=== PATIENT | female | born 1970 | race Caucasian/White ===

== ENCOUNTER 2020-05-18 21:21 | Inpatient (IN) | payer BC, SELFPAY ==
--- NOTE | ~2020-05-18 | CT_ITS ---
EXAMINATION: CTA chest PE protocol DATE: 05/19/2020 13:49 INDICATION: Shortness of breath and asthma TECHNIQUE: Computed tomography angiography (CTA) of the chest was performed with 100 mL Omnipaque-350 intravenous contrast timed to evaluate the pulmonary arteries. Coronal maximum intensity projection 3D-reconstructions were created by the technologist. The dose-length product (DLP) was 862.25 mGy-cm. Automated exposure control and iterative reconstruction technique were employed. COMPARISON: 10/01/2018 FINDINGS: The pulmonary arteries are well-opacified. No pulmonary embolism is identified. The lungs a re free of acute opacities. There is no pleural effusion or pneumothorax. A stable 2 mm nodule is pre sent in the right lower lobe, consistent with old granulomatous disease. There is no pleural effusion or pneumothorax. A large sliding hiatal hernia is noted. No pathologically enlarged thoracic lymph n odes are identified. The heart size is normal. There is mild thoracic spondylosis. IMPRESSION: 1. No pulmonary embolism or acute cardiopulmonary abnormality. Reviewed, dictated and finalized at location A.
--- NOTE | ~2020-05-18 | XR_ITS ---
EXAMINATION: XR chest 1V portable DATE: 05/18/2020 22:42 INDICATION: Shortness of breath. TECHNIQUE: A single frontal view of the chest was obtained. COMPARISON: Chest 2 views 03/18/2019 FINDINGS: There is mild atelectasis in the lower lung zones. No pleural effusion or pneumothorax. The heart size is normal. There is a large hiatal hernia. IMPRESSION: 1. Mild atelectasis in the lower lung zones. 2. Large hiatal hernia. Reviewed, dictated and finalized at location A.
[2020-05-18 21:25] VITALS: BP 201/106; PULSE 121; RESP 26; TEMP 36.7; O2SAT 85
[2020-05-18 21:28] VITALS: O2SAT 96
--- NOTE | 2020-05-18 21:35 | ECG_ITS ---
Measurements Intervals [place] Rate: 112 P: 76 CA: 133 QRS: 72 QRSD: 88 T: 60 QT: 343 QTc: 468 Interpretive Statements SINUS TACHYCARDIA BORDERLINE ST ABNORMALITY- ANTEROLAT/INF LEADS BASELINE ARTIFACT- I, II, III, AVR, AVL, AVF, V1-V6 ABNORMAL ECG Electronically Signed On 05-19-2020 7:44:39 CDT by William Valera D.O.
[2020-05-18 21:50] LABS: Basophils Absolute Auto 0.1 K/mm3 (0.0-0.1); Basophils Percent Auto 0.6 % (0.2-1.2); Hematocrit 40.5 % (37.0-47.0); Hemoglobin 12.2 g/dL (12.0-15.0); Immature Granulocyte Absolute 0.08 K/mm3 (0.00-0.031); Immature Granulocyte Percent A 0.9 % (0-0.5); Lymphocytes Absolute Auto 0.58 K/mm3 (0.9-3.2); Lymphocytes Percent Auto 6.6 % (18.3-44.2); Mean Corpuscular HGB Conc 30.1 g/dl (32-36); Mean Corpuscular Hemoglobin 22.2 pg (26-34); Mean Corpuscular Volume 73.8 fl (80-100); Monocytes Absolute Auto 0.2 K/mm3 (0.1-0.6); Monocytes Percent Auto 1.8 % (2.6-8.5); Neutrophils Absolute Auto 7.9 K/mm3 (1.3-6.7); Neutrophils Percent Auto 90.1 % (45.5-73.1); Platelet Count Result 261 k/mm3 (150-375); Red Blood Count 5.49 M/mm3 (4.2-5.4); White Blood Count 8.8 K/mm3 (4.5-10.0)
[2020-05-18 21:59] LABS: Blood Urea Nitrogen 7 mg/dL (7-17); Calcium 8.7 mg/dL (8.4-10.2); Carbon Dioxide 25 mmol/L (22-30); Chloride 101 mmol/L (98-107); Estimated CRCL calculation 135 ml/min; Estimated Glomerular Filt Rate > 60; Glucose 213 mg/dL (65-105); Sodium 138 mmol/L (137-145)
[2020-05-18 22:01] LABS: Ovalocytes 2+ (NORMAL); Platelet Estimate Adequate (Adequate)
--- NOTE | 2020-05-18 22:05 | PC.NURSE ---
Called lab to add on Trop Baseline, PT INR, PTT
[2020-05-18 22:09] VITALS: PULSE 116
[2020-05-18 22:18] LABS: Prothrombin Time 13.2 Seconds (11.1-14.7)
[2020-05-18 22:19] LABS: Partial Thromboplastin Time 29.1 SECONDS (22.3-36.8)
[2020-05-18 22:21] VITALS: BP 196/91; PULSE 105; RESP 20; O2SAT 97
[2020-05-18 22:26] LABS: Troponin I < 0.012 ng/mL (0.000-0.034)
--- NOTE | 2020-05-18 22:51 | ED.ASTHMA ---
HPI - Asthma General Chief Complaint: Asthma Stated Complaint: asthma issues Time Seen by Provider: 05/18/20 21:33 History of Present Illness HPI Narrative: 49 yo female w/ asthma presents to the ED from home for SOB. She has been feeling increasing SOB for the past 2 days. This is associated with wheezing and chest heaviness. These are her usual asthma symtpoms. She tried her home treatments without improvement. O2 saturation 85% on RA during triage. No fever, cough. Related Data Home Medications Medication Instructions Recorded Confirmed cetirizine 10 mg tablet 10 mg PO DAILY 12/22/19 05/19/20 ferrous sulfate 325 mg (65 mg 325 mg PO BID 12/22/19 05/19/20 iron) tablet omeprazole 20 mg tablet,delayed 20 mg PO DAILY 12/22/19 05/19/20 release budesonide-formoterol [Symbicort] 2 puff INHALATION Q12H 05/19/20 05/19/20 fluticasone propionate [Flonase 1 spray INTRANASAL DAILY 05/19/20 05/19/20 Allergy Relief] Allergies Allergy/AdvReac Type Severity Reaction Status Date / Time mold Allergy Intermediate Dyspnea / Verified 05/19/20 03:58 SOB tree and shrub pollen Allergy Intermediate Itching Verified 05/19/20 03:58 Grass Allergy Intermediate Itching Uncoded 05/19/20 03:58 Review of Systems Review of Systems: All systems reviewed & are unremarkable except as noted in HPI and below Constitutional: Constitutional: Denies fever(s) ENT: Denies sore throat Cardiovascular: Cardiovascular: Reports chest pain Respiratory: Respiratory: Denies cough, Reports dyspnea and Reports wheezing PMFSH Past Medical History Medical History Asthma Thalassemia Surgical History Surgical History Hx of hysterectomy, total Family History Family History Father Family history of atrial fibrillation Sibling Asthma Mother Chronic obstructive pulmonary disease Other Diabetes mellitus Family history of type 2 diabetes mellitus Hypertension Social History Social History Smoking status: Never smoker Second hand tobacco smoke exposure: Yes Alcohol intake: former Substance use: never Gender identity (if verbalized by the patient): Female Sexual Orientation (if Verbalized by the Patient): Straight or Heterosexual Spiritual care concerns: No Exam Const: General: no acute distress, alert and ill appearing Orientation/consciousness: patient oriented x3 HENMT: Head: normal to inspection Neck: Neck: normal visual inspection and no lymphadenopathy Resp: Effort & Inspection: labored and tachypneic Auscultation: wheezes Cardio: Jugular venous distension: no JVD Rate: tachycardic Rhythm: regular rhythm Heart sounds: no murmurs GI: Inspection: non-distended GI Palp: Yes Soft to palpation and No Tenderness to palpation present (GI) Skin: General skin exam: normal color Neuro: General: patient oriented x3 and moves all extremities Speech: normal speech Extrem: General: no edema Psych: Appearance: well kempt Affect: normal affect Course Course Emergency Course: She shows minimal improvmeent after nebulizer, magnesium, and solu-medrol. I will plan to admit for scheduled nebs and steroids. Vital Signs Vital signs: Vital Signs Temperature 36.7 C 05/18/20 21:25 Pulse Rate 121 H 05/18/20 21:25 Respiratory Rate 26 H 05/18/20 21:25 Blood Pressure 201/106 H 05/18/20 21:25 Pulse Oximetry 85 L 05/18/20 21:25 Temperature 36.4 C 05/19/20 03:42 Pulse Rate 105 H 05/19/20 03:42 Respiratory Rate 21 H 05/19/20 03:42 Blood Pressure 212/96 H 05/19/20 03:42 Pulse Oximetry 93 05/19/20 03:42 MDM - Asthma Medical Records Attestation: I reviewed the patient's medical records. Lab Data Attestation: I reviewed the patient's lab results. Result diagrams
[2020-05-18] MEDS: methylPREDNISolone SOD SUCC 125 MG VIAL IV PUSH (23:04)
[2020-05-18] MEDS: MAGNESIUM SULF 2 GM/WATER 50ML 2 GM/50 ML BAG IVPB (23:04)
[2020-05-18 23:09] VITALS: BP 187/113; PULSE 104; RESP 16; O2SAT 97
[2020-05-18] MEDS: IPRATROPIUM BR 0.02% INH SOLN 0.5 MG/2.5 ML VIAL 1 MG INHALATION (23:20)
[2020-05-18] MEDS: ALBUTEROL SULFATE NEB 2.5 MG/0.5 ML INH 10 MG INHALATION (23:20)
[2020-05-18 23:26] VITALS: PULSE 101; RESP 21
[2020-05-19] VITALS (20 sets, daily range): BP systolic 145–212; BP diastolic 78–105; PULSE 76–121; RESP 14–24; TEMP 36.4–36.9; O2SAT 89–98; BMI 44.0
[2020-05-19 01:42] LABS: Troponin I < 0.012 ng/mL (0.000-0.034)
--- NOTE | 2020-05-19 01:45 | PM.IMHP ---
H&P: HPI History of Present Illness Chief complaint: asthma issues Narrative: This is a pleasant 49 year old obese female with known persistent asthma who presented to the hospital with a complaint of worsening shortness of breath, chest tightness, wheezing, and increased work of breathing for the past 3 days. She remarks that her air conditioner went out in her house this past week and even though they got a window unit she has had to deal with increased heat and humidity in the house which she believes has triggered her asthma attack. She feels congested and has had a sporadic dry cough. She denies any fever, chills, sore throat, abdominal pain, nausea, vomiting, dysuria, hematuria, diarrhea, LE swelling, LE redness, or rectal bleeding. The patient was treated with steroids, bronchodilators, magnesium in the ER but continues to have increased work of breathing and severe shortness of breath. She has not required any supplemental oxygen. She denies any previous hospitalization which required intubation and mechanical ventilation. No other complaints tonight. Review of Systems Review of Systems: All systems reviewed & are unremarkable except as noted in HPI and below PMFSH Past Medical History Medical History (Updated 05/19/20 @ 01:54 by Enmanuel Moore MD) Asthma Thalassemia Surgical History Surgical History (Updated 05/19/20 @ 01:49 by Enmanuel Moore MD) Hx of hysterectomy, total Family History Family History (Updated 05/19/20 @ 01:50 by Enmanuel Moore MD) Father Family history of atrial fibrillation Sibling Asthma Other Diabetes mellitus Family history of type 2 diabetes mellitus Hypertension Social History Social History Smoking status: Never smoker Alcohol intake: current Meds Home Medications and Allergies Home Medications Medication Instructions Recorded Confirmed Type amlodipine 10 mg tablet 10 mg PO DAILY 12/22/19 History cetirizine 10 mg tablet 10 mg PO DAILY 12/22/19 History compressor, for nebulizer #1 each 12/22/19 12/22/19 Rx ferrous sulfate 325 mg (65 mg 325 mg PO DAILY 12/22/19 History iron) tablet fluticasone furoate 200 1 inhalation INHALATION DAILY 12/22/19 History mcg-vilanterol 25 mcg/dose inhalation powder lisinopril 20 mg tablet 20 mg PO DAILY 12/22/19 History omeprazole 20 mg tablet,delayed 20 mg PO DAILY 12/22/19 History release prednisone 10 mg tablet 10 mg PO TID #15 tablet 02/13/20 Rx ipratropium 0.5 mg-albuterol 3 mg See Rx Instructions .ROUTE 03/14/20 Rx (2.5 mg base)/3 mL nebulization .COMPLEX #180 ml soln albuterol sulfate 90 mcg/actuation 2 puff INHALATION Q4H PRN #6.7 gm 05/18/20 Rx aerosol inhaler escitalopram oxalate 20 mg tablet 20 mg PO DAILY #30 tablet 05/18/20 Rx prednisone 10 mg tablet 30 mg PO DAILY #15 tablet 05/18/20 Rx Allergies Allergy/AdvReac Type Severity Reaction Status Date / Time mold Allergy Intermediate Dyspnea / Verified 12/22/19 14:09 SOB tree and shrub pollen Allergy Intermediate Itching Verified 12/22/19 14:09 Grass Allergy Intermediate Itching Uncoded 12/22/19 14:09 Vital Signs Vital Signs - 24 hr 05/18/20 21:25 05/18/20 21:28 05/18/20 22:09 Temperature 36.7 C Pulse Rate 121 H 116 H Respiratory Rate 26 H Blood Pressure 201/106 H Pulse Oximetry 85 L 96 05/18/20 22:21 05/18/20 23:09 05/18/20 23:26 Temperature Pulse Rate 105 H 104 H 101 H Respiratory Rate 20 16 21 H Blood Pressure 196/91 H 187/113 H Pulse Oximetry 97 97 05/19/20 00:14 05/19/20 00:31 Temperature Pulse Rate 111 H 120 H Respiratory Rate 14 21 H Blood Pressure 181/105 H Pulse Oximetry 98 Exam Const: General: cooperative, alert, awake, in distress respiratory, anxious, ill appearing, tired appearing and uncomfortable Nutritional Appearance: obese morbidly obese Orientation/consciousness: patient oriented x3 HENMT: Jose
[2020-05-19] MEDS: IPRATROPIUM BR 0.02% INH SOLN 0.5 MG/2.5 ML VIAL INHALATION ×2 (01:52→08:59)
[2020-05-19] MEDS: ALBUTEROL SULFATE NEB 2.5 MG/0.5 ML INH 5 MG INHALATION (01:52)
--- NOTE | 2020-05-19 02:40 | PC.NURSE ---
Per EDP Matheus, hold dose of hydralazine at this time.
--- NOTE | 2020-05-19 03:30 | ADMGEN ---
This patient, Michell Huffman, was admitted to Medical Room 348-. Patient/family oriented to hospital policies and general routines including ID bracelet, bed and alarms, visiting hours, pain management, procedures, bathroom and other care routines, personal items, smoking policy, room service/diet, and visiting hours. Valuables list has been completed. Information on how to activate the Rapid Response Team has been discussed. Patient/Family are encouraged to report perceived risks to care and to ask questions if they do not understand what they are told or what they should do.
[2020-05-19] MEDS: hydrALAZINE HCL 20 MG/ML VIAL 10 MG IV PUSH ×2 (03:52→12:41)
[2020-05-19] MEDS: SODIUM CHLORIDE 0.9% IV 1,000 ML 75 ML IV CONT (03:52)
[2020-05-19] MEDS: ACETAMINOPHEN 325 MG TABLET 650 MG PO (03:55)
[2020-05-19 04:10] LABS: Basophils Percent Auto 0.2 % (0.2-1.2); Hematocrit 38.4 % (37.0-47.0); Hemoglobin 11.6 g/dL (12.0-15.0); Immature Granulocyte Absolute 0.08 K/mm3 (0.00-0.031); Immature Granulocyte Percent A 0.9 % (0-0.5); Immature Platelet Fraction Pct 3.7 % (0.9-11.2); Lymphocytes Absolute Auto 0.53 K/mm3 (0.9-3.2); Lymphocytes Percent Auto 5.6 % (18.3-44.2); Mean Corpuscular HGB Conc 30.2 g/dl (32-36); Mean Corpuscular Hemoglobin 22.2 pg (26-34); Mean Corpuscular Volume 73.6 fl (80-100); Monocytes Absolute Auto 0.1 K/mm3 (0.1-0.6); Monocytes Percent Auto 0.9 % (2.6-8.5); Neutrophils Absolute Auto 8.7 K/mm3 (1.3-6.7); Neutrophils Percent Auto 92.4 % (45.5-73.1); Platelet Count Result 265 k/mm3 (150-375); Red Blood Count 5.22 M/mm3 (4.2-5.4); White Blood Count 9.4 K/mm3 (4.5-10.0)
[2020-05-19 04:20] LABS: Blood Urea Nitrogen 13 mg/dL (7-17); Calcium 8.7 mg/dL (8.4-10.2); Carbon Dioxide 25 mmol/L (22-30); Chloride 102 mmol/L (98-107); Estimated CRCL calculation 144 ml/min; Estimated Glomerular Filt Rate > 60; Glucose 199 mg/dL (65-105); Magnesium 2.6 mg/dL (1.6-2.3); Potassium 3.7 mmol/L (3.4-5.0); Sodium 137 mmol/L (137-145)
[2020-05-19 04:31] LABS: Troponin I < 0.012 ng/mL (0.000-0.034)
[2020-05-19 05:28] LABS: Platelet Estimate Adequate (Adequate)
[2020-05-19 05:29] LABS: Large Platelets Present; Microcytosis 1+ (NORMAL); Ovalocytes 1+ (NORMAL)
[2020-05-19] MEDS: methylPREDNISolone SOD SUCC 125 MG VIAL 60 MG IV PUSH ×3 (06:15→17:15)
[2020-05-19] MEDS: FLUTICASONE PROPIONATE 0.05% NA SPR 16 GM BTL (*BKC) 1 SPRAY NASAL (09:45)
[2020-05-19] MEDS: FERROUS SULFATE 324 MG TABLET PO ×2 (09:46→17:14)
[2020-05-19] MEDS: ESCITALOPRAM OXALATE 10 MG TABLET 20 MG PO (09:46)
[2020-05-19] MEDS: PANTOPRAZOLE 40 MG TABLET PO (09:46)
--- NOTE | 2020-05-19 12:30 | PC.NURSE ---
This patient, Michell Huffman, was transferred to [facility] on 05/19/20 at 1230. Personal belongings sent with patient. Belongings list checked and signed with receiving. Report given to Bruna. Appropriate documentation sent with patient.
--- NOTE | 2020-05-19 12:46 | PM.IMPN ---
Progress Note: A&P Assessment and Plan (1) Asthma exacerbation: Qualifiers: Asthma persistence: unspecified Asthma severity: unspecified severity Qualified Code(s): J45.901 - Unspecified asthma with (acute) exacerbation Code(s): J45.901 - Unspecified asthma with (acute) exacerbation Status: Acute Assessment and Plan: Patient with moderate persistent asthma presents with 3 days of worsening shortness of breath with wheezing and cough, now hypoxic requiring up to 2 L O2. Patient reports she was tested for COVID as outpatient 05/17 and is waiting on results. Her came home from work ill 05/17 with cough and sinus congestion. Her SOB began the same day and they went to get tested. Afebrile with no PNA on imaging, COVID is less likely but feel it is prudent to rule out at this point since she is using nebulized medication. She was treated with nebulizers and magnesium in ED. Since COVID isolation, will avoid nebulizers and switch albuterol to MDI; switch to Spiriva. Continuous pulse ox monitoring. Peak flows. Continue IV solu-medrol at current dose today and will wean as appropriate. (2) Acute respiratory failure with hypoxia: Code(s): J96.01 - Acute respiratory failure with hypoxia Status: Acute Assessment and Plan: [place] to be a result of acute asthma exacerbation; tolerating 2L supplemental O2 today, does not use O2 at home. Continue respiratory regimen above. (3) HTN (hypertension) with goal to be determined: Code(s): I10 - Essential (primary) hypertension Status: Acute Assessment and Plan: Patient reports she used to take lisinopril but was taken off of it in the past. Pressures have been quite elevated here. Continue with PRN hydralazine and will start her back on lisinopril. Monitor BPs and adjust treatment as needed. (4) Thalassemia: Qualifiers: Thalassemia type: unspecified type Qualified Code(s): D56.9 - Thalassemia, unspecified Code(s): D56.9 - Thalassemia, unspecified Status: Chronic Assessment and Plan: Patient follows with Dr Rosales for iron deficiency anemia and she reports she has thalassemia. Will monitor CBC. Subjective Date/time seen: 05/19/20 12:00 Interval history: Ms. Huffman is a 49yo F admitted for acute respiratory failure with hypoxia due to asthma exacerbation. She is still feeling quite short of breath this afternoon, worse with walking, relieved a bit when she lies down. She tells me she has a mild dry cough but denies fevers at home. She reports some diffuse chest wall soreness worse with deep breaths. Denies nausea, vomiting or abdominal pain. Review of Systems Review of Systems: Narrative: Twelve systems were reviewed with pertinent positives and negatives as per HPI. Exam Narrative: Exam Narrative: General: Female sitting up in bed, tachypnea with audible wheezing. HEENT: Normocephalic, EOMI, oral mucosa tacky. Cardiovascular: Rate and rhythm regular. Telemetry review shows sinus rhythm HR 94 with intermittent sinus tachycardia. Respiratory: Diffuse inspiratory and expiratory wheezing throughout all lux, mildly labored with conversational dyspnea. Tolerating 2L O2 nasal cannula. Abdomen: Soft, non-tender, non-distended, bowel sounds present. Extremities: Peripheral pulses intact. No edema. Neuro: No focal neurological deficits. Speech is clear. Objective Data Vital Signs Vital Signs: Last Vital Signs Temp 97.9 F 05/19/20 07:55 Pulse 76 05/19/20 12:00 Resp 20 05/19/20 09:09 BP 176/98 H 05/19/20 07:55 Pulse Ox 94 05/19/20 09:11 Intake/Output Intake/Output: Intake & Output 05/16/20 05/17/20 05/18/20 05/19/20 23:59 23:59 23:59 23:59 Intake Total 290 Balance 290 Meds/Results Medications: Active Medications Generic Name Dose Route St
--- NOTE | 2020-05-19 14:21 | PC.NURSE ---
This patient, Michell Huffman, was received from [[address] [place] [address]] on 05/19/20 at 1310. Personal belongings list checked and signed. Patient/family oriented to unit policies and routines
[2020-05-19] MEDS: ALBUTEROL SULFATE (*SP) AEROSOL 1 PUFF 2 PUFF INHALATION ×2 (15:45→21:15)
[2020-05-19] MEDS: lisinopriL 10 MG TABLET PO (17:14)
[2020-05-20] VITALS (17 sets, daily range): BP systolic 135–161; BP diastolic 77–88; PULSE 81–104; RESP 20–22; TEMP 36.4–36.8; O2SAT 92–97
[2020-05-20] MEDS: ALBUTEROL SULFATE (*SP) AEROSOL 1 PUFF 2 PUFF INHALATION ×6 (00:39→23:43)
[2020-05-20] MEDS: methylPREDNISolone SOD SUCC 125 MG VIAL 60 MG IV PUSH ×5 (00:59→23:57)
[2020-05-20 06:33] LABS: Basophils Percent Auto 0.2 % (0.2-1.2); Hematocrit 40.6 % (37.0-47.0); Hemoglobin 11.9 g/dL (12.0-15.0); Immature Granulocyte Percent A 1.1 % (0-0.5); Immature Platelet Fraction Pct 6.4 % (0.9-11.2); Lymphocytes Absolute Auto 1.86 K/mm3 (0.9-3.2); Lymphocytes Percent Auto 10.7 % (18.3-44.2); Mean Corpuscular HGB Conc 29.3 g/dl (32-36); Mean Corpuscular Hemoglobin 22.1 pg (26-34); Mean Corpuscular Volume 75.3 fl (80-100); Monocytes Absolute Auto 0.6 K/mm3 (0.1-0.6); Monocytes Percent Auto 3.6 % (2.6-8.5); Neutrophils Absolute Auto 14.7 K/mm3 (1.3-6.7); Neutrophils Percent Auto 84.4 % (45.5-73.1); Nucleated Red Blood Cells Perc 0.2 % (0.0-0.2); Platelet Count Result 299 k/mm3 (150-375); Red Blood Count 5.39 M/mm3 (4.2-5.4); White Blood Count 17.4 K/mm3 (4.5-10.0)
[2020-05-20 06:49] LABS: Alanine Aminotransferase 25 U/L (4-35); Albumin Level 4.1 g/dL (3.5-5.1); Alkaline Phosphatase 104 U/L (38-126); Aspartate Amino Transferase 20 U/L (14-36); Bilirubin,Total 0.1 mg/dL (0.2-1.3); Blood Urea Nitrogen 20 mg/dL (7-17); CRP 0.7 mg/dL (<1.0); Carbon Dioxide 31 mmol/L (22-30); Chloride 103 mmol/L (98-107); Estimated CRCL calculation 122 ml/min; Estimated Glomerular Filt Rate > 60; Glucose 129 mg/dL (65-105); Lactate Dehydrogenase 382 U/L (313-618); Magnesium 2.6 mg/dL (1.6-2.3); Phosphorus 2.5 mg/dL (2.5-4.5); Potassium 4.1 mmol/L (3.4-5.0); Sodium 142 mmol/L (137-145)
[2020-05-20 07:04] LABS: D Dimer 0.27 ug/mL (<0.48)
[2020-05-20 07:05] LABS: Hypochromasia 3+ (NORMAL); Platelet Estimate Adequate (Adequate)
[2020-05-20 07:06] LABS: Helmet Cells 1+ (NORMAL); Ovalocytes 2+ (NORMAL); Stomatocytes 2+ (NORMAL)
[2020-05-20] MEDS: ENOXAPARIN 40 MG/0.4 ML SYRINGE SUB-Q (08:25)
[2020-05-20] MEDS: ESCITALOPRAM OXALATE 10 MG TABLET 20 MG PO (08:25)
[2020-05-20] MEDS: lisinopriL 10 MG TABLET PO (08:26)
[2020-05-20] MEDS: PANTOPRAZOLE 40 MG TABLET PO (08:26)
[2020-05-20] MEDS: FERROUS SULFATE 324 MG TABLET PO ×2 (08:26→18:23)
--- NOTE | 2020-05-20 11:36 | PM.IMPN ---
Progress Note: A&P Assessment and Plan (1) Asthma exacerbation: Qualifiers: Asthma persistence: unspecified Asthma severity: unspecified severity Qualified Code(s): J45.901 - Unspecified asthma with (acute) exacerbation Code(s): J45.901 - Unspecified asthma with (acute) exacerbation Status: Acute Assessment and Plan: Patient with moderate persistent asthma presents with 3 days of worsening shortness of breath with wheezing and cough, now hypoxic requiring up to 2 L O2. Patient reports she was tested for COVID as outpatient 05/17 and is waiting on results. Her came home from work ill 05/17 with cough and sinus congestion. Her SOB began the same day and they went to get tested. Afebrile with no PNA on imaging, COVID is less likely but feel it is prudent to rule out at this point since she was tested and is using nebulized medication. She was treated with nebulizers and magnesium in ED. Since COVID isolation, will avoid nebulizers and switch albuterol to MDI; switch to Spiriva. Continuous pulse ox monitoring. Continue IV solu-medrol at current dose today and will wean as appropriate. Suspect leukocytosis today is related to steroids. (2) Acute respiratory failure with hypoxia: Code(s): J96.01 - Acute respiratory failure with hypoxia Status: Acute Assessment and Plan: [place] to be a result of acute asthma exacerbation; tolerating 2L supplemental O2 today, does not use O2 at home. Continue respiratory regimen above. (3) HTN (hypertension) with goal to be determined: Code(s): I10 - Essential (primary) hypertension Status: Acute Assessment and Plan: Patient reports she used to take lisinopril but was taken off of it in the past. Pressures have been elevated here. Continue with PRN hydralazine and started her back on lisinopril today. Monitor BPs and adjust treatment as needed. (4) Thalassemia: Qualifiers: Thalassemia type: unspecified type Qualified Code(s): D56.9 - Thalassemia, unspecified Code(s): D56.9 - Thalassemia, unspecified Status: Chronic Assessment and Plan: Patient follows with Dr Rosales for iron deficiency anemia and she reports she has thalassemia as well. Will monitor CBC. Subjective Date/time seen: 05/20/20 1030 Interval history: Ms. Huffman is a 49yo F admitted for acute respiratory failure with hypoxia due to asthma exacerbation. She reports still moderate shortness of breath and wheezing, more so with walking to the restroom. We can get her a bedside commode to reduce walking distance. She has diffuse dull chest wall tenderness with coughing and deep breaths. Denies nausea, vomiting or abdominal pain. Review of Systems Review of Systems: Narrative: Twelve systems were reviewed with pertinent positives and negatives as per HPI. Exam Narrative: Exam Narrative: General: Female sitting up in bed, mild tachypnea with audible wheezing. HEENT: Normocephalic, EOMI, oral mucosa tacky. Cardiovascular: Rate and rhythm regular. Telemetry review shows sinus rhythm HR 96 with intermittent sinus tachycardia. Respiratory: Diffuse inspiratory and expiratory wheezing throughout all lux, mildly labored with conversational dyspnea. Tolerating 2L O2 nasal cannula. Abdomen: Soft, non-tender, non-distended, bowel sounds present. Extremities: Peripheral pulses intact. No edema. Neuro: No focal neurological deficits. Speech is clear. Objective Data Vital Signs Vital Signs: Last Vital Signs Temp 97.6 F 05/20/20 10:00 Pulse 92 05/20/20 10:00 Resp 20 05/20/20 10:00 BP 148/87 H 05/20/20 10:00 Pulse Ox 93 05/20/20 10:00 Intake/Output Intake/Output: Intake & Output 05/17/20 05/18/20 05/19/20 05/20/20 23:59 23:59 23:59 23:59 Intake Total 530 100 Output Total 400 300 Balance 130 -200
[2020-05-20] MEDS: FLUTICASONE PROPIONATE 0.05% NA SPR 16 GM BTL (*BKC) 1 SPRAY NASAL (11:41)
[2020-05-20] MEDS: MAGNESIUM SULF 1 GM/D5W 100 ML 1 GM/100 ML BAG IVPB (22:49)
[2020-05-21] VITALS (18 sets, daily range): BP systolic 156–175; BP diastolic 75–97; PULSE 76–124; RESP 18–22; TEMP 36.1–38.2; O2SAT 94–99
[2020-05-21] MEDS: hydrALAZINE HCL 20 MG/ML VIAL 10 MG IV PUSH ×2 (02:59→04:41)
[2020-05-21] MEDS: ACETAMINOPHEN 325 MG TABLET 650 MG PO (03:02)
[2020-05-21] MEDS: ALBUTEROL SULFATE (*SP) AEROSOL 1 PUFF 2 PUFF INHALATION ×3 (04:10→12:57)
[2020-05-21 06:08] LABS: Basophils Percent Auto 0.2 % (0.2-1.2); Eosinophils Absolute Auto 0.1 K/mm3 (0-0.3); Eosinophils Percent Auto 0.4 % (0-4.4); Hematocrit 40.3 % (37.0-47.0); Hemoglobin 11.8 g/dL (12.0-15.0); Immature Granulocyte Absolute 0.34 K/mm3 (0.00-0.031); Immature Granulocyte Percent A 2.2 % (0-0.5); Immature Platelet Fraction Pct 5.9 % (0.9-11.2); Lymphocytes Absolute Auto 1.12 K/mm3 (0.9-3.2); Lymphocytes Percent Auto 7.3 % (18.3-44.2); Mean Corpuscular HGB Conc 29.3 g/dl (32-36); Mean Corpuscular Hemoglobin 22.2 pg (26-34); Mean Corpuscular Volume 75.8 fl (80-100); Monocytes Absolute Auto 0.2 K/mm3 (0.1-0.6); Neutrophils Absolute Auto 13.5 K/mm3 (1.3-6.7); Neutrophils Percent Auto 88.9 % (45.5-73.1); Platelet Count Result 288 k/mm3 (150-375); Red Blood Count 5.32 M/mm3 (4.2-5.4); White Blood Count 15.3 K/mm3 (4.5-10.0)
[2020-05-21] MEDS: methylPREDNISolone SOD SUCC 125 MG VIAL 60 MG IV PUSH ×2 (06:22→12:25)
[2020-05-21 06:24] LABS: Blood Urea Nitrogen 16 mg/dL (7-17); Calcium 8.5 mg/dL (8.4-10.2); Carbon Dioxide 32 mmol/L (22-30); Chloride 97 mmol/L (98-107); Estimated CRCL calculation 144 ml/min; Estimated Glomerular Filt Rate > 60; Glucose 165 mg/dL (65-105); Magnesium 2.3 mg/dL (1.6-2.3); Potassium 3.9 mmol/L (3.4-5.0); Sodium 136 mmol/L (137-145)
[2020-05-21 07:50] LABS: Anisocytosis 1+ (NORMAL); Hypochromasia 2+ (NORMAL); Microcytosis 1+ (NORMAL); Ovalocytes 2+ (NORMAL); Platelet Estimate Adequate (Adequate); Stomatocytes 1+ (NORMAL)
[2020-05-21] MEDS: FERROUS SULFATE 324 MG TABLET PO ×2 (09:35→18:00)
[2020-05-21] MEDS: lisinopriL 10 MG TABLET PO ×2 (09:35→18:00)
[2020-05-21] MEDS: PANTOPRAZOLE 40 MG TABLET PO (09:35)
[2020-05-21] MEDS: ESCITALOPRAM OXALATE 10 MG TABLET 20 MG PO (09:35)
[2020-05-21] MEDS: ENOXAPARIN 40 MG/0.4 ML SYRINGE SUB-Q (09:36)
[2020-05-21] MEDS: FLUTICASONE PROPIONATE 0.05% NA SPR 16 GM BTL (*BKC) 1 SPRAY NASAL (09:36)
[2020-05-21] MEDS: guaiFENesin 12 HR 600 MG TABCR PO ×2 (10:44→21:47)
--- NOTE | 2020-05-21 10:49 | PM.IMPN ---
Progress Note: A&P Assessment and Plan (1) Asthma exacerbation: Qualifiers: Asthma persistence: unspecified Asthma severity: unspecified severity Qualified Code(s): J45.901 - Unspecified asthma with (acute) exacerbation Code(s): J45.901 - Unspecified asthma with (acute) exacerbation Status: Acute Assessment and Plan: Patient with moderate persistent asthma presents with 3 days of worsening shortness of breath with wheezing and cough, now hypoxic still requiring O2. COVID-19 testing negative. DC isolation and add back nebulized bronchodilator therapy. Add mucinex and cornet therapy. Continue IV solu-medrol, wean today. (2) Acute respiratory failure with hypoxia: Code(s): J96.01 - Acute respiratory failure with hypoxia Status: Acute Assessment and Plan: [place] to be a result of acute asthma exacerbation, does not use O2 at home. Continue respiratory regimen above. (3) Leukocytosis: Qualifiers: Leukocytosis type: unspecified Qualified Code(s): D72.829 - Elevated white blood cell count, unspecified Code(s): D72.829 - Elevated white blood cell count, unspecified Status: Acute Assessment and Plan: Noted yesterday and improved slighly today; suspected was related to initiation of steroid therapy however she does have a low-grade fever this afternoon. CTA chest with no infiltrates concerning for pneumonia. Will obtain UA with reflex culture. (4) HTN (hypertension) with goal to be determined: Code(s): I10 - Essential (primary) hypertension Status: Acute Assessment and Plan: Patient reports she used to take lisinopril but was taken off of it in the past. Pressures have been elevated here. Started her back on lisinopril, will increase to 20mg daily and continue hydralazine PRN. Monitor BPs and adjust treatment as needed. (5) Thalassemia: Qualifiers: Thalassemia type: unspecified type Qualified Code(s): D56.9 - Thalassemia, unspecified Code(s): D56.9 - Thalassemia, unspecified Status: Chronic Assessment and Plan: Patient follows with Dr Rosales for iron deficiency anemia and she reports she has thalassemia as well. Will monitor CBC, H&H low but stable with no evidence of acute bleeding. Subjective Date/time seen: 05/21/20 10:15 Interval history: Ms. Huffman is a 49yo F admitted for acute respiratory failure with hypoxia due to asthma exacerbation. She is feeling about the same today and still with moderate SOB, more with walking to the bathroom. I encouraged her to use the bedside commode today to limit walking distance. Dull chest wall tenderness with coughing and deep breaths. She is tolerating oral intake without nausea, vomiting or abdominal pain. Review of Systems Review of Systems: Narrative: Twelve systems were reviewed with pertinent positives and negatives as per HPI. Exam Narrative: Exam Narrative: General: Female sitting up in bed mildly short of breath with audible wheezing. HEENT: Normocephalic, EOMI, oral mucosa tacky. Cardiovascular: Rate and rhythm regular. Telemetry review shows sinus rhythm HR 92 with intermittent sinus tachycardia. Respiratory: Diffuse inspiratory and expiratory wheezing throughout all lux improved from days prior, mildly labored with conversational dyspnea. Tolerating 3L O2 nasal cannula. Abdomen: Soft, non-tender, non-distended, bowel sounds present. Extremities: Peripheral pulses intact. No edema. Neuro: No focal neurological deficits. Speech is clear. Objective Data Vital Signs Vital Signs: Last Vital Signs Temp 100.7 F H 05/21/20 14:00 Pulse 98 05/21/20 14:00 Resp 18 05/21/20 14:00 BP 158/84 H 05/21/20 14:00 Pulse Ox 99 05/21/20 14:00 Intake/Output Intake/Output: Intake & Output
[2020-05-21 14:26] LABS: SARS-CoV-2 RNA PCR Negative
--- NOTE | 2020-05-21 14:46 | PC.NURSE ---
Called and notified Roxi OSBORNE that patient COVID test is negative.
[2020-05-21] MEDS: ALBUTEROL SULFATE NEB 2.5 MG/0.5 ML INH 5 MG INHALATION ×2 (16:23→19:59)
[2020-05-21] MEDS: IPRATROPIUM BR 0.02% INH SOLN 0.5 MG/2.5 ML VIAL INHALATION ×2 (16:23→19:59)
[2020-05-21] MEDS: methylPREDNISolone SOD SUCC 40 MG VIAL IV PUSH (21:48)
[2020-05-22] VITALS (19 sets, daily range): BP systolic 151–174; BP diastolic 81–97; PULSE 71–106; RESP 18–22; TEMP 36.4–36.6; O2SAT 93–98
[2020-05-22 01:48] LABS: Add Urine Microscopic? YES; Appearance Urine Clear (Clear); Bacteria Urine Trace /hpf; Bilirubin Urine Negative (Negative); Blood Urine Negative (Negative); Color Urine Yellow (Yellow); Glucose Urine UA 3+ mg/dL (Negative); Ketones Urine Negative (Negative); Leukocyte Esterase Ur Negative LEU/UL (Negative); Mucus Urine Few /lpf; Nitrate Urine Negative (Negative); Protein Urine 1+ mg/dL (Negative); RBC Urine 0-2 /hpf (0-2); Squamous Epithelial Cell Urine Few /hpf (Few); Urobilinogen Urine Negative mg/dL (<2.0); WBC Urine 0-3 /hpf
[2020-05-22 01:50] LABS: Specific Grav Ur 1.038 (1.001-1.035)
[2020-05-22] MEDS: ALBUTEROL SULFATE NEB 2.5 MG/0.5 ML INH 5 MG INHALATION ×4 (02:19→20:33)
[2020-05-22] MEDS: IPRATROPIUM BR 0.02% INH SOLN 0.5 MG/2.5 ML VIAL INHALATION ×4 (02:20→20:34)
[2020-05-22 05:57] LABS: Basophils Percent Auto 0.1 % (0.2-1.2); Hematocrit 35.1 % (37.0-47.0); Hemoglobin 10.5 g/dL (12.0-15.0); Immature Granulocyte Absolute 0.14 K/mm3 (0.00-0.031); Immature Granulocyte Percent A 1.6 % (0-0.5); Immature Platelet Fraction Pct 4.3 % (0.9-11.2); Lymphocytes Absolute Auto 0.79 K/mm3 (0.9-3.2); Lymphocytes Percent Auto 8.9 % (18.3-44.2); Mean Corpuscular HGB Conc 29.9 g/dl (32-36); Mean Corpuscular Hemoglobin 22.7 pg (26-34); Monocytes Absolute Auto 0.3 K/mm3 (0.1-0.6); Monocytes Percent Auto 3.5 % (2.6-8.5); Neutrophils Absolute Auto 7.6 K/mm3 (1.3-6.7); Neutrophils Percent Auto 85.9 % (45.5-73.1); Platelet Count Result 242 k/mm3 (150-375); Red Blood Count 4.62 M/mm3 (4.2-5.4); White Blood Count 8.8 K/mm3 (4.5-10.0)
[2020-05-22 06:10] LABS: Blood Urea Nitrogen 22 mg/dL (7-17); Calcium 7.9 mg/dL (8.4-10.2); Carbon Dioxide 32 mmol/L (22-30); Chloride 100 mmol/L (98-107); Estimated CRCL calculation 144 ml/min; Estimated Glomerular Filt Rate > 60; Glucose 154 mg/dL (65-105); Magnesium 2.3 mg/dL (1.6-2.3); Potassium 3.7 mmol/L (3.4-5.0); Sodium 136 mmol/L (137-145)
[2020-05-22] MEDS: methylPREDNISolone SOD SUCC 40 MG VIAL IV PUSH ×3 (06:20→21:24)
[2020-05-22 06:29] LABS: Anisocytosis 2+ (NORMAL); Platelet Estimate Adequate (Adequate)
[2020-05-22 06:30] LABS: Hypochromasia 1+ (NORMAL)
[2020-05-22] MEDS: PANTOPRAZOLE 40 MG TABLET PO (08:27)
[2020-05-22] MEDS: ESCITALOPRAM OXALATE 10 MG TABLET 20 MG PO (08:27)
[2020-05-22] MEDS: ENOXAPARIN 40 MG/0.4 ML SYRINGE SUB-Q (08:27)
[2020-05-22] MEDS: guaiFENesin 12 HR 600 MG TABCR PO ×2 (08:27→21:24)
[2020-05-22] MEDS: lisinopriL 20 MG TABLET PO (08:27)
[2020-05-22] MEDS: FERROUS SULFATE 324 MG TABLET PO ×2 (08:27→16:58)
[2020-05-22] MEDS: hydrALAZINE HCL 20 MG/ML VIAL 10 MG IV PUSH (08:27)
[2020-05-22] MEDS: FLUTICASONE PROPIONATE 0.05% NA SPR 16 GM BTL (*BKC) 1 SPRAY NASAL (08:33)
--- NOTE | 2020-05-22 15:55 | PM.IMPN ---
Progress Note: A&P Assessment and Plan (1) Asthma exacerbation: Qualifiers: Asthma persistence: unspecified Asthma severity: unspecified severity Qualified Code(s): J45.901 - Unspecified asthma with (acute) exacerbation Code(s): J45.901 - Unspecified asthma with (acute) exacerbation Status: Acute Assessment and Plan: Acute on chronic asthma exacerbation. Patient with moderate persistent asthma presents with 3 days of worsening shortness of breath with wheezing and cough, now hypoxic still requiring O2. COVID-19 testing negative. DC isolation. She reports feeling better today. will continue nebulized bronchodilator therapy, mucinex and cornet therapy. she is still on IV solu-medrol 40 mg q.8 hours I consulted pulmonology on the case because the patient does not have a news analyst to follow-up with anymore and will need further adjustments and follow-up as an outpatient. Dr. Schulz was consulted. Continue monitoring patient's symptoms and decrease her Solu-Medrol as tolerated. (2) Acute respiratory failure with hypoxia: Code(s): J96.01 - Acute respiratory failure with hypoxia Status: Acute Assessment and Plan: [place] to be a result of acute asthma exacerbation, does not use O2 at home. She is resting comfortably on 93-94% on 3 L. Continue respiratory regimen above. (3) Leukocytosis: Qualifiers: Leukocytosis type: unspecified Qualified Code(s): D72.829 - Elevated white blood cell count, unspecified Code(s): D72.829 - Elevated white blood cell count, unspecified Status: Acute Assessment and Plan: Noted during hospitalization. Suspected was related to initiation of steroid therapy however she does have a low-grade fever this afternoon (which again could have been related to steroid use) Leukocytosis normalized today at 8,800. CTA chest with no infiltrates concerning for pneumonia. UA was negative for any acute infection. She does not have any worsening symptoms that would warrant a repeat CXR at this time. Will continue monitoring leukocytosis and monitoring her symptoms. (4) HTN (hypertension) with goal to be determined: Code(s): I10 - Essential (primary) hypertension Status: Acute Assessment and Plan: Patient reports she used to take lisinopril but was taken off of it in the past. Pressures have been elevated here. Continue lisinopril 20mg daily and continue hydralazine PRN. Monitor BPs and adjust treatment as needed. (5) Thalassemia: Qualifiers: Thalassemia type: unspecified type Qualified Code(s): D56.9 - Thalassemia, unspecified Code(s): D56.9 - Thalassemia, unspecified Status: Chronic Assessment and Plan: Patient follows with Dr Rosales for iron deficiency anemia and she reports she has thalassemia as well. Will monitor CBC, H&H low but stable with no evidence of acute bleeding. Time Spent With Patient Time with patient: 25 - 35 minutes Subjective Date/time seen: 05/22/20 15:55 Interval history: Ms. Huffman is a 49yo F admitted for acute respiratory failure with hypoxia due to asthma exacerbation. Date of service 05/22/2020: the patient states she is feeling a little bit better today. She is still on 3 L of oxygen with a saturation around 93-94%. she still feels her chest is tight and wheezing. she reports having a productive cough which is improved with Mucinex and using the Cornet. she denies any fever, chills, nausea, vomiting, abdominal pain, leg swelling, calf pain or any other symptoms at this time. Review of Systems Review of Systems: All systems reviewed & are unremarkable except as noted in HPI and below Exam Narrative: Exam Narrative: General: 49-year-old woman laying flat in bed on her left side, resting c
[2020-05-23] VITALS (22 sets, daily range): BP systolic 138–175; BP diastolic 77–97; PULSE 60–114; RESP 16–20; TEMP 36.4–36.7; O2SAT 89–97
--- NOTE | 2020-05-23 | ECHO_ITS ---
Patient Info Name: Michell Huffman Age: 49 years : 1970 Gender: Female Ht: 64 in Wt: 256 lbs BSA: 2.35 m2 HR: 78 bpm BP: 140 / 90 mmHg Technical Quality: Good Exam Date: 05/23/2020 1:52 PM Exam Location: [facility] Patient Status: Inpatient Admit Date: 05/20/2020 Staff Ordering Physician: Demetrice Schulz MD Childcare Worker: Julia Alegre RDCS Attending Provider: Yue Grey PA-C Referring Physician: Jazz HILL; Exam Type: CA echo doppler color flow Study Info Indications - sob asthma Complete two-dimensional, color flow and Doppler transthoracic echocardiogram is performed. Summary 1. Left ventricular chamber dimension is normal. 2. Left ventricular systolic function is normal, estimated at 60-65%. 3. The left ventricular diastolic function is grade I diastolic dysfunction. 4. E/e' 11 is mildly elevated. 5. There is trace tricuspid valve regurgitation. 6. No pulmonary hypertension, estimated pulmonary arterial systolic pressure is 38 mmHg. Left Ventricle E/e' 11 is mildly elevated. Left ventricular chamber dimension is normal. Left ventricular systolic function is normal, estimated at 60-65%. The left ventricular diastolic function is grade I diastolic dysfunction. Right Ventricle Right ventricular chamber dimension is normal. Right ventricular systolic function is normal. Left Atria Left atrial chamber dimension is normal. Right Atria Right atrial chamber dimension is normal. Aortic Valve Cannot determine number of aortic valve leaflets. The aortic valve is not well visualized. There is no aortic valve stenosis. There is no aortic valve regurgitation. Pulmonic Valve There is no pulmonic regurgitation. Mitral Valve There is no mitral valve stenosis. There is no mitral valve regurgitation. Tricuspid Valve There is trace tricuspid valve regurgitation. No pulmonary hypertension, estimated pulmonary arterial systolic pressure is 38 mmHg. Pericardium/Pleural There is no pericardial effusion. Inferior Vena Cava Normal inferior vena cava with >50% collapse upon inspiration consistent with normal right atrial pressure, 5 mmHg. Aorta The aortic root size at the sinus of Valsalva is normal. Left Ventricular Outflow Tract Name Value Normal LVOT 2D LVOT Diameter 2.0 cm LVOT Doppler LVOT Peak Gradient 10 mmHg LVOT Mean Gradient 6 mmHg LVOT VTI 29 cm LVOT VTI/AV VTI Ratio 0.9 LVOT Stroke Volume 91 ml LVOT CO 22.9 l/min LVOT CI 9.7 l/min/m2 Pulmonic Valve Name Value Normal PV Doppler PV Peak Gradient 3 mmHg Mitral Valve
[2020-05-23] MEDS: MAGNESIUM SULF 1 GM/D5W 100 ML 1 GM/100 ML BAG IVPB (00:04)
[2020-05-23] MEDS: ALBUTEROL SULFATE NEB 2.5 MG/0.5 ML INH 5 MG INHALATION ×4 (02:37→20:51)
[2020-05-23] MEDS: IPRATROPIUM BR 0.02% INH SOLN 0.5 MG/2.5 ML VIAL INHALATION ×4 (02:37→20:51)
[2020-05-23 06:09] LABS: Hematocrit 36.7 % (37.0-47.0); Hemoglobin 10.9 g/dL (12.0-15.0); Immature Platelet Fraction Pct 5.2 % (0.9-11.2); Mean Corpuscular HGB Conc 29.7 g/dl (32-36); Mean Corpuscular Hemoglobin 22.7 pg (26-34); Mean Corpuscular Volume 76.3 fl (80-100); Platelet Count Result 249 k/mm3 (150-375); Red Blood Count 4.81 M/mm3 (4.2-5.4); White Blood Count 11.4 K/mm3 (4.5-10.0)
[2020-05-23 06:23] LABS: Blood Urea Nitrogen 16 mg/dL (7-17); Calcium 8.1 mg/dL (8.4-10.2); Carbon Dioxide 31 mmol/L (22-30); Chloride 100 mmol/L (98-107); Estimated CRCL calculation 144 ml/min; Estimated Glomerular Filt Rate > 60; Glucose 139 mg/dL (65-105); Potassium 3.3 mmol/L (3.4-5.0); Sodium 137 mmol/L (137-145)
[2020-05-23] MEDS: methylPREDNISolone SOD SUCC 40 MG VIAL IV PUSH ×2 (06:46→17:35)
[2020-05-23] MEDS: hydrALAZINE HCL 20 MG/ML VIAL 10 MG IV PUSH (06:46)
[2020-05-23] MEDS: lisinopriL 20 MG TABLET PO (09:27)
[2020-05-23] MEDS: guaiFENesin 12 HR 600 MG TABCR PO ×2 (09:27→22:02)
[2020-05-23] MEDS: PANTOPRAZOLE 40 MG TABLET PO (09:27)
[2020-05-23] MEDS: FERROUS SULFATE 324 MG TABLET PO ×2 (09:27→17:27)
[2020-05-23] MEDS: ESCITALOPRAM OXALATE 10 MG TABLET 20 MG PO (09:28)
[2020-05-23] MEDS: POTASSIUM CHLORIDE 20 MEQ TABLET 40 MEQ PO (09:28)
[2020-05-23] MEDS: FLUTICASONE PROPIONATE 0.05% NA SPR 16 GM BTL (*BKC) 1 SPRAY NASAL (09:28)
[2020-05-23] MEDS: ENOXAPARIN 40 MG/0.4 ML SYRINGE SUB-Q (09:28)
[2020-05-23 10:03] LABS: Transferrin 255 mg/dL (206-381)
[2020-05-23 10:20] LABS: Iron 68 ug/dL (37-170)
[2020-05-23 10:30] LABS: Percent Iron Saturation 20 % (20-50)
[2020-05-23 11:03] LABS: Folic Acid 5.2 ng/mL (2.76->20)
--- NOTE | 2020-05-23 11:23 | PM.CNPUL ---
History of Present Illness History of Present Illness Consult date: 05/23/20 Requesting physician: Yue Grey PA-C Chief complaint: Asthma exacerbation, htn Narrative: Thank you for the consult. Please see job #[id number]. A/P asthma exacerbation-poor control outpatient over the last 7 years, 4-5 episodes a year over the last few years. 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 Add Btety. Follow up for sleep issues. [facility], [facility] Past Medical History Medical History Asthma Thalassemia Surgical History Surgical History Hx of hysterectomy, total Family History Family History Father Family history of atrial fibrillation Sibling Asthma Mother Chronic obstructive pulmonary disease Other Diabetes mellitus Family history of type 2 diabetes mellitus Hypertension Social History Social History Smoking status: Never smoker Second hand tobacco smoke exposure: Yes Alcohol intake: former Substance use: never Gender identity (if verbalized by the patient): Female Sexual Orientation (if Verbalized by the Patient): Straight or Heterosexual Spiritual care concerns: No Meds Home Medications and Allergies Home Medications Medication Instructions Recorded Confirmed Type cetirizine 10 mg tablet 10 mg PO DAILY 12/22/19 05/19/20 History compressor, for nebulizer #1 each 12/22/19 05/19/20 Rx ferrous sulfate 325 mg (65 mg 325 mg PO BID 12/22/19 05/19/20 History iron) tablet omeprazole 20 mg tablet,delayed 20 mg PO DAILY 12/22/19 05/19/20 History release ipratropium 0.5 mg-albuterol 3 mg See Rx Instructions .ROUTE 03/14/20 05/19/20 Rx (2.5 mg base)/3 mL nebulization .COMPLEX #180 ml soln escitalopram oxalate 20 mg tablet 20 mg PO DAILY #30 tablet 05/18/20 05/19/20 Rx albuterol sulfate 90 mcg/actuation 2 puff INHALATION Q4H PRN #18 gm 05/19/20 Rx aerosol inhaler budesonide-formoterol [Symbicort] 2 puff INHALATION Q12H 05/19/20 05/19/20 History fluticasone propionate [Flonase 1 spray INTRANASAL DAILY 05/19/20 05/19/20 History Allergy Relief] Allergies Allergy/AdvReac Type Severity Reaction Status Date / Time mold Allergy Intermediate Dyspnea / Verified 05/19/20 03:58 SOB tree and shrub pollen Allergy Intermediate Itching Verified 05/19/20 03:58 Grass Allergy Intermediate Itching Uncoded 05/19/20 03:58 Vital Signs Vital Signs - 24 hr 05/22/20 12:00 05/22/20 14:00 05/22/20 16:00 Temperature 36.6 C Pulse Rate 98 93 89 Respiratory Rate 18 Blood Pressure 151/81 H Pulse Oximetry 98 05/22/20 16:12 05/22/20 16:19 05/22/20 20:00 Temperature Pulse Rate 73 77 104 H Respiratory Rate 18 18 Blood Pressure Pulse Oximetry 05/22/20 20:34 05/22/20 20:46 05/22/20 20:48 Temperature Pulse Rate 79 83 Respiratory Rate 18 18 Blood Pressure Pulse Oximetry 94 05/22/20 22:00 05/23/20 00:00 05/23/20 02:37 Temperature 36.4 C L Pulse Rate 106 H 94 77 Respiratory Rate 22 H 18 Blood Pressure 163/94 H Pulse Oximetry 95 05/23/20 02:47 05/23/20 04:00 05/23/20 06:00 Temperature 36.4 C Pulse Rate 80 111 H 98 Respiratory Rate 18 20 Blood Pressure 175/97 H Pulse Oximetry 97 05/23/20 08:00 05/23/20 09:14 05/23/20 09:16 Temperature Pulse Rate 92 81 Respi
--- NOTE | 2020-05-23 13:48 | PM.IMPN ---
Progress Note: A&P Assessment and Plan (1) Asthma exacerbation: Qualifiers: Asthma persistence: unspecified Asthma severity: unspecified severity Qualified Code(s): J45.901 - Unspecified asthma with (acute) exacerbation Code(s): J45.901 - Unspecified asthma with (acute) exacerbation Status: Acute Assessment and Plan: Acute on chronic asthma exacerbation. Patient with moderate persistent asthma presents with 3 days of worsening shortness of breath with wheezing and cough, now hypoxic still requiring O2. COVID-19 testing negative. DC isolation. She reports feeling better today. Will continue nebulized bronchodilator therapy, mucinex and cornet therapy. Continue to wean IV Solu-medrol 40 mg to q.[address] 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 Add Singulair. Follow up for sleep issues. Will continue monitoring over the next few days. Continue monitoring patient's symptoms and decrease her Solu-Medrol as tolerated. (2) Acute respiratory failure with hypoxia: Code(s): J96.01 - Acute respiratory failure with hypoxia Status: Acute Assessment and Plan: [place] to be a result of acute asthma exacerbation, does not use O2 at home. She is resting comfortably on room air at 90% Continue respiratory regimen above. (3) Leukocytosis: Qualifiers: Leukocytosis type: unspecified Qualified Code(s): D72.829 - Elevated white blood cell count, unspecified Code(s): D72.829 - Elevated white blood cell count, unspecified Status: Acute Assessment and Plan: Noted during hospitalization. Suspected was related to initiation of steroid therapy however she does have a low-grade fever this afternoon (which again could have been related to steroid use) Leukocytosis slightly elevated 11,400, most likely from solumedrol steriods. CTA chest with no infiltrates concerning for pneumonia. UA was negative for any acute infection. She does not have any worsening symptoms that would warrant a repeat CXR at this time. Will continue monitoring leukocytosis and monitoring her symptoms. (4) HTN (hypertension) with goal to be determined: Code(s): I10 - Essential (primary) hypertension Status: Acute Assessment and Plan: Patient reports she used to take lisinopril but was taken off of it in the past. Pressures have been elevated here. Will increase Lisinopril to 30mg daily and continue hydralazine PRN. Monitor BPs and adjust treatment as needed. (5) Thalassemia: Qualifiers: Thalassemia type: unspecified type Qualified Code(s): D56.9 - Thalassemia, unspecified Code(s): D56.9 - Thalassemia, unspecified Status: Chronic Assessment and Plan: Patient follows with Dr Rosales for iron deficiency anemia and she reports she has thalassemia as well. Will monitor CBC, H&H low but stable with no evidence of acute bleeding. Subjective Date/time seen: 05/23/20 13:48 Interval history: Ms. Huffman is a 49yo F admitted for acute respiratory failure with hypoxia due to asthma exacerbation. Date of service 05/23/2020: the patient states she is feeling better today. She is currently resting comfortably on room air. she still feels her chest is tight and wheezing. She reports having a productive cough which is improved with Mucinex and using the Cornet. She denies any fever, chills, nausea, vomiting, abdominal pain, leg swelling, calf pain or any other symptoms at this time. Review of Systems Review of Systems: All systems reviewed & are unremarkable except as noted in HPI and be
--- NOTE | 2020-05-23 13:59 | PCRCNOTE ---
HOME O2 EVAL COMPLETE, NO REQUIREMENTS
--- NOTE | 2020-05-23 16:23 | CONS_ITS ---
DATE OF CONSULTATION: 05/23/2020 REASON FOR CONSULTATION: Asthma exacerbation. HISTORY: This patient is a 49-year-old female with history of asthma since she was a toddler. She has never been intubated. She was under good control about [address] Salmeron had her on immunotherapy. She is on Xolair for about 7 years or so as well as inhaler therapy. After Dr. Salmeron quit her practice, the patient's asthma control deteriorated. She currently is using Symbicort twice a day, Flonase twice a day, albuterol 2 puffs every 6 hours, and Zyrtec 10 mg a day. She has had 5 exacerbations in the last year requiring steroids. When this happened, she is using her nebulizer with albuterol every 4 hours. The patient currently is on Breo according to an office visit in December. She has a peak flow meter and her numbers are always low in the 150 range. The patient says that last week around Thursday, she started having increased tightness with coughing and difficulty catching her breath. She was concerned about COVID, so went to a testing site. Her results are still pending. Her shortness of breath, chest tightness, and wheezing worsened. She also had problems with her air conditioning being out for about 3 days and she said this contributed to her increasing symptoms. She did have window unit, which improved her air conditioning, but she had more heat and humidity than normal. She has not had a fever, sinus drainage, sore throat, loss of smell, abdominal symptoms, or dysuria. She has not had any leg swelling. The patient has not had a productive cough or hemoptysis. She is a lifelong nonsmoker. She has not been around any other sick people. A CTA on May 19 showed no pulmonary embolism. She does have a history of sleep apnea diagnosed about 8 years ago, was briefly on CPAP. She did not like the equipment and she had condensation in the tubing, so she quit using it. ALLERGIES: NO DRUG ALLERGIES. SHE DOES HAVE SEASONAL ALLERGIES AND THESE ARE WORSE WITH GRASSES, TREES, DUST, MOLD AND POLLEN. SHE HAS NO PROBLEM WITH COLD AIR, BUT SHE DOES HAVE INCREASED SYMPTOMS WITH HOT AIR. MEDICATIONS: Home medications: 1. Albuterol nebulizer q.4 hours during exacerbation. 2. ProAir 2 puffs q.6 hours on a normal day. 3. Symbicort 160/4.5 two puffs q.12 hours. 4. Cetirizine 10 mg a day. 5. Escitalopram 20 mg a day. 6. Ferrous sulfate 325 mg b.i.d. 7. Flonase 1 squirt each nostril b.i.d. 8. Omeprazole 20 mg a day. 9. Ipratropium with albuterol nebulized q.4 hours for exacerbation. PAST MEDICAL HISTORY: 1. 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 2. Thalassemia, requiring iron transfusions every 3 months. 3. Depression. 4. Obstructive sleep apnea syndrome on CPAP about 8 years ago. 5. Elevated blood pressure readings without a diagnosis of hypertension. 6. Gastroesophageal reflux symptoms. PAST SURGICAL HISTORY: Status post hysterectomy, which did not improve her anemia. SOCIAL HISTORY: She is with 2 children. 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 Never smoked. FAMILY HISTORY: Her mother recently from COPD, was a smoker. She has a sibling with asthma. Her 2 children have asthma. There is a family history of diabetes and hypertension. REVIEW OF SYSTEMS: Her weight is increased to 30 pounds over the last 2 years or so. She sleeps about 10 or 12 hours at night, wakes up feeling non-refreshed. She snores, has headaches, wakes with a dry mouth. Has nocturia 1 or 2 times per night and cannot remember her dreams. She is tired during the day. She does not have leg swelling, palpitations, or chest pain. She denies diarrhea. The remainder
[2020-05-23] MEDS: MONTELUKAST SODIUM 10 MG TABLET PO (22:02)
[2020-05-24] VITALS (10 sets, daily range): BP systolic 150–178; BP diastolic 49–92; PULSE 84–100; RESP 18–20; TEMP 36.1; O2SAT 91–92
[2020-05-24] MEDS: IPRATROPIUM BR 0.02% INH SOLN 0.5 MG/2.5 ML VIAL INHALATION ×2 (02:50→08:58)
[2020-05-24] MEDS: ALBUTEROL SULFATE NEB 2.5 MG/0.5 ML INH 5 MG INHALATION ×2 (02:50→08:58)
[2020-05-24] MEDS: methylPREDNISolone SOD SUCC 40 MG VIAL IV PUSH (05:55)
[2020-05-24 06:35] LABS: Hematocrit 38.3 % (37.0-47.0); Hemoglobin 11.3 g/dL (12.0-15.0); Immature Platelet Fraction Pct 5.2 % (0.9-11.2); Mean Corpuscular HGB Conc 29.5 g/dl (32-36); Mean Corpuscular Hemoglobin 22.6 pg (26-34); Mean Corpuscular Volume 76.6 fl (80-100); Platelet Count Result 282 k/mm3 (150-375)
[2020-05-24 07:01] LABS: Anion Gap 10.3 mmol/L (7-16); Blood Urea Nitrogen 15 mg/dL (7-17); Carbon Dioxide 33 mmol/L (22-30); Chloride 98 mmol/L (98-107); Estimated CRCL calculation 144 ml/min; Estimated Glomerular Filt Rate > 60; Glucose 101 mg/dL (65-105); Magnesium 2.3 mg/dL (1.6-2.3); Potassium 3.3 mmol/L (3.4-5.0); Sodium 138 mmol/L (137-145)
[2020-05-24] MEDS: POTASSIUM CHLORIDE 20 MEQ TABLET 40 MEQ PO (09:53)
[2020-05-24] MEDS: lisinopriL 10 MG TABLET 30 MG PO (09:53)
[2020-05-24] MEDS: ENOXAPARIN 40 MG/0.4 ML SYRINGE SUB-Q (09:53)
[2020-05-24] MEDS: ESCITALOPRAM OXALATE 10 MG TABLET 20 MG PO (09:55)
[2020-05-24] MEDS: PANTOPRAZOLE 40 MG TABLET PO (09:55)
[2020-05-24] MEDS: FERROUS SULFATE 324 MG TABLET PO (09:55)
[2020-05-24] MEDS: FLUTICASONE PROPIONATE 0.05% NA SPR 16 GM BTL (*BKC) 1 SPRAY NASAL (09:55)
[2020-05-24] MEDS: guaiFENesin 12 HR 600 MG TABCR PO (09:55)
--- NOTE | 2020-05-24 11:06 | PM.DS ---
DS: Admitting Diagnosis Admitting Diagnosis Admitting Diagnosis: Acute respiratory distress DS: Discharge Diagnosis Discharge Diagnosis (1) Asthma exacerbation: Qualifiers: Asthma persistence: unspecified Asthma severity: unspecified severity Qualified Code(s): J45.901 - Unspecified asthma with (acute) exacerbation Code(s): J45.901 - Unspecified asthma with (acute) exacerbation Status: Acute Assessment and Plan: Acute on chronic asthma exacerbation. Patient with moderate persistent asthma presents with 3 days of worsening shortness of breath with wheezing and cough, now hypoxic still requiring O2. COVID-19 testing negative. DC isolation. She reports feeling better today. Continue mucinex and cornet therapy. She received IV Solu-medrol 40 mg once today and pulmonology recommended prednisone taper upon discharge. Dr. 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 Add Singulair. Follow up for sleep issues. The patient is feeling well today and feels comfortable with going home. She is walking around the room with only slight shortness of breath but feeling much better than she was prior to arrival. Dr. Jaime Potter evaluated her today and feels comfortable with her being discharged on prednisone, and to follow up in the office and needs an garment worker consultation for her to get restarted on Xolair therapy. The patient understands and agrees with the plan. All questions answered. (2) Acute respiratory failure with hypoxia: Code(s): J96.01 - Acute respiratory failure with hypoxia Status: Acute Assessment and Plan: [place] to be a result of acute asthma exacerbation, does not use O2 at home. She is resting comfortably on room air at 92% With exertion she dropped to 89%, but quickly recovered back up to 94%. She was feeling well without significant shortness of breath, lightheadedness or other concerning issues. (3) Leukocytosis: Qualifiers: Leukocytosis type: unspecified Qualified Code(s): D72.829 - Elevated white blood cell count, unspecified Code(s): D72.829 - Elevated white blood cell count, unspecified Status: Acute Assessment and Plan: Noted during hospitalization. Suspected was related to initiation of steroid therapy however she does have a low-grade fever this afternoon (which again could have been related to steroid use) Leukocytosis slightly elevated but most likely from solumedrol steriods. CTA chest with no infiltrates concerning for pneumonia. UA was negative for any acute infection. She does not have any worsening symptoms and continues to improve with her treatment of acute asthma exacerbation. (4) HTN (hypertension) with goal to be determined: Code(s): I10 - Essential (primary) hypertension Status: Acute Assessment and Plan: Patient reports she used to take lisinopril but was taken off of it in the past. Pressures have been elevated here. She will be discharged on Lisinopril to 30mg daily. (5) Thalassemia: Qualifiers: Thalassemia type: unspecified type Qualified Code(s): D56.9 - Thalassemia, unspecified Code(s): D56.9 - Thalassemia, unspecified Status: Chronic Assessment and Plan: Patient follows with Dr Rosales for iron deficiency anemia and she reports she has thalassemia as well. DS: Summary Hospital Course Reason for hospitalization: The patient is a 49 year old woman with a history of asthma and thalassemia, who presented to the ER for worsening shortness of breath and hypoxia. initial vitals showed temperature of 98.1?, blood pre
--- NOTE | 2020-05-24 11:55 | PM.PNPUL ---
Progress Note: A&P Assessment and Plan (1) Asthma exacerbation: Qualifiers: Asthma persistence: unspecified Asthma severity: unspecified severity Qualified Code(s): J45.901 - Unspecified asthma with (acute) exacerbation Code(s): J45.901 - Unspecified asthma with (acute) exacerbation Status: Acute Assessment and Plan: - two more days of prednisone 40 mg - can discharge home - resume home Symbicort 160/4.5 mcg 2 puffs Q12h via chamber device, can ramp up to 2 puffs QID during periods of exacerbation - resume Zyrtec 20 mg daily - addition of Singulair 10 mg dialy maybe beneficial - needs referral to Information Clerk Cashier for resume Xolair Therapy as outpatient. Subjective Date/time seen: 05/24/20 11:55 Interval history: Feeling much better. has had 5-6 days of systemic sertoids for Asthma exacerbation. It is clear that she is exacerbating without Xolair Injections which were stopped due to loss of occasional caregiver about 7-8 years ago. Review of Systems Review of Systems: All systems reviewed & are unremarkable except as noted in HPI and below Exam Const: General: comfortable and no acute distress Neck: Neck: supple and no JVD Resp: Auscultation: clear to auscultation bilaterally, no crackles, no rales, no rhonchi, no wheezes and diminished lung sounds Cardio: Rate: regular rate Rhythm: regular rhythm Heart sounds: no murmurs GI: Auscultation: normal bowel sounds Neuro: General: gait normal Speech: normal speech Extrem: General: normal to inspection Psych: Mental Status: mental status grossly normal Affect: normal affect Objective Data Vital Signs Vital Signs: Vital Signs - 24 hr 05/23/20 12:00 05/23/20 13:35 05/23/20 13:40 Temperature Pulse Rate 103 H 90 109 H Respiratory Rate Blood Pressure Pulse Oximetry 91 89 L 05/23/20 13:51 05/23/20 13:55 05/23/20 14:00 Temperature Pulse Rate 82 92 76 Respiratory Rate 18 18 Blood Pressure Pulse Oximetry 91 05/23/20 16:00 05/23/20 20:00 05/23/20 20:55 Temperature 36.5 C Pulse Rate 101 H 107 H 110 H Respiratory Rate 16 20 Blood Pressure 138/77 Pulse Oximetry 89 L 05/23/20 20:56 05/23/20 21:07 05/23/20 22:00 Temperature 36.7 C Pulse Rate 114 H 60 Respiratory Rate 20 20 Blood Pressure 165/91 H Pulse Oximetry 91 94 05/24/20 00:00 05/24/20 02:51 05/24/20 03:01 Temperature Pulse Rate 97 85 90 Respiratory Rate 18 18 Blood Pressure Pulse Oximetry 05/24/20 04:00 05/24/20 06:00 05/24/20 09:05 Temperature 36.1 C L Pulse Rate 84 91 Respiratory Rate 18 Blood Pressure 150/49 H Pulse Oximetry 92 91 Intake/Output Intake/Output: Intake & Output 05/21/20 05/22/20 05/23/20 05/24/20 23:59 23:59 23:59 23:59 Intake Total 2170 1160 1380 830 Output Total 1000 800 800 200 Balance 1170 360 580 630 Meds/Results Medications: Active Medications Generic Name Dose Route Start Last Admin Trade Name Freq PRN Reason Stop Dose Admin Acetaminophen 650 mg 05/19/20 02:13 05/21/20 03:02 Tylenol Tablet PO 650 mg Q4H PRN Administration Mild Pain (1-3) or Fever Albuterol 5 mg 05/21/20 15:30 05/24/20 08:58 Albuterol Sulf Neb 2.5mg/0.5ml INHALATION 5 mg Q6HRT CATHY Administration Budesonide/Formoterol Fumarate 2 puff 05/19/20 08:55 05/24/20 08:58 Symbicort 160-4.5 Mcg (*Sp) Inhaler INHALATION 2 puff Q12HRT CATHY Administration Enoxaparin Sodium 40 mg 05/20/20 09:00 05/24/20 09:53 Lovenox SUB-Q 40 mg DAILY CATHY Administration Escitalopram Oxalate 20 mg 05/19/20 09:00 05/24/20 09:55 Lexapro PO 20 mg DAILY CATHY Administration Ferrous Sulfate 324 mg 05/19/20 09:00 05/24/20 09:55 Ferrous Sulfate PO 324 mg BID CATHY Administration Fluticasone Propionate 1 spray 05/19/20 09:00 05/24/20 09:55 Flonase 0.05% Nasal [place] NASAL 1 spray DAILY CATHY Administration Guaifenesin 600 mg 05/21/20 09:00 05/24/20 09
--- NOTE | 2020-06-01 09:54 | PC.NURSE ---
Blood cx is negative
== END 2020-05-24 13:40 | disposition home or self-care (01) | DRG 189 ==
LOC: ANHED 05-19 01:17 → ANH3MED 05-19 02:02 → ANH3MEDSUR 05-19 13:19
PROVIDERS: Physician Assistant; Admitting Provider Family Medicine; Emergency Provider Emergency Medicine; PCP Family Medicine; Visit Provider Physician Assistant
DX: J96.01 Acute respiratory failure with hypoxia (principal); J45.901 Unspecified asthma with (acute) exacerbation; I10 Essential (primary) hypertension; D56.9 Thalassemia, unspecified; Z20.828 Contact with and (suspected) exposure to other viral communicable diseases; D72.829 Elevated white blood cell count, unspecified
CPT/HCPCS: 36415; 71045; 71275; 80048; 80053; 81001; 82607; 82728; 82746; 83540; 83550; 83615; 83735; 84100; 84466; 84484; 85025; 85027; 85055; 85380; 85610; 85730; 86140; 87040; 87635; 93005; 93306; 94618; 94640; 94667; 94668; 96361; 96365; 96372; 96375; 96376; 99285; A9270; C9803; G0378; J0360; J1650; J2920; J2930; J3475; J7030; Q9967; U0003

== ENCOUNTER 2020-09-15 13:46 | Inpatient (IN) | payer BC, SELFPAY ==
[2020-09-15] VITALS (19 sets, daily range): BP systolic 139–184; BP diastolic 79–98; PULSE 84–104; RESP 14–22; TEMP 36.3–37.7; O2SAT 86–98
--- NOTE | ~2020-09-15 | XR_ITS ---
EXAMINATION: XR chest 1V portable INDICATION: Shortness of breath TECHNIQUE: Portable AP chest at 1417 hours COMPARISON: 05/18/2020 FINDINGS: The lungs are free of acute opacities. A large hiatal hernia is noted. There is no pleural effusion or pneumothorax. The visualized osseous structures are unremarkable. The heart size is ricardo l. IMPRESSION: 1. No acute cardiopulmonary abnormality. Reviewed, dictated and finalized at location A. MENTAL RAIL INSTALLER
--- NOTE | 2020-09-15 14:01 | ECG_ITS ---
Measurements Intervals Kosse Rate: 101 P: 64 SD: 116 QRS: 63 QRSD: 82 T: 42 QT: 362 QTc: 470 Interpretive Statements SINUS TACHYCARDIA WITH SHORT SD INTERVAL BASELINE ARTIFACT- I, II, III, AVR, AVL, AVF BORDERLINE ECG Electronically Signed On 09-15-2020 17:18:00 CAN SEALER by William Valera D.O.
[2020-09-15 14:27] LABS: Basophils Absolute Auto 0.1 K/mm3 (0.0-0.1); Basophils Percent Auto 0.8 % (0.2-1.2); Eosinophils Absolute Auto 0.1 K/mm3 (0-0.3); Eosinophils Percent Auto 0.9 % (0-4.4); Hematocrit 31.6 % (37.0-47.0); Hemoglobin 8.6 g/dL (12.0-15.0); Immature Granulocyte Absolute 0.05 K/mm3 (0.00-0.031); Immature Granulocyte Percent A 0.8 % (0-0.5); Immature Platelet Fraction Pct 6.6 % (0.9-11.2); Lymphocytes Absolute Auto 1.36 K/mm3 (0.9-3.2); Lymphocytes Percent Auto 21.2 % (18.3-44.2); Mean Corpuscular HGB Conc 27.2 g/dl (32-36); Mean Corpuscular Hemoglobin 16.4 pg (26-34); Mean Corpuscular Volume 60.3 fl (80-100); Monocytes Absolute Auto 0.4 K/mm3 (0.1-0.6); Monocytes Percent Auto 6.7 % (2.6-8.5); Neutrophils Absolute Auto 4.5 K/mm3 (1.3-6.7); Neutrophils Percent Auto 69.6 % (45.5-73.1); Nucleated Red Blood Cells Perc 0.5 % (0.0-0.2); Platelet Count Result 326 k/mm3 (150-375); Red Blood Count 5.24 M/mm3 (4.2-5.4); Red Cell Distribution Width 24.9 % (11.5-14.5); White Blood Count 6.4 K/mm3 (4.5-10.0)
[2020-09-15 14:31] LABS: Lactic Acid Reflex 1.2 mmol/L (0.7-2.1)
[2020-09-15 14:32] LABS: Anion Gap 7 mmol/L (8-16); Blood Urea Nitrogen 8 mg/dL (7-17); Calcium 9.2 mg/dL (8.4-10.2); Carbon Dioxide 33 mmol/L (22-30); Chloride 99 mmol/L (98-107); Estimated CRCL calculation 123 ml/min; Estimated Glomerular Filt Rate > 60; Glucose 95 mg/dL (65-105); Potassium 4.2 mmol/L (3.4-5.0); Sodium 139 mmol/L (137-145)
[2020-09-15 14:46] LABS: Anisocytosis 2+ (NORMAL); Platelet Estimate Adequate (Adequate)
[2020-09-15 14:47] LABS: Hypochromasia 2+ (NORMAL); Ovalocytes 1+ (NORMAL); Polychromasia 1+ (NORMAL)
[2020-09-15] MEDS: methylPREDNISolone SOD SUCC 125 MG VIAL IV PUSH (15:04)
[2020-09-15] MEDS: ALBUTEROL SULFATE (*SP) AEROSOL 1 PUFF 4 PUFF INHALATION ×2 (15:10→22:00)
[2020-09-15] MEDS: ALBUTEROL SULFATE (*SP) INHALER 1 PUFF (15:10)
[2020-09-15 15:54] LABS: Alanine Aminotransferase 17 U/L (4-35); Albumin Level 4.1 g/dL (3.5-5.1); Alkaline Phosphatase 119 U/L (38-126); Aspartate Amino Transferase 24 U/L (14-36); Bilirubin,Total 0.4 mg/dL (0.2-1.3)
--- NOTE | 2020-09-15 16:11 | PC.NURSE ---
Patient placed on 2L NC by this RN. Patient's SpO2 dropped from 94% to 86% RA. Patient placed on 2L NC and SpO2 raised to 93%. EDP notified.
--- NOTE | 2020-09-15 16:50 | ED.SOB ---
HPI - SOB/Dyspnea General Chief Complaint: Shortness of Breath/Dyspnea Stated Complaint: thinks hgb low/diff breathing Time Seen by Provider: 09/15/20 14:05 History of Present Illness HPI Narrative: 50 yo female w/ h/o asthma, thalassemia, anemia presents to the ED c/o SOb. She reports that she has constant SOB. this has become worse ove rthe past several days. These are her usual asthma symptoms. In additional to this she has begun having frequent light-headedness. She is concerned that this may be due to anemia. She denies any bleeding. No fever, CP, nausea, vomiting. Related Data Home Medications Medication Instructions Recorded Confirmed ferrous sulfate 325 mg (65 mg 325 mg PO BID 12/22/19 05/19/20 iron) tablet budesonide-formoterol [Symbicort] 2 puff INHALATION Q12H 05/19/20 05/19/20 fluticasone propionate [Flonase 1 spray INTRANASAL DAILY 05/19/20 05/19/20 Allergy Relief] albuterol sulfate [Ventolin HFA] INHALATION 09/15/20 Allergies Allergy/AdvReac Type Severity Reaction Status Date / Time mold Allergy Intermediate Dyspnea / Verified 09/15/20 14:06 SOB tree and shrub pollen Allergy Intermediate Itching Verified 09/15/20 14:06 Grass Allergy Intermediate Itching Uncoded 09/15/20 14:06 Review of Systems Review of Systems: All systems reviewed & are unremarkable except as noted in HPI and below Constitutional: Constitutional: Denies chills and Denies fever(s) Cardiovascular: Cardiovascular: Denies chest pain Respiratory: Respiratory: Reports cough, Reports dyspnea and Reports wheezing Gastrointestinal: Gastrointestinal: Denies abdominal pain, Denies nausea and Denies vomiting Neurologic: Reports dizziness, Denies syncope and Denies weakness PMFSH Past Medical History Medical History Asthma Colon polyps Depression with anxiety Duodenal arteriovenous malformation Gastroesophageal reflux disease Hiatal hernia Hypertension Iron deficiency anemia Obstructive sleep apnea Thalassemia minor Surgical History Surgical History History of cholecystectomy History of endometrial ablation History of total abdominal hysterectomy and bilateral salpingo-oophorectomy Family History Family History Father Family history of atrial fibrillation Sibling Asthma Mother Chronic obstructive pulmonary disease Other Diabetes mellitus Family history of type 2 diabetes mellitus Hypertension Social History Social History Social History: Surrogate decision maker: Juan Huffman, spouse. Code status: Full code. Smoking status: Former smoker Second hand tobacco smoke exposure: Yes Additional smoking assessment comments: 0.5 packs a day for about 20 years. Alcohol intake: former Substance use: never Additional living arrangements comments: Lives in [place]. Gender identity (if verbalized by the patient): Female Spiritual care concerns: No Exam Const: General: alert Nutritional Appearance: obese Orientation/consciousness: patient oriented x3 Other: mild distress HENMT: Head: normal to inspection Resp: Effort & Inspection: labored and tachypneic Auscultation: wheezes Cardio: Rate: regular rate Rhythm: regular rhythm GI: GI Palp: Yes Soft to palpation and No Tenderness to palpation present (GI) Skin: General skin exam: normal color Rashes: no rashes Neuro: General: patient oriented x3 and moves all extremities Course Vital Signs Vital signs: Vital Signs Temperature 37.7 C H 09/15/20 14:03 Pulse Rate 97 09/15/20 14:03 Respiratory Rate 22 H 09/15/20 14:03 Blood Pressure 150/98 H 09/15/20 14:03 Pulse Oximetry 94 09/15/20 14:03 Temperature 37.7 C H 09/15/20 14:03 Pulse Rate 95 09/15/20 19:16 Respiratory Rate 18
--- NOTE | 2020-09-15 18:00 | PM.IMHP ---
H&P: HPI History of Present Illness Date/Time: 09/15/20 18:00 Chief complaint: Shortness of breath. Narrative: Michell Huffman is a pleasant 50-year-old female with, iron deficiency anemia, and thalassemia minor who presented to the emergency department earlier today via private vehicle from home for evaluation of shortness of breath. 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 She currently uses Symbicort twice a day in addition to fluticasone and cetirizine. She has a rescue inhaler that she uses several times each day at baseline. For about a week or so she reports progressive shortness of breath on lesser and lesser exertion, and despite scheduling nebulizers q.4 hours she continues to feel short of breath. Additional symptoms include fatigue, feelings of racing heart, and syncope. She notes similar symptoms when her hemoglobin was low, and she was concerned for worsening anemia after she began craving ice. She also mentions intermittent dark stools, epigastric discomfort, and abdominal bloating. She denies fever, chills, sweats, chest pain, pleuritic pain, and edema. No vomiting or hematemesis. She denies recent travel, sick contacts exposure to those positive for COVID-19. Review of Systems Review of Systems: Narrative: Twelve systems were reviewed with pertinent positives and negatives as per HPI. No exposure to those positive for COVID-19. She denies sinus congestion, rhinorrhea, otalgia, and odynophagia. No history of venous thromboembolism. She was diagnosed with sleep apnea quite sometime ago but that is on treated and she does not have a machine at home. It does not sound as though she tolerated it very well. She was previously on lisinopril/hydrochlorothiazide for hypertension but that was discontinued by her primary care provider however she tells me with her hospitalization earlier this summer that her blood pressures were running high. No headache or vertigo. Except as documented, all other systems were reviewed and are negative. [facility] Past Medical History Medical History (Updated 09/15/20 @ 22:39 by Stephany Sterling PA-C) Asthma Colon polyps Depression with anxiety Duodenal arteriovenous malformation Gastroesophageal reflux disease Hiatal hernia Hypertension Iron deficiency anemia Obstructive sleep apnea She is intolerant to CPAP. Thalassemia minor Surgical History Surgical History History of cholecystectomy History of endometrial ablation History of total abdominal hysterectomy and bilateral salpingo-oophorectomy Family History Family History Father Family history of atrial fibrillation Diabetes mellitus Hypertension S/P CABG (coronary artery bypass graft) Sibling Asthma Diabetes mellitus Prostate carcinoma Mother Chronic obstructive pulmonary disease Diabetes mellitus Grandparent Cerebrovascular accident Congestive heart failure Family history of atrial fibrillation Social History Social History (Updated 09/15/20 @ 22:40 by Stephany Sterling PA-C) Social History: Surrogate decision maker: Juan Huffman, spouse. Code status: Full code. Smoking status: Former smoker Second hand tobacco smoke exposure: Yes Additional smoking assessment comments: Smoked socially for approximately 10 years, quit 15 years ago. Alcohol intake: never Substance use: never Additional living arrangements comments: Lives in [place] with her family. Additional occupation/education comments: Works at [employer]. Gender identity (if verbalized by the patient): Female Spiritual care concerns: No Meds Home Medications and Allergies Home Medications Medication Instructions Recorded Confirmed Typ
--- NOTE | 2020-09-15 22:24 | ADMGEN ---
This patient, Michell Huffman, was admitted to IMU Room 214-01. Patient oriented to hospital policies and general routines including ID bracelet, bed and alarms, visiting hours, pain management, procedures, bathroom and other care routines, personal items, smoking policy, room service/diet, and visiting hours. Information on how to activate the Rapid Response Team has been discussed. Patient encouraged to report perceived risks to care and to ask questions if they do not understand what they are told or what they should do.
[2020-09-15 23:18] LABS: Hematocrit 29.6 % (37.0-47.0); Hemoglobin 8.1 g/dL (12.0-15.0)
[2020-09-15] MEDS: methylPREDNISolone SOD SUCC 125 MG VIAL 60 MG IV PUSH (23:51)
[2020-09-15] MEDS: MAGNESIUM SULF 2 GM/WATER 50ML 2 GM/50 ML BAG IVPB (23:51)
[2020-09-16] VITALS (16 sets, daily range): BP systolic 134–186; BP diastolic 56–93; PULSE 75–100; RESP 16–20; TEMP 35.9–36.8; O2SAT 93–97
[2020-09-16 01:49] LABS: SARS-CoV-2 RNA PCR Negative
[2020-09-16 05:24] LABS: Hematocrit 30.2 % (37.0-47.0); Hemoglobin 8.2 g/dL (12.0-15.0); Immature Platelet Fraction Pct 7.9 % (0.9-11.2); Mean Corpuscular HGB Conc 27.2 g/dl (32-36); Mean Corpuscular Hemoglobin 16.4 pg (26-34); Mean Corpuscular Volume 60.3 fl (80-100); Platelet Count Result 341 k/mm3 (150-375); Red Blood Count 5.01 M/mm3 (4.2-5.4); White Blood Count 7.7 K/mm3 (4.5-10.0)
[2020-09-16 05:53] LABS: Anion Gap 8 mmol/L (8-16); Blood Urea Nitrogen 13 mg/dL (7-17); CRP 1.5 mg/dL (<1.0); Calcium 9.3 mg/dL (8.4-10.2); Carbon Dioxide 31 mmol/L (22-30); Chloride 98 mmol/L (98-107); Estimated CRCL calculation 144 ml/min; Estimated Glomerular Filt Rate > 60; Glucose 172 mg/dL (65-105); Potassium 4.4 mmol/L (3.4-5.0); Sodium 137 mmol/L (137-145)
[2020-09-16] MEDS: methylPREDNISolone SOD SUCC 125 MG VIAL 60 MG IV PUSH ×4 (05:56→23:53)
--- NOTE | 2020-09-16 06:38 | PC.NURSE ---
This patient, Michell Huffman, was transferred to [ [facility]] on 09/16/20 at 0630. Personal belongings sent with patient. Report given to [Magdalene ]. Appropriate documentation sent with patient.
--- NOTE | 2020-09-16 06:42 | PC.NURSE ---
This patient, Michell Huffman, was received from [IMU 214 ] on 09/16/20 at 0642. Patient/family oriented to unit policies and routines
[2020-09-16 06:58] LABS: IFOB Positive Control Positive; Immunochemical Fecal Occult Bl Negative (N)
[2020-09-16] MEDS: ALBUTEROL SULFATE (*SP) AEROSOL 1 PUFF 4 PUFF INHALATION (07:39)
[2020-09-16] MEDS: FLUTICASONE PROPIONATE 0.05% NA SPR 16 GM BTL (*BKC) 1 SPRAY NASAL (08:45)
[2020-09-16] MEDS: FERROUS SULFATE 324 MG TABLET PO (08:45)
[2020-09-16] MEDS: ESCITALOPRAM OXALATE 10 MG TABLET 20 MG PO (08:45)
[2020-09-16] MEDS: PANTOPRAZOLE SOD SESQUIHYDRATE 20 MG TAB PO (08:46)
[2020-09-16] MEDS: LORATADINE 10 MG TABLET PO (08:46)
--- NOTE | 2020-09-16 12:21 | WPDGICN ---
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 (h/o recurrent kosta with thalasemia), she had iv iron therapy previously (2) Epigastric pain: Code(s): R10.13 - Epigastric pain Status: Acute Assessment and Plan: egd to assess if gi blood loss, she says that normally is using ppi (3) Acute on chronic anemia: Code(s): D64.9 - Anemia, unspecified Status: Acute (4) Asthma exacerbation: Qualifiers: Asthma persistence: unspecified Asthma severity: unspecified severity Qualified Code(s): J45.901 - Unspecified asthma with (acute) exacerbation Code(s): J45.901 - Unspecified asthma with (acute) exacerbation Status: Acute (5) Acute respiratory failure with hypoxia: Code(s): J96.01 - Acute respiratory failure with hypoxia Status: Acute (6) Thalassemia: Code(s): D56.9 - Thalassemia, unspecified Status: Chronic Assessment and Plan: probably main reason of her anemia GI Consult Note Consult date/time: 09/16/20 12:21 Reason for consult: epigastric pain, acute on chronic anemia, dark stools HPI: Michell Huffman is a 50 year old female with history ofiron deficiency anemia and thalassemia minor who has seen hematology at [facility] and required blood transfusion in 3 different times last 5-6 years since her diagnosis, also iv iron. Currently using oral iron. She also has history of asthma and lately had more problem with her breathing, using more rescue inhaler and noted progressive shortness of breath on exertion. She also has been feeling more tired, tachycardic and ringing in her ears like when her hemoglobin was lower (she says that has been as low as 6 previously). Had EGD and capsule 2016 with HH, esophagitis, colonoscopy 2013. She also noted intermittent dark stools but using iron pills and few times she thinks that saw almost amount of blood, epigastric discomfort. Her hb on arrival was 8.6 (most recent one 11) and admitted to floor. She also says that normally takes omeprazole. Hemolysis work up in the past negative, also had hysterectomy. Review of Systems Constitutional: Constitutional: Reports fatigue and Reports lethargy Eyes: Eyes: Denies blurry vision ENT: Reports Normal hearing present Cardiovascular: Cardiovascular: Reports lightheadedness Respiratory: Respiratory: Reports dyspnea on exertion and Reports wheezing Gastrointestinal: Gastrointestinal: Reports bloating Genitourinary: Genitourinary: Denies hematuria Musculoskeletal: Musculoskeletal: Denies back pain Integumentary/Breasts: Skin/Breast: Denies dry skin Neurologic: Denies vertigo Psychiatric: Psychiatric: Reports anxiety Hematologic/Lymphatic: Comments: anemia [facility] Past Medical History Medical History (Updated 09/16/20 @ 12:34 by José Miguel Nevarez MD) Asthma Colon polyps Dark stools Depression with anxiety Duodenal arteriovenous malformation Epigastric pain Gastroesophageal reflux disease Hiatal hernia Hypertension Iron deficiency anemia Obstructive sleep apnea She is intolerant to CPAP. Thalassemia minor Surgical History Surgical History History of cholecystectomy History of endometrial ablation History of total abdominal hysterectomy and bilateral salpingo-oophorectomy Family History Family History Father Family history of atrial fibrillation Diabetes mellitus Hypertension S/P CABG (coronary artery bypass graft) Sibling Asthma Diabetes mellitus Prostate carcinoma Mo
[2020-09-16] MEDS: ALBUTEROL SULFATE NEB 2.5 MG/0.5 ML INH INHALATION ×2 (14:25→22:30)
--- NOTE | 2020-09-16 16:09 | PM.IMPN ---
Progress Note: A&P Assessment and Plan (1) Acute respiratory failure with hypoxia: Code(s): J96.01 - Acute respiratory failure with hypoxia Status: Acute Assessment and Plan: Patient found to be hypoxic upon arrival at 86%. Promptly improved with supplemental oxygen. She is currently requiring 2 L supplemental O2 to maintain adequate oxygen saturations in 93-96% range. Suspect this is secondary to asthma exacerbation. Continue supplemental O2 with goal saturation 90% or above. Wean to goal. Continue with treatment for asthma exacerbation described below (2) Asthma exacerbation: Qualifiers: Asthma persistence: unspecified Asthma severity: unspecified severity Qualified Code(s): J45.901 - Unspecified asthma with (acute) exacerbation Code(s): J45.901 - Unspecified asthma with (acute) exacerbation Status: Acute Assessment and Plan: reports she has been using her rescue inhaler several times per day with minimal improvement. Continue IV Solu-Medrol q.6 transition to nebulized albuterol treatments as patient is COVID negative continue Symbicort supplemental O2 as above (3) Acute on chronic anemia: Code(s): D64.9 - Anemia, unspecified Status: Acute Assessment and Plan: Patient reports baseline hemoglobin of 12.0. She is established with auditor tax Dr. Rosales. She was recently scheduled for an upcoming outpatient iron infusion. She reports stools are occasionally coffee-ground in appearance with red blood on tissue when wiping. She is on oral iron supplementation. Her H&H is decreased from baseline, most recent hemoglobin was 8.2. IFOB negative Gastroenterology has been consulted in light of dark stools. EGD and colonoscopy has been recommended upon improvement in respiratory status. Administer IV Venofer Monitor H&H closely and transfuse as needed if further decline. I will plan to speak with Dr. Rosales tomorrow so he is aware and determine if he has any recommendations from hematology standpoint. (4) Thalassemia minor: Code(s): D56.3 - Thalassemia minor Status: Inactive Assessment and Plan: Plan as above. (5) Hypertension: Code(s): I10 - Essential (primary) hypertension Status: Inactive Assessment and Plan: BP evaluated and is stable today at 139/71. Prior readings have been elevated as high as 184/83. She has recently been taken off of her antihypertensives by her PCP. she was previously on 10 mg lisinopril daily and 12.5 mg hydrochlorothiazide daily Monitor blood pressures closely. Suspect that antihypertensives may need to be resumed. Will follow trend of blood pressures closely to determine best course of action (6) Gastroesophageal reflux disease: Code(s): K21.9 - Gastro-esophageal reflux disease without esophagitis Status: Inactive Assessment and Plan: Asymptomatic at this time. Continue daily pantoprazole. (7) COVID-19 ruled out by laboratory testing: Code(s): Z03.818 - Encounter for observation for suspected exposure to other biological agents ruled out Status: Acute Assessment and Plan: Negative result on 09/15/2020. Isolation precautions discontinued. Subjective Date/time seen: 09/16/20 16:09 Interval history: date of service: 09/16/2020 Michell Huffman is a 50-year-old female with history of asthma, hypertension, iron deficiency anemia, thalassemia minor, and MATEUSZ who is seen in follow-up for acute asthma exacerbation. She reports that she has been feeling much better at this time. Her breathing treatments have helped her a lot. she still endorses wheezing but feels that it has improved. She endorses dyspnea on exertion. She denies PND or orthopnea. She denies productive cough. She denies nausea, vomiting, fever, chills. She feels a little bit lightheaded and is feeling quite weak. She wonders if her s
[2020-09-16 16:25] LABS: Hematocrit 29.7 % (37.0-47.0)
[2020-09-16] MEDS: IRON SUCROSE COMPLEX 200 MG in SODIUM CHLORIDE 0.9% IV 50 ML 120 MG IVPB (18:23)
[2020-09-17] VITALS (18 sets, daily range): BP systolic 141–155; BP diastolic 76–90; PULSE 74–90; RESP 16–18; TEMP 36.1–36.6; O2SAT 94–98
[2020-09-17] MEDS: ALBUTEROL SULFATE NEB 2.5 MG/0.5 ML INH INHALATION ×4 (02:56→21:13)
[2020-09-17] MEDS: methylPREDNISolone SOD SUCC 125 MG VIAL 60 MG IV PUSH ×3 (05:34→21:27)
[2020-09-17 06:23] LABS: Basophils Percent Auto 0.2 % (0.2-1.2); Hematocrit 28.8 % (37.0-47.0); Hemoglobin 7.7 g/dL (12.0-15.0); Immature Granulocyte Absolute 0.18 K/mm3 (0.00-0.031); Immature Granulocyte Percent A 1.2 % (0-0.5); Immature Platelet Fraction Pct 6.9 % (0.9-11.2); Lymphocytes Absolute Auto 0.82 K/mm3 (0.9-3.2); Lymphocytes Percent Auto 5.5 % (18.3-44.2); Mean Corpuscular HGB Conc 26.7 g/dl (32-36); Mean Corpuscular Hemoglobin 15.9 pg (26-34); Mean Corpuscular Volume 59.4 fl (80-100); Monocytes Absolute Auto 0.3 K/mm3 (0.1-0.6); Monocytes Percent Auto 1.7 % (2.6-8.5); Neutrophils Absolute Auto 13.7 K/mm3 (1.3-6.7); Neutrophils Percent Auto 91.4 % (45.5-73.1); Nucleated Red Blood Cells Perc 0.2 % (0.0-0.2); Platelet Count Result 331 k/mm3 (150-375); Red Blood Count 4.85 M/mm3 (4.2-5.4); Red Cell Distribution Width 24.5 % (11.5-14.5)
[2020-09-17 06:33] LABS: Anion Gap 6 mmol/L (8-16); Blood Urea Nitrogen 18 mg/dL (7-17); Calcium 9.2 mg/dL (8.4-10.2); Carbon Dioxide 34 mmol/L (22-30); Chloride 99 mmol/L (98-107); Estimated CRCL calculation 123 ml/min; Estimated Glomerular Filt Rate > 60; Glucose 151 mg/dL (65-105); Potassium 4.6 mmol/L (3.4-5.0); Sodium 139 mmol/L (137-145)
--- NOTE | 2020-09-17 07:33 | WPDGIPROGNO ---
Progress Note: A&P Assessment and Plan (1) Epigastric pain: Code(s): R10.13 - Epigastric pain Status: Acute Assessment and Plan: improved, will go egd tomorrow (2) Dark stools: Code(s): R19.5 - Other fecal abnormalities Status: Acute Assessment and Plan: will do egd and colonoscopy (3) Acute on chronic anemia: Code(s): D64.9 - Anemia, unspecified Status: Acute Assessment and Plan: Hb ~ 8, report dark stool (4) Acute respiratory failure with hypoxia: Code(s): J96.01 - Acute respiratory failure with hypoxia Status: Acute (5) Asthma exacerbation: Qualifiers: Asthma persistence: unspecified Asthma severity: unspecified severity Qualified Code(s): J45.901 - Unspecified asthma with (acute) exacerbation Code(s): J45.901 - Unspecified asthma with (acute) exacerbation Status: Acute (6) Thalassemia: Code(s): D56.9 - Thalassemia, unspecified Status: Chronic Assessment and Plan: probably main reason for her anemia, she is seeing a spring layer Subjective Date/time seen: 09/17/20 07:33 Interval history: her breathing is better, still some epigastric pain Review of Systems Review of Systems: All systems reviewed & are unremarkable except as noted in HPI and below Exam Const: General: no acute distress Other: chronically ill appearing. HENMT: General nose exam: Normal nares present Eyes: General: appearance normal, both eyes and all related structures Neck: Neck: no JVD Resp: Auscultation: wheezes (better) expiratory wheezes and diminished lung sounds diffuse Cardio: Rate: regular rate Rhythm: regular rhythm GI: Inspection: non-distended GI Palp: Yes Soft to palpation and No Tenderness to palpation present (GI) Auscultation: normal bowel sounds Skin: General skin exam: no jaundice and pallor Neuro: Speech: normal speech Motor exam (neuro): Normal motor muscle tone present throughout Extrem: General: normal to inspection Psych: Affect: Anxious affect present Objective Data Vital Signs Vital Signs: Vital Signs - 24 hr 09/16/20 07:40 09/16/20 08:30 09/16/20 12:00 Temperature Pulse Rate 89 97 Respiratory Rate 18 Blood Pressure Pulse Oximetry 93 95 09/16/20 14:28 09/16/20 14:36 09/16/20 15:02 Temperature 96.7 F L Pulse Rate 75 91 87 Respiratory Rate 20 20 16 Blood Pressure 139/71 Pulse Oximetry 96 09/16/20 16:00 09/16/20 20:00 09/16/20 21:03 Temperature 97.2 F L Pulse Rate 82 91 Respiratory Rate 16 Blood Pressure 134/80 Pulse Oximetry 97 97 09/16/20 22:20 09/16/20 22:30 09/16/20 22:31 Temperature Pulse Rate 90 90 90 Respiratory Rate 18 18 Blood Pressure Pulse Oximetry 94 09/16/20 23:51 09/17/20 00:00 09/17/20 02:56 Temperature 97 F L Pulse Rate 82 87 88 Respiratory Rate 17 18 Blood Pressure 139/81 Pulse Oximetry 96 09/17/20 03:03 09/17/20 04:00 09/17/20 06:51 Temperature 97 F L Pulse Rate 90 90 74 Respiratory Rate 18 16 Blood Pressure 141/76 H Pulse Oximetry 96 Intake/Output Intake/Output: Intake & Output 09/14/20 09/15/20 09/16/20 09/17/20 23:59 23:59 23:59 23:59 Intake Total 1530 200 Output Total 450 Balance 1080 200 Meds/Results Medications: Active Medications Generic Name Dose Route Start Last Admin Trade Name Joonq PRN Reason Stop Dose Admin Albuterol 2.5 mg 09/16/20 08:00 09/17/20 02:56 Albuterol Sulfate Neb 2.5 Mg/0.5 Ml Inh INHALATION 2.5 mg Q6HRT CATHY Administration Budesonide/Formoterol Fumarate 2 puff 09/16/20 08:00 09/16/20 22:30 Budesonide/Form 160-4.5 Mcg (*Sp) INHALATION 2 puff Q12HRT CATHY Administration Escitalopram Oxalate 20 mg 09/16/20 09:00 09/16/20 08:45 Escitalopram Oxalate 10 Mg Tablet PO 20 mg DAILY CATHY Administration Ferrous Sulfate 324 mg 09/16/20 08:00 09/16/20 08:45 Ferrous Sulfate 324 Mg Tablet PO
[2020-09-17 08:55] LABS: Platelet Estimate Adequate (Adequate)
[2020-09-17 08:56] LABS: Anisocytosis 2+ (NORMAL); Hypochromasia 2+ (NORMAL); Large Platelets Present; Microcytosis 1+ (NORMAL); Ovalocytes 1+ (NORMAL); Stomatocytes 1+ (NORMAL)
[2020-09-17] MEDS: FLUTICASONE PROPIONATE 0.05% NA SPR 16 GM BTL (*BKC) 1 SPRAY NASAL (09:18)
[2020-09-17] MEDS: ESCITALOPRAM OXALATE 10 MG TABLET 20 MG PO (09:18)
[2020-09-17] MEDS: FERROUS SULFATE 324 MG TABLET PO (09:18)
[2020-09-17] MEDS: PANTOPRAZOLE SOD SESQUIHYDRATE 20 MG TAB PO (09:19)
[2020-09-17] MEDS: LORATADINE 10 MG TABLET PO (09:19)
--- NOTE | 2020-09-17 13:03 | PM.IMPN ---
Progress Note: A&P Assessment and Plan (1) Acute respiratory failure with hypoxia: Code(s): J96.01 - Acute respiratory failure with hypoxia Status: Acute Assessment and Plan: Patient found to be hypoxic upon arrival at 86%. Promptly improved with supplemental oxygen. She is currently requiring 1.5 L supplemental O2 to maintain adequate oxygen saturations in 93-96% range. Suspect this is secondary to asthma exacerbation. Continue supplemental O2 with goal saturation 90% or above. Wean to goal. Continue with treatment for asthma exacerbation described below (2) Asthma exacerbation: Qualifiers: Asthma persistence: unspecified Asthma severity: unspecified severity Qualified Code(s): J45.901 - Unspecified asthma with (acute) exacerbation Code(s): J45.901 - Unspecified asthma with (acute) exacerbation Status: Acute Assessment and Plan: Reports she has been using her rescue inhaler several times per day with minimal improvement. Wheezing noted on exam on 09/16 but this appears to have resolved. Continue IV Solu-Medrol, wean to q8h Continue albuterol nebs continue Symbicort supplemental O2 as above (3) Acute on chronic anemia: Code(s): D64.9 - Anemia, unspecified Status: Acute Assessment and Plan: Patient reports baseline hemoglobin of 12.0. She is established with meat carrier Dr. Rosales. She was recently scheduled for an upcoming outpatient iron infusion. She reports stools are occasionally coffee-ground in appearance with red blood on tissue when wiping. She is on oral iron supplementation. Her H&H is decreased from baseline, most recent hemoglobin was 7.7. IFOB negative Gastroenterology has been consulted given dark stools. Plan for EGD and colonoscopy tomorrow. Hold PO iron prior to colonoscopy. She received 1 dose IV Venofer on 09/16. Monitor H&H closely and transfuse as needed if further decline. Spoke with Dr. Wilkerson (partner of Dr. Rosales, pts meat carrier) today who recommends holding transfusion until Hgb <7.0. (4) Thalassemia minor: Code(s): D56.3 - Thalassemia minor Status: Inactive Assessment and Plan: Established with Dr. Rosales as noted above. Explains chronic anemia. (5) Hypertension: Code(s): I10 - Essential (primary) hypertension Status: Inactive Assessment and Plan: BP evaluated and is stable today at 141/76. Prior readings have been elevated as high as 184/83. She has recently been taken off of her antihypertensives by her PCP. She was previously on 10 mg lisinopril daily and 12.5 mg hydrochlorothiazide daily Monitor blood pressures closely. Suspect that antihypertensives may need to be resumed. Will follow trend of blood pressures closely to determine best course of action (6) Gastroesophageal reflux disease: Code(s): K21.9 - Gastro-esophageal reflux disease without esophagitis Status: Inactive Assessment and Plan: Asymptomatic at this time. Continue daily pantoprazole. (7) COVID-19 ruled out by laboratory testing: Code(s): Z03.818 - Encounter for observation for suspected exposure to other biological agents ruled out Status: Acute Assessment and Plan: Negative result on 09/15/2020. Isolation precautions discontinued. Subjective Date/time seen: 09/17/20 13:03 Interval history: date of service: 09/17/2020 Michell Huffman is a 50-year-old female with history of asthma, hypertension, iron deficiency anemia, thalassemia minor, and MATEUSZ who is seen in follow-up for acute asthma exacerbation. she is doing much better today. Her shortness of breath has improved, although she is still endorsing HUSTON. Denies wheezing, orthopnea, or PND. She had a dark, tarry appearing BM this morning. Denied and bright red bleeding per rectum. Denies urinary symptoms. Denies abdominal pain, nausea, vomiting, fever, chills, dizzine
--- NOTE | 2020-09-17 13:20 | WPDANESEPPF ---
Anes - Initial Pre Proc Eval Procedure: Operation Date: 09/18/20 11:45 Proposed Procedures p Esophagogastroduodenoscopy & Colonoscopy - José Miguel Nevarez MD Date/Time: 09/17/20 13:20 Surgeon: Vicky Brown PA-C Pre Op Diagnosis: Shortness of breath. Patient Data Age: 50 Gender: F Height: 1.65 m Weight: 116 kg Last Vital Signs Temp 36.1 C L 09/17/20 06:51 Pulse 85 09/17/20 08:19 Resp 18 09/17/20 08:18 BP 141/76 H 09/17/20 06:51 Pulse Ox 95 09/17/20 08:19 Allergies Allergy/AdvReac Type Severity Reaction Status Date / Time mold Allergy Intermediate Dyspnea / Verified 09/18/20 10:42 SOB tree and shrub pollen Allergy Intermediate Itching Verified 09/18/20 10:42 Grass Allergy Intermediate Itching Uncoded 09/18/20 10:42 Home Medications Medication Instructions Recorded Confirmed Type ferrous sulfate 325 mg (65 mg 325 mg PO DAILY 12/22/19 09/15/20 History iron) tablet escitalopram oxalate 20 mg tablet 20 mg PO DAILY #30 tablet 05/18/20 09/15/20 Rx budesonide-formoterol [Symbicort] 2 puff INHALATION Q12H 05/19/20 09/15/20 History fluticasone propionate [Flonase 1 spray INTRANASAL DAILY 05/19/20 09/15/20 History Allergy Relief] albuterol sulfate [Ventolin HFA] 2 puff INHALATION Q4H PRN 09/15/20 09/15/20 History cetirizine [Zyrtec] 10 mg PO DAILY 09/15/20 09/15/20 History ipratropium-albuterol 3 ml INHALATION Q4H PRN 09/15/20 09/15/20 History omeprazole magnesium [Prilosec OTC] 20 mg PO DAILY 09/15/20 09/15/20 History Laboratory Tests 09/16/20 09/17/20 09/17/20 16:20 05:56 05:57 WBC 15.0 K/mm3 H K/mm3 (4.5-10.0) RBC 4.85 M/mm3 M/mm3 (4.2-5.4) Hgb 8.0 g/dL L g/dL 7.7 g/dL L g/dL (12.0-15.0) (12.0-15.0) Hct 29.7 % L % 28.8 % L % (37.0-47.0) (37.0-47.0) MCV 59.4 fl L fl (80-100) MCH 15.9 pg L pg (26-34) MCHC 26.7 g/dl L g/dl (32-36) RDW 24.5 % H % (11.5-14.5) Plt Count 331 k/mm3 k/mm3 (150-375) MPV TNP Immature Gran % (Auto) 1.2 % H % (0-0.5) Neut % (Auto) 91.4 % H % (45.5-73.1) Lymph % (Auto) 5.5 % L % (18.3-44.2) [place] % (Auto) 1.7 % L % (2.6-8.5) Eos % (Auto) 0.0 % % (0-4.4) Baso % (Auto) 0.2 % % (0.2-1.2) Lymph # (Auto) 0.82 K/mm3 L K/mm3 (0.9-3.2) [place] # (Auto) 0.3 K/mm3 K/mm3 (0.1-0.6) Eos # (Auto) 0.0 K/mm3 K/mm3 (0-0.3) Baso # (Auto) 0.0 K/mm3 K/mm3 (0.0-0.1) Abs Immat Gran (auto) 0.18 K/mm3 H K/mm3 (0.00-0.031) Absolute Neuts (auto) 13.7 K/mm3 H K/mm3 (1.3-6.7) Absolute Nucleated RBC 0.0 K/mm3 K/mm3 (0.0-0.012) Nucleated RBC % 0.2 % % (0.0-0.2) Platelet Estimate Adequate (Adequate) Large Platelets Present % Immature Plt Fraction 6.9 % % (0.9-11.2) Hypochromasia 2+ (NORMAL) Anisocytosis 2+ (NORMAL) Microcytosis 1+ (NORMAL) Ovalocytes 1+ (NORMAL) Stomatocytes 1+ (NORMAL) Sodium 139 mmol/L mmol/L (137-145) Potassium 4.6 mmol/L mmol/L (3.4-5.0) Chloride 99 mmol/L mmol/L (98-107) Carbon Dioxide 34 mmol/L H mmol/L (22-30) Anion Gap 6 mmol/L L mmol/L (8-16) BUN 18 mg/dL H mg/dL (7-17) Creatinine 0.60 mg/dL L mg/dL (0.7-1.0) Estim Creat Clear Calc 123 ml/min ml/min Estimated GFR > 60 (59 - ) Glucose 151 mg/dL H mg/dL (65-105) Calcium 9.2 mg/dL mg/dL (8.4-10.2) Patient hx anesthesia problems: none Family hx anesthesia problems: none [facility] Past Medical History Medical History (Updated 09/16/20 @ 16:31 by Vicky Brown PA-C) Asthma Colon polyps Dark stools Depression with anxiety Duodenal arteriovenous malformation Epigastric pain Gastroesophage
[2020-09-17 13:49] LABS: Hemoglobin 8.1 g/dL (12.0-15.0)
[2020-09-17] MEDS: BISACODYL 5 MG TABLET EC 20 MG PO (17:07)
[2020-09-17] MEDS: PEG (High)/E-LYTE SOLN 4,000 ML BTL 4000 ML PO (17:08)
[2020-09-18] VITALS (15 sets, daily range): BP systolic 125–183; BP diastolic 64–91; PULSE 66–100; RESP 16–20; TEMP 36–36.4; O2SAT 93–99
[2020-09-18] MEDS: ALBUTEROL SULFATE NEB 2.5 MG/0.5 ML INH INHALATION ×4 (03:04→15:46)
[2020-09-18] MEDS: MAGNESIUM CITRATE 300 ML BTL PO (04:23)
[2020-09-18] MEDS: methylPREDNISolone SOD SUCC 125 MG VIAL 60 MG IV PUSH ×2 (05:36→20:17)
[2020-09-18 05:43] LABS: Basophils Percent Auto 0.2 % (0.2-1.2); Hematocrit 28.1 % (37.0-47.0); Hemoglobin 7.7 g/dL (12.0-15.0); Immature Granulocyte Absolute 0.17 K/mm3 (0.00-0.031); Immature Granulocyte Percent A 1.3 % (0-0.5); Immature Platelet Fraction Pct 6.3 % (0.9-11.2); Lymphocytes Absolute Auto 0.96 K/mm3 (0.9-3.2); Lymphocytes Percent Auto 7.3 % (18.3-44.2); Mean Corpuscular HGB Conc 27.4 g/dl (32-36); Mean Corpuscular Volume 58.4 fl (80-100); Monocytes Absolute Auto 0.4 K/mm3 (0.1-0.6); Monocytes Percent Auto 2.9 % (2.6-8.5); Neutrophils Absolute Auto 11.7 K/mm3 (1.3-6.7); Neutrophils Percent Auto 88.3 % (45.5-73.1); Nucleated Red Blood Cells Perc 0.2 % (0.0-0.2); Platelet Count Result 299 k/mm3 (150-375); Red Blood Count 4.81 M/mm3 (4.2-5.4); Red Cell Distribution Width 24.8 % (11.5-14.5); White Blood Count 13.2 K/mm3 (4.5-10.0)
[2020-09-18 05:57] LABS: Anion Gap 8 mmol/L (8-16); Blood Urea Nitrogen 16 mg/dL (7-17); Calcium 9.1 mg/dL (8.4-10.2); Carbon Dioxide 33 mmol/L (22-30); Chloride 97 mmol/L (98-107); Estimated CRCL calculation 123 ml/min; Estimated Glomerular Filt Rate > 60; Glucose 165 mg/dL (65-105); Potassium 3.5 mmol/L (3.4-5.0); Sodium 138 mmol/L (137-145)
[2020-09-18 07:10] LABS: Hypochromasia 3+ (NORMAL); Platelet Estimate Adequate (Adequate)
[2020-09-18 07:11] LABS: Ovalocytes 2+ (NORMAL); Stomatocytes 2+ (NORMAL); Target Cells 2+ (NORMAL)
--- NOTE | 2020-09-18 10:23 | PM.IMPN ---
Progress Note: A&P Assessment and Plan (1) Acute respiratory failure with hypoxia: Code(s): J96.01 - Acute respiratory failure with hypoxia Status: Acute Assessment and Plan: Patient found to be hypoxic upon arrival at 86% which improved with supplemental oxygen. This is felt secondary to acute asthma exacerbation. She was advised to follow-up with pulmonology during her last hospital stay but never did. Plan to continue supplemental oxygen as needed to maintain oxygen saturation of 90% or greater. Wean to goal. Continue the treatment for asthma exacerbation as below. (2) Asthma exacerbation: Qualifiers: Asthma persistence: unspecified Asthma severity: unspecified severity Qualified Code(s): J45.901 - Unspecified asthma with (acute) exacerbation Code(s): J45.901 - Unspecified asthma with (acute) exacerbation Status: Acute Assessment and Plan: Reports she has been using her rescue inhaler several times per day with minimal improvement. Wheezing noted on exam on 09/16 but this appears to have resolved. Continue IV Solu-Medrol, wean to q12hr. Continue albuterol nebs. Continue Symbicort. Continue supplemental oxygen as above. She is improving with no further dyspnea at rest or on exertion and was weaned to 1 liter today per nasal cannula. I have encouraged her to follow-up with pulmonology outpatient since she never did following her last hospitalization. (3) Acute on chronic anemia: Code(s): D64.9 - Anemia, unspecified Status: Acute Assessment and Plan: Patient reports baseline hemoglobin of 12.0. She is established with business banking officer Dr. Rosales. She was recently scheduled for an upcoming outpatient iron infusion. She reports stools are occasionally coffee-ground in appearance with red blood on tissue when wiping. She is on oral iron supplementation. Her H&H is decreased from baseline, most recent hemoglobin was 7.7. IFOB negative Gastroenterology has been consulted given dark stools. Plan for EGD and colonoscopy today. She received 1 dose IV Venofer on 09/16. Monitor H&H closely and transfuse as needed if further decline. The prior provider spoke with Dr. Wilkerson (partner of Dr. Rosales, pts business banking officer) today who recommends holding transfusion until Hgb <7.0. (4) Thalassemia minor: Code(s): D56.3 - Thalassemia minor Status: Inactive Assessment and Plan: Established with Dr. Rosales as noted above. Explains chronic anemia. Continue outpatient follow-up. Plan as above. (5) Hypertension: Code(s): I10 - Essential (primary) hypertension Status: Inactive Assessment and Plan: BP have been reviewed and are mostly elevated above target. She was recently been taken off of her antihypertensives by her PCP. She was previously on 10 mg lisinopril daily and 12.5 mg hydrochlorothiazide daily. Continue to monitor blood pressures closely. Will plan to resume antihypertensive therapy. Will discuss further with patient to ensure no ADRs to prior antihypertensives and determine best plan for treatment. (6) Gastroesophageal reflux disease: Code(s): K21.9 - Gastro-esophageal reflux disease without esophagitis Status: Inactive Assessment and Plan: Asymptomatic at this time. Continue daily pantoprazole. (7) COVID-19 ruled out by laboratory testing: Code(s): Z03.818 - Encounter for observation for suspected exposure to other biological agents ruled out Status: Acute Assessment and Plan: Negative result on 09/15/2020. Isolation precautions discontinued. Subjective Date/time seen: 09/18/20 10:23 Interval history: Mrs. Huffman is a 50 y.o. female with PMH significant for asthma, hypertension, iron deficiency anemia, thalassemia minor, and MATEUSZ who is seen in follow-up for acute asthma exacerbation. She feels much better today. She is awaiting EGD and colonoscopy today. She completed her bowel pr
[2020-09-18] MEDS: LACTATED RINGERS 1,000 ML 150 ML IV CONT (10:45)
[2020-09-18] MEDS: BENZOCAINE (*SP) 60 ML SPRAY CAN (HURRICAINE) 1 SPRAY MUCOUS MEM (11:51)
--- NOTE | 2020-09-18 12:04 | SUR.OPER ---
EGD ENDED AT 1159, COLONOSCOPY STARTED AT 1204
[2020-09-18] MEDS: FLUTICASONE PROPIONATE 0.05% NA SPR 16 GM BTL (*BKC) 1 SPRAY NASAL (14:40)
[2020-09-18] MEDS: ESCITALOPRAM OXALATE 10 MG TABLET 20 MG PO (14:41)
[2020-09-18] MEDS: LORATADINE 10 MG TABLET PO (14:42)
[2020-09-18 14:47] LABS: Hematocrit 29.2 % (37.0-47.0)
[2020-09-18] MEDS: PANTOPRAZOLE 40 MG TABLET PO (20:18)
[2020-09-19] VITALS (10 sets, daily range): BP systolic 155–169; BP diastolic 82–96; PULSE 67–89; RESP 16–20; TEMP 36.1–36.7; O2SAT 93–96
[2020-09-19] MEDS: ALBUTEROL SULFATE NEB 2.5 MG/0.5 ML INH INHALATION ×4 (01:27→19:56)
[2020-09-19 06:05] LABS: Basophils Percent Auto 0.2 % (0.2-1.2); Hematocrit 27.8 % (37.0-47.0); Hemoglobin 7.5 g/dL (12.0-15.0); Immature Granulocyte Absolute 0.22 K/mm3 (0.00-0.031); Immature Granulocyte Percent A 2.3 % (0-0.5); Lymphocytes Absolute Auto 1.22 K/mm3 (0.9-3.2); Mean Corpuscular Volume 59.1 fl (80-100); Monocytes Absolute Auto 0.5 K/mm3 (0.1-0.6); Monocytes Percent Auto 4.8 % (2.6-8.5); Neutrophils Absolute Auto 7.5 K/mm3 (1.3-6.7); Neutrophils Percent Auto 79.7 % (45.5-73.1); Nucleated Red Blood Cells Perc 0.4 % (0.0-0.2); Platelet Count Result 277 k/mm3 (150-375); Red Cell Distribution Width 25.1 % (11.5-14.5); White Blood Count 9.4 K/mm3 (4.5-10.0)
[2020-09-19 06:17] LABS: Anion Gap 5 mmol/L (8-16); Blood Urea Nitrogen 18 mg/dL (7-17); Calcium 8.3 mg/dL (8.4-10.2); Carbon Dioxide 36 mmol/L (22-30); Chloride 98 mmol/L (98-107); Estimated CRCL calculation 108 ml/min; Estimated Glomerular Filt Rate > 60; Glucose 119 mg/dL (65-105); Potassium 3.9 mmol/L (3.4-5.0); Sodium 139 mmol/L (137-145)
[2020-09-19 06:39] LABS: Platelet Estimate Adequate (Adequate); Stomatocytes 2+ (NORMAL)
[2020-09-19 06:40] LABS: Hypochromasia 3+ (NORMAL); Large Platelets Present; Polychromasia 1+ (NORMAL)
--- NOTE | 2020-09-19 08:36 | P.PNAN_ITS ---
Anes - Prog Note Post-Op Date/Time: 09/19/20 08:36 Cardiovascular status: normal Respiratory status: other (patient weaning on O2 due to admission with asthma exacerbation. receiving nebulizer treatments with respiratory therapy ) Airway patency: baseline Mental status: baseline Post-Op hydration status: normal Vital Signs: Last Vital Signs Temp 36.7 C 09/19/20 04:00 Pulse 87 09/19/20 08:34 Resp 20 09/19/20 08:34 BP 155/82 H 09/19/20 04:00 Pulse Ox 93 09/19/20 08:34 Pain Score (VAS): 0 I/O: Intake & Output 09/18/20 09/19/20 09/19/20 23:59 07:59 15:59 Intake Total 990 300 Balance 990 300 Laboratory Tests 09/19/20 05:38 09/19/20 05:38 09/18/20 09/19/20 09/19/20 14:38 05:38 05:38 WBC 9.4 RBC 4.70 Hgb 8.0 L 7.5 L Hct 29.2 L 27.8 L MCV 59.1 L MCH 16.0 L MCHC 27.0 L RDW 25.1 H Plt Count 277 MPV TNP Immature Gran % (Auto) 2.3 H Neut % (Auto) 79.7 H Lymph % (Auto) 13.0 L [place] % (Auto) 4.8 Eos % (Auto) 0.0 Baso % (Auto) 0.2 Lymph # (Auto) 1.22 [place] # (Auto) 0.5 Eos # (Auto) 0.0 Baso # (Auto) 0.0 Abs Immat Gran (auto) 0.22 H Absolute Neuts (auto) 7.5 H Absolute Nucleated RBC 0.0 Nucleated RBC % 0.4 H Platelet Estimate Adequate Large Platelets Present % Immature Plt Fraction 6.0 Polychromasia 1+ Hypochromasia 3+ Stomatocytes 2+ Sodium 139 Potassium 3.9 Chloride 98 Carbon Dioxide 36 H Anion Gap 5 L BUN 18 H Creatinine 0.70 Estim Creat Clear Calc 108 Estimated GFR > 60 Glucose 119 H Calcium 8.3 L Post-procedural complaints: none Patient Feedback: Patient satisfied with anesthetic care.
[2020-09-19] MEDS: methylPREDNISolone SOD SUCC 125 MG VIAL 60 MG IV PUSH ×2 (08:51→20:45)
[2020-09-19] MEDS: FLUTICASONE PROPIONATE 0.05% NA SPR 16 GM BTL (*BKC) 1 SPRAY NASAL (08:51)
[2020-09-19] MEDS: PANTOPRAZOLE 40 MG TABLET PO ×2 (08:52→20:45)
[2020-09-19] MEDS: LORATADINE 10 MG TABLET PO (08:52)
[2020-09-19] MEDS: FERROUS SULFATE 324 MG TABLET PO (08:52)
[2020-09-19] MEDS: ESCITALOPRAM OXALATE 10 MG TABLET 20 MG PO (08:52)
--- NOTE | 2020-09-19 09:55 | PM.IMPN ---
Progress Note: A&P Assessment and Plan (1) Acute respiratory failure with hypoxia: Code(s): J96.01 - Acute respiratory failure with hypoxia Status: Resolved Assessment and Plan: Resolved. Patient found to be hypoxic upon arrival at 86% which improved with supplemental oxygen. This is felt secondary to acute asthma exacerbation. She was advised to follow-up with pulmonology during her last hospital stay but never did. She was weaned to room air the evening of 09/18. Continue supplemental oxygen as needed to maintain oxygen saturation of 90% or greater. Continue the treatment for asthma exacerbation as below. (2) Asthma exacerbation: Qualifiers: Asthma persistence: unspecified Asthma severity: unspecified severity Qualified Code(s): J45.901 - Unspecified asthma with (acute) exacerbation Code(s): J45.901 - Unspecified asthma with (acute) exacerbation Status: Acute Assessment and Plan: Reports she has been using her rescue inhaler several times per day with minimal improvement. Wheezing noted on exam on 09/16 but has improved significantly. Continue IV Solu-Medrol. Plan to give 1 more dose tomorrow morning and then start PO prednisone 09/21 with anticipated discharge tomorrow. Continue albuterol nebs. Continue Symbicort. She was weaned to room air yesterday evening. She feels much better overall. I have encouraged her to follow-up with pulmonology outpatient since she never did following her last hospitalization. (3) Acute on chronic anemia: Code(s): D64.9 - Anemia, unspecified Status: Acute Assessment and Plan: Patient reports baseline hemoglobin of 12.0. She is established with dry wall plasterer Dr. Rosales. She was scheduled for an outpatient iron infusion 09/19. She received 1 dose 200mg IV Venofer on 09/16. She reported that her stools are occasionally coffee-ground in appearance with red blood on tissue when wiping. She is on oral iron supplementation. Her H&H is decreased from baseline, most recent hemoglobin was 7.5. IFOB negative. Gastroenterology was consulted given dark stools and underwent EGD and colonoscopy. EGD demonstrated two linear ulcers in the body of the stomach with clean base and no evidence of acute bleeding. Biopsies were obtained. Monitor H&H closely and transfuse as needed if further decline. I reached out to Dr. Rosales's office today to discuss her care as she was concerned about missing her iron infusion. (4) Thalassemia minor: Code(s): D56.3 - Thalassemia minor Status: Inactive Assessment and Plan: Established with Dr. Rosales as noted above. Explains chronic anemia. Continue outpatient follow-up. Plan as above. I did call Dr. Rosales's office to discuss her care and I am waiting to hear back from their office. (5) Hypertension: Code(s): I10 - Essential (primary) hypertension Status: Inactive Assessment and Plan: BP have been reviewed and are elevated. She was recently taken off of her antihypertensives by her PCP. She was previously on 10 mg lisinopril daily and 12.5 mg hydrochlorothiazide daily. I discussed this with the patient and she did not have any adverse reactions to either medication. Will resume hydrochlorothiazide 12.5mg once daily. Continue to monitor. (6) Gastroesophageal reflux disease: Code(s): K21.9 - Gastro-esophageal reflux disease without esophagitis Status: Inactive Assessment and Plan: Asymptomatic at this time. Continue daily pantoprazole. (7) COVID-19 ruled out by laboratory testing: Code(s): Z03.818 - Encounter for observation for suspected exposure to other biological agents ruled out Status: Acute Assessment and Plan: Negative result on 09/15/2020. Isolation precautions discontinued. Subjective Date/time seen: 09/19/20 09:55 Interval history: Mrs. Huffman is a 50 y.o. female with PMH significant for asthma, hypertension
[2020-09-19] MEDS: hydroCHLOROthiazide 12.5 MG CAPSULE PO (10:47)
[2020-09-19 12:10] LABS: Iron 113 ug/dL (37-170)
[2020-09-19 12:20] LABS: Percent Iron Saturation 24 % (20-50)
--- NOTE | 2020-09-19 15:40 | WPDGIPROGNO ---
Progress Note: A&P Assessment and Plan (1) Gastric ulcer: Code(s): K25.9 - Gastric ulcer, unspecified as acute or chronic, without hemorrhage or perforation Status: Acute Assessment and Plan: small gastric ulcers found yesterday in egd, continue with ppi and avoid nsaid's tolerating diet no objections by gi to go home (2) Hiatal hernia: Code(s): K44.9 - Diaphragmatic hernia without obstruction or gangrene Status: Inactive Assessment and Plan: large size, denies dysphagia but h/o gerd and sometimes epigastric pain consider to see a surgeon as outpatient for fernandez fundoplication given large size, she will think about it (3) Epigastric pain: Code(s): R10.13 - Epigastric pain Status: Acute Assessment and Plan: resolved (4) Acute on chronic anemia: Code(s): D64.9 - Anemia, unspecified Status: Acute Assessment and Plan: multifactorial but mostly from thalassemia, will get another iv iron infusion follow up with hematology (5) Thalassemia: Code(s): D56.9 - Thalassemia, unspecified Status: Chronic (6) Asthma exacerbation: Qualifiers: Asthma persistence: unspecified Asthma severity: unspecified severity Qualified Code(s): J45.901 - Unspecified asthma with (acute) exacerbation Code(s): J45.901 - Unspecified asthma with (acute) exacerbation Status: Acute (7) Dark stools: Code(s): R19.5 - Other fecal abnormalities Status: Acute Subjective Date/time seen: 09/19/20 15:40 Interval history: she is feeling better with less shortness of breath, no report of dark stools Review of Systems Review of Systems: All systems reviewed & are unremarkable except as noted in HPI and below Exam Const: General: no acute distress Other: chronically ill appearing. HENMT: General nose exam: Normal nares present Eyes: General: appearance normal, both eyes and all related structures Neck: Neck: no JVD Resp: Effort & Inspection: normal respiratory effort Auscultation: no crackles and diminished lung sounds diffuse Cardio: Rate: regular rate Rhythm: regular rhythm GI: Inspection: non-distended GI Palp: Yes Soft to palpation and No Tenderness to palpation present (GI) Auscultation: normal bowel sounds Skin: General skin exam: no jaundice and pallor Neuro: Speech: normal speech Motor exam (neuro): Normal motor muscle tone present throughout Extrem: General: normal to inspection Psych: Affect: Anxious affect present Objective Data Vital Signs Vital Signs: Vital Signs - 24 hr 09/18/20 15:46 09/18/20 15:51 09/18/20 20:00 Temperature 96.9 F L Pulse Rate 73 73 100 Respiratory Rate 20 20 17 Blood Pressure 137/69 Pulse Oximetry 95 09/18/20 23:53 09/19/20 01:28 09/19/20 01:37 Temperature 97 F L Pulse Rate 85 71 73 Respiratory Rate 16 18 18 Blood Pressure 150/85 H Pulse Oximetry 95 09/19/20 04:00 09/19/20 08:34 09/19/20 08:42 Temperature 98.1 F Pulse Rate 77 87 85 Respiratory Rate 16 20 20 Blood Pressure 155/82 H Pulse Oximetry 94 93 09/19/20 14:19 09/19/20 14:44 09/19/20 14:49 Temperature 97.0 F L Pulse Rate 87 80 82 Respiratory Rate 20 20 20 Blood Pressure 162/96 H Pulse Oximetry 96 Intake/Output Intake/Output: Intake & Output 09/16/20 09/17/20 09/18/20 09/19/20 23:59 23:59 23:59 23:59 Intake Total 1530 1600 1140 1020 Output Total 450 Balance 1080 1600 1140 1020 Meds/Results Medications: Active Medications Generic Name Dose Route Start Last Admin Trade Name Freq PRN Reason Stop Dose Admin Albuterol 2.5 mg 09/16/20 08:00 09/19/20 14:43 Albuterol Sulfate Neb 2.5 Mg/0.5 Ml Inh INHALATION 2.5 mg Q6HRT CATHY Administration Budesonide/Formoterol Fumarate 2 puff 09/16/20 08:00 09/19/20 08:32 Budesonide/Form 160-4.5 Mcg (*Sp) INHALATION 2 puff Q12HRT CATHY Administration Escitalopram Oxalate 20 mg 09/16/20 09:00
[2020-09-20] MEDS: ALBUTEROL SULFATE NEB 2.5 MG/0.5 ML INH INHALATION ×2 (02:02→09:14)
[2020-09-20 02:04] VITALS: PULSE 84; RESP 18
[2020-09-20 05:59] LABS: Hematocrit 29.4 % (37.0-47.0); Hemoglobin 8.1 g/dL (12.0-15.0); Immature Platelet Fraction Pct 6.3 % (0.9-11.2); Mean Corpuscular HGB Conc 27.6 g/dl (32-36); Mean Corpuscular Hemoglobin 16.4 pg (26-34); Mean Corpuscular Volume 59.5 fl (80-100); Platelet Count Result 290 k/mm3 (150-375); Red Blood Count 4.94 M/mm3 (4.2-5.4); White Blood Count 10.9 K/mm3 (4.5-10.0)
[2020-09-20 06:00] VITALS: BP 159/89; PULSE 84; RESP 20; TEMP 36.1; O2SAT 92
[2020-09-20 06:06] LABS: Anion Gap 6 mmol/L (8-16); Blood Urea Nitrogen 17 mg/dL (7-17); Calcium 8.6 mg/dL (8.4-10.2); Carbon Dioxide 34 mmol/L (22-30); Chloride 97 mmol/L (98-107); Estimated CRCL calculation 125 ml/min; Estimated Glomerular Filt Rate > 60; Glucose 132 mg/dL (65-105); Potassium 4.2 mmol/L (3.4-5.0); Sodium 137 mmol/L (137-145)
[2020-09-20 09:10] VITALS: PULSE 82; RESP 18; O2SAT 95
[2020-09-20] MEDS: FLUTICASONE PROPIONATE 0.05% NA SPR 16 GM BTL (*BKC) 1 SPRAY NASAL (09:16)
[2020-09-20] MEDS: FERROUS SULFATE 324 MG TABLET PO (09:16)
[2020-09-20] MEDS: hydroCHLOROthiazide 12.5 MG CAPSULE PO (09:16)
[2020-09-20] MEDS: ESCITALOPRAM OXALATE 10 MG TABLET 20 MG PO (09:16)
[2020-09-20] MEDS: methylPREDNISolone SOD SUCC 125 MG VIAL 60 MG IV PUSH (09:17)
[2020-09-20] MEDS: LORATADINE 10 MG TABLET PO (09:17)
[2020-09-20] MEDS: PANTOPRAZOLE 40 MG TABLET PO (09:18)
[2020-09-20 09:20] VITALS: PULSE 78; RESP 18
--- NOTE | 2020-09-20 11:51 | PM.DS ---
DS: Admitting Diagnosis Admitting Diagnosis Admitting Diagnosis: Shortness of breath. DS: Discharge Diagnosis Discharge Diagnosis (1) Acute respiratory failure with hypoxia: Code(s): J96.01 - Acute respiratory failure with hypoxia Status: Resolved Assessment and Plan: Discharge Summary (Date of service 09/20/20): Mrs. Huffman is a 50 y.o. female with PMH significant for asthma, hypertension, iron deficiency anemia, thalassemia minor, and MATEUSZ who presented to the emergency department 09/15/20 for the evaluation of progressive dyspnea with lesser and lesser exertion and concern for anemia. She was hypoxic on arrival with oxygen saturation of 86% which improved with supplemental oxygen. Initial workup was notable for Hb 8.6, Hct 31.6, WBC normal at 6,400, CXR without acute abnormality, and CMP unremarkable. She was admitted to the hospitalist service for asthma exacerbation and tested for COVID-19. COVID-19 testing was negative. She was treated with IV solu-medrol and bronchodilators. Gastroenterology was consulted for her anemia and concern for dark stools and epigastric discomfort. She had an EGD and colonoscopy 09/[address] Nevarez. EGD demonstrated a large hiatal hernia and two linear ulcers at the body of the stomach. Protonix was increased to BID dosing and she was encouraged to avoid NSAIDs. Colonoscopy demonstrated a single, small-size internal hemorrhoid in the rectum. She improved from a respiratory standpoint and she was weaned to room air the evening of 09/18. Wheezing resolved and dyspnea improved significantly. IV solu-medrol was tapered and she was discharged on a PO prednisone taper. She was advised to follow-up with pulmonology during her previous hospitalization for asthma exacerbation but never did. I encouraged her to follow-up with Dr. Schulz with pulmonology at discharge for PFTs and to discuss resuming xolair. Blood pressures were elevated above target. Her antihypertensives were recently discontinued in the outpatient setting so I did resume hydrochlorothiazide given suboptimal blood pressure control. She was discharged in hemodynamically stable condition on the morning of 09/20/20. (2) Asthma exacerbation: Qualifiers: Asthma persistence: unspecified Asthma severity: unspecified severity Qualified Code(s): J45.901 - Unspecified asthma with (acute) exacerbation Code(s): J45.901 - Unspecified asthma with (acute) exacerbation Status: Acute Assessment and Plan: As above. (3) Gastric ulcer: Code(s): K25.9 - Gastric ulcer, unspecified as acute or chronic, without hemorrhage or perforation Status: Acute Assessment and Plan: Two linear ulcers were visualized on EGD (5-6mm in size) without evidence of acute bleeding. She will need pantoprazole BID. Avoid all NSAIDs. (4) Acute on chronic anemia: Code(s): D64.9 - Anemia, unspecified Status: Acute Assessment and Plan: Patient reported baseline hemoglobin of 12.0 and has thalassemia minor. She is established with die repairer stamping Dr. Rosales. She was scheduled for an outpatient iron infusion 09/19. She received 1 dose 200mg IV Venofer on 09/16. She reported that her stools are occasionally coffee-ground in appearance with red blood on tissue when wiping. She is on oral iron supplementation. IFOB negative. Gastroenterology was consulted given dark stools and underwent EGD and colonoscopy. EGD demonstrated two linear ulcers in the body of the stomach with clean base and no evidence of acute bleeding. Protonix BID was initiated. Biopsies were obtained. Colonoscopy revealed internal hemorrhoids. PO ferrous sulfate supplementation was continued at discharge and she will follow-up with Dr. Rosales within 1 week. (5) Thalassemia minor: Code(s): D56.3 - Thalassemia minor Status: Inactive Assessment and Plan: Established with Dr. Rosales as noted above. Explains chronic anemia.
== END 2020-09-20 13:15 | disposition home or self-care (01) | DRG 202 ==
LOC: ANHED 14:09 → ANHIMU 18:52 → ANH3MED 09-16 06:43
PROVIDERS: Emergency Medicine; Internal Medicine Gastroenterology; Physician Assistant; Admitting Provider Family Medicine; Emergency Provider Emergency Medicine; PCP Family Medicine; Visit Provider Internal Medicine
PROC: 0DJ08ZZ Inspection of Upper Intestinal Tract, Via Natural or Artificial Opening Endoscopic (ICD-10-PCS; CPT 43235; principal; 2020-09-18 11:45)
DX: J45.901 Unspecified asthma with (acute) exacerbation (principal); J96.01 Acute respiratory failure with hypoxia; Z20.828 Contact with and (suspected) exposure to other viral communicable diseases; K25.9 Gastric ulcer, unspecified as acute or chronic, without hemorrhage or perforation; R19.5 Other fecal abnormalities; K64.8 Other hemorrhoids; D50.0 Iron deficiency anemia secondary to blood loss (chronic); D56.3 Thalassemia minor; K21.9 Gastro-esophageal reflux disease without esophagitis; K44.9 Diaphragmatic hernia without obstruction or gangrene; I10 Essential (primary) hypertension; F41.8 Other specified anxiety disorders; G47.33 Obstructive sleep apnea (adult) (pediatric); Z79.899 Other long term (current) drug therapy; Z86.010 Personal history of colon polyps; Z87.891 Personal history of nicotine dependence
CPT/HCPCS: 36415; 71045; 80048; 80076; 82274; 82728; 83540; 83550; 83605; 85014; 85018; 85025; 85027; 85055; 86140; 86850; 86900; 86901; 87040; 87635; 88305; 93005; 94640; 96365; 96375; 96376; 99285; A9270; C9803; G0378; J1756; J2704; J2930; J3475; J7120; U0003

== ENCOUNTER 2020-11-05 13:53 | Outpatient (CLI) | payer BC, SELFPAY ==
--- NOTE | ~2020-11-05 | XR_ITS ---
XR chest 2V DATE: 11/05/2020 14:13 INDICATION: Shortness of breath, wheezing, chest pain with inspiration. History of asthma, hypertensi on. TECHNIQUE: PA and lateral views COMPARISON: 09/15/2020 portable upright AP chest FINDINGS: There is a large hiatal hernia. Heart size is within normal limits. No hilar or mediastinal enlargement. Mild apical capping, primari ly on the left. No pulmonary infiltrate or consolidation, pleural effusion or pulmonary vascular giselle estion or pneumothorax. Surgical clips, right upper quadrant, consistent with cholecystectomy. Diffuse osteopenia. IMPRESSION: Large hiatal hernia No active cardiopulmonary disease Status post cholecystectomy Osteopenia Reviewed, dictated and finalized at location B. OR RADIATION PROTECTION TECHNICIAN
== END 2020-11-05 13:54 | disposition home or self-care (01) ==
LOC: ANHIMG 14:01
PROVIDERS: PCP Family Medicine; Visit Provider Physician Assistant Medical
DX: R06.2 Wheezing (principal); K44.9 Diaphragmatic hernia without obstruction or gangrene; Z90.49 Acquired absence of other specified parts of digestive tract; M85.89 Other specified disorders of bone density and structure, multiple sites
CPT/HCPCS: 71046

== ENCOUNTER 2020-11-22 11:35 | Outpatient (CLI) | payer BC, SELFPAY ==
[2020-11-27 20:12] LABS: Alpha-1-Antitrypsin, QN 198 mg/dL (83-199)
== END 2020-11-22 11:36 | disposition home or self-care (01) ==
LOC: ANHLAB 11:37
PROVIDERS: Family Provider Internal Medicine; PCP Family Medicine; Visit Provider Internal Medicine Critical Care Medicine
DX: J45.909 Unspecified asthma, uncomplicated (principal)
CPT/HCPCS: 36415; 82103; 82104; 82785; 86003

== ENCOUNTER 2021-01-18 09:09 | Outpatient (CLI) | payer BC, SELFPAY ==
--- NOTE | 2021-02-03 17:03 | WPDHOMESLEEP ---
Sleep Study - Home Unattended Date of Study: 01/18/21 Ordering Provider: Demetrice Schulz MD Interpreting Provider: Demetrice Schulz MD Home Sleep Study Type: Apnea Link Air Height: 1.65 m Weight: 108.862 kg Body Mass Index: 39.9 Neck Circumference (inches): 15 [place]: 14 Reason for Sleep Study Hypersomnia Sleep History Michell Huffman is a 50 year old female with excessive daytime sleepiness. She has a history of obstructive sleep apnea, and has not tolerated CPAP well in the past. she is tired most of the time. She has anemia which contributes to her fatigue. She receives iron transfusions and blood transfusions. She occasionally snores and occasionally this is loud enough for others to complain about it. She rarely awakens at night with heartburn, belching or coughing. She occasionally awakens from sleep feeling short of breath. She occasionally has trouble sleep with a cold. She rarely wakes up gasping for breath at night. She occasionally has breathing problems at night observed by others. She frequently sweats excessively at night. She occasionally notices her heart pounding or beating irregularly night. She frequently falls asleep during the day but never involuntarily or while driving. She does not have loss of muscle tone was strong emotion. She rarely has daytime difficulties due to excessive sleepiness. 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 she does not feel paralyzed on waking or falling asleep. She occasionally has vivid dreamlike scenes upon awakening or falling asleep. She has never free to go to sleep. She occasionally has nightmares and occasionally remembers her dreams. She occasionally has racing thoughts, feelings of sadness, depression and anxiety. She occasionally has muscular tension. She never notices parts of her body jerking. She occasionally kicks at night. She frequently has crawling and aching feelings in her legs and frequently has leg pain at night. She never has morning jaw pain and never grinds her teeth during sleep. She occasionally is bothered by pain during the day and occasionally awakened by pain at night. She frequently wakes up feeling stiff in the morning with sore achy muscles and pain in the neck and spine. She has dizziness, headaches, fatigue and depression. She does not have a fixed bedtime, changes daily. It takes about 15-30 minutes for her to fall asleep. She typically wakes 2-3 times after falling asleep to go to the bathroom and get a drink of water. Within 15 minutes she is able to return to sleep. She wakes in the morning around 9:00 a.m.. She estimates getting 6-8 hours of sleep most nights. Weekend schedule is the same. She takes naps. A short nap is not refreshing. She is usually drowsy in the morning for 3 hours or longer. Habits: Quit tobacco 10 years ago. Three caffeinated beverages a day. No alcohol or recreational drugs. [facility]LY [facility] Past Medical History Medical History Asthma Colon polyps Dark stools Depression with anxiety Duodenal arteriovenous malformation Epigastric pain Gastric ulcer Gastroesophageal reflux disease Hiatal hernia Hypertension Iron deficiency anemia Morbid obesity Obstructive sleep apnea She is intolerant to CPAP. Thalassemia minor Surgical History Surgical History History of cholecystectomy History of endometrial ablation History of total abdominal hysterectomy and bilateral salpingo-oophorectomy Family History Family History Father Family history of atrial fibrillation Diabetes mellitus Hypertension S/P CABG (coronary artery bypass graft) Sibling Asthma Diabetes mellitus Prostate carcinoma Mother , age 68 Chronic obstructive pulmonary disease Diabetes mellitus Grandparent Cerebrovascular accident Congestive heart failure Family history of atrial fibr
[2021-02-03 17:11] VITALS: BMI 39.9
== END 2021-01-18 09:10 | disposition home or self-care (01) ==
LOC: ANHCSM 09:12
PROVIDERS: PCP Family Medicine; Visit Provider Internal Medicine Critical Care Medicine
DX: G47.33 Obstructive sleep apnea (adult) (pediatric) (principal); G47.10 Hypersomnia, unspecified; Z87.891 Personal history of nicotine dependence; Z79.899 Other long term (current) drug therapy; E66.01 Morbid (severe) obesity due to excess calories; Z68.39 Body mass index [BMI] 39.0-39.9, adult
CPT/HCPCS: 95806

== ENCOUNTER 2021-12-21 20:22 | Inpatient (IN) | payer BC, SELFPAY ==
[2021-12-21] VITALS (24 sets, daily range): BP systolic 174–193; BP diastolic 89–108; PULSE 84–95; RESP 14–22; TEMP 36.9; O2SAT 91–96
--- NOTE | ~2021-12-21 | XR_ITS ---
EXAMINATION: XR chest 2V 12/21/2021 20:47 INDICATION: Shortness of breath and cough PROCEDURE: 2 view chest COMPARISON: Comparison to multiple prior studies sequentially, with oldest reviewed study dated 03/18. FINDINGS: The lungs are clear. The cardiomediastinal silhouette is within normal limits. There are no pleural effusions. There is no pneumothorax suspected. There is a large hiatal hernia. IMPRESSION: 1: No acute cardiopulmonary disease. 2: Large hiatal hernia. Reviewed, dictated and finalized at location A. ICAL WAREHOUSEMAN
--- NOTE | 2021-12-21 20:38 | ECG_ITS ---
Measurements Intervals [place] Rate: 85 P: 58 GA: 134 QRS: 58 QRSD: 88 T: 35 QT: 364 QTc: 435 Interpretive Statements SINUS RHYTHM BASELINE ARTIFACT- I, II, AVR, AVL, AVF NORMAL ECG Electronically Signed On 12-22-2021 7:50:39 CORE PILER by William Valera D.O.
--- NOTE | 2021-12-21 20:42 | ED.ASTHMA ---
HPI - Asthma General Chief Complaint: Asthma Stated Complaint: SOB, asthma Time Seen by Provider: 12/21/21 20:33 Source: patient History of Present Illness HPI Narrative: Patient presents with shortness of breath and cough. Patient ports that shortness of breath since yesterday and cough started today. Reports a history of asthma this feels like her prior asthma however her home inhalers were not helpful so she came to the ER for evaluation. Reports mild congestion but denies any fevers. Reports her grandchild was sick recently but is not sure what the type was infection was. She denies any nausea vomiting or diarrhea she reports she has been vaccinated as Covid Related Data Home Medications Medication Instructions Recorded Confirmed ferrous sulfate 325 mg (65 mg 325 mg PO DAILY 12/22/19 12/22/21 iron) tablet fluticasone propionate [Flonase 1 spray INTRANASAL DAILY 05/19/20 12/22/21 Allergy Relief] cetirizine [Zyrtec] 10 mg PO DAILY 09/15/20 12/22/21 hydrochlorothiazide 25 mg PO DAILY 12/22/21 12/22/21 Allergies Allergy/AdvReac Type Severity Reaction Status Date / Time mold Allergy Intermediate Dyspnea / Verified 12/21/21 20:26 SOB tree and shrub pollen Allergy Intermediate Itching Verified 12/21/21 20:26 Grass Allergy Intermediate Itching Uncoded 12/21/21 20:26 Review of Systems Review of Systems: CONSTITUTIONAL: Denies fever, chills, or sweats. EYES: Denies visual changes, redness, or discharge. ENT: Denies rhinorrhea, congestion, sore throat, or otalgia. CARDIOVASCULAR: Denies chest pain, palpitations, or edema. RESPIRATORY: Cough and shortness of breath GASTROINTESTINAL: Denies abdominal pain, nausea, vomiting, or diarrhea. GENITOURINARY: Denies dysuria or hematuria. SKIN: Denies rash or itching. MUSCULOSKELETAL: Denies back pain, joint pain, or myalgia. NEUROLOGIC: Denies headache, numbness, dizziness, or weakness. PSYCHIATRIC: Denies anxiety or depression. All systems reviewed & are unremarkable except as noted in HPI and below PMFSH Past Medical History Medical History (Updated 12/22/21 @ 05:36 by Nikki Ledbetter DO) Asthma Colon polyps Dark stools Depression with anxiety Duodenal arteriovenous malformation Epigastric pain Gastric ulcer Gastroesophageal reflux disease Hiatal hernia Hypertension Iron deficiency anemia Due to gastric ulcer Morbid obesity Obstructive sleep apnea Osteopenia determined by x-ray Pre-diabetes Hemoglobin A1c of 6.4% noted on labs December 2018 Thalassemia minor Surgical History Surgical History (Updated 12/22/21 @ 05:31 by Nikki Ledbetter DO) History of cholecystectomy History of colonoscopy with polypectomy (09/2020) History of endometrial ablation History of esophagogastroduodenoscopy (EGD) (09/2020) Demonstrated hiatal hernia and unspecified gastric ulcer History of total abdominal hysterectomy and bilateral salpingo-oophorectomy Family History Family History Father Family history of atrial fibrillation Diabetes mellitus Hypertension S/P CABG (coronary artery bypass graft) Sibling Asthma Diabetes mellitus Prostate carcinoma Mother , age 68 Chronic obstructive pulmonary disease Diabetes mellitus Grandparent Cerebrovascular accident Congestive heart failure Family history of atrial fibrillation Social History Social History (Updated 12/22/21 @ 05:55 by Nikki Ledbetter DO) Social History: Surrogate decision maker: Juan Huffman, spouse. Code status: Full code. Smoking status: Former smoker Second hand tobacco smoke exposure: Yes Additional smoking assessment comments: Smoked socially for approximately 10 years, quit 16 years ago. Alcohol intake: never Substance use: current Substance use type: marijuana Additional living arrangements comments: Lives in [place] with her family. They have a 1-year-old [place]-doodle. Additional occ
[2021-12-21] MEDS: ALBUTEROL SULFATE NEB 2.5 MG/0.5 ML INH 15 MG INHALATION (21:06)
[2021-12-21] MEDS: IPRATROPIUM BR 0.02% INH SOLN 0.5 MG/2.5 ML VIAL 1.5 MG INHALATION (21:06)
[2021-12-21] MEDS: methylPREDNISolone SOD SUCC 125 MG VIAL IV PUSH (21:09)
[2021-12-21] MEDS: MAGNESIUM SULF 2 GM/WATER 50ML 2 GM/50 ML BAG IVPB (21:57)
[2021-12-21 22:10] LABS: Basophils Absolute Auto 0.1 K/mm3 (0.0-0.1); Basophils Percent Auto 0.6 % (0.2-1.2); Eosinophils Percent Auto 0.3 % (0-4.4); Hematocrit 44.4 % (37.0-47.0); Hemoglobin 14.1 g/dL (12.0-15.0); Immature Granulocyte Absolute 0.03 K/mm3 (0.00-0.031); Immature Granulocyte Percent A 0.3 % (0-0.5); Lymphocytes Absolute Auto 0.94 K/mm3 (0.9-3.2); Lymphocytes Percent Auto 9.7 % (18.3-44.2); Mean Corpuscular HGB Conc 31.8 g/dl (32-36); Mean Corpuscular Hemoglobin 26.8 pg (26-34); Mean Corpuscular Volume 84.3 fl (80-100); Mean Platelet Volume 10.4 fl (7.4-10.4); Monocytes Absolute Auto 0.4 K/mm3 (0.1-0.6); Monocytes Percent Auto 4.4 % (2.6-8.5); Neutrophils Absolute Auto 8.2 K/mm3 (1.3-6.7); Neutrophils Percent Auto 84.7 % (45.5-73.1); Platelet Count Result 236 k/mm3 (150-375); Red Blood Count 5.27 M/mm3 (4.2-5.4); Red Cell Distribution Width 15.8 % (11.5-14.5); White Blood Count 9.7 K/mm3 (4.5-10.0)
[2021-12-21 22:19] LABS: Alanine Aminotransferase 14 U/L (4-35); Albumin Level 4.4 g/dL (3.5-5.1); Alkaline Phosphatase 117 U/L (38-126); Anion Gap 6 mmol/L (8-16); Aspartate Amino Transferase 16 U/L (14-36); Bilirubin,Total 0.5 mg/dL (0.2-1.3); Blood Urea Nitrogen 9 mg/dL (7-17); Calcium 9.1 mg/dL (8.4-10.2); Carbon Dioxide 33 mmol/L (22-30); Chloride 99 mmol/L (98-107); Estimated CRCL calculation 101 ml/min; Estimated Glomerular Filt Rate > 60; Glucose 114 mg/dL (65-110); Potassium 3.6 mmol/L (3.4-5.0); Sodium 138 mmol/L (137-145)
[2021-12-21 23:41] LABS: SARS-CoV-2 RNA PCR Negative
--- NOTE | 2021-12-21 23:53 | PC.NURSE ---
RIGOBERTOAR faxed to [facility] at [phone].
[2021-12-22] VITALS (14 sets, daily range): BP systolic 149–197; BP diastolic 81–93; PULSE 71–87; RESP 16–20; TEMP 36.2–36.6; O2SAT 91–94; BMI 40.0
--- NOTE | 2021-12-22 00:23 | ADMGEN ---
This patient, Michell Huffman, was admitted to [facility] Surg Room 301-01. Patient/family oriented to hospital policies and general routines including ID bracelet, bed and alarms, visiting hours, pain management, procedures, bathroom and other care routines, personal items, smoking policy, room service/diet, and visiting hours. Information on how to activate the Rapid Response Team has been discussed. Patient/Family are encouraged to report perceived risks to care and to ask questions if they do not understand what they are told or what they should do.
--- NOTE | 2021-12-22 00:42 | PM.IMHP ---
H&P: HPI History of Present Illness Date/Time: 12/22/21 00:42 Chief Complaint: Shortness of breath, sore throat, headache and cough for 1 day Narrative: 51-year-old female with past medical history of asthma, depression, anxiety obesity and obstructive sleep apnea intolerant to CPAP therapy presented to the ER with shortness of breath with accompanying sore throat, headache and nonproductive cough for 2 days. She reported that her symptoms are similar to when she has an asthma exacerbation. she has had to use her nebulizer treatment 3 times a day. She reports that she rarely uses her nebulizer treatment and has not had any oral steroid treatment for her asthma since however, she was concerned that she may have COVID as she works at [employer]. She took a home COVID test that was negative and her COVID PCR performed in the ER was negative. She reports that she has been having chest congestion that she describes as tightness with breathing. Her symptoms are not relieved despite her home nebulizer treatments. She has been compliant with her inhaled corticosteroid therapy. She reports that she rarely has to use her nebulizer or rescue inhaler. She denies any fevers or chills, loss of taste or smell or known ill contacts at the time of my evaluation but she reported that her grandchild was recently ill with upper respiratory symptoms to the ER staff. She received her Pfizer COVID vaccine January 26, 2021. She has not received her booster. She does have a known history of obstructive sleep apnea but was intolerant to CPAP when she was 1st diagnosed greater than 10 years ago. She has not went for repeat sleep study. She denies a history of diabetes but on review of past records patient had hemoglobin A1c of 6.4 in 2019. She has not had any recent A1c values within our computer system. On exam patient has a large neck circumference and suspect some degree of thyromegaly. She denies history of known thyroid disease. No prior TSH available for review in the computer. She denies any significant constipation are her loss. She does have a history of essential hypertension. She reports that her blood pressures have been high for several months. However she has not checked her blood pressure in the last 4-6 weeks. She reports that heard diastolic blood pressures were elevated but she cannot give me a ballpark number. She has no recall of what her systolic blood pressures have been. She reported that she did have a headache that was generalized and [id number] intensity at home. She attributes the headache to her blood pressure being high. She reports that she has been compliant with her hydrochlorothiazide. Her last dose was on the morning of the at around 7:00 a.m.. She still has secondhand smoke exposure from her . Review of Systems Review of Systems: 12 systems were reviewed with pertinent positives and negatives per HPI. Except as documented in the HPI, all other systems were reviewed and are negative. [facility] Past Medical History Medical History (Updated 12/22/21 @ 05:36 by Nikki Ledbetter DO) Asthma Colon polyps Dark stools Depression with anxiety Duodenal arteriovenous malformation Epigastric pain Gastric ulcer Gastroesophageal reflux disease Hiatal hernia Hypertension Iron deficiency anemia Due to gastric ulcer Morbid obesity Obstructive sleep apnea Osteopenia determined by x-ray Pre-diabetes Hemoglobin A1c of 6.4% noted on labs December 2018 Thalassemia minor Surgical History Surgical History (Updated 12/22/21 @ 05:31 by Nikki Ledbetter DO) History of cholecystectomy History of colonoscopy with polypectomy (09/2020) History of endometrial ablation History of esophagogastroduodenoscopy (EGD) (09/2020) Demonstrated hiatal hernia and unspecified gastric ulcer History of total abdominal hysterectomy and bilateral salpingo-oophorectomy Family History Family History (Reviewed 12/22/21 @ 00:55 by Nikki Ledbetter,
[2021-12-22] MEDS: LEVALBUTEROL NEB 1.25 MG/3 ML INHALATION ×4 (01:54→19:02)
[2021-12-22] MEDS: lisinopriL 20 MG TABLET PO (06:21)
[2021-12-22 07:59] LABS: Thyroid Stimulating Hormone Reflex 0.585 uIU/mL (0.465-4.68)
[2021-12-22 08:02] LABS: Hemoglobin A1C 5.4 % (<5.7)
[2021-12-22] MEDS: FLUTICASONE/SALMETEROL 115-21 MCG INHALER 1 PUFF 2 PUFF INHALATION ×2 (08:15→19:02)
[2021-12-22] MEDS: FERROUS SULFATE 324 MG TABLET PO (08:30)
[2021-12-22] MEDS: MONTELUKAST SODIUM 10 MG TABLET PO (08:30)
[2021-12-22] MEDS: buPROPion HCL XL (24 HR) 150 MG TABCR 300 MG PO (08:30)
[2021-12-22] MEDS: predniSONE 20 MG TABLET 60 MG PO (08:30)
[2021-12-22] MEDS: ENOXAPARIN 40 MG/0.4 ML SYRINGE SUB-Q (08:31)
[2021-12-22] MEDS: ESCITALOPRAM OXALATE 10 MG TABLET 20 MG PO (08:31)
[2021-12-22] MEDS: FLUTICASONE PROPIONATE 0.05% NA SPR 16 GM BTL (*BKC) 1 SPRAY NASAL (08:32)
[2021-12-22] MEDS: PANTOPRAZOLE 40 MG TABLET PO ×2 (08:32→16:09)
[2021-12-22] MEDS: ESTROGENS, CONJUGATED 0.625 MG TABLET PO (08:32)
[2021-12-22] MEDS: hydroCHLOROthiazide 25 MG TABLET PO (08:32)
[2021-12-22] MEDS: LORATADINE 10 MG TABLET PO (08:32)
--- NOTE | 2021-12-22 09:57 | PM.IMPN ---
Progress Note: A&P Assessment and Plan (1) Acute asthma exacerbation: Qualifiers: Asthma persistence: unspecified Asthma severity: unspecified severity Qualified Code(s): J45.901 - Unspecified asthma with (acute) exacerbation Code(s): J45.901 - Unspecified asthma with (acute) exacerbation Status: Acute Assessment and Plan: Patient has an acute asthma exacerbation. She is not requiring any oxygen since admission. Patient was placed on scheduled ipratropium She received 1 dose of IV Solu-Medrol 125 mg in the emergency department, then was started on prednisone 60 mg daily. Upon my evaluation of the patient today she is still having chest tightness and wheezing throughout along with dyspnea with exertion. I will switch her oral prednisone to IV Solu-Medrol 40 mg every 8 hours with 1st dose given now. I also added albuterol with her ipratropium every 6 hours. We will see how she is feeling tomorrow morning and if she is doing well at that time will consider discharge verses weaning IV steroids more in keeping her for 1 more day if she still having symptoms. Continue monitoring. (2) Essential hypertension: Code(s): I10 - Essential (primary) hypertension Status: Acute Assessment and Plan: Patient's blood pressure was elevated 155/81 this morning. Patient is chronically on hydrochlorothiazide 25 mg at home Due to elevated blood pressures on arrival to the emergency room she was also started on lisinopril 20 mg daily. Will continue monitoring her blood pressure. P.r.n. IV hydralazine as needed. Make further adjustments if blood pressure still not well controlled. (3) Obstructive sleep apnea: Code(s): G47.33 - Obstructive sleep apnea (adult) (pediatric) Status: Acute Assessment and Plan: Patient has morbid obesity with history of obstructive sleep apnea. I have encouraged the patient to consider having a repeat sleep study as this would reduce some of her other comorbidities risks. The patient is interested in having a repeat outpatient sleep study on discharge. Given none I thought I proceeded some thyromegaly on exam will check the patient's TSH to rule out hypothyroidism as a component the patient's obesity. TSH was normal. Given patient's history of increased risk of diabetes, hemoglobin A1c is 5.4% Will need to follow-up PCP outpatient for scheduling. (4) BMI 40.0-44.9, adult: Code(s): Z68.41 - Body mass index [BMI] 40.0-44.9, adult Status: Acute Assessment and Plan: The importance of diet and exercise was discussed with the patient. Time Spent With Patient Time with patient: 25 - 35 minutes Subjective Date/time seen: 12/22/21 09:57 Interval history: Date of service 12/22/2021: Patient still has chest tightness and wheezing. She did have temporary relief with the breathing treatment at 8:00 a.m., but symptoms are still present now. She does feel little bit better than when she came into the hospital but is still having some symptoms and shortness of breath with walking to the bathroom. She is also very tired and has been sleeping most of the morning. Denies any fevers, chills, nausea, vomiting, abdominal pain, leg swelling, calf pain, or any other symptoms at this time. Review of Systems Review of Systems: All systems reviewed & are unremarkable except as noted in HPI and below Exam Narrative: General: 51-year-old woman laying on her right side in bed, in sits up when I come into the room. Appears comfortable, but fatigued. In no acute distress. Skin: No jaundice or cyanosis. Good skin turgor. Neck: Full range of motion. Supple. Respiratory: Decreased lung sounds throughout, inspiratory wheezing noted left greater than right. No rales
[2021-12-22] MEDS: methylPREDNISolone SOD SUCC 40 MG VIAL IV PUSH ×3 (11:13→20:21)
[2021-12-22] MEDS: IPRATROPIUM BR 0.02% INH SOLN 0.5 MG/2.5 ML VIAL INHALATION ×2 (13:17→19:02)
[2021-12-23] VITALS (16 sets, daily range): BP systolic 138–155; BP diastolic 86–91; PULSE 63–75; RESP 16–18; TEMP 36.3–36.7; O2SAT 88–96
[2021-12-23] MEDS: IPRATROPIUM BR 0.02% INH SOLN 0.5 MG/2.5 ML VIAL INHALATION ×4 (01:41→20:21)
[2021-12-23] MEDS: LEVALBUTEROL NEB 1.25 MG/3 ML INHALATION ×4 (01:41→20:21)
[2021-12-23] MEDS: methylPREDNISolone SOD SUCC 40 MG VIAL IV PUSH ×3 (06:09→21:46)
[2021-12-23 06:52] LABS: Anion Gap 10 mmol/L (8-16); Blood Urea Nitrogen 17 mg/dL (7-17); Calcium 9.3 mg/dL (8.4-10.2); Carbon Dioxide 28 mmol/L (22-30); Chloride 101 mmol/L (98-107); Estimated CRCL calculation 102 ml/min; Estimated Glomerular Filt Rate > 60; Glucose 139 mg/dL (65-110); Magnesium 2.4 mg/dL (1.6-2.3); Potassium 3.5 mmol/L (3.4-5.0); Sodium 139 mmol/L (137-145)
[2021-12-23] MEDS: FLUTICASONE/SALMETEROL 115-21 MCG INHALER 1 PUFF 2 PUFF INHALATION ×2 (08:30→20:34)
[2021-12-23] MEDS: MONTELUKAST SODIUM 10 MG TABLET PO (08:41)
[2021-12-23] MEDS: buPROPion HCL XL (24 HR) 150 MG TABCR 300 MG PO (08:41)
[2021-12-23] MEDS: ESTROGENS, CONJUGATED 0.625 MG TABLET PO (08:41)
[2021-12-23] MEDS: lisinopriL 20 MG TABLET PO (08:41)
[2021-12-23] MEDS: FERROUS SULFATE 324 MG TABLET PO (08:41)
[2021-12-23] MEDS: POTASSIUM CHLORIDE 20 MEQ TABLET 40 MEQ PO (08:41)
[2021-12-23] MEDS: PANTOPRAZOLE 40 MG TABLET PO ×2 (08:42→16:40)
[2021-12-23] MEDS: LORATADINE 10 MG TABLET PO (08:42)
[2021-12-23] MEDS: ENOXAPARIN 40 MG/0.4 ML SYRINGE SUB-Q (08:42)
[2021-12-23] MEDS: hydroCHLOROthiazide 25 MG TABLET PO (08:42)
[2021-12-23] MEDS: ESCITALOPRAM OXALATE 10 MG TABLET 20 MG PO (08:42)
[2021-12-23] MEDS: FLUTICASONE PROPIONATE 0.05% NA SPR 16 GM BTL (*BKC) 1 SPRAY NASAL (08:43)
[2021-12-23] MEDS: SACCHAROMYCES BOULARDII 250 MG CAPSULE PO ×2 (10:51→16:40)
[2021-12-23] MEDS: AMOXICILLIN/CLAVULANATE K 875-125 MG TAB 1 TABLET PO ×2 (10:51→21:47)
--- NOTE | 2021-12-23 13:03 | PM.IMPN ---
Progress Note: A&P Assessment and Plan (1) Acute asthma exacerbation: Qualifiers: Asthma persistence: unspecified Asthma severity: unspecified severity Qualified Code(s): J45.901 - Unspecified asthma with (acute) exacerbation Code(s): J45.901 - Unspecified asthma with (acute) exacerbation Status: Acute Assessment and Plan: Patient has an acute asthma exacerbation. She is not requiring any oxygen since admission. Continue IV Solu-Medrol 40 mg every 8 hours and albuterol + ipratropium every 6 hours. She is feeling better this morning without any chest tightness or wheezing, but she had just had her breathing treatment. As the day went on the patient began having more shortness of breath, chest tightness and wheezing. She is 91% on room air and with exertion her saturations dropped to 87%. She went back to bed in her oxygen went back to normal. She will need some oxygen with exertion and she is otherwise not feeling much better this afternoon. Will keep her overnight with the IV Solu-Medrol and breathing treatments see how she is doing tomorrow. Continue monitoring. (2) Acute respiratory failure with hypoxemia: Code(s): J96.01 - Acute respiratory failure with hypoxia Status: Acute Assessment and Plan: Patient was found to be hypoxic 12/22/2021 at 88% on room air. She was placed on 2 L via nasal cannula with oxygen saturation 95%. This morning patient was feeling better after breathing treatment and she was resting comfortably on room air. We walked her in the room and her saturations dropped to 87%. She will not need any oxygen at rest but will need 2 L with exertion. We will keep her overnight continuing our treatment of IV Solu-Medrol and DuoNebs and do a home oxygen evaluation tomorrow. (3) Essential hypertension: Code(s): I10 - Essential (primary) hypertension Status: Acute Assessment and Plan: Patient is chronically on hydrochlorothiazide 25 mg at home Due to elevated blood pressures on arrival to the emergency room she was also started on lisinopril 20 mg daily. Blood pressure this morning was 138/91. Continue lisinopril and HCTZ Will continue monitoring her blood pressure. P.r.n. IV hydralazine as needed. Make further adjustments if blood pressure still not well controlled. (4) Obstructive sleep apnea: Code(s): G47.33 - Obstructive sleep apnea (adult) (pediatric) Status: Acute Assessment and Plan: Patient has morbid obesity with history of obstructive sleep apnea. I have encouraged the patient to consider having a repeat sleep study as this would reduce some of her other comorbidities risks. The patient is interested in having a repeat outpatient sleep study on discharge. Given none I thought I proceeded some thyromegaly on exam will check the patient's TSH to rule out hypothyroidism as a component the patient's obesity. TSH was normal. Given patient's history of increased risk of diabetes, hemoglobin A1c is 5.4% Will need to follow-up PCP outpatient for scheduling. (5) BMI 40.0-44.9, adult: Code(s): Z68.41 - Body mass index [BMI] 40.0-44.9, adult Status: Acute Assessment and Plan: The importance of diet and exercise was discussed with the patient. Time Spent With Patient Time with patient: 25 - 35 minutes Subjective Date/time seen: 12/23/21 13:03 Interval history: Date of service 12/23/2021: Patient was feeling better this morning which she had just received a breathing treatment. She was Not having any chest tightness or wheezing. She is having a green productive sputum cough which just started with the breathing treatments. She denies any fevers, chills, nausea, vomiting
--- NOTE | 2021-12-23 14:38 | PCRCNOTE ---
HOME O2 EVAL ATTEMPTED, PT DROPPED TO 86% WITH ACTIVITY. HOME O2 EVAL TO BE REPEATED TOMORROW IN HOPES SHE CAN DISCHARGE WITHOUT HOME OXYGEN.
[2021-12-24] VITALS (14 sets, daily range): BP systolic 132–151; BP diastolic 70–93; PULSE 58–96; RESP 17–18; TEMP 35.9–36.5; O2SAT 91–95
[2021-12-24] MEDS: LEVALBUTEROL NEB 1.25 MG/3 ML INHALATION ×4 (02:35→20:15)
[2021-12-24] MEDS: IPRATROPIUM BR 0.02% INH SOLN 0.5 MG/2.5 ML VIAL INHALATION ×4 (02:35→20:14)
[2021-12-24] MEDS: methylPREDNISolone SOD SUCC 40 MG VIAL IV PUSH ×3 (05:11→21:05)
[2021-12-24 07:11] LABS: Anion Gap 9 mmol/L (8-16); Blood Urea Nitrogen 22 mg/dL (7-17); Calcium 9.2 mg/dL (8.4-10.2); Carbon Dioxide 26 mmol/L (22-30); Chloride 101 mmol/L (98-107); Estimated CRCL calculation 102 ml/min; Estimated Glomerular Filt Rate > 60; Glucose 136 mg/dL (65-110); Potassium 4.1 mmol/L (3.4-5.0); Sodium 136 mmol/L (137-145)
[2021-12-24] MEDS: FLUTICASONE/SALMETEROL 115-21 MCG INHALER 1 PUFF 2 PUFF INHALATION ×2 (08:03→20:15)
[2021-12-24] MEDS: FLUTICASONE PROPIONATE 0.05% NA SPR 16 GM BTL (*BKC) 1 SPRAY NASAL (08:30)
[2021-12-24] MEDS: buPROPion HCL XL (24 HR) 150 MG TABCR 300 MG PO (08:31)
[2021-12-24] MEDS: ENOXAPARIN 40 MG/0.4 ML SYRINGE SUB-Q (08:31)
[2021-12-24] MEDS: ESTROGENS, CONJUGATED 0.625 MG TABLET PO (08:31)
[2021-12-24] MEDS: ESCITALOPRAM OXALATE 10 MG TABLET 20 MG PO (08:31)
[2021-12-24] MEDS: MONTELUKAST SODIUM 10 MG TABLET PO (08:32)
[2021-12-24] MEDS: SACCHAROMYCES BOULARDII 250 MG CAPSULE PO ×2 (08:32→16:33)
[2021-12-24] MEDS: lisinopriL 20 MG TABLET PO (08:32)
[2021-12-24] MEDS: LORATADINE 10 MG TABLET PO (08:32)
[2021-12-24] MEDS: AMOXICILLIN/CLAVULANATE K 875-125 MG TAB 1 TABLET PO ×2 (08:32→21:05)
[2021-12-24] MEDS: PANTOPRAZOLE 40 MG TABLET PO ×2 (08:32→16:34)
[2021-12-24] MEDS: FERROUS SULFATE 324 MG TABLET PO (08:32)
[2021-12-24] MEDS: hydroCHLOROthiazide 25 MG TABLET PO (08:32)
--- NOTE | 2021-12-24 09:24 | PM.IMPN ---
Progress Note: A&P Assessment and Plan (1) Acute asthma exacerbation: Qualifiers: Asthma persistence: unspecified Asthma severity: unspecified severity Qualified Code(s): J45.901 - Unspecified asthma with (acute) exacerbation Code(s): J45.901 - Unspecified asthma with (acute) exacerbation Status: Acute Assessment and Plan: Patient has an acute asthma exacerbation. She is not requiring any oxygen since admission. Continue IV Solu-Medrol 40 mg every 8 hours and albuterol + ipratropium every 6 hours. Patient is feeling okay but still on 1 L via nasal cannula. Also started her on oral Augmentin day #2 because she was coughing up green phlegm for possible pneumonia versus bronchitis Concerned due to continued hypoxia so will consult pulmonology. The patient does see Dr. Schulz as an outpatient Continue monitoring. (2) Acute respiratory failure with hypoxemia: Code(s): J96.01 - Acute respiratory failure with hypoxia Status: Acute Assessment and Plan: Patient was found to be hypoxic 12/22/2021 at 88% on room air. She was placed on 2 L via nasal cannula with oxygen saturation 95%. This morning patient was feeling better after breathing treatment and she was resting comfortably on room air. We walked her in the room and her saturations dropped to 87%. Patient required 1 L of oxygen overnight and we will slowly try and wean her down Currently treating with oral antibiotics, IV steroids and breathing treatment. Will consult pulmonology for further evaluation recommendations IV Solu-Medrol and DuoNebs and do a home oxygen evaluation tomorrow. (3) Essential hypertension: Code(s): I10 - Essential (primary) hypertension Status: Acute Assessment and Plan: Patient is chronically on hydrochlorothiazide 25 mg at home Due to elevated blood pressures on arrival to the emergency room she was also started on lisinopril 20 mg daily. Blood pressure this morning was 150/93. Continue lisinopril and HCTZ. Will continue monitoring her blood pressure. P.r.n. IV hydralazine as needed. Make further adjustments if blood pressure still not well controlled. (4) Obstructive sleep apnea: Code(s): G47.33 - Obstructive sleep apnea (adult) (pediatric) Status: Acute Assessment and Plan: Patient has morbid obesity with history of obstructive sleep apnea. I have encouraged the patient to consider having a repeat sleep study as this would reduce some of her other comorbidities risks. The patient is interested in having a repeat outpatient sleep study on discharge. Given none I thought I proceeded some thyromegaly on exam will check the patient's TSH to rule out hypothyroidism as a component the patient's obesity. TSH was normal. Given patient's history of increased risk of diabetes, hemoglobin A1c is 5.4% Will need to follow-up PCP outpatient for scheduling. (5) BMI 40.0-44.9, adult: Code(s): Z68.41 - Body mass index [BMI] 40.0-44.9, adult Status: Acute Assessment and Plan: The importance of diet and exercise was discussed with the patient. Time Spent With Patient Time with patient: 25 - 35 minutes Subjective Date/time seen: 12/24/21 09:24 Interval history: Date of service 12/24/2021: Patient reports feeling slightly better today. She states she has been on oxygen since around to a.m. when the night respiratory therapist came in and found her to be hypoxic. Currently she is 92% on 1 L. she continues have a productive cough and states that is getting more loose so she is able to get it. Denies any fevers, chills, chest pain leg swelling, calf pain nausea vomiting abdominal pain, or any other symptoms at this time.
--- NOTE | 2021-12-24 12:10 | PM.CNPUL ---
Assessment and Plan Assessment and plan (1) Acute asthma exacerbation: Qualifiers: Asthma persistence: unspecified Asthma severity: unspecified severity Qualified Code(s): J45.901 - Unspecified asthma with (acute) exacerbation Code(s): J45.901 - Unspecified asthma with (acute) exacerbation Status: Acute Assessment and Plan: 51-year-old morbidly obese female with asthma exacerbation, clinically improving on current regimen of IV steroids nebulized short-acting bronchodilators. Patient has not had asthma exacerbations over the last 2 years. In the past she had frequent asthma exacerbations and reportedly was treated with Xolair injections for elevated IgE. Patient has had large hiatal hernia and acid reflux disease which may contribute to her asthma exacerbation. Untreated sleep apnea can contribute to asthma flare up as well. Plan is as follows I would continue with current regimen of IV steroids and other bronchodilators at this point. I would double the dose of Lovenox for better DVT prophylaxis given the BMI of over 40 kg per sq meter. Patient will need further workup with pulmonary function testing on outpatient basis, CPAP titration in the sleep lab for untreated sleep apnea, and possibly GI evaluation for large hiatal hernia and better GERD control. (2) Obstructive sleep apnea: Code(s): G47.33 - Obstructive sleep apnea (adult) (pediatric) Status: Acute (3) Gastroesophageal reflux disease: Qualifiers: Esophagitis presence: esophagitis presence not specified Qualified Code(s): K21.9 - Gastro-esophageal reflux disease without esophagitis Code(s): K21.9 - Gastro-esophageal reflux disease without esophagitis Status: Acute (4) BMI 40.0-44.9, adult: Code(s): Z68.41 - Body mass index [BMI] 40.0-44.9, adult Status: Acute (5) Hiatal hernia: Code(s): K44.9 - Diaphragmatic hernia without obstruction or gangrene Status: Acute History of Present Illness History of Present Illness Consult date: 12/24/21 Chief complaint: Asthma Attack Narrative: This 51-year-old female presented with wheezing and shortness of breath. The patient has had history of asthma since childhood. She was in her usual state of health until approximately 5 days prior to this admission when she started having sore throat followed by wheezing and shortness of breath. Patient has been diagnosed with asthma exacerbation and has been currently on treatment with IV steroids, short-acting bronchodilators, maintenance bronchodilators and Singulair. Since admission, her respiratory status has somewhat improved. She has no fever chills hemoptysis chest pain or palpitations. She has had no exacerbation over the last 2 years. Review of previous medical records showed that the patient had had frequent exacerbations with hospitalizations several years ago. She was found to have elevated IgE and had received treatment with Xolair. No previous pulmonary function tests are available. In addition to asthma the patient has had Sleep apnea diagnosed with a home sleep study approximately 1 year ago. The patient has not had any CPAP titration over the last year. She admitted having daytime somnolence. She also has history of acid reflux disease and on recent and previous chest imaging studies there is evidence of a large hiatal hernia. Other medical problems include thalassemia and hypertension. Review of Systems Review of Systems: Patient reports no significant weight changes over the last year. She has no orthopnea. She has had acid reflux disease and has been on a PPI. She stated that acid reflux disease seems to be well control on daily use of a PPI. She has no nausea vomiting diarrhea or constipation. She has no urinary complaints. She has no history lower extremity edema. She has no joint pain. The remainder of the 12 point system review is otherwise negative. ON LICENSE OF [facility] Past Medical
[2021-12-25] VITALS (11 sets, daily range): BP systolic 160–175; BP diastolic 88–93; PULSE 58–80; RESP 16–20; TEMP 36–36.7; O2SAT 88–94
[2021-12-25] MEDS: IPRATROPIUM BR 0.02% INH SOLN 0.5 MG/2.5 ML VIAL INHALATION ×4 (01:33→19:35)
[2021-12-25] MEDS: LEVALBUTEROL NEB 1.25 MG/3 ML INHALATION ×4 (01:34→19:35)
[2021-12-25] MEDS: methylPREDNISolone SOD SUCC 40 MG VIAL IV PUSH (05:48)
[2021-12-25 07:27] LABS: Anion Gap 11 mmol/L (8-16); Blood Urea Nitrogen 26 mg/dL (7-17); Calcium 9.2 mg/dL (8.4-10.2); Carbon Dioxide 33 mmol/L (22-30); Chloride 96 mmol/L (98-107); Estimated CRCL calculation 81 ml/min; Estimated Glomerular Filt Rate > 60; Glucose 129 mg/dL (65-110); Potassium 3.5 mmol/L (3.4-5.0); Sodium 140 mmol/L (137-145)
[2021-12-25] MEDS: FLUTICASONE/SALMETEROL 115-21 MCG INHALER 1 PUFF 2 PUFF INHALATION ×2 (08:20→19:35)
[2021-12-25] MEDS: SACCHAROMYCES BOULARDII 250 MG CAPSULE PO ×2 (08:23→16:38)
[2021-12-25] MEDS: hydrOXYzine pamoate 25 MG CAPSULE PO (08:23)
[2021-12-25] MEDS: ESTROGENS, CONJUGATED 0.625 MG TABLET PO (08:23)
[2021-12-25] MEDS: AMOXICILLIN/CLAVULANATE K 875-125 MG TAB 1 TABLET PO ×2 (08:23→21:07)
[2021-12-25] MEDS: MONTELUKAST SODIUM 10 MG TABLET PO (08:25)
[2021-12-25] MEDS: lisinopriL 20 MG TABLET PO (08:25)
[2021-12-25] MEDS: FERROUS SULFATE 324 MG TABLET PO (08:26)
[2021-12-25] MEDS: ESCITALOPRAM OXALATE 10 MG TABLET 20 MG PO (08:26)
[2021-12-25] MEDS: LORATADINE 10 MG TABLET PO (08:26)
[2021-12-25] MEDS: PANTOPRAZOLE 40 MG TABLET PO ×2 (08:26→16:39)
[2021-12-25] MEDS: hydroCHLOROthiazide 25 MG TABLET PO (08:26)
[2021-12-25] MEDS: buPROPion HCL XL (24 HR) 150 MG TABCR 300 MG PO (08:26)
[2021-12-25] MEDS: FLUTICASONE PROPIONATE 0.05% NA SPR 16 GM BTL (*BKC) 1 SPRAY NASAL (08:31)
--- NOTE | 2021-12-25 10:08 | PM.PNPUL ---
Progress Note: A&P Assessment and Plan (1) Acute asthma exacerbation: Qualifiers: Asthma severity: unspecified severity Asthma persistence: unspecified Qualified Code(s): J45.901 - Unspecified asthma with (acute) exacerbation Code(s): J45.901 - Unspecified asthma with (acute) exacerbation Status: Acute Assessment and Plan: 51-year-old female with history of difficult to control asthma, previously treated with Xolair for elevated IgE, has been treated for asthma exacerbation with IV steroids bronchodilators. Over the last 24 hours respiratory status has significantly improved. Patient is currently on room air and has essentially no wheezing on physical exam. I would switch patient to oral prednisone and consider discharging patient home in a.m.. I had a discussion with the patient regarding returning to Pulmonary Clinic for re-evaluation within the next couple of weeks. In particular we will discuss resuming Xolair treatments, and also treatment for the obstructive sleep apnea. (2) Obstructive sleep apnea: Code(s): G47.33 - Obstructive sleep apnea (adult) (pediatric) Status: Acute (3) Acute respiratory failure with hypoxia: Code(s): J96.01 - Acute respiratory failure with hypoxia Status: Resolved (4) Morbid obesity: Code(s): E66.01 - Morbid (severe) obesity due to excess calories Status: Acute (5) Gastroesophageal reflux disease: Qualifiers: Esophagitis presence: esophagitis presence not specified Qualified Code(s): K21.9 - Gastro-esophageal reflux disease without esophagitis Code(s): K21.9 - Gastro-esophageal reflux disease without esophagitis Status: Acute (6) Hiatal hernia: Code(s): K44.9 - Diaphragmatic hernia without obstruction or gangrene Status: Acute Subjective Date/time seen: 12/25/21 10:08 Patient doing better today. She is off supplemental oxygen. She no longer has wheezing. Has no shortness of breath or any other respiratory symptoms. Patient told me that she had been on Xolair injections until approximately 5-6 years ago. During that period, her asthma was well controlled with no exacerbations or hospitalizations. She discontinued the Xolair injections after her hospice community liaison left the area. Review of Systems Review of Systems: All systems reviewed & are unremarkable except as noted in HPI and below Exam Narrative: GENERAL APPEARANCE: Well developed, well nourished, alert and cooperative, and appears to be in no acute distress while receiving supplemental oxygen SKIN: Inspection of the skin reveals no rashes, ulcerations or petechiae. HEENT: Sclerae anicteric and conjunctivae pink and moist. Extraocular movements were intact and pupils were equal, round. The oral mucosa, hard and soft palate, tongue and posterior pharynx were normal. NECK: Supple. There was no thyroid enlargement, and no tenderness, or masses were felt. CHEST: Normal AP diameter and normal contour without any kyphoscoliosis. LUNGS: minimal expiratory wheezing bilaterally. Significantly improved from yesterday CARDIAC: There was a regular rate and rhythm without any murmurs, gallops, rubs. ABDOMEN: Soft and nontender with normal bowel sounds. There was no organomegaly. LYMPH NODES: No lymphadenopathy was appreciated in the neck. EXTREMITIES: No cyanosis, clubbing or edema. NEUROLOGIC: Alert and oriented x 3. Normal affect. Objective Data Vital Signs Vital Signs: Vital Signs - 24 hr 12/24/21 14:00 12/24/21 14:30 12/24/21 14:55 Temperature 35.9 C L Pulse Rate 72 74 Respiratory Rate 18 18 Blood Pressure 151/75 H Pulse Oximetry 93 94 12/24/21 15:03 12/24/21 16:00 12/24/21 20:18 Temperature Pulse Rate 71 79 87 Respiratory Rate 18 18 Blood Pressure Pulse Oximetry 94 94 12/24/21 20:30 12/24/21 21:48 12/25/21 01:34 Temperature 36.1 C L Pulse Rate 83 91 69 Respiratory Rate 18 18 18 Blood Pressu
[2021-12-25] MEDS: ENOXAPARIN 80 MG/0.8 ML SYRINGE SUB-Q (11:50)
--- NOTE | 2021-12-25 14:41 | PM.IMPN ---
Progress Note: A&P Assessment and Plan (1) Acute asthma exacerbation: Onset Date: Unknown Qualifiers: Asthma severity: unspecified severity Asthma persistence: unspecified Qualified Code(s): J45.901 - Unspecified asthma with (acute) exacerbation Code(s): J45.901 - Unspecified asthma with (acute) exacerbation Status: Acute Assessment and Plan: - IV steroids switched to oral prednisone. - Breathing comfortable on room air. - Today is day #3 of Augmentin for productive cough of PNA vs. Bronchitis - Pulmonology has consulted. (2) Acute respiratory failure with hypoxemia: Onset Date: Unknown Code(s): J96.01 - Acute respiratory failure with hypoxia Status: Acute Assessment and Plan: - Temporarily required supplemental oxygen, but has now been weaned from it. - Maintaining saturations on room air. - Continue oral abx an oral steroids. - Will need to follow up with Pulmonology at discharge. (3) Hypertension: Onset Date: Unknown Qualifiers: Hypertension type: primary hypertension Qualified Code(s): I10 - Essential (primary) hypertension Code(s): I10 - Essential (primary) hypertension Status: Chronic Assessment and Plan: - Continue Lisinopril and HCTZ. - Continue to monitor . - Prn Hydralazine ordered as needed. (4) Obstructive sleep apnea: Onset Date: Unknown Code(s): G47.33 - Obstructive sleep apnea (adult) (pediatric) Status: Acute Assessment and Plan: - Follow up with PCP as outpatient. - Hgb A1C is 5.4% and TSH normal (5) BMI 40.0-44.9, adult: Onset Date: Unknown Code(s): Z68.41 - Body mass index [BMI] 40.0-44.9, adult Status: Chronic Assessment and Plan: - Pt. educated on heart healthy diet for health and for weight loss. - Encouraged to follow up with PCP to start a medically monitored weight loss program. Time Spent With Patient Time with patient: 15 - 25 minutes Subjective Date/time seen: 12/25/21 1050 This pt. was examined at the bedside this morning in interval assessment. She states she is feeling a lot better and has no further dyspnea or wheezing. She has already been seen by Pulmonology today who wished to keep her one more night, start oral steroids and discharge in the morning with their recommendations. She has no CP, dyspnea, N/V and appears to be in no acute distress. She is wanting to go home. Review of Systems Review of Systems: No new complaints, symptoms or concerns. All systems reviewed & are unremarkable except as noted in HPI and below Exam Const: General: comfortable and no acute distress HENMT: Mouth: Yes moist mucous membranes Eyes: Sclera: sclerae normal Neck: Neck: supple and no JVD Resp: Effort & Inspection: normal respiratory effort Auscultation: wheezes inspiratory wheezes and left upper Other: Very faint wheeze heard. No signs of respiratory distress appreciated. Cardio: Rate: regular rate Rhythm: regular rhythm GI: GI Palp: Yes Soft to palpation and No Tenderness to palpation present (GI) Skin: General skin exam: normal color and no rashes or lesions noted Neuro: General: gait normal Speech: normal speech Motor exam (neuro): 5/5 motor strength present throughout and Normal motor muscle tone present throughout Extrem: General: normal to inspection Right upper extremity: normal to inspection Left upper extremity: normal to inspection Right lower extremity: normal to inspection Left lower extremity: normal to inspection Psych: Mental Status: mental status grossly normal Affect: normal affect Objective Data Vital Signs Vital Signs: Vital Signs - 24 hr 12/24/21 14:55 12/24/21 15:03 12/24/21 16:00 Temperature Pulse Rate 74 71 79 Respiratory Rate 18 18 Blood Pressure Pulse Oximetry 94 12/24/21 20:18 12/24/21 20:30 12/24/21 21:48 Temperature 36.1 C L Pulse Rate 87 83 91 Respiratory Rate 18 18 1
[2021-12-26] MEDS: LEVALBUTEROL NEB 1.25 MG/3 ML INHALATION ×2 (01:59→08:28)
[2021-12-26] MEDS: IPRATROPIUM BR 0.02% INH SOLN 0.5 MG/2.5 ML VIAL INHALATION ×2 (01:59→08:28)
[2021-12-26 02:00] VITALS: PULSE 78; RESP 20
[2021-12-26 02:10] VITALS: PULSE 78; RESP 20
[2021-12-26 05:49] VITALS: BP 153/91; PULSE 62; RESP 18; TEMP 36.8; O2SAT 93
--- NOTE | 2021-12-26 07:23 | PM.DS ---
DS: Admitting Diagnosis Discharge Date 12/26/2021 Admitting Diagnosis Acute Asthma Exacerbation, HTN, Morbid Obesity, Obstruction Sleep Apnea, Acute Respiratory failure with hypoxemia DS: Discharge Diagnosis Discharge Diagnosis (1) Acute respiratory failure with hypoxemia: Onset Date: Unknown Code(s): J96.01 - Acute respiratory failure with hypoxia Status: Acute Assessment and Plan: - Resolved acute exacerbation, pt. maintaining saturations on room air without difficulty. - Discharging with tapering dose of Prednisone as well as continued inhaled steroids and abx. - Pulmonology consult upon discharge. (2) Essential hypertension: Code(s): I10 - Essential (primary) hypertension Status: Acute Assessment and Plan: - Stable, continue home medications. - Suggest lifestyle changes for better control. (3) Acute asthma exacerbation: Onset Date: Unknown Qualifiers: Asthma severity: unspecified severity Asthma persistence: unspecified Qualified Code(s): J45.901 - Unspecified asthma with (acute) exacerbation Code(s): J45.901 - Unspecified asthma with (acute) exacerbation Status: Acute Assessment and Plan: - Resolved acute exacerbation, pt. maintaining saturations on room air without difficulty. - Discharging with tapering dose of Prednisone as well as continued inhaled steroids and abx. - Follow up with Pulmonology as outpatient in one week. (4) Obstructive sleep apnea: Onset Date: Unknown Code(s): G47.33 - Obstructive sleep apnea (adult) (pediatric) Status: Acute Assessment and Plan: - Plan for follow up with PCP to have workup as outpatient. (5) Gastroesophageal reflux disease: Qualifiers: Esophagitis presence: esophagitis presence not specified Qualified Code(s): K21.9 - Gastro-esophageal reflux disease without esophagitis Code(s): K21.9 - Gastro-esophageal reflux disease without esophagitis Status: Acute Assessment and Plan: - Likely secondary to large hiatal hernia. Suggest follow up with PCP to further work up as outpatient and possibly make referral. - Continue PPI therapy. (6) BMI 40.0-44.9, adult: Onset Date: Unknown Code(s): Z68.41 - Body mass index [BMI] 40.0-44.9, adult Status: Chronic Assessment and Plan: - Recommend lifestyle changes to reduse morbidity and mortality from complications of being morbidly obese. (7) Hiatal hernia: Code(s): K44.9 - Diaphragmatic hernia without obstruction or gangrene Status: Chronic Assessment and Plan: - Recommend follow up with PCP as outpatient to work up and form definitive treatment plan. - Continue PPI therapy. DS: Summary Hospital Course Hospital Course: This 51 year old female patient with a significant PMH of Asthma, depression, Morbid obesity, GERD, HTN, MATEUSZ and pre-diabetes presented to the ER on 12/21/2021 with complaints of having acute dyspnea and cough that had been present for two days and it felt as though her asthma was flaring up and her usual inhalers were not helping her symptoms. She did not have any CP, N/V, but had been exposed to a sick grandchild. She is fully vaccinated for COVID with exception of booster. She has a known history of MATEUSZ, but has been so far intolerant to treatment, so she has not returned for re-evaluation. She was treated accordingly in the ER after presentation with a continuous nebulizer treatment and was given steroids adn admitted to the hospital. In the inpatient status, she required a short period of supplemental oxygen but was able to be weaned easily. While here her covid testing was negative. Pulmonology was consulted to see patient and has made recommendations for continued care and treatment post hospitalization to include workup for her MATEUSZ given her morbid obesity, her HTN and elevated A1C. He has started her on oral steroids which will be tapered down at [facility]
[2021-12-26] MEDS: hydroCHLOROthiazide 25 MG TABLET PO (08:09)
[2021-12-26] MEDS: AMOXICILLIN/CLAVULANATE K 875-125 MG TAB 1 TABLET PO (08:09)
[2021-12-26] MEDS: PANTOPRAZOLE 40 MG TABLET PO (08:09)
[2021-12-26] MEDS: FERROUS SULFATE 324 MG TABLET PO (08:09)
[2021-12-26] MEDS: predniSONE 20 MG TABLET 40 MG PO (08:09)
[2021-12-26] MEDS: FLUTICASONE PROPIONATE 0.05% NA SPR 16 GM BTL (*BKC) 1 SPRAY NASAL (08:09)
[2021-12-26] MEDS: LORATADINE 10 MG TABLET PO (08:10)
[2021-12-26] MEDS: buPROPion HCL XL (24 HR) 150 MG TABCR 300 MG PO (08:10)
[2021-12-26] MEDS: SACCHAROMYCES BOULARDII 250 MG CAPSULE PO (08:10)
[2021-12-26] MEDS: lisinopriL 20 MG TABLET PO (08:10)
[2021-12-26] MEDS: ESTROGENS, CONJUGATED 0.625 MG TABLET PO (08:10)
[2021-12-26] MEDS: ESCITALOPRAM OXALATE 10 MG TABLET 20 MG PO (08:10)
[2021-12-26] MEDS: MONTELUKAST SODIUM 10 MG TABLET PO (08:10)
[2021-12-26] MEDS: FLUTICASONE/SALMETEROL 115-21 MCG INHALER 1 PUFF 2 PUFF INHALATION (08:27)
[2021-12-26 08:28] VITALS: PULSE 80; RESP 20
[2021-12-26 08:30] VITALS: O2SAT 94
[2021-12-26 08:37] VITALS: PULSE 80; RESP 20
== END 2021-12-26 09:15 | disposition home or self-care (01) | DRG 202 ==
LOC: ANHED 22:13 → ANH3MEDSUR 23:46
PROVIDERS: Internal Medicine; Physician Assistant; Admitting Provider Internal Medicine; Emergency Provider Emergency Medicine; PCP Family Medicine; Visit Provider Nurse Practitioner Adult Health
DX: J45.901 Unspecified asthma with (acute) exacerbation (principal); J96.01 Acute respiratory failure with hypoxia; Z68.41 Body mass index [BMI] 40.0-44.9, adult; I10 Essential (primary) hypertension; G47.33 Obstructive sleep apnea (adult) (pediatric); E66.01 Morbid (severe) obesity due to excess calories; K21.9 Gastro-esophageal reflux disease without esophagitis; K44.9 Diaphragmatic hernia without obstruction or gangrene; R73.03 Prediabetes; M85.80 Other specified disorders of bone density and structure, unspecified site; Z87.11 Personal history of peptic ulcer disease; F41.8 Other specified anxiety disorders; Z82.49 Family history of ischemic heart disease and other diseases of the circulatory system; Z82.3 Family history of stroke; Z87.891 Personal history of nicotine dependence; Z79.899 Other long term (current) drug therapy; Z79.51 Long term (current) use of inhaled steroids
CPT/HCPCS: 36415; 71046; 80048; 80053; 83036; 83735; 84443; 85025; 93005; 94640; 96372; 96374; 96375; 96376; 99285; A9270; C9803; G0378; J1650; J2920; J2930; J3475; J7512; U0003; U0005

== ENCOUNTER 2022-01-23 09:32 | Inpatient (IN) | payer BC, SELFPAY ==
[2022-01-23] VITALS (16 sets, daily range): BP systolic 163–177; BP diastolic 87–113; PULSE 77–94; RESP 16–39; TEMP 36.4–37.5; O2SAT 87–97; BMI 39.8
--- NOTE | ~2022-01-23 | XR_ITS ---
EXAMINATION: XR chest 2V DATE: 01/23/2022 10:10 INDICATION: Asthma presenting with dyspnea, cough and wheezing. TECHNIQUE: frontal and lateral views of the chest were obtained. COMPARISON: Chest radiograph dated 12/21/2021 FINDINGS: Hyperexpansion of lungs. No focal airspace opacities, pulmonary edema, pleural effusion or pneumothor ax. Heart size is normal. Large hiatal hernia. Mild thoracic spondylosis with chronic compression fra cture with 20% anterior vertebral body height loss in the midthoracic spine. IMPRESSION: 1. Hyperexpansion of the lungs which remain clear which could be related to air trapping in the setti ng of a reported history of asthma. No abnormal interstitial or airspace opacities. 2. Large hiatal hernia. Reviewed, dictated and finalized at location A. IMPRESSION: 1. Hyperexpansion of the lungs which remain clear which could be related to air trapping in the setting of a reported history of asthma. No abnormal interstit ial or airspace opacities. 2. Large hiatal hernia.
--- NOTE | 2022-01-23 09:49 | ECG_ITS ---
Measurements Intervals [place] Rate: 83 P: 62 NM: 136 QRS: 68 QRSD: 86 T: 51 QT: 379 QTc: 447 Interpretive Statements SINUS RHYTHM POSSIBLE LEFT ATRIAL ENLARGEMENT [-0.1mV P WAVE IN V1/V2] ANTEROLATERAL ST ABNORMALITY, CONSIDER ISCHEMIA ABNORMAL ECG Electronically Signed On 01-23-2022 15:58:16 CDT by Teja Amanda M.D.
--- NOTE | 2022-01-23 09:49 | ED.ASTHMA ---
HPI - Asthma General Chief Complaint: Asthma Stated Complaint: asthma Time Seen by Provider: 01/23/22 09:44 History of Present Illness HPI Narrative: 51 y/o female presents to the ER today for acute asthma exacerbation. She says that her symptoms started about 3 days ago. She started with cold like symptoms, sinus congestion, sore throat and cough and now she is wheezing and short of breath. She feels tight and sore in her chest. Her cough is non productive. She denies having fever at home. Temp this morning is 37.5C. No nausea or vomiting. She had diarrhea a couple of days ago but none since then. She has some sore throat. No ear pain. No history of covid or flu infection and she reports being current on her vaccinations. PMH significant for asthma, HTN, GERD, MATEUSZ, obesity. Related Data Home Medications Medication Instructions Recorded Confirmed ferrous sulfate 325 mg (65 mg 325 mg PO DAILY 12/22/19 01/06/22 iron) tablet fluticasone propionate [Flonase 1 spray INTRANASAL DAILY 05/19/20 01/06/22 Allergy Relief] cetirizine [Zyrtec] 10 mg PO DAILY 09/15/20 01/06/22 hydrochlorothiazide 25 mg PO DAILY 12/22/21 01/06/22 Allergies Allergy/AdvReac Type Severity Reaction Status Date / Time mold Allergy Intermediate Dyspnea / Verified 01/23/22 09:51 SOB tree and shrub pollen Allergy Intermediate Itching Verified 01/23/22 09:51 Grass Allergy Intermediate Itching Uncoded 01/23/22 09:51 Review of Systems Constitutional: Constitutional: Reports no additional constitutional complaints, Denies chills, Denies fever(s) and Denies weakness Eyes: Eyes: Reports no additional eye complaints ENT: Reports nasal congestion and Reports sore throat Cardiovascular: Cardiovascular: Reports no additional cardiovascular complaints Respiratory: Respiratory: Reports cough, Reports dyspnea and Reports wheezing Gastrointestinal: Gastrointestinal: Denies abdominal pain, Denies diarrhea, Denies nausea and Denies vomiting Genitourinary: Genitourinary: Denies dysuria Musculoskeletal: Musculoskeletal: Denies back pain Integumentary/Breasts: Skin/Breast: Denies rash Neurologic: Denies numbness and Denies weakness Psychiatric: Psychiatric: Denies anxiety and Denies depression Endocrine: Endocrine: Denies fatigue Hematologic/Lymphatic: Hematologic/Lymphatic: Denies easy bleeding and Denies easy bruising Allergic/Immunologic: Allergic/Immunologic: Denies lip swelling, Denies throat swelling and Denies tongue swelling [facility] Past Medical History Medical History Asthma BMI 39.0-39.9,adult Colon polyps Dark stools Depression with anxiety Duodenal arteriovenous malformation Epigastric pain Gastric ulcer Gastroesophageal reflux disease Hiatal hernia Hypertension Iron deficiency anemia Due to gastric ulcer Morbid obesity Obstructive sleep apnea (Unknown) Osteopenia determined by x-ray Pre-diabetes Hemoglobin A1c of 6.4% noted on December 2018 Thalassemia minor Surgical History Surgical History History of cholecystectomy History of colonoscopy with polypectomy (09/2020) History of endometrial ablation History of esophagogastroduodenoscopy (EGD) (09/2020) Demonstrated hiatal hernia and unspecified gastric ulcer History of total abdominal hysterectomy and bilateral salpingo-oophorectomy Family History Family History Father Family history of atrial fibrillation Diabetes mellitus Hypertension S/P CABG (coronary artery bypass graft) Sibling Asthma Diabetes mellitus Prostate carcinoma Mother , age 68 Chronic obstructive pulmonary disease Diabetes mellitus Grandparent Cerebrovascular accident Congestive heart failure Family history of atrial fibrillation Social History Social History (Reviewed 01/23/22 @ 09:58 by Doretha Samano
[2022-01-23] MEDS: ALBUTEROL SULFATE NEB 2.5 MG/0.5 ML INH 5 MG INHALATION ×5 (10:07→19:59)
[2022-01-23] MEDS: IPRATROPIUM BR 0.02% INH SOLN 0.5 MG/2.5 ML VIAL INHALATION ×3 (10:07→19:59)
[2022-01-23] MEDS: methylPREDNISolone SOD SUCC 125 MG VIAL IV PUSH (10:25)
[2022-01-23] MEDS: SODIUM CHLORIDE 0.9% IV 1,000 ML 999 ML IV CONT (10:40)
[2022-01-23 10:45] LABS: Basophils Percent Auto 0.3 % (0.2-1.2); Eosinophils Absolute Auto 0.1 K/mm3 (0-0.3); Eosinophils Percent Auto 2.2 % (0-4.4); Hematocrit 46.4 % (37.0-47.0); Hemoglobin 15.3 g/dL (12.0-15.0); Immature Granulocyte Absolute 0.01 K/mm3 (0.00-0.031); Immature Granulocyte Percent A 0.2 % (0-0.5); Lymphocytes Absolute Auto 1.19 K/mm3 (0.9-3.2); Lymphocytes Percent Auto 18.4 % (18.3-44.2); Mean Corpuscular Hemoglobin 26.8 pg (26-34); Mean Corpuscular Volume 81.3 fl (80-100); Mean Platelet Volume 11.2 fl (7.4-10.4); Monocytes Absolute Auto 0.4 K/mm3 (0.1-0.6); Monocytes Percent Auto 5.7 % (2.6-8.5); Neutrophils Absolute Auto 4.7 K/mm3 (1.3-6.7); Neutrophils Percent Auto 73.2 % (45.5-73.1); Platelet Count Result 251 k/mm3 (150-375); Red Blood Count 5.71 M/mm3 (4.2-5.4); Red Cell Distribution Width 14.3 % (11.5-14.5); White Blood Count 6.5 K/mm3 (4.5-10.0)
[2022-01-23 11:05] LABS: Alanine Aminotransferase 15 U/L (4-35); Albumin Level 4.3 g/dL (3.5-5.1); Alkaline Phosphatase 97 U/L (38-126); Anion Gap 7 mmol/L (8-16); Aspartate Amino Transferase 20 U/L (14-36); Bilirubin,Total 0.5 mg/dL (0.2-1.3); Blood Urea Nitrogen 10 mg/dL (7-17); Carbon Dioxide 30 mmol/L (22-30); Chloride 100 mmol/L (98-107); Estimated CRCL calculation 100 ml/min; Estimated Glomerular Filt Rate > 60; Glucose 127 mg/dL (65-110); Potassium 3.5 mmol/L (3.4-5.0); Sodium 137 mmol/L (137-145)
[2022-01-23 11:17] LABS: Troponin I < 0.012 ng/mL (0.000-0.034)
[2022-01-23 12:16] LABS: Influenza A QL RT-PCR Negative (Negative); Influenza B QL RT-PCR Negative (Negative); SARS-CoV-2 RNA PCR Negative
[2022-01-23] MEDS: MAGNESIUM SULF 2 GM/WATER 50ML 2 GM/50 ML BAG IVPB (13:37)
--- NOTE | 2022-01-23 13:41 | PC.NURSE ---
This RN came to room to pass meds and noted the O2 sat is 84%, pt not wearing oxygen, states the DEBT COLLECTION SPECIALIST took O2 off to see how she is doing on room air. Oxygen placed back on.
--- NOTE | 2022-01-23 15:28 | PM.IMHP ---
H&P: HPI History of Present Illness Date/Time: Patient was placed observation status for expected length of stay less than 23 hours for management, will plan to re-evaluate tomorrow for improvement. 01/23/22 15:28 Chief Complaint: Shortness of breath Narrative: Ms. Huffman is a 51-year-old female who presented emergency room with complaints of increasing shortness of breath and wheezing over 3 days. Patient has a well-known history of asthma and has been hospitalized multiple times for asthma exacerbations. Patient states that she spoken with her primary care provider 3 days ago when she started getting nasal congestion and ?head cold? to see if she could have steroids called in for her to avoid exacerbation of her asthma. Patient states that she was to be seen in office to get a prescription, but unfortunately she could not make it without coming to the hospital secondary to her shortness of breath and wheezing. Patient states over last 3 days she has been using her rescue inhaler too many times to count. Upon evaluation in emergency room patient was noted to be significantly short of breath and have decreased breath sounds with inspiratory and expiratory wheezes. Patient states she has a history of as above, hypertension, thalassemia minor, and a new diagnosis of obstructive sleep apnea for which she has not gotten a CPAP at this time. Review of Systems Review of Systems: A 12 point review of systems was completed patient all pertinent positive and negative per HPI the remainder are unremarkable. [facility] Past Medical History Medical History Asthma BMI 39.0-39.9,adult Colon polyps Dark stools Depression with anxiety Duodenal arteriovenous malformation Epigastric pain Gastric ulcer Gastroesophageal reflux disease Hiatal hernia Hypertension Iron deficiency anemia Due to gastric ulcer Morbid obesity Obstructive sleep apnea (Unknown) Osteopenia determined by x-ray Pre-diabetes Hemoglobin A1c of 6.4% noted on labs December 2018 Thalassemia minor Surgical History Surgical History History of cholecystectomy History of colonoscopy with polypectomy (09/2020) History of endometrial ablation History of esophagogastroduodenoscopy (EGD) (09/2020) Demonstrated hiatal hernia and unspecified gastric ulcer History of total abdominal hysterectomy and bilateral salpingo-oophorectomy Family History Family History Father Family history of atrial fibrillation Diabetes mellitus Hypertension S/P CABG (coronary artery bypass graft) Sibling Asthma Diabetes mellitus Prostate carcinoma Mother , age 68 Chronic obstructive pulmonary disease Diabetes mellitus Grandparent Cerebrovascular accident Congestive heart failure Family history of atrial fibrillation Social History Social History Social History: Surrogate decision maker: Juan Huffman, spouse. Code status: Full code. Smoking status: Former smoker Second hand tobacco smoke exposure: Yes Additional smoking assessment comments: Smoked socially for approximately 10 years, quit 16 years ago. Alcohol intake: current Substance use: current Substance use type: marijuana Other substance usage details: Eats a gummie or other edible products with THC, Drinks socially a few/yr Last use: 01/20/22 Additional living arrangements comments: Lives in [place] with her family. They have a 1-year-old [place]-doodle. 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 Gender identity (if verbalized by the patient): Female Sexual Orientation (if Verbalized by the Patient): Straight or Heterosexual Spiritual care concerns: No Meds Home Medications and Allergies Home Medications
--- NOTE | 2022-01-23 15:40 | ADMGEN ---
This patient, Michell Huffman, was admitted to Medical Room 345-. Patient/family oriented to hospital policies and general routines including ID bracelet, bed and alarms, visiting hours, pain management, procedures, bathroom and other care routines, personal items, smoking policy, room service/diet, and visiting hours. Information on how to activate the Rapid Response Team has been discussed. Patient/Family are encouraged to report perceived risks to care and to ask questions if they do not understand what they are told or what they should do.
[2022-01-23] MEDS: methylPREDNISolone SOD SUCC 125 MG VIAL 60 MG IV PUSH ×2 (19:26→23:51)
[2022-01-23] MEDS: FLUTICASONE/SALMETEROL 115-21 MCG INHALER 1 PUFF 2 PUFF INHALATION (19:59)
[2022-01-24] VITALS (14 sets, daily range): BP systolic 117–153; BP diastolic 68–81; PULSE 77–91; RESP 14–20; TEMP 36.1–36.6; O2SAT 93–96
[2022-01-24] MEDS: IPRATROPIUM BR 0.02% INH SOLN 0.5 MG/2.5 ML VIAL INHALATION ×3 (02:15→19:46)
[2022-01-24] MEDS: ALBUTEROL SULFATE NEB 2.5 MG/0.5 ML INH 5 MG INHALATION ×3 (02:48→19:46)
[2022-01-24] MEDS: methylPREDNISolone SOD SUCC 125 MG VIAL 60 MG IV PUSH ×3 (05:57→17:25)
[2022-01-24] MEDS: FLUTICASONE/SALMETEROL 115-21 MCG INHALER 1 PUFF 2 PUFF INHALATION ×2 (07:14→19:47)
[2022-01-24] MEDS: MONTELUKAST SODIUM 10 MG TABLET PO (08:58)
[2022-01-24] MEDS: hydroCHLOROthiazide 25 MG TABLET PO (08:58)
[2022-01-24] MEDS: PANTOPRAZOLE 40 MG TABLET PO (08:58)
[2022-01-24] MEDS: ESTROGENS, CONJUGATED 0.625 MG TABLET PO (08:58)
[2022-01-24] MEDS: buPROPion HCL XL (24 HR) 150 MG TABCR 300 MG PO (08:59)
[2022-01-24] MEDS: FERROUS SULFATE 324 MG TABLET PO (08:59)
[2022-01-24] MEDS: ENOXAPARIN 40 MG/0.4 ML SYRINGE SUB-Q (08:59)
[2022-01-24] MEDS: ESCITALOPRAM OXALATE 10 MG TABLET 20 MG PO (08:59)
[2022-01-24] MEDS: LORATADINE 10 MG TABLET PO (08:59)
[2022-01-24] MEDS: lisinopriL 20 MG TABLET PO (08:59)
[2022-01-24] MEDS: FLUTICASONE PROPIONATE 0.05% NA SPR 16 GM BTL (*BKC) 1 SPRAY NASAL (09:00)
--- NOTE | 2022-01-24 14:14 | PM.IMPN ---
Progress Note: A&P Assessment and Plan (1) Acute asthma exacerbation: Qualifiers: Asthma persistence: persistent Asthma severity: severe Qualified Code(s): J45.51 - Severe persistent asthma with (acute) exacerbation Code(s): J45.901 - Unspecified asthma with (acute) exacerbation Status: Acute Assessment and Plan: Patient recently stopped steroids and has had recurrent flare. She is to be on Xolair in the past which has helped her but has not been on this since changing to a different banquet captain. Still with wheezing and with oxygen requirement. Continue albuterol Atrovent nebs. Continue Solu-Medrol today. Will continue her Advair. Suspect the trigger was her URI symptoms. Wean oxygen as tolerated. Consider Pulmonary consult. Patient has had a full workup for her chronic lung issue so will not proceed with that today. Would consider resuming her Xolair at least in the springtime which is seems to be her worst season. (2) Essential hypertension: Code(s): I10 - Essential (primary) hypertension Status: Acute Assessment and Plan: Patient's blood pressure was reviewed on 01/24 Blood pressure was elevated on admission but is better controlled. Will continue her home medications but these may need to be adjusted. Patient is on steroids which will contribute to high blood pressure. Will continue current medications for now. Advanced medications as needed. Subjective Date/time seen: 01/24/22 14:14 Interval history: 51yo female with asthma here for SOB and found to have acute exacerbation. Shortness of breath is better. Has a nagging nonproductive cough. She does not smoke. She has had URI symptoms with sore throat does symptoms have improved. She was recently discharged from hospital on 12/26/2021 with a prednisone taper and has been off steroids only for about a week to 10 days. Exam Narrative: AF 97.0 153/81 88 18 95% 3L Gen - NARD Chest -inspiratory and expiratory wheezes with distant breath sounds. Normal respiratory rate CV - RRR S1/S2 Abd - Soft, NT/ND, Positive BS Ext - No pedal edema Psych - Nml mood and affect Skin - Warm and dry Objective Data Vital Signs Vital Signs: Vital Signs - 24 hr 01/23/22 15:24 01/23/22 15:34 01/23/22 16:00 Temperature 98.1 F Pulse Rate 79 86 Respiratory Rate 18 19 Blood Pressure 176/96 H 163/93 H Pulse Oximetry 93 93 93 01/23/22 20:00 01/23/22 20:03 01/23/22 20:06 Temperature Pulse Rate 94 91 Respiratory Rate 20 20 Blood Pressure Pulse Oximetry 97 94 01/23/22 20:34 01/23/22 20:50 01/24/22 00:02 Temperature 97.6 F 97.3 F L Pulse Rate 94 77 Respiratory Rate 20 14 Blood Pressure 165/94 H 163/94 H 151/70 H Pulse Oximetry 97 96 01/24/22 02:47 01/24/22 02:55 01/24/22 04:53 Temperature 97 F L Pulse Rate 89 91 77 Respiratory Rate 20 18 16 Blood Pressure 153/81 H Pulse Oximetry 94 01/24/22 07:10 01/24/22 07:14 01/24/22 07:17 Temperature Pulse Rate 85 88 Respiratory Rate 18 18 Blood Pressure Pulse Oximetry 95 01/24/22 09:02 Temperature Pulse Rate Respiratory Rate Blood Pressure Pulse Oximetry 95 Intake/Output Intake/Output: Intake & Output 01/21/22 01/22/22 01/23/22 01/24/22 23:59 23:59 23:59 23:59 Intake Total 1290 605 Output Total 100 450 Balance 1190 155 Meds/Results Medications: Active Medications Generic Name Dose Route Start Last Admin Trade Name Freq PRN Reason Stop Dose Admin Acetaminophen 650 mg 01/23/22 14:11 Acetaminophen 325 Mg Tablet PO Q4H PRN Mild Pain (1-3) or Fever Albuterol 5 mg 01/23/22 20:00 01/24/22 07:14 Albuterol Sulfate Neb 2.5 Mg/0.5 Ml Inh INHALATION 5 mg Q6HRT CATHY Administration Bupropion HCl 300 mg 01/24/22 09:00 01/24/22 08:59 Bupropion Hcl Xl (24 Hr) 150 Mg Tabcr PO 300 mg QAM CATHY Administration Enoxaparin Sodium 40 mg 01/24/22 09:00 01/24/22
[2022-01-25] VITALS (15 sets, daily range): BP systolic 135–154; BP diastolic 65–80; PULSE 62–86; RESP 16–18; TEMP 36.4–36.6; O2SAT 91–98
[2022-01-25] MEDS: methylPREDNISolone SOD SUCC 125 MG VIAL 60 MG IV PUSH ×4 (00:35→17:10)
[2022-01-25] MEDS: ALBUTEROL SULFATE NEB 2.5 MG/0.5 ML INH 5 MG INHALATION ×4 (02:09→20:12)
[2022-01-25] MEDS: IPRATROPIUM BR 0.02% INH SOLN 0.5 MG/2.5 ML VIAL INHALATION ×4 (02:09→20:12)
[2022-01-25] MEDS: buPROPion HCL XL (24 HR) 150 MG TABCR 300 MG PO (08:12)
[2022-01-25] MEDS: ENOXAPARIN 40 MG/0.4 ML SYRINGE SUB-Q (08:12)
[2022-01-25] MEDS: FERROUS SULFATE 324 MG TABLET PO (08:12)
[2022-01-25] MEDS: ESTROGENS, CONJUGATED 0.625 MG TABLET PO (08:12)
[2022-01-25] MEDS: ESCITALOPRAM OXALATE 10 MG TABLET 20 MG PO (08:12)
[2022-01-25] MEDS: LORATADINE 10 MG TABLET PO (08:13)
[2022-01-25] MEDS: MONTELUKAST SODIUM 10 MG TABLET PO (08:13)
[2022-01-25] MEDS: PANTOPRAZOLE 40 MG TABLET PO ×2 (08:13→21:05)
[2022-01-25] MEDS: FLUTICASONE PROPIONATE 0.05% NA SPR 16 GM BTL (*BKC) 1 SPRAY NASAL (08:13)
[2022-01-25] MEDS: hydroCHLOROthiazide 25 MG TABLET PO (08:13)
[2022-01-25] MEDS: lisinopriL 20 MG TABLET PO (08:13)
[2022-01-25] MEDS: FLUTICASONE/SALMETEROL 115-21 MCG INHALER 1 PUFF 2 PUFF INHALATION ×2 (08:22→20:13)
--- NOTE | 2022-01-25 10:06 | PM.IMPN ---
Progress Note: A&P Assessment and Plan (1) Acute asthma exacerbation: Qualifiers: Asthma persistence: persistent Asthma severity: severe Qualified Code(s): J45.51 - Severe persistent asthma with (acute) exacerbation Code(s): J45.901 - Unspecified asthma with (acute) exacerbation Status: Acute Assessment and Plan: Patient recently stopped steroids and has had recurrent flare. She is to be on Xolair in the past which has helped her but has not been on this since changing to a different certified addiction counselor. Still with wheezing and with oxygen requirement. Continue bladder treatment steroid (2) Essential hypertension: Code(s): I10 - Essential (primary) hypertension Status: Acute Assessment and Plan: Patient's blood pressure was reviewed on 01/24 Blood pressure was elevated on admission but is better controlled. Will continue her home medications but these may need to be adjusted. Patient is on steroids which will contribute to high blood pressure. Will continue current medications for now. Advanced medications as needed. (3) Hiatal hernia: Code(s): K44.9 - Diaphragmatic hernia without obstruction or gangrene Status: Chronic Assessment and Plan: Probably contributing to worsening wheezing Start Protonix Subjective Date/time seen: 01/25/22 10:06 Interval history: 51yo female with asthma here for SOB and found to have acute exacerbation. Patient feels weak still complaining of shortness of breath and wheezing x-ray hows large hiatus hernia I added pantoprazole Patient denies fever headache chest pain I am seeing the patient for shortness of breast Exam Narrative: Alert Chest bilateral wheezing crackles Abdomen nontender nondistended CVS S1 + S2 Lower extremity edema Objective Data Vital Signs Vital Signs: Vital Signs - 24 hr 01/24/22 14:35 01/24/22 19:51 01/24/22 19:55 Temperature 97.8 F Pulse Rate 90 87 Respiratory Rate 18 19 Blood Pressure 117/77 Pulse Oximetry 94 94 01/24/22 20:00 01/24/22 20:02 01/24/22 21:00 Temperature 97.4 F L Pulse Rate 89 88 Respiratory Rate 17 18 Blood Pressure 139/68 Pulse Oximetry 94 93 01/25/22 02:07 01/25/22 02:32 01/25/22 06:16 Temperature 97.9 F Pulse Rate 85 86 64 Respiratory Rate 18 17 18 Blood Pressure 135/65 Pulse Oximetry 92 01/25/22 06:17 01/25/22 08:00 01/25/22 08:23 Temperature 97.9 F Pulse Rate 62 82 Respiratory Rate 16 16 Blood Pressure 135/65 Pulse Oximetry 94 96 01/25/22 08:26 01/25/22 08:34 01/25/22 09:08 Temperature Pulse Rate 83 Respiratory Rate 16 Blood Pressure Pulse Oximetry 96 92 Intake/Output Intake/Output: Intake & Output 01/22/22 01/23/22 01/24/22 01/25/22 23:59 23:59 23:59 23:59 Intake Total 1290 1085 480 Output Total 100 650 Balance 1190 435 480 Meds/Results Medications: Active Medications Generic Name Dose Route Start Last Admin Trade Name Freq PRN Reason Stop Dose Admin Acetaminophen 650 mg 01/23/22 14:11 Acetaminophen 325 Mg Tablet PO Q4H PRN Mild Pain (1-3) or Fever Albuterol 5 mg 01/23/22 20:00 01/25/22 08:21 Albuterol Sulfate Neb 2.5 Mg/0.5 Ml Inh INHALATION 5 mg Q6HRT CATHY Administration Bupropion HCl 300 mg 01/24/22 09:00 01/25/22 08:12 Bupropion Hcl Xl (24 Hr) 150 Mg Tabcr PO 300 mg QAM CATHY Administration Enoxaparin Sodium 40 mg 01/24/22 09:00 01/25/22 08:12 Enoxaparin 40 Mg/0.4 Ml Syringe SUB-Q 40 mg DAILY CATHY Administration Escitalopram Oxalate 20 mg 01/24/22 09:00 01/25/22 08:12 Escitalopram Oxalate 10 Mg Tablet PO 20 mg DAILY CATHY Administration Estrogens Conjugated 0.625 mg 01/24/22 09:00 01/25/22 08:12 Estrogens, Conjugated 0.625 Mg Tablet PO 01/30/22 09:01 0.625 mg DAILY CATHY Administration Estrogens Conjugated 0.625 mg 02/07/22 09:00 Estrogens, Conjugated 0.625 Mg Tablet PO 02/27/22 09:01
[2022-01-25] MEDS: FUROSEMIDE INJ 40 MG/4 ML VIAL IV PUSH (11:32)
[2022-01-26] VITALS (11 sets, daily range): BP systolic 161; BP diastolic 90; PULSE 67–82; RESP 16–18; TEMP 36.4; O2SAT 85–94
[2022-01-26] MEDS: methylPREDNISolone SOD SUCC 125 MG VIAL 60 MG IV PUSH ×2 (00:51→05:46)
[2022-01-26] MEDS: IPRATROPIUM BR 0.02% INH SOLN 0.5 MG/2.5 ML VIAL INHALATION ×2 (01:50→07:43)
[2022-01-26] MEDS: ALBUTEROL SULFATE NEB 2.5 MG/0.5 ML INH 5 MG INHALATION ×2 (01:50→07:43)
[2022-01-26] MEDS: FLUTICASONE/SALMETEROL 115-21 MCG INHALER 1 PUFF 2 PUFF INHALATION (07:43)
[2022-01-26] MEDS: buPROPion HCL XL (24 HR) 150 MG TABCR 300 MG PO (08:09)
[2022-01-26] MEDS: LORATADINE 10 MG TABLET PO (08:09)
[2022-01-26] MEDS: ESCITALOPRAM OXALATE 10 MG TABLET 20 MG PO (08:10)
[2022-01-26] MEDS: ESTROGENS, CONJUGATED 0.625 MG TABLET PO (08:12)
[2022-01-26] MEDS: hydroCHLOROthiazide 25 MG TABLET PO (08:12)
[2022-01-26] MEDS: lisinopriL 20 MG TABLET PO (08:12)
[2022-01-26] MEDS: FERROUS SULFATE 324 MG TABLET PO (08:12)
[2022-01-26] MEDS: MONTELUKAST SODIUM 10 MG TABLET PO (08:12)
[2022-01-26] MEDS: FLUTICASONE PROPIONATE 0.05% NA SPR 16 GM BTL (*BKC) 1 SPRAY NASAL (08:17)
[2022-01-26] MEDS: PANTOPRAZOLE 40 MG TABLET PO (09:00)
[2022-01-26] MEDS: ENOXAPARIN 40 MG/0.4 ML SYRINGE SUB-Q (09:00)
--- NOTE | 2022-01-26 09:10 | PM.DS ---
DS: Admitting Diagnosis Discharge Date 01/26/2022 Admitting Diagnosis Shortness of breath DS: Discharge Diagnosis Discharge Diagnosis (1) Acute asthma exacerbation: Qualifiers: Asthma persistence: persistent Asthma severity: severe Qualified Code(s): J45.51 - Severe persistent asthma with (acute) exacerbation Code(s): J45.901 - Unspecified asthma with (acute) exacerbation Status: Acute Assessment and Plan: Patient recently stopped steroids and has had recurrent flare. She is to be on Xolair in the past which has helped her but has not been on this since changing to a different finisher accordion patient will be discharged on inhaler treatment tapering steroid follow-up with pulmonology as outpatient (2) Essential hypertension: Code(s): I10 - Essential (primary) hypertension Status: Acute Assessment and Plan: Continue home med (3) Hiatal hernia: Code(s): K44.9 - Diaphragmatic hernia without obstruction or gangrene Status: Chronic Assessment and Plan: Probably contributing to worsening wheezing Start Protonix Follow-up with GI as outpatient DS: Summary Hospital Course Hospital Course: Patient was admitted to the hospital shortness of breath was found to have acute hypoxemic respiratory failure secondary to asthma exacerbation was treated with nebulizer treatment steroid her condition improved patient also probably have hiatus hernia with GERD contributing to her shortness of breath and wheezing added Protonix patient condition improved patient was discharged on Protonix tapering steroid inhaler treatment follow-up with pulmonology as outpatient also consider GI eval as outpatient Time Spent with Patient Time attestation: Total time spent providing and/or coordinating discharge services: Exam Narrative: Alert Chest bilateral wheezing crackles Abdomen nontender nondistended CVS S1 + S2 Lower extremity edema DS: Data Data Completed and Pending Labs on day of discharge: Preliminary micro results at discharge 01/23/22 10:35 Blood Culture - Preliminary Blood 01/23/22 11:14 Blood Culture - Preliminary Blood Discharge Plan Discharge Attending physician on discharge: Zuleima Saunders M.A. Discharging Clinician: Zuleima Saunders M.A. Patient Disposition: Home, Self-Care Activity: as tolerated Diet: heart healthy and diabetic Patient Instructions: Antibiotic Form Stand Alone Forms: General Discharge Information Follow-up/Referrals: Reji Hooper MD [Primary Care Provider] - Phani Zaldivar MD [Physician] - Discharge Medications: New pantoprazole 40 mg Tablet,Delayed Release (Dr/Ec) 40 mg PO Q12HR Qty: 60 RF: 0 methylprednisolone [Medrol (Betito)] 4 mg tablets,dose pack See Rx Instructions .ROUTE .COMPLEX Qty: 21 RF: 0 Continued Premarin 0.625 mg tablet 0.625 mg PO DAILY Qty: 30 RF: 0 budesonide-formoterol [Symbicort] 160-4.5 mcg/actuation HFA aerosol inhaler 2 puff INHALATION Q12H Qty: 10.2 RF: 2 ferrous sulfate 325 mg (65 mg iron) tablet 325 mg PO DAILY RF: 0 fluticasone propionate [Flonase Allergy Relief] 50 mcg/actuation Venus,Suspension 1 spray INTRANASAL DAILY RF: 0 hydrochlorothiazide 25 mg tablet 25 mg PO DAILY RF: 0 lisinopril 20 mg Tablet 20 mg PO QAM Qty: 30 RF: 1 cetirizine [Zyrtec] 10 mg Tablet 10 mg PO DAILY RF: 0 esomeprazole sodium 20 mg capsule 20 mg PO DAILY RF: 0 ipratropium-albuterol 0.5 mg-3 mg(2.5 mg base)/3 mL solution for nebulization See Rx Instructions .ROUTE .COMPLEX Qty: 180 RF: 0 bupropion HCl [Wellbutrin XL] 150 mg tablet extended release 24 hr 300 mg PO QAM Qty: 60 RF: 3 montelukast 10 mg tablet 10 mg PO DAILY 30 Days Qty: 30 RF: 5 escitalopram oxalate 20 mg tablet 20 mg PO DAILY Qty: 30 RF: 5 albuterol sulfate [Ventolin HFA] 90 mcg/actuation HFA aerosol inhaler 2 puff INHALATION Q
[2022-01-26] MEDS: FUROSEMIDE INJ 40 MG/4 ML VIAL IV PUSH (10:09)
--- NOTE | 2022-01-26 10:19 | PCRCNOTE ---
Home evaluation: pt was reading 88% before evaluation, did walking exercise pt decreased to 85%, RT placed pt on 1L and pt tolerated well with exercise keeping SpO2 at 90-91%. Pt will need 1L O2.
--- NOTE | 2022-01-26 10:23 | HOMEO2EVAL ---
Evaluation was performed at [facility] Home Oxygen Evaluation RC: Home Oxygen (O2) Evaluation Start: 01/26/22 09:08 Freq: ONCE Status: Active Protocol: RPE Activity Type Activity Date Activity User E-Sign Co-Sign Detail Recorded Client Recorded Date Recorded By Document 01/26/22 10:05 KAG [email or web address] 01/26/22 10:17 KAG Document 01/26/22 10:10 KAG [email or web address] 01/26/22 10:18 KAG Document 01/26/22 10:00 KAG [email or web address] 01/26/22 10:16 KAG Document 01/26/22 10:15 KAG [email or web address] 01/26/22 10:19 KAG 01/26/22 01/26/22 01/26/22 10:05 10:10 10:00 Home O2 Evaluation Test Phase Exercise Resting Resting Oxygen Delivery Room Air Nasal Cannula Room Air Oxygen Flow Rate (L/min) 1 Pulse Oximetry (90-100 %) 85 L 90 88 L Pulse Rate (60-100 beats/min) 82 79 75 Activity Tolerance Fair Ambulation Distance (feet) 100 Ambulation Distance (meters) 30.47 Home Oxygen Evaluation Comments Placed pt on 1L due to low SpO2 Treatment Charges O2 Evaluation - Inpatient 01/26/22 10:15 Home O2 Evaluation Test Phase Exercise Oxygen Delivery Nasal Cannula Oxygen Flow Rate (L/min) 1 Pulse Oximetry (90-100 %) 91 Pulse Rate (60-100 beats/min) 80 Activity Tolerance Good Ambulation Distance (feet) 100 Ambulation Distance (meters) 30.47 Home Oxygen Evaluation Comments Pt tolerated 1L very well with exercise Treatment Charges
== END 2022-01-26 12:30 | disposition home or self-care (01) | DRG 203 ==
LOC: ANHED 14:32 → ANH3MED 14:43
PROVIDERS: Admitting Provider Internal Medicine; Emergency Provider Nurse Practitioner Family; PCP Family Medicine; Visit Provider Internal Medicine
DX: J45.51 Severe persistent asthma with (acute) exacerbation (principal); I10 Essential (primary) hypertension; Z20.822 Contact with and (suspected) exposure to COVID-19; Z87.891 Personal history of nicotine dependence; Z82.5 Family history of asthma and other chronic lower respiratory diseases; Z83.3 Family history of diabetes mellitus; F41.8 Other specified anxiety disorders; E66.01 Morbid (severe) obesity due to excess calories; G47.33 Obstructive sleep apnea (adult) (pediatric); Z68.30 Body mass index [BMI] 30.0-30.9, adult; K21.9 Gastro-esophageal reflux disease without esophagitis; M85.80 Other specified disorders of bone density and structure, unspecified site; Q45.8 Other specified congenital malformations of digestive system; R73.03 Prediabetes; Z82.49 Family history of ischemic heart disease and other diseases of the circulatory system; Z79.899 Other long term (current) drug therapy; K44.9 Diaphragmatic hernia without obstruction or gangrene
CPT/HCPCS: 36415; 71046; 80053; 83735; 84484; 85025; 87040; 87502; 93005; 94618; 94640; 96361; 96365; 96366; 96372; 96375; 96376; 99285; A9270; C9803; G0378; J1650; J1940; J2930; J3475; J7030; U0003; U0005

== ENCOUNTER 2022-02-03 15:03 | Outpatient (CLI) | payer BC, SELFPAY ==
--- NOTE | ~2022-02-03 | XR_ITS ---
EXAMINATION: XR chest 2V EXAM DATE: 02/03/2022 15:25 INDICATION: R05.9 -Cough,Wheezing,Chest Heaviness,X1 Month,Hx Asthma,HTN. TECHNIQUE: Frontal and lateral projections of the chest obtained and reviewed. Comparison is made to prior examination from 01/23/2022. FINDINGS: The lungs are hyperinflated which can be seen with chronic obstructive pulmonary disease ( a clinical diagnosis of functional impairment), but is not diagnostic of it. No confluent consolidati on, pneumothorax or pleural effusion suspected. Cardiomediastinal silhouette is normal. There are no osseous abnormalities identified. There is large gastroesophageal hiatal hernia. There are cholecyst ectomy clips. There is no significant interval change. IMPRESSION: 1. No acute cardiopulmonary findings. 2. Chronic hyperinflation. 3. Large hiatal hernia. Reviewed, dictated and finalized at location A.
== END 2022-02-03 15:04 | disposition home or self-care (01) ==
LOC: ANHIMG 15:10
PROVIDERS: PCP Family Medicine; Visit Provider Nurse Practitioner Family
DX: R05.9 Cough, unspecified (principal); K44.9 Diaphragmatic hernia without obstruction or gangrene; R91.8 Other nonspecific abnormal finding of lung field
CPT/HCPCS: 71046

== ENCOUNTER 2022-03-19 08:57 | Outpatient (CLI) | payer BC, SELFPAY ==
--- NOTE | 2022-04-01 16:14 | WPDSLEEPSTUD ---
Sleep Study Date of Study: 03/19/22 Ordering Provider: Phani Zaldivar MD Interpreting Physician: Demetrice Schulz MD Sleep Study Type: Split Polysomnogram Height: 1.63 m Weight: 101.605 kg Body Mass Index: 38.4 Neck Circumference (inches): 16.5 [place]: 13 Reason for Sleep Study * 01/18/2021 - moderate obstructive sleep apnea with an AHI of 19, severe sustained hypoxemia with 60% of the test spent below 88%, lowest saturation 76% and mean saturation 88%. She presents for a split night study. The initial study was too far in the past to be used for a CPAP titration. Sleep History Michell Huffman is a 51 year old female with?MATEUSZ; she had a positive home sleep 01/18/2021 that shows at least moderate obstructive sleep apnea with an AHI of 19, severe sustained hypoxemia with 60% of the test spent below 88%, lowest saturation 76% and mean saturation 88%.? She presents for a splint night sleep study. She is not a candidate for autoPAP due to the sustained hypoxemia.? The patient has severe asthma since she was a toddler. She wakes up throughout the night and has excessive daytime sleepiness. She has a difficult time waking in the morning. There is a positive family history with her father having sleep apnea. She frequently awakens from sleep feeling short of breath. She occasionally awakens at night with heartburn, belching or coughing. She occasionally snores and frequently it is loud enough that others complain about it. She constantly has trouble sleeping with a cold. She occasionally wakes up gasping for breath at night. She occasionally has breathing problems at night observed by others. She constantly sweats excessively at night. She frequently notices her heart pounding or beating irregularly at night. She frequently falls asleep during the day however she never falls asleep involuntarily or while driving. She does not have loss of muscle tone with strong emotion. She occasionally has daytime difficulties due to excessive sleepiness. She does not feel paralyzed on waking or falling asleep. She occasionally has vivid dreamlike scenes upon awakening or falling asleep. She does not feel afraid to go to sleep. She occasionally has nightmares, occasionally remembers her dreams. She constantly has racing thoughts. She occasionally feels sad or depressed. She constantly has anxiety. She constantly has muscular tension. She does not notice parts of her body jerking. She occasionally kicks at night. She occasionally has crawling and aching feelings in her legs and leg pain during the night. She does not have morning jaw pain. She does not grind her teeth during sleep. She occasionally is bothered by pain during the day and awakened by pain during the night. She constantly wakes up feeling stiff in the morning with sore achy muscles. She occasionally wakes up with pain in the neck and spine. She has headaches, fatigue, panic, depression and sometimes has nightmares. She is fatigued often and has lost interest in sex. Normal bedtime is 10:30 p.m. falling asleep within 30 minutes waking 3 times to go to the bathroom to [facility], get a drink of water or use her inhaler. She is able to return to sleep quickly. She wakes the morning by 8:00 a.m.. Her weak weekend schedule is the same. She works week days and evenings she takes naps in the afternoon or evening. A short nap is not refreshing. She is drowsy after waking for 3 hours or longer. She feels better in the evening compared other times of day. Habits: Quit tobacco 15 years ago. She consumes caffeine,both tea and coffee. She does not use alcohol or recreational drugs. [facility] Past Medical History Medical History Asthma BMI 38.0-38.9,adult BMI 39.0-39.9,adult Colon polyps Dark stools Depression with anxiety Duodenal arteriovenous malformation Epigastric pain Gastric ulcer Gastroesophageal reflux disease Hiatal hernia Hyperten
[2022-04-01 19:28] VITALS: BMI 38.4
== END 2022-03-20 06:34 | disposition home or self-care (01) ==
LOC: ANHCSM 08:58
PROVIDERS: PCP Family Medicine; Visit Provider Internal Medicine Pulmonary Disease
DX: G47.33 Obstructive sleep apnea (adult) (pediatric) (principal)
CPT/HCPCS: 95811

== ENCOUNTER 2022-05-26 11:48 | Outpatient (CLI) | payer BC, SELFPAY ==
[2022-05-26 12:28] LABS: Anion Gap 7 mmol/L (8-16); Blood Urea Nitrogen 13 mg/dL (7-17); Calcium 8.7 mg/dL (8.4-10.2); Carbon Dioxide 31 mmol/L (22-30); Chloride 104 mmol/L (98-107); Estimated Glomerular Filt Rate > 60; Glucose 102 mg/dL (65-110); Potassium 4.6 mmol/L (3.4-5.0); Sodium 142 mmol/L (137-145)
[2022-05-26 12:53] LABS: Hemoglobin A1C 4.9 % (<5.7)
== END 2022-05-26 11:49 | disposition home or self-care (01) ==
LOC: ANHLAB 11:49
PROVIDERS: PCP Family Medicine; Visit Provider Physician Assistant Medical
DX: R73.09 Other abnormal glucose (principal); I10 Essential (primary) hypertension
CPT/HCPCS: 36415; 80048; 83036

== ENCOUNTER 2022-07-21 00:06 | Day surgery (SDC) | payer BC, SELFPAY ==
[2022-07-14 14:27] VITALS: BMI 39.5
[2022-07-21 11:09] VITALS: BP 151/91; PULSE 64; RESP 22; TEMP 36.6; O2SAT 93
[2022-07-21] MEDS: LACTATED RINGERS 1,000 ML 150 ML IV CONT (11:14)
--- NOTE | 2022-07-21 11:49 | WPDANESEPPF ---
Anes - Initial Pre Proc Eval Procedure: Operation Date: 07/21/22 12:30 Proposed Procedures p Esophagogastroduodenoscopy EGD - José Miguel Nevarez MD Date/Time: 07/21/22 11:49 Surgeon: José Miguel Nevarez MD Pre Op Diagnosis: Gerd Patient Data Age: 52 Gender: F Height: 1.63 m Weight: 104.7 kg Last Vital Signs Temp 97.8 F 07/21/22 11:09 Pulse 64 07/21/22 11:09 Resp 22 H 07/21/22 11:09 BP 151/91 H 07/21/22 11:09 Pulse Ox 93 07/21/22 11:09 O2 Del Method Room Air 07/21/22 11:09 Allergies Allergy/AdvReac Type Severity Reaction Status Date / Time mold Allergy Intermediate Dyspnea / Verified 07/21/22 11:09 SOB tree and shrub pollen Allergy Intermediate Itching Verified 07/21/22 11:09 Grass Allergy Intermediate Itching Uncoded 07/14/22 14:39 Home Medications Medication Instructions Recorded Confirmed Type ferrous sulfate 325 mg (65 mg 325 mg PO DAILY 12/22/19 07/14/22 History iron) tablet fluticasone propionate 50 1 spray intranasal DAILY 05/19/20 07/14/22 History mcg/actuation nasal spray,suspension (Flonase Allergy Relief) cetirizine 10 mg tablet (Zyrtec) 10 mg PO DAILY 09/15/20 07/14/22 History budesonide-formoterol HFA 160 2 puff inhalation Q12H #10.2 grams 11/05/20 07/14/22 Rx mcg-4.5 mcg/actuation aerosol inhaler (Symbicort) conjugated estrogens 0.625 mg 0.625 mg PO DAILY #30 tabs 11/05/20 07/14/22 Rx tablet (Premarin) escitalopram oxalate 20 mg tablet 20 mg PO DAILY #30 tabs 11/11/21 07/14/22 Rx montelukast 10 mg tablet 10 mg PO DAILY 1 month #30 tabs 11/11/21 07/14/22 Rx pantoprazole 40 mg tablet,delayed 40 mg PO Q12HR #60 tabs 01/26/22 07/14/22 Rx release ipratropium 0.5 mg-albuterol 3 mg See Rx Instructions .Route 05/02/22 07/14/22 Rx (2.5 mg base)/3 mL nebulization .COMPLEX #180 mL soln bupropion HCl 150 mg 24 hr tablet, 300 mg PO QAM #60 tabs 05/13/22 07/14/22 Rx extended release (Wellbutrin XL) hydrochlorothiazide 25 mg tablet 25 mg PO DAILY #90 tabs 05/26/22 07/14/22 Rx lisinopril 30 mg tablet 30 mg PO DAILY #90 tabs 05/26/22 07/14/22 Rx metoprolol succinate 25 mg 25 mg PO DAILY #90 tabs 05/26/22 07/14/22 Rx tablet,extended release 24 hr albuterol sulfate 90 mcg/actuation 2 puff inhalation Q4H PRN 07/08/22 07/14/22 Rx aerosol inhaler (ProAir HFA) shortness of breath or wheezing #8.5 grams Patient hx anesthesia problems: none Family hx anesthesia problems: none Results Review: All pre-operative results and documents have been reviewed as part of the pre-operative evaluation. [facility] Past Medical History Medical History Asthma BMI 37.0-37.9, adult BMI 38.0-38.9,adult BMI 39.0-39.9,adult Colon polyps Dark stools Depression with anxiety Duodenal arteriovenous malformation Epigastric pain Gastric ulcer Gastroesophageal reflux disease Hiatal hernia Hypertension Iron deficiency anemia Due to gastric ulcer Morbid obesity Obstructive sleep apnea (Unknown) Osteopenia determined by x-ray Pre-diabetes Hemoglobin A1c of 6.4% noted on labs December 2018 Thalassemia minor Surgical History Surgical History History of cholecystectomy History of colonoscopy with polypectomy (09/2020) History of endometrial ablation History of esophagogastroduodenoscopy (EGD) (09/2020) Demonstrated hiatal hernia and unspecified gastric ulcer History of total abdominal hysterectomy and bilateral salpingo-oophorectomy Family History Family History Father Family history of atrial fibrillation Diabetes mellitus Hypertension S/P CABG (coronary artery bypass graft) Sibling Asthma Diabetes mellitus Prostate carcinoma Mother , age 68 Chronic obstructive pulmonary disease Diabetes mellitus Grandparent Cerebrovascular accident Congestive heart f
--- NOTE | 2022-07-21 12:05 | PM.HPGS ---
History of Present Illness History of Present Illness Consent: Risks, benefits, and alternatives have been discussed and questions answered. Patient agrees to proceed with procedure. Chief complaint: Gerd Narrative: Michell Huffman is a 52 year old female with gastric ulcers in 2019, also large hiatal hernia using omeprazole. Review of Systems Constitutional: Constitutional: Denies headache(s) and Denies weakness Eyes: Eyes: Denies blurry vision ENT: Reports Normal hearing present, Denies headache(s) and Denies neck pain Cardiovascular: Cardiovascular: Denies chest pain and Denies dyspnea Respiratory: Respiratory: Denies dyspnea Gastrointestinal: Gastrointestinal: Reports no additional gastrointestinal complaints Genitourinary: Genitourinary: Denies dysuria Musculoskeletal: Musculoskeletal: Denies neck pain Integumentary/Breasts: Skin/Breast: Denies dry skin Neurologic: Reports Normal hearing present, Denies headache(s) and Denies weakness Psychiatric: Psychiatric: Denies anxiety Endocrine: Endocrine: Denies change in body appearance Hematologic/Lymphatic: Hematologic/Lymphatic: Denies easy bleeding Allergic/Immunologic: Allergic/Immunologic: Denies urticaria PMFSH Past Medical History Medical History Asthma BMI 37.0-37.9, adult BMI 38.0-38.9,adult BMI 39.0-39.9,adult Colon polyps Dark stools Depression with anxiety Duodenal arteriovenous malformation Epigastric pain Gastric ulcer Gastroesophageal reflux disease Hiatal hernia Hypertension Iron deficiency anemia Due to gastric ulcer Morbid obesity Obstructive sleep apnea (Unknown) Osteopenia determined by x-ray Pre-diabetes Hemoglobin A1c of 6.4% noted on labs December 2018 Thalassemia minor Surgical History Surgical History History of cholecystectomy History of colonoscopy with polypectomy (09/2020) History of endometrial ablation History of esophagogastroduodenoscopy (EGD) (09/2020) Demonstrated hiatal hernia and unspecified gastric ulcer History of total abdominal hysterectomy and bilateral salpingo-oophorectomy Family History Family History Father Family history of atrial fibrillation Diabetes mellitus Hypertension S/P CABG (coronary artery bypass graft) Sibling Asthma Diabetes mellitus Prostate carcinoma Mother , age 68 Chronic obstructive pulmonary disease Diabetes mellitus Grandparent Cerebrovascular accident Congestive heart failure Family history of atrial fibrillation Social History Social History (Updated 07/11/22 @ 14:38 by Viv Larose RN) Social History: Surrogate decision maker: Juan Huffman, spouse. Code status: Full code. Years smoked: 10 Smoking status: Former smoker Tobacco type: cigarettes Second hand tobacco smoke exposure: Yes Additional smoking assessment comments: Smoked socially for approximately 10 years, quit 16 years ago. Alcohol intake: current Alcohol use details: very rare use Substance use: current Substance use type: marijuana Other substance usage details: THC gummies Last use: 01/20/22 Living arrangements: with family Additional living arrangements comments: Lives in [place] with her family. They have a 1-year-old De La Rosa-doodle. 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 Gender identity (if verbalized by the patient): Female Sexual Orientation (if Verbalized by the Patient): Straight or Heterosexual Spiritual care concerns: No Meds Home Medications and Allergies Home Medications Medication Instructions Recorded Confirmed Type ferrous sulfate 325 mg (65 mg 325 mg PO DAILY 12/22/19 07/14/22 History iron) tablet fluticasone propionate 50 1 spray intranasal DAILY 05/19/20 07/14/22 History mcg/actuation nasal s
[2022-07-21 12:23] VITALS: BP 106/83; PULSE 97; RESP 19; O2SAT 95
[2022-07-21 12:33] VITALS: BP 132/100; PULSE 75; RESP 17; O2SAT 93
[2022-07-21 12:43] VITALS: BP 123/84; PULSE 72; RESP 16; O2SAT 93
== END 2022-07-21 13:27 | disposition home or self-care (01) ==
PROVIDERS: PCP Family Medicine; Visit Provider Internal Medicine Gastroenterology
PROC: 0DJ08ZZ Inspection of Upper Intestinal Tract, Via Natural or Artificial Opening Endoscopic (ICD-10-PCS; CPT 43235; principal; 2022-07-21 12:30)
DX: K21.9 Gastro-esophageal reflux disease without esophagitis (principal); K44.9 Diaphragmatic hernia without obstruction or gangrene; K29.50 Unspecified chronic gastritis without bleeding; Q27.30 Arteriovenous malformation, site unspecified; Z87.11 Personal history of peptic ulcer disease; F41.9 Anxiety disorder, unspecified; F32.A Depression, unspecified; G47.33 Obstructive sleep apnea (adult) (pediatric); D50.9 Iron deficiency anemia, unspecified; I10 Essential (primary) hypertension; J45.909 Unspecified asthma, uncomplicated; R73.03 Prediabetes; Z90.49 Acquired absence of other specified parts of digestive tract; Z87.891 Personal history of nicotine dependence; F12.90 Cannabis use, unspecified, uncomplicated; Z79.51 Long term (current) use of inhaled steroids; E66.9 Obesity, unspecified; Z68.39 Body mass index [BMI] 39.0-39.9, adult
CPT/HCPCS: 43239; 88305; J2704; J7120

== ENCOUNTER 2022-12-21 21:03 | Emergency (ER) | payer BC, SELFPAY ==
[2022-12-21] VITALS (10 sets, daily range): BP systolic 165–195; BP diastolic 95–113; PULSE 72–96; RESP 18–24; TEMP 36.9; O2SAT 92–100
[2022-12-21] MEDS: IPRATROPIUM BR 0.02% INH SOLN 0.5 MG/2.5 ML VIAL (21:36)
[2022-12-21] MEDS: ALBUTEROL SULFATE NEB 2.5 MG/3 ML INH (21:36)
[2022-12-21] MEDS: predniSONE 20 MG TABLET 60 MG PO (23:18)
[2022-12-21] MEDS: IPRATROPIUM BR 0.02% INH SOLN 0.5 MG/2.5 ML VIAL INHALATION (23:21)
[2022-12-21] MEDS: ALBUTEROL SULFATE NEB 2.5 MG/3 ML INH INHALATION (23:21)
--- NOTE | 2022-12-21 23:43 | ED.GENADULT ---
HPI - General Adult General Chief complaint: Asthma Stated complaint: asthma Time Seen by Provider: 12/21/22 23:02 History of Present Illness HPI narrative: Patient is a 52-year-old female who presents emergency department with chief complaint of shortness of breath. Patient reports she has prior history of asthma has had prior admissions including requiring BiPAP patient reports that today she started getting more short of breath and was wheezing more patient reports she used her home medications without relief. The patient reports this does not feel as bad as whenever she has required admission in the past. Related Data Home Medications Medication Instructions Recorded Confirmed ferrous sulfate 325 mg (65 mg 325 mg PO DAILY 12/22/19 08/04/22 iron) tablet fluticasone propionate 50 1 spray intranasal DAILY 05/19/20 08/04/22 mcg/actuation nasal spray,suspension (Flonase Allergy Relief) cetirizine 10 mg tablet (Zyrtec) 10 mg PO DAILY 09/15/20 08/04/22 Allergies Allergy/AdvReac Type Severity Reaction Status Date / Time mold Allergy Intermediate Dyspnea / Verified 12/21/22 21:26 SOB tree and shrub pollen Allergy Intermediate Itching Verified 12/21/22 21:26 Grass Allergy Intermediate Itching Uncoded 12/21/22 21:26 Review of Systems Review of Systems: A 10 system review of systems was completed on the patient and is negative except for what is stated in the HPI. Nursing and ancillary documentation was reviewed. [facility] Past Medical History Medical History Asthma BMI 37.0-37.9, adult BMI 38.0-38.9,adult BMI 39.0-39.9,adult Colon polyps Dark stools Depression with anxiety Duodenal arteriovenous malformation Epigastric pain Gastric ulcer Gastroesophageal reflux disease Hiatal hernia Hypertension Iron deficiency anemia Due to gastric ulcer Morbid obesity Obstructive sleep apnea (Unknown) Osteopenia determined by x-ray Pre-diabetes Hemoglobin A1c of 6.4% noted on labs December 2018 Thalassemia minor Surgical History Surgical History History of cholecystectomy History of colonoscopy with polypectomy (09/2020) History of endometrial ablation History of esophagogastroduodenoscopy (EGD) (09/2020) Demonstrated hiatal hernia and unspecified gastric ulcer History of total abdominal hysterectomy and bilateral salpingo-oophorectomy Family History Family History Father Family history of atrial fibrillation Diabetes mellitus Hypertension S/P CABG (coronary artery bypass graft) Sibling Asthma Diabetes mellitus Prostate carcinoma Mother , age 68 Chronic obstructive pulmonary disease Diabetes mellitus Grandparent Cerebrovascular accident Congestive heart failure Family history of atrial fibrillation Social History Social History Social History: Surrogate decision maker: Juan Huffman, spouse. Code status: Full code. Years smoked: 10 Smoking status: Former smoker Tobacco type: cigarettes Second hand tobacco smoke exposure: Yes Additional smoking assessment comments: Smoked socially for approximately 10 years, quit 16 years ago. Alcohol intake: current Alcohol use details: very rare use Substance use: current Substance use type: marijuana Other substance usage details: THC gummies Last use: 01/20/22 Living arrangements: with family Additional living arrangements comments: Lives in [place] with her family. They have a 1-year-old De La Rosa-doodle. 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 Gender identity (if verbalized by the patient): Female Sexual Orientation (if Verbalized by the Patient): Straight or Heterosexual Spir
== END 2022-12-22 00:09 | disposition home or self-care (01) ==
PROVIDERS: Emergency Provider Emergency Medicine; PCP Family Medicine
DX: J45.901 Unspecified asthma with (acute) exacerbation (principal); I10 Essential (primary) hypertension; K21.9 Gastro-esophageal reflux disease without esophagitis; K44.9 Diaphragmatic hernia without obstruction or gangrene; Z86.010 Personal history of colon polyps; D50.9 Iron deficiency anemia, unspecified; G47.33 Obstructive sleep apnea (adult) (pediatric); M85.80 Other specified disorders of bone density and structure, unspecified site; R73.03 Prediabetes; E66.01 Morbid (severe) obesity due to excess calories; Z68.37 Body mass index [BMI] 37.0-37.9, adult; Z90.710 Acquired absence of both cervix and uterus; Z90.722 Acquired absence of ovaries, bilateral; Z90.79 Acquired absence of other genital organ(s); Z87.891 Personal history of nicotine dependence
CPT/HCPCS: 94640; 99284; J7512

== ENCOUNTER 2023-01-09 12:39 | Emergency (ER) | payer BC, SELFPAY ==
--- NOTE | ~2023-01-09 | XR_ITS ---
EXAMINATION: XR knee RT 3V DATE: 01/09/2023 13:00 INDICATION: Right knee pain and swelling. TECHNIQUE: 3 views of right knee were obtained. COMPARISON: Right knee radiographs 10/25/2012 FINDINGS: Bone alignment is normal. No fracture. There is mild tricompartmental osteoarthritis. No kn ee joint effusion. IMPRESSION: 1. Mild right knee osteoarthritis. Reviewed, dictated and finalized at location A. H MACHINE SETTER
[2023-01-09 12:41] VITALS: BP 143/91; PULSE 73; RESP 18; TEMP 36.4; O2SAT 96
--- NOTE | 2023-01-09 13:51 | ED.LOWEXIN ---
HPI - Extremity Injury (Lower) General Chief Complaint: Extremity Injury, Lower Stated Complaint: right knee pain Time Seen by Provider: 01/09/23 12:57 Source: patient Mode of arrival: ambulatory Limitations: no limitations History of Present Illness HPI Narrative: This is a 52-year-old female that presents emergency department for right knee pain after an injury 2 days ago. Reports she tripped over her dog and twisted the knee. She did not hit her head or lose consciousness. No other injuries or trauma. Reports pain is worse with weightbearing and relieved with rest. Denies decreased range of motion or numbness. Related Data Home Medications Medication Instructions Recorded Confirmed ferrous sulfate 325 mg (65 mg 325 mg PO DAILY 12/22/19 08/04/22 iron) tablet fluticasone propionate 50 1 spray intranasal DAILY 05/19/20 08/04/22 mcg/actuation nasal spray,suspension (Flonase Allergy Relief) cetirizine 10 mg tablet (Zyrtec) 10 mg PO DAILY 09/15/20 08/04/22 Allergies Allergy/AdvReac Type Severity Reaction Status Date / Time mold Allergy Intermediate Dyspnea / Verified 12/21/22 21:26 SOB tree and shrub pollen Allergy Intermediate Itching Verified 12/21/22 21:26 Grass Allergy Intermediate Itching Uncoded 12/21/22 21:26 Review of Systems Review of Systems: CONSTITUTIONAL: Denies fever SKIN: Denies erythema MUSCULOSKELETAL: Reports joint pain, and myalgia. NEUROLOGIC: Denies numbness, or weakness. All systems reviewed & are unremarkable except as noted in HPI and below PMFSH Past Medical History Medical History Asthma BMI 37.0-37.9, adult BMI 38.0-38.9,adult BMI 39.0-39.9,adult Colon polyps Dark stools Depression with anxiety Duodenal arteriovenous malformation Epigastric pain Gastric ulcer Gastroesophageal reflux disease Hiatal hernia Hypertension Iron deficiency anemia Due to gastric ulcer Morbid obesity Obstructive sleep apnea (Unknown) Osteopenia determined by x-ray Pre-diabetes Hemoglobin A1c of 6.4% noted on labs December 2018 Thalassemia minor Surgical History Surgical History History of cholecystectomy History of colonoscopy with polypectomy (09/2020) History of endometrial ablation History of esophagogastroduodenoscopy (EGD) (09/2020) Demonstrated hiatal hernia and unspecified gastric ulcer History of total abdominal hysterectomy and bilateral salpingo-oophorectomy Family History Family History Father Family history of atrial fibrillation Diabetes mellitus Hypertension S/P CABG (coronary artery bypass graft) Sibling Asthma Diabetes mellitus Prostate carcinoma Mother , age 68 Chronic obstructive pulmonary disease Diabetes mellitus Grandparent Cerebrovascular accident Congestive heart failure Family history of atrial fibrillation Social History Social History Social History: Surrogate decision maker: Juan Huffman, spouse. Code status: Full code. Years smoked: 10 Smoking status: Former smoker Tobacco type: cigarettes Second hand tobacco smoke exposure: Yes Additional smoking assessment comments: Smoked socially for approximately 10 years, quit 16 years ago. Alcohol intake: current Alcohol use details: very rare use Substance use: current Substance use type: marijuana Other substance usage details: THC gummies Last use: 01/20/22 Living arrangements: with family Additional living arrangements comments: Lives in [place] with her family. They have a 1-year-old De La Rosa-doodle. 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 Gender identity (if verbalized by the patient): Female Sexual Orientation
[2023-01-09 14:18] VITALS: BP 131/75; PULSE 71; RESP 18; TEMP 36.2; O2SAT 94
== END 2023-01-09 14:25 | disposition home or self-care (01) ==
PROVIDERS: Emergency Provider Physician Assistant; PCP Family Medicine
DX: M25.561 Pain in right knee (principal); J45.909 Unspecified asthma, uncomplicated; F32.A Depression, unspecified; F41.9 Anxiety disorder, unspecified; K21.9 Gastro-esophageal reflux disease without esophagitis; I10 Essential (primary) hypertension
CPT/HCPCS: 73562; 99283

== ENCOUNTER 2024-01-04 14:46 | Inpatient (IN) | payer BC, SELFPAY ==
[2024-01-04] VITALS (16 sets, daily range): BP systolic 118–158; BP diastolic 63–93; PULSE 94–123; RESP 0–26; TEMP 36.2–36.7; O2SAT 93–100
--- NOTE | ~2024-01-04 | XR_ITS ---
EXAMINATION: XR chest 2V DATE: 01/04/2024 16:33 INDICATION: Shortness of breath TECHNIQUE: PA and lateral views of the chest are obtained. COMPARISON: 02/03/2022 FINDINGS: There is a large hiatal hernia. There are airspace opacities of the mid and lower lung zone s. No pleural effusion or pneumothorax. The heart size is normal. There is mild thoracic spondylosis. IMPRESSION: 1. Minimal airspace opacities of the mid and lower lung zones, consistent with atelectasis versus pne umonia versus pulmonary edema. 2. Large hiatal hernia. Reviewed, dictated and finalized at location B. [employer] IMPRESSION: 1. Minimal airspace opacities of the mid and lower lung zones, consistent with atelectasis versus pneumonia versus pulmonary edema. 2. Large hiatal hernia.
--- NOTE | 2024-01-04 14:58 | ECG_ITS ---
Measurements Intervals [place] Rate: 110 P: 72 WI: 129 QRS: 77 QRSD: 91 T: 33 QT: 332 QTc: 450 Interpretive Statements SINUS TACHYCARDIA BORDERLINE ST-T WAVE ABNORMALITY- DIFFUSE LEADS BASELINE ARTIFACT- I, II, III, AVR, AVL, AVF, V1-V6 ABNORMAL ECG COMPARED TO ECG 01/23/2022 09:41:56 SINUS TACHYCARDIA NOW PRESENT Electronically Signed On 01-04-2024 15:14:16 HAIR STYLIST by William Valera D.O.
[2024-01-04 15:12] LABS: Basophils Absolute Auto 0.1 K/mm3 (0.0-0.1); Basophils Percent Auto 0.4 % (0.2-1.2); Eosinophils Percent Auto 0.1 % (0-4.4); Hemoglobin 11.2 g/dL (12.0-15.0); Immature Granulocyte Absolute 0.06 K/mm3 (0.00-0.031); Immature Granulocyte Percent A 0.4 % (0-0.5); Lymphocytes Absolute Auto 0.96 K/mm3 (0.9-3.2); Mean Corpuscular HGB Conc 31.1 g/dl (32-36); Mean Corpuscular Hemoglobin 24.1 pg (26-34); Mean Corpuscular Volume 77.4 fl (80-100); Mean Platelet Volume 11.1 fl (7.4-10.4); Monocytes Absolute Auto 0.7 K/mm3 (0.1-0.6); Monocytes Percent Auto 5.3 % (2.6-8.5); Neutrophils Absolute Auto 11.8 K/mm3 (1.3-6.7); Neutrophils Percent Auto 86.8 % (45.5-73.1); Platelet Count Result 341 k/mm3 (150-375); Red Blood Count 4.65 M/mm3 (4.2-5.4); Red Cell Distribution Width 14.1 % (11.5-14.5); White Blood Count 13.6 K/mm3 (4.5-10.0)
[2024-01-04] MEDS: methylPREDNISolone SOD SUCC 125 MG VIAL IV PUSH (15:16)
[2024-01-04] MEDS: IPRATROPIUM BR 0.02% INH SOLN 0.5 MG/2.5 ML VIAL 1.5 MG INHALATION (15:17)
[2024-01-04] MEDS: ALBUTEROL SULFATE NEB 2.5 MG/3 ML INH 15 MG INHALATION (15:18)
[2024-01-04 15:28] LABS: Alanine Aminotransferase 22 U/L (6-35); Albumin Level 3.9 g/dL (3.5-5.1); Alkaline Phosphatase 132 U/L (38-126); Anion Gap 12 mmol/L (8-16); Aspartate Amino Transferase 20 U/L (14-36); Bilirubin,Total 0.5 mg/dL (0.2-1.3); Blood Urea Nitrogen 12 mg/dL (7-17); Calcium 9.4 mg/dL (8.4-10.2); Carbon Dioxide 23 mmol/L (22-30); Chloride 97 mmol/L (98-107); Estimated CRCL calculation 71 ml/min; Estimated Glomerular Filt Rate > 60; Glucose 232 mg/dL (65-110); Potassium 2.7 mmol/L (3.4-5.0); Sodium 132 mmol/L (137-145)
[2024-01-04] MEDS: POTASSIUM CHLORIDE 20 MEQ ER TABLET 40 MEQ PO (16:09)
--- NOTE | 2024-01-04 16:09 | ECG_ITS ---
Measurements Intervals [place] Rate: 96 P: 65 ID: 123 QRS: 65 QRSD: 90 T: 50 QT: 364 QTc: 461 Interpretive Statements SINUS RHYTHM NONSPECIFIC ST & T-WAVE ABNORMALITY- DIFFUSE LEADS BASELINE WANDER- V1-V3 BORDERLINE ECG COMPARED TO ECG 01/04/2024 14:55:21 SINUS RHYTHM NOW PRESENT Electronically Signed On 01-04-2024 16:54:05 BOTTLE WASHER MACHINE by William Valera D.O.
--- NOTE | 2024-01-04 17:56 | ED.ASTHMA ---
HPI - Asthma General Chief Complaint: Asthma Stated Complaint: asthma Time Seen by Provider: 01/04/24 14:58 History of Present Illness HPI Narrative: patient is a 53-year-old female who presents ER with shortness of breath. Has history of asthma. Worsening over last 3 days. She has been using her home nebulizer without improvement. No chest pain or chest pressure. Denies fevers. No alleviating factors. Related Data Home Medications Medication Instructions Recorded Confirmed ferrous sulfate 325 mg (65 mg 325 mg PO DAILY 12/22/19 01/04/24 iron) tablet fluticasone propionate 50 1 spray intranasal DAILY 05/19/20 01/04/24 mcg/actuation nasal spray,suspension (Flonase Allergy Relief) Allergies Allergy/AdvReac Type Severity Reaction Status Date / Time mold Allergy Intermediate Dyspnea / Verified 10/07/23 11:42 SOB tree and shrub pollen Allergy Intermediate Itching Verified 10/07/23 11:42 Grass Allergy Intermediate Itching Uncoded 10/07/23 11:42 Review of Systems Review of Systems: All systems reviewed & are unremarkable except as noted in HPI and below Constitutional: Constitutional: Reports no additional constitutional complaints ENT: Reports system reviewed and no additional complaints, except as documented Cardiovascular: Cardiovascular: Reports no additional cardiovascular complaints Respiratory: Respiratory: Reports cough, Reports dyspnea and Reports wheezing Gastrointestinal: Gastrointestinal: Reports no additional gastrointestinal complaints PMFSH Past Medical History Medical History Asthma BMI 37.0-37.9, adult BMI 38.0-38.9,adult BMI 39.0-39.9,adult Colon polyps Dark stools Depression with anxiety Duodenal arteriovenous malformation Epigastric pain Gastric ulcer Gastroesophageal reflux disease Hiatal hernia Hypertension Iron deficiency anemia Due to gastric ulcer Morbid obesity Obstructive sleep apnea (Unknown) Osteopenia determined by x-ray Pre-diabetes Hemoglobin A1c of 6.4% noted on labs December 2018 Thalassemia minor Surgical History Surgical History History of cholecystectomy History of colonoscopy with polypectomy (09/2020) History of endometrial ablation History of esophagogastroduodenoscopy (EGD) (09/2020) Demonstrated hiatal hernia and unspecified gastric ulcer History of total abdominal hysterectomy and bilateral salpingo-oophorectomy Family History Family History Father Family history of atrial fibrillation Diabetes mellitus Hypertension S/P CABG (coronary artery bypass graft) Sibling Asthma Diabetes mellitus Prostate carcinoma Mother , age 68 Chronic obstructive pulmonary disease Diabetes mellitus Grandparent Cerebrovascular accident Congestive heart failure Family history of atrial fibrillation Social History Social History Social History: Surrogate decision maker: Juan Huffman, spouse. Code status: Full code. Years smoked: 10 Smoking status: Former smoker Tobacco type: cigarettes Second hand tobacco smoke exposure: Yes Additional smoking assessment comments: Smoked socially for approximately 10 years, quit 16 years ago. Alcohol intake: current Alcohol use details: very rare use Substance use: current Substance use type: marijuana Other substance usage details: THC gummies Last use: 01/20/22 Living arrangements: with family Additional living arrangements comments: Lives in [place] with her family. They have a 1-year-old De La Rosa-doodle. Occupation/Education: occupation Additional occupation/education comments: Works at [employer]. Gender identity (if verbalized by the patient): Female Sexual Orientation (if Verbalized by the Patient):
[2024-01-04] MEDS: POTASSIUM CHLORIDE INJ 40 MEQ in SODIUM CHLORIDE 0.9% IV 500 ML 130 MEQ IVPB (18:55)
[2024-01-04] MEDS: IPRATROPIUM 0.5 MG/ALBUTEROL SULFATE 2.5 MG AMPUL.NEB 3 ML INHALATION (19:15)
[2024-01-04 19:23] LABS: Influenza A QL RT-PCR Negative (Negative); Influenza B QL RT-PCR Negative (Negative); RSV RNA, RT-PCR Negative (Negative); SARS-CoV-2 RNA PCR Negative (Negative)
[2024-01-04] MEDS: AZITHROMYCIN 500 MG/NS 250 ML 500 MG/250 ML BAG 250 MG IVPB (20:15)
--- NOTE | 2024-01-04 21:06 | ADMGEN ---
This patient, Michell Huffman, was admitted to Medical Room 340-01. Patient/family oriented to hospital policies and general routines including ID bracelet, bed and alarms, visiting hours, pain management, procedures, bathroom and other care routines, personal items, smoking policy, room service/diet, and visiting hours. Information on how to activate the Rapid Response Team has been discussed. Patient/Family are encouraged to report perceived risks to care and to ask questions if they do not understand what they are told or what they should do.
[2024-01-04] MEDS: ACETAMINOPHEN 325 MG TABLET 650 MG PO (21:31)
[2024-01-04] MEDS: methylPREDNISolone SOD SUCC 125 MG VIAL 60 MG IV PUSH (23:40)
[2024-01-05] VITALS (17 sets, daily range): BP systolic 123–141; BP diastolic 68–79; PULSE 81–98; RESP 18–21; TEMP 36.1–36.9; O2SAT 92–100
--- NOTE | 2024-01-05 00:18 | PM.IMHP ---
H&P: HPI History of Present Illness Date/Time: 01/05/24 00:18 Chief Complaint: Shortness of breath Narrative: This is a pleasant 53-year-old female with a history of depression and anxiety, duodenal AV malformation, gastric ulcer, GERD, hiatal hernia, hypertension, iron deficiency anemia, morbid obesity, MATEUSZ, prediabetes, asthma who presents with the complaint of 3 days of shortness of breath. She had been using her home nebulizer without improvement. She gets asthma attacks once in a while. She denied chest pain or chest pressure, or fevers. She did admit to some chills and a right lower back pain upon deep inspiration. She denies abdominal pain nausea vomiting diarrhea. Denies smoking alcohol or drug use. In [place] [facility] she was given some neb treatments along with Solu-Medrol 125 mg IV x1 potassium 40 mEq x 1 p.o. and then 40 mEq rider. She received ceftriaxone and azithromycin. She was placed on 3 L nasal cannula for hypoxia. Review of Systems Review of Systems: All systems reviewed & are unremarkable except as noted in HPI and below (Subjective) [facility] Past Medical History Medical History Asthma BMI 37.0-37.9, adult BMI 38.0-38.9,adult BMI 39.0-39.9,adult Colon polyps Dark stools Depression with anxiety Duodenal arteriovenous malformation Epigastric pain Gastric ulcer Gastroesophageal reflux disease Hiatal hernia Hypertension Iron deficiency anemia Due to gastric ulcer Morbid obesity Obstructive sleep apnea (Unknown) Osteopenia determined by x-ray Pre-diabetes Hemoglobin A1c of 6.4% noted on labs December 2018 Thalassemia minor Surgical History Surgical History History of cholecystectomy History of colonoscopy with polypectomy (09/2020) History of endometrial ablation History of esophagogastroduodenoscopy (EGD) (09/2020) Demonstrated hiatal hernia and unspecified gastric ulcer History of total abdominal hysterectomy and bilateral salpingo-oophorectomy Family History Family History Father Family history of atrial fibrillation Diabetes mellitus Hypertension S/P CABG (coronary artery bypass graft) Sibling Asthma Diabetes mellitus Prostate carcinoma Mother , age 68 Chronic obstructive pulmonary disease Diabetes mellitus Grandparent Cerebrovascular accident Congestive heart failure Family history of atrial fibrillation Social History Social History Social History: Surrogate decision maker: Juan Huffman, spouse. Code status: Full code. Years smoked: 10 Smoking status: Former smoker Tobacco type: cigarettes Second hand tobacco smoke exposure: Yes Smoking end date: 01/04/24 Additional smoking assessment comments: Smoked socially for approximately 10 years, quit 16 years ago. Alcohol intake: never Alcohol use details: very rare use Substance use: never Substance use type: marijuana Other substance usage details: THC gummies Last use: 01/20/22 Do You Feel Safe in your Home?: Yes Lack of Transportation: No Lack of Food: Sometimes True Current Housing: I Have Housing Concerned About Future Housing: YES Difficulty Paying Gas/Electric Bills: YES Difficulty Paying for Meds: YES Currently Unemployed: No Education: High School Diploma/GED Difficulty w/ Childcare or Family Care: No Living arrangements: with family Additional living arrangements comments: Lives in [place] with her family. They have a 1-year-old [place]-doodle. 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 Gender identity (if verbalized by the patient): Female Sexual Orientation (if Verbalized by the Patient): Straight or Heterosexual Spiritual care concerns: No
[2024-01-05] MEDS: SODIUM CHLORIDE 0.9% IV 1,000 ML 100 ML IV CONT ×3 (00:40→23:13)
[2024-01-05 00:45] LABS: Anion Gap 10 mmol/L (8-16); Blood Urea Nitrogen 15 mg/dL (7-17); Calcium 9.7 mg/dL (8.4-10.2); Carbon Dioxide 25 mmol/L (22-30); Chloride 102 mmol/L (98-107); Estimated CRCL calculation 79 ml/min; Estimated Glomerular Filt Rate > 60; Glucose 188 mg/dL (65-110); Magnesium 2.3 mg/dL (1.6-2.3); Potassium 4.2 mmol/L (3.4-5.0); Sodium 137 mmol/L (137-145)
[2024-01-05] MEDS: IPRATROPIUM 0.5 MG/ALBUTEROL SULFATE 2.5 MG AMPUL.NEB 3 ML INHALATION ×4 (01:30→20:20)
[2024-01-05] MEDS: methylPREDNISolone SOD SUCC 125 MG VIAL 60 MG IV PUSH ×4 (05:58→23:14)
[2024-01-05 06:26] LABS: Basophils Percent Auto 0.2 % (0.2-1.2); Hematocrit 32.2 % (37.0-47.0); Hemoglobin 9.7 g/dL (12.0-15.0); Immature Granulocyte Absolute 0.06 K/mm3 (0.00-0.031); Immature Granulocyte Percent A 0.6 % (0-0.5); Lymphocytes Absolute Auto 0.67 K/mm3 (0.9-3.2); Lymphocytes Percent Auto 6.4 % (18.3-44.2); Mean Corpuscular HGB Conc 30.1 g/dl (32-36); Mean Corpuscular Hemoglobin 23.8 pg (26-34); Mean Corpuscular Volume 78.9 fl (80-100); Mean Platelet Volume 11.3 fl (7.4-10.4); Monocytes Absolute Auto 0.1 K/mm3 (0.1-0.6); Monocytes Percent Auto 1.1 % (2.6-8.5); Neutrophils Absolute Auto 9.6 K/mm3 (1.3-6.7); Neutrophils Percent Auto 91.7 % (45.5-73.1); Platelet Count Result 336 k/mm3 (150-375); Red Blood Count 4.08 M/mm3 (4.2-5.4); Red Cell Distribution Width 14.3 % (11.5-14.5); White Blood Count 10.5 K/mm3 (4.5-10.0)
[2024-01-05 06:34] LABS: Anion Gap 8 mmol/L (8-16); Blood Urea Nitrogen 18 mg/dL (7-17); Calcium 9.8 mg/dL (8.4-10.2); Carbon Dioxide 26 mmol/L (22-30); Chloride 103 mmol/L (98-107); Estimated CRCL calculation 79 ml/min; Estimated Glomerular Filt Rate > 60; Glucose 230 mg/dL (65-110); Magnesium 2.4 mg/dL (1.6-2.3); Potassium 4.8 mmol/L (3.4-5.0); Sodium 137 mmol/L (137-145)
[2024-01-05] MEDS: MONTELUKAST SODIUM 10 MG TABLET BY MOUTH (08:47)
[2024-01-05] MEDS: ESTROGENS, CONJUGATED 0.625 MG TABLET PO (08:47)
[2024-01-05] MEDS: FERROUS SULFATE 325 MG TABLET DR BY MOUTH (08:47)
[2024-01-05] MEDS: PANTOPRAZOLE 40 MG TABLET PO (08:47)
[2024-01-05] MEDS: FLUTICASONE PROPIONATE 0.05% NA SPR 16 GM BTL (*BKC) 2 SPRAY NASAL (08:47)
[2024-01-05] MEDS: ENOXAPARIN 40 MG/0.4 ML SYRINGE SUB-Q (08:49)
[2024-01-05] MEDS: HYDROcodone/acetaminophen (*CRX) 5-325 MG TABLET 1 TAB PO (11:45)
--- NOTE | 2024-01-05 15:14 | PM.IMPN ---
Progress Note: A&P Assessment and Plan (1) Hypoxia: Code(s): R09.02 - Hypoxemia Status: Acute Assessment and Plan: 3 L nasal cannula, work to wean as she is not on oxygen at baseline DuoNeb scheduled Solu-Medrol 60 mg IV q.6 hours. (2) Pneumonia: Code(s): J18.9 - Pneumonia, unspecified organism Status: Acute Assessment and Plan: CXR showed minimal airspace opacities of the mid and lower lung zones, consistent with atelectasis versus pneumonia versus pulmonary edema continue ceftriaxone and azithromycin WBC 10.5 this am (3) Acute hypokalemia: Code(s): E87.6 - Hypokalemia Status: Resolved Assessment and Plan: repleted, up to 4.8 this am continue to monitor (4) Acute asthma exacerbation: Qualifiers: Asthma persistence: persistent Asthma severity: severe Qualified Code(s): J45.51 - Severe persistent asthma with (acute) exacerbation Code(s): J45.901 - Unspecified asthma with (acute) exacerbation Status: Acute Assessment and Plan: DuoNeb scheduled Solu-Medrol 60 mg IV q.6 hours. Continue the montelukast 10 mg p.o. q.day she takes at home (5) Essential hypertension: Code(s): I10 - Essential (primary) hypertension Status: Chronic Assessment and Plan: home lisinopril and hydrochlorothiazide held resume when appropriate Plan FEN: Normal saline continuous infusion, heart healthy diet GI prophylaxis: Continue Protonix DVT prophylaxis: Lovenox 40 mg subQ daily Lines: Peripheral IV Code Status: Full code Dispo: Stable. Subjective Date/time seen: 01/05/24 15:14 Interval history: Patient reports she is feeling better today than yesterday, continues to require 2L oxygen. She denies chest pain or SOB this morning. No acute distress. Will continue to monitor response to therapy and plan for d/c when transitioned to PO AB and on RA. Review of Systems Review of Systems: All systems reviewed & are unremarkable except as noted in HPI and below (Subjective) Exam Narrative: GENERAL: well-nourished, in no acute distress. HEAD: Normocephalic, atraumatic. EYES: PERRLA and EOMI. ENT: Mucous membranes moist. CHEST: Diminished breath sounds bilaterally with expiratory wheezing mainly on the left upper and lower lobes. No respiratory distress. HEART: RRR. Normal peripheral pulses. ABDOMEN: Soft, nontender, nondistended. BS active. EXTREMITIES: Normal range of motion. No edema. SKIN: Warm, dry, no rash. NEURO: Alert and oriented x3. PSYCH: Normal mood and affect. Objective Data Vital Signs Vital Signs: Vital Signs - 24 hr 01/04/24 15:18 01/04/24 16:12 01/04/24 16:24 Temperature Pulse Rate 104 H 99 123 H Respiratory Rate 22 H 18 19 Blood Pressure 141/92 H Pulse Oximetry 100 Oxygen Delivery Oxygen Flow Rate Fraction of Inspired Oxygen 01/04/24 17:14 01/04/24 15:32 01/04/24 16:02 Temperature Pulse Rate 103 H Respiratory Rate 19 Blood Pressure 129/75 141/92 H Pulse Oximetry 97 100 100 Oxygen Delivery Nasal Cannula Oxygen Flow Rate 2 Fraction of Inspired Oxygen 01/04/24 17:14 01/04/24 17:31 01/04/24 18:31 Temperature Pulse Rate 101 H 98 Respiratory Rate 0 L 23 H 23 H Blood Pressure 118/65 132/63 133/76 Pulse Oximetry 98 98 96 Oxygen Delivery Oxygen Flow Rate Fraction of Inspired Oxygen 01/04/24 19:16 01/04/24 20:15 01/04/24 21:10 Temperature 97.7 F Pulse Rate 94 98 Respiratory Rate 18 17 Blood Pressure 118/64 Pulse Oximetry 100 100 Oxygen Delivery Nasal Cannula Oxygen Flow Rate 3 Fraction of Inspired Oxygen 01/04/24 22:02 01/05/24 00:00 01/05/24 01:31 Temperature 98.1 F Pulse Rate 96 81 91 Respiratory Rate 18 18 Blood Pressure 126/69 Pulse Oximetry 97 Oxygen Delivery Oxygen Flow Rate Fraction of Inspired Oxygen 01/05/24 01:54 01/05/24 01:53 01/05/24 04:00 Temper
[2024-01-05] MEDS: AZITHROMYCIN 500 MG/NS 250 ML 500 MG/250 ML BAG 250 MG IVPB (17:19)
[2024-01-05 17:51] LABS: Procalcitonin 0.1 ng/mL
[2024-01-06] VITALS (20 sets, daily range): BP systolic 153–174; BP diastolic 76–94; PULSE 78–104; RESP 16–21; TEMP 36.2–37.2; O2SAT 96–100
[2024-01-06] MEDS: IPRATROPIUM 0.5 MG/ALBUTEROL SULFATE 2.5 MG AMPUL.NEB 3 ML INHALATION ×4 (02:10→20:07)
[2024-01-06 05:48] LABS: Basophils Percent Auto 0.2 % (0.2-1.2); Hematocrit 32.7 % (37.0-47.0); Hemoglobin 9.7 g/dL (12.0-15.0); Immature Granulocyte Absolute 0.24 K/mm3 (0.00-0.031); Immature Granulocyte Percent A 1.3 % (0-0.5); Lymphocytes Absolute Auto 0.93 K/mm3 (0.9-3.2); Lymphocytes Percent Auto 4.9 % (18.3-44.2); Mean Corpuscular HGB Conc 29.7 g/dl (32-36); Mean Corpuscular Hemoglobin 23.8 pg (26-34); Mean Corpuscular Volume 80.3 fl (80-100); Mean Platelet Volume 11.9 fl (7.4-10.4); Monocytes Absolute Auto 0.4 K/mm3 (0.1-0.6); Monocytes Percent Auto 2.3 % (2.6-8.5); Neutrophils Absolute Auto 17.2 K/mm3 (1.3-6.7); Neutrophils Percent Auto 91.3 % (45.5-73.1); Platelet Count Result 365 k/mm3 (150-375); Red Blood Count 4.07 M/mm3 (4.2-5.4); Red Cell Distribution Width 14.4 % (11.5-14.5); White Blood Count 18.9 K/mm3 (4.5-10.0)
[2024-01-06] MEDS: methylPREDNISolone SOD SUCC 125 MG VIAL 60 MG IV PUSH ×2 (05:51→12:36)
[2024-01-06 05:58] LABS: Anion Gap 9 mmol/L (8-16); Blood Urea Nitrogen 19 mg/dL (7-17); Calcium 9.3 mg/dL (8.4-10.2); Carbon Dioxide 22 mmol/L (22-30); Chloride 106 mmol/L (98-107); Estimated CRCL calculation 90 ml/min; Estimated Glomerular Filt Rate > 60; Glucose 192 mg/dL (65-110); Potassium 4.8 mmol/L (3.4-5.0); Sodium 137 mmol/L (137-145)
[2024-01-06 08:11] LABS: Hypochromasia 1+ (NORMAL); Platelet Estimate Adequate (Adequate); Schistocytes None Seen (NORMAL)
[2024-01-06] MEDS: FLUTICASONE PROPIONATE 0.05% NA SPR 16 GM BTL (*BKC) 2 SPRAY NASAL (08:24)
[2024-01-06] MEDS: MONTELUKAST SODIUM 10 MG TABLET BY MOUTH (08:24)
[2024-01-06] MEDS: FERROUS SULFATE 325 MG TABLET DR BY MOUTH (08:24)
[2024-01-06] MEDS: ESTROGENS, CONJUGATED 0.625 MG TABLET PO (08:25)
[2024-01-06] MEDS: PANTOPRAZOLE 40 MG TABLET PO (08:25)
[2024-01-06] MEDS: SODIUM CHLORIDE 0.9% IV 1,000 ML 100 ML IV CONT (08:26)
[2024-01-06] MEDS: ENOXAPARIN 40 MG/0.4 ML SYRINGE SUB-Q (08:26)
--- NOTE | 2024-01-06 09:29 | P.PNIM_ITS ---
Progress Note: A&P Assessment and Plan (1) Hypoxia: Code(s): R09.02 - Hypoxemia Status: Acute Assessment and Plan: * 3 L nasal cannula, work to wean as she is not on oxygen at baseline * DuoNeb scheduled * Solu-Medrol 60 mg IV q.6 hours. * 3/6 * patient on room air at time of assessment, no respiratory distress noted * continue DuoNebs * discontinue Solu-Medrol, as respiratory status is improved and elevated WBCs * (2) Pneumonia: Code(s): J18.9 - Pneumonia, unspecified organism Status: Acute Assessment and Plan: * CXR showed minimal airspace opacities of the mid and lower lung zones, consistent with atelectasis versus pneumonia versus pulmonary edema * continue ceftriaxone and azithromycin * WBC 10.5 this am * 3/ * on room air, no respiratory distress noted * WBCs 18.9 * discontinue IV steroids- as improved respiratory status and elevated WBC * continue antibiotics- possible transition to p.o. tomorrow (3) Acute hypokalemia: Code(s): E87.6 - Hypokalemia Status: Resolved Assessment and Plan: * repleted, up to 4.8 this am * continue to monitor * * / * potassium 4.8 today * continue to monitor * resume lisinopril and hydrochlorothiazide (4) Acute asthma exacerbation: Qualifiers: Asthma persistence: persistent Asthma severity: severe Qualified Code(s): J45.51 - Severe persistent asthma with (acute) exacerbation Code(s): J45.901 - Unspecified asthma with (acute) exacerbation Status: Acute Assessment and Plan: * DuoNeb scheduled * Solu-Medrol 60 mg IV q.6 hours. * Continue the montelukast 10 mg p.o. q.day she takes at home * * 3/6 * on room air, no respiratory distress noted * patient states breathing is better today * DC IV steroids * continue montelukast (5) Essential hypertension: Code(s): I10 - Essential (primary) hypertension Status: Chronic Assessment and Plan: * home lisinopril and hydrochlorothiazide held * resume when appropriate * * /6 * resume home lisinopril and hydrochlorothiazide Plan FEN: Normal saline continuous infusion, heart healthy diet GI prophylaxis: Continue Protonix DVT prophylaxis: Lovenox 40 mg subQ daily Lines: Peripheral IV Code Status: Full code Dispo: Stable. Time Spent With Patient Time with patient: 15 - 25 minutes Subjective Date/time seen: 01/06/24 09:29 Interval history: patient examined at bedside in interval assessment as she was admitted from ED with diagnosis of pneumonia. patient observed on room air, expressed that her breathing is better today, over 50% better. she denies chest pain shortness for breath at this time. she is tolerating fluids and diet. DC IV fluids. DC IV steroids as white count elevated. repeat labs in a.m. plan to transition to p.o. antibiotics tomorrow and possible discharge decreased WBC and no further need for supplemental oxygenation. Review of Systems 2 Review of Systems: All systems reviewed & are unremarkable except as noted in HPI and below Exam Narrative: GENERAL: well-nourished, alert,in no acute distress. HEAD: Normocephalic, atraumatic. EYES: PERRLA and EOMI. ENT: Mucous membranes moist. CHEST: Diminished breath sounds bilaterally with expiratory wheezing. No respiratory distress. HEART: RRR. Normal peripheral pulses. ABDOMEN: Soft, nontender, nondistended. BS active. EXTREMITIES: Normal range of motion. No
--- NOTE | 2024-01-06 09:29 | PM.IMPN ---
Progress Note: A&P Assessment and Plan (1) Hypoxia: Code(s): R09.02 - Hypoxemia Status: Acute Assessment and Plan: 3 L nasal cannula, work to wean as she is not on oxygen at baseline DuoNeb scheduled Solu-Medrol 60 mg IV q.6 hours. 3/6 patient on room air at time of assessment, no respiratory distress noted continue DuoNebs discontinue Solu-Medrol, as respiratory status is improved and elevated WBCs (2) Pneumonia: Code(s): J18.9 - Pneumonia, unspecified organism Status: Acute Assessment and Plan: CXR showed minimal airspace opacities of the mid and lower lung zones, consistent with atelectasis versus pneumonia versus pulmonary edema continue ceftriaxone and azithromycin WBC 10.5 this am 3/6 on room air, no respiratory distress noted WBCs 18.9 discontinue IV steroids- as improved respiratory status and elevated WBC continue antibiotics- possible transition to p.o. tomorrow (3) Acute hypokalemia: Code(s): E87.6 - Hypokalemia Status: Resolved Assessment and Plan: repleted, up to 4.8 this am continue to monitor 3/6 potassium 4.8 today continue to monitor resume lisinopril and hydrochlorothiazide (4) Acute asthma exacerbation: Qualifiers: Asthma persistence: persistent Asthma severity: severe Qualified Code(s): J45.51 - Severe persistent asthma with (acute) exacerbation Code(s): J45.901 - Unspecified asthma with (acute) exacerbation Status: Acute Assessment and Plan: DuoNeb scheduled Solu-Medrol 60 mg IV q.6 hours. Continue the montelukast 10 mg p.o. q.day she takes at home 3/6 on room air, no respiratory distress noted patient states breathing is better today DC IV steroids continue montelukast (5) Essential hypertension: Code(s): I10 - Essential (primary) hypertension Status: Chronic Assessment and Plan: home lisinopril and hydrochlorothiazide held resume when appropriate 3/6 resume home lisinopril and hydrochlorothiazide Plan FEN: Normal saline continuous infusion, heart healthy diet GI prophylaxis: Continue Protonix DVT prophylaxis: Lovenox 40 mg subQ daily Lines: Peripheral IV Code Status: Full code Dispo: Stable. Time Spent With Patient Time with patient: 15 - 25 minutes Subjective Date/time seen: 01/06/24 09:29 Interval history: patient examined at bedside in interval assessment as she was admitted from ED with diagnosis of pneumonia. patient observed on room air, expressed that her breathing is better today, over 50% better. she denies chest pain shortness for breath at this time. she is tolerating fluids and diet. DC IV fluids. DC IV steroids as white count elevated. repeat labs in a.m. plan to transition to p.o. antibiotics tomorrow and possible discharge decreased WBC and no further need for supplemental oxygenation. Review of Systems Review of Systems: All systems reviewed & are unremarkable except as noted in HPI and below Exam Narrative: GENERAL: well-nourished, alert,in no acute distress. HEAD: Normocephalic, atraumatic. EYES: PERRLA and EOMI. ENT: Mucous membranes moist. CHEST: Diminished breath sounds bilaterally with expiratory wheezing. No respiratory distress. HEART: RRR. Normal peripheral pulses. ABDOMEN: Soft, nontender, nondistended. BS active. EXTREMITIES: Normal range of motion. No edema. SKIN: Warm, dry, no rash. NEURO: Alert and oriented x3. PSYCH: Normal mood and affect. Objective Data Vital Signs Vital Signs: Vital Signs - 24 hr 01/05/24 12:00 01/05/24 15:05 01/05/24 15:13 Temperature Pulse Rate 92 98 92 Respiratory Rate 20 20 Blood Pressure Pulse Oximetry Oxygen Delivery Oxygen Flow Rate 01/05/24 16:00 01/05/24 16:00 01/05/24 20:20 Temperature 98.0 F Pulse Rate 91 98 95 Respiratory Rate 18 20 Blood Pressure 123/72
[2024-01-06] MEDS: AZITHROMYCIN 500 MG/NS 250 ML 500 MG/250 ML BAG 250 MG IVPB (17:19)
[2024-01-06] MEDS: lisinopriL 10 MG TABLET PO (22:19)
[2024-01-06] MEDS: HYDROcodone/acetaminophen (*CRX) 5-325 MG TABLET 1 TAB PO (22:20)
[2024-01-07] VITALS (11 sets, daily range): BP systolic 165; BP diastolic 71; PULSE 74–101; RESP 16–20; TEMP 36.6; O2SAT 94–98
[2024-01-07] MEDS: IPRATROPIUM 0.5 MG/ALBUTEROL SULFATE 2.5 MG AMPUL.NEB 3 ML INHALATION ×3 (01:54→13:18)
--- NOTE | 2024-01-07 08:18 | P.DS_ITS ---
DS: Admitting Diagnosis Discharge Date 01/07/24 Admitting Diagnosis Pneumonia and Asthma exacerbation DS: Discharge Diagnosis Discharge Diagnosis (1) Hypoxia: Code(s): R09.02 - Hypoxemia Status: Acute Assessment and Plan: * 3 L nasal cannula, work to wean as she is not on oxygen at baseline * DuoNeb scheduled * Solu-Medrol 60 mg IV q.6 hours. * 01/05 * patient on room air at time of assessment, no respiratory distress noted * continue DuoNebs * discontinue Solu-Medrol, as respiratory status is improved and elevated WBCs * 01/06 * patient remains on room air, no respiratory distress noted at time of assessment * she expressed her breathing is much better today. she notes minimal pain only when she coughs, which at this time is nonproductive. she denies any shortness of breath or difficulty breathing. * plan for discharge today as she has been converted to p.o. antibiotics and has remained on air without issue (2) Pneumonia: Code(s): J18.9 - Pneumonia, unspecified organism Status: Acute Assessment and Plan: * CXR showed minimal airspace opacities of the mid and lower lung zones, consistent with atelectasis versus pneumonia versus pulmonary edema * continue ceftriaxone and azithromycin * WBC 10.5 this am * 01/05 * on room air, no respiratory distress noted * WBCs 18.9 * discontinue IV steroids- as improved respiratory status and elevated WBC * continue antibiotics- possible transition to p.o. tomorrow * * 01/06 * patient transitioned to p.o. antibiotics * WBC 10.5 * patient remains on room air, no respiratory distress noted at time of assessment * she expressed her breathing is much better today. she notes minimal pain only when she coughs, which at this time is nonproductive. she denies any shortness of breath or difficulty breathing. * plan for discharge today as she has been converted to p.o. antibiotics and has remained on air without issue (3) Acute hypokalemia: Code(s): E87.6 - Hypokalemia Status: Resolved Assessment and Plan: * repleted, up to 4.8 this am * continue to monitor * * 3/6 * potassium 4.8 today * continue to monitor * resume lisinopril and hydrochlorothiazide * * 01/06 * potassium 3.6 * patient tolerating diet at this time * continue medications at discharge today * patient educated to follow up PCP (4) Acute asthma exacerbation: Qualifiers: Asthma persistence: persistent Asthma severity: severe Qualified Code(s): J45.51 - Severe persistent asthma with (acute) exacerbation Code(s): J45.901 - Unspecified asthma with (acute) exacerbation Status: Acute Assessment and Plan: * DuoNeb scheduled * Solu-Medrol 60 mg IV q.6 hours. * Continue the montelukast 10 mg p.o. q.day she takes at home * * 3/ * on room air, no respiratory distress noted * patient states breathing is better today * DC IV steroids * continue montelukast * * 01/06 * patient remains on room air, no respiratory distress noted at time of assessment * she expressed her breathing is much better today. she notes minimal pain only when she coughs, which at this time is nonproductive. she denies any shortness of breath or difficulty breathing. * plan for discharge today as she has been converted to p.o. antibiotics and has remained on air without issue * continue montelukast at discharge today (5) Essential hypertension: Code(s): I10 - Essential (primary) hypertension
--- NOTE | 2024-01-07 08:18 | PM.DS ---
DS: Admitting Diagnosis Discharge Date 01/07/24 Admitting Diagnosis Pneumonia and Asthma exacerbation DS: Discharge Diagnosis Discharge Diagnosis (1) Hypoxia: Code(s): R09.02 - Hypoxemia Status: Acute Assessment and Plan: 3 L nasal cannula, work to wean as she is not on oxygen at baseline DuoNeb scheduled Solu-Medrol 60 mg IV q.6 hours. 3/ patient on room air at time of assessment, no respiratory distress noted continue DuoNebs discontinue Solu-Medrol, as respiratory status is improved and elevated WBCs 01/06 patient remains on room air, no respiratory distress noted at time of assessment she expressed her breathing is much better today. she notes minimal pain only when she coughs, which at this time is nonproductive. she denies any shortness of breath or difficulty breathing. plan for discharge today as she has been converted to p.o. antibiotics and has remained on air without issue (2) Pneumonia: Code(s): J18.9 - Pneumonia, unspecified organism Status: Acute Assessment and Plan: CXR showed minimal airspace opacities of the mid and lower lung zones, consistent with atelectasis versus pneumonia versus pulmonary edema continue ceftriaxone and azithromycin WBC 10.5 this am 3/ on room air, no respiratory distress noted WBCs 18.9 discontinue IV steroids- as improved respiratory status and elevated WBC continue antibiotics- possible transition to p.o. tomorrow 01/06 patient transitioned to p.o. antibiotics WBC 10.5 patient remains on room air, no respiratory distress noted at time of assessment she expressed her breathing is much better today. she notes minimal pain only when she coughs, which at this time is nonproductive. she denies any shortness of breath or difficulty breathing. plan for discharge today as she has been converted to p.o. antibiotics and has remained on air without issue (3) Acute hypokalemia: Code(s): E87.6 - Hypokalemia Status: Resolved Assessment and Plan: repleted, up to 4.8 this am continue to monitor 3/6 potassium 4.8 today continue to monitor resume lisinopril and hydrochlorothiazide 3/ potassium 3.6 patient tolerating diet at this time continue medications at discharge today patient educated to follow up PCP (4) Acute asthma exacerbation: Qualifiers: Asthma persistence: persistent Asthma severity: severe Qualified Code(s): J45.51 - Severe persistent asthma with (acute) exacerbation Code(s): J45.901 - Unspecified asthma with (acute) exacerbation Status: Acute Assessment and Plan: DuoNeb scheduled Solu-Medrol 60 mg IV q.6 hours. Continue the montelukast 10 mg p.o. q.day she takes at home 01/05 on room air, no respiratory distress noted patient states breathing is better today DC IV steroids continue montelukast 01/06 patient remains on room air, no respiratory distress noted at time of assessment she expressed her breathing is much better today. she notes minimal pain only when she coughs, which at this time is nonproductive. she denies any shortness of breath or difficulty breathing. plan for discharge today as she has been converted to p.o. antibiotics and has remained on air without issue continue montelukast at discharge today (5) Essential hypertension: Code(s): I10 - Essential (primary) hypertension Status: Chronic Assessment and Plan: home lisinopril and hydrochlorothiazide held resume when appropriate 01/05 resume home lisinopril and hydrochlorothiazide 01/06 patient's home blood pressure medications have been resumed and she tolerated continue medication discharge today Plan FEN: Normal saline continuous infusion, heart healthy diet GI prophylaxis: Continue Protonix DVT prophylaxis: Lovenox 40 mg subQ daily Lines: Peripheral IV Code Stat
[2024-01-07 08:21] LABS: Basophils Percent Auto 0.2 % (0.2-1.2); Eosinophils Percent Auto 0.1 % (0-4.4); Hemoglobin 9.2 g/dL (12.0-15.0); Immature Granulocyte Absolute 0.11 K/mm3 (0.00-0.031); Immature Platelet Fraction Pct 7.4 % (0.9-11.2); Lymphocytes Absolute Auto 2.04 K/mm3 (0.9-3.2); Lymphocytes Percent Auto 19.4 % (18.3-44.2); Mean Corpuscular HGB Conc 30.7 g/dl (32-36); Mean Corpuscular Hemoglobin 24.1 pg (26-34); Mean Corpuscular Volume 78.5 fl (80-100); Mean Platelet Volume 11.9 fl (7.4-10.4); Monocytes Absolute Auto 0.6 K/mm3 (0.1-0.6); Monocytes Percent Auto 5.4 % (2.6-8.5); Neutrophils Absolute Auto 7.8 K/mm3 (1.3-6.7); Neutrophils Percent Auto 73.9 % (45.5-73.1); Platelet Count Result 253 k/mm3 (150-375); Red Blood Count 3.82 M/mm3 (4.2-5.4); Red Cell Distribution Width 14.6 % (11.5-14.5); White Blood Count 10.5 K/mm3 (4.5-10.0)
[2024-01-07 08:28] LABS: Anion Gap 6 mmol/L (8-16); Blood Urea Nitrogen 21 mg/dL (7-17); Calcium 8.8 mg/dL (8.4-10.2); Carbon Dioxide 24 mmol/L (22-30); Chloride 106 mmol/L (98-107); Estimated CRCL calculation 90 ml/min; Estimated Glomerular Filt Rate > 60; Glucose 92 mg/dL (65-110); Magnesium 1.9 mg/dL (1.6-2.3); Potassium 3.6 mmol/L (3.4-5.0); Sodium 136 mmol/L (137-145)
[2024-01-07] MEDS: FLUTICASONE PROPIONATE 0.05% NA SPR 16 GM BTL (*BKC) 2 SPRAY NASAL (08:53)
[2024-01-07] MEDS: MONTELUKAST SODIUM 10 MG TABLET BY MOUTH (08:53)
[2024-01-07] MEDS: hydroCHLOROthiazide 25 MG TABLET PO (08:53)
[2024-01-07] MEDS: FERROUS SULFATE 325 MG TABLET DR BY MOUTH (08:54)
[2024-01-07] MEDS: lisinopriL 10 MG TABLET 30 MG PO (08:54)
[2024-01-07] MEDS: ESTROGENS, CONJUGATED 0.625 MG TABLET PO (08:54)
[2024-01-07] MEDS: PANTOPRAZOLE 40 MG TABLET PO (08:54)
[2024-01-07 09:33] LABS: Procalcitonin 0.1 ng/mL
== END 2024-01-07 14:20 | disposition home or self-care (01) | DRG 194 ==
LOC: ANHED 18:36 → ANH3MED 20:08
PROVIDERS: General Practice; Nurse Practitioner; Admitting Provider Internal Medicine; Emergency Provider Emergency Medicine; PCP Family Medicine; Visit Provider Nurse Practitioner Family
DX: J18.9 Pneumonia, unspecified organism (principal); J45.51 Severe persistent asthma with (acute) exacerbation; D50.9 Iron deficiency anemia, unspecified; E87.6 Hypokalemia; E66.9 Obesity, unspecified; F32.A Depression, unspecified; F41.9 Anxiety disorder, unspecified; G47.33 Obstructive sleep apnea (adult) (pediatric); I10 Essential (primary) hypertension; K21.9 Gastro-esophageal reflux disease without esophagitis; K44.9 Diaphragmatic hernia without obstruction or gangrene; Q27.33 Arteriovenous malformation of digestive system vessel; R73.03 Prediabetes; Z20.822 Contact with and (suspected) exposure to COVID-19; Z90.49 Acquired absence of other specified parts of digestive tract; Z90.710 Acquired absence of both cervix and uterus; Z87.891 Personal history of nicotine dependence; Z68.33 Body mass index [BMI] 33.0-33.9, adult
CPT/HCPCS: 36415; 71046; 80048; 80053; 83735; 84145; 85025; 85055; 87637; 93005; 94640; 96365; 96375; 99285; A9270; G0378; J0456; J0696; J1650; J2930; J3480; J7030; J7040

== ENCOUNTER 2024-04-03 23:04 | Observation (INO) | payer BC, SELFPAY ==
[2024-04-03 23:10] VITALS: BP 133/71; PULSE 109; RESP 19; TEMP 36.2; O2SAT 97
[2024-04-03 23:29] VITALS: RESP 17; O2SAT 100
[2024-04-03 23:30] VITALS: BP 125/56; PULSE 105; RESP 18; O2SAT 100
[2024-04-03 23:36] LABS: Alanine Aminotransferase 14 U/L (6-35); Albumin Level 4.4 g/dL (3.5-5.1); Alkaline Phosphatase 91 U/L (38-126); Anion Gap 13 mmol/L (4-12); Aspartate Amino Transferase 23 U/L (14-36); Bilirubin,Total 0.5 mg/dL (0.2-1.3); Blood Urea Nitrogen 16 mg/dL (7-17); Calcium 9.3 mg/dL (8.4-10.2); Carbon Dioxide 24 mmol/L (22-30); Chloride 102 mmol/L (98-107); Estimated CRCL calculation 80 ml/min; Estimated Glomerular Filt Rate > 60; Glucose 148 mg/dL (65-110); Potassium 3.2 mmol/L (3.4-5.0); Sodium 139 mmol/L (137-145)
[2024-04-03 23:46] LABS: Basophils Absolute Auto 0.1 K/mm3 (0.0-0.1); Basophils Percent Auto 0.8 % (0.2-1.2); Immature Granulocyte Absolute 0.06 K/mm3 (0.00-0.031); Immature Granulocyte Percent A 0.6 % (0-0.5); Lymphocytes Absolute Auto 1.44 K/mm3 (0.9-3.2); Lymphocytes Percent Auto 15.2 % (18.3-44.2); Mean Corpuscular HGB Conc 25.5 g/dl (32-36); Mean Corpuscular Volume 55.1 fl (80-100); Monocytes Absolute Auto 0.6 K/mm3 (0.1-0.6); Monocytes Percent Auto 6.4 % (2.6-8.5); Neutrophils Absolute Auto 7.3 K/mm3 (1.3-6.7); Nucleated Red Blood Cells Perc 1.5 % (0.0-0.2); Platelet Count Result 416 k/mm3 (150-375); Red Blood Count 3.56 M/mm3 (4.2-5.4); Red Cell Distribution Width 24.8 % (11.5-14.5); White Blood Count 9.5 K/mm3 (4.5-10.0)
[2024-04-03 23:53] LABS: Hematocrit 19.6 % (37.0-47.0)
[2024-04-03 23:58] LABS: Hypochromasia 3+; Platelet Estimate Slightly Increased (Adequate)
[2024-04-04] VITALS (24 sets, daily range): BP systolic 124–172; BP diastolic 54–90; PULSE 86–99; RESP 14–20; TEMP 36.2–36.8; O2SAT 94–100; BMI 33.3
[2024-04-04 00:03] LABS: Anisocytosis 2+; Microcytosis 2+ (NORMAL); Poikilocytosis 1+
[2024-04-04 00:04] LABS: Ovalocytes 2+; Schistocytes None Seen
--- NOTE | 2024-04-04 00:29 | PC.NURSE ---
consent for blood transfusion obtained
--- NOTE | 2024-04-04 00:34 | ED.GENADULT ---
HPI - General Adult General Chief complaint: Recheck/Abnormal Lab/Rx Stated complaint: low on blood Time Seen by Provider: 04/04/24 00:23 History of Present Illness HPI narrative: Patient is a 53-year-old female who presents to the emergency department this evening with multiple complaints. Patient states that she has been very fatigued, eating a lot of ice, lightheaded and weak. Patient also admits to numbness and tingling in her hands and feet. Patient admits that she does have a history of iron deficiency anemia and does follow-up with a skip loader regularly. She has had full workup within the past few years stating that initially they thought it was due to dysfunctional uterine bleeding and patient has had a hysterectomy. She continues to drop her hemoglobin so she had a full GI workup and GI bleed was ruled out. Patient started to see a skip loader switch in addition to iron deficiency was told that she may not be producing enough red blood cells. She does have a history of thalassemia minor. Patient's skip loader is the [facility] in [place]. She admits that she has been taking her iron supplementations as instructed. She denies any melena or hematochezia, any hematemesis or hemoptysis and is growing any nausea, vomiting, abdominal, dysuria or hematuria. Patient also denies any chest pain or shortness of breath. No additional symptoms or concerns at this time. Related Data Home Medications Medication Instructions Recorded Confirmed ferrous sulfate 325 mg (65 mg 325 mg PO DAILY 12/22/19 01/04/24 iron) tablet fluticasone propionate 50 1 spray intranasal DAILY 05/19/20 01/04/24 mcg/actuation nasal spray,suspension (Flonase Allergy Relief) pantoprazole 40 mg tablet,delayed 40 mg PO QAM 01/04/24 01/04/24 release (Protonix) Allergies Allergy/AdvReac Type Severity Reaction Status Date / Time mold Allergy Intermediate Dyspnea / Verified 04/03/24 23:05 SOB tree and shrub pollen Allergy Intermediate Itching Verified 04/03/24 23:05 Grass Allergy Intermediate Itching Uncoded 10/07/23 11:42 Review of Systems Review of Systems: All systems are reviewed and are negative unless stated otherwise in the HPI. [facility] Past Medical History Medical History Asthma BMI 37.0-37.9, adult BMI 38.0-38.9,adult BMI 39.0-39.9,adult Colon polyps Dark stools Depression with anxiety Duodenal arteriovenous malformation Epigastric pain Gastric ulcer Gastroesophageal reflux disease Hiatal hernia Hypertension Iron deficiency anemia Due to gastric ulcer Morbid obesity Obstructive sleep apnea (Unknown) Osteopenia determined by x-ray Pre-diabetes Hemoglobin A1c of 6.4% noted on labs December 2018 Thalassemia minor Surgical History Surgical History History of cholecystectomy History of colonoscopy with polypectomy (09/2020) History of endometrial ablation History of esophagogastroduodenoscopy (EGD) (09/2020) Demonstrated hiatal hernia and unspecified gastric ulcer History of total abdominal hysterectomy and bilateral salpingo-oophorectomy Family History Family History Father Family history of atrial fibrillation Diabetes mellitus Hypertension S/P CABG (coronary artery bypass graft) Sibling Asthma Diabetes mellitus Prostate carcinoma Mother , age 68 Chronic obstructive pulmonary disease Diabetes mellitus Grandparent Cerebrovascular accident Congestive heart failure Family history of atrial fibrillation Social History Social History Social History: Surrogate decision maker: Juan Huffman, spouse. Code status: Full code. Years smoked: 10 Smoking status: Former smoker Tobacco type: cigarettes Second hand tobacco smoke exposure: Yes S
[2024-04-04] MEDS: SODIUM CHLORIDE 0.9% IV 250 ML 30 ML IV CONT ×2 (00:46→12:34)
[2024-04-04] MEDS: TUBING, BLOOD PLUM PUMP TUBING 1 EACH XX ×3 (00:46→12:35)
[2024-04-04] MEDS: ONDANSETRON INJ 4 MG/2 ML VIAL IV PUSH ×2 (02:20→17:33)
[2024-04-04] MEDS: SODIUM CHLORIDE 0.9% IV 250 ML 30 ML (03:01)
[2024-04-04 04:58] LABS: Hematocrit 22.3 % (37.0-47.0)
[2024-04-04 05:07] LABS: Hemoglobin 6.3 g/dL (12.0-15.0)
--- NOTE | 2024-04-04 05:57 | PM.IMHP ---
H&P: HPI History of Present Illness Date/Time: 04/04/24 05:57 Chief Complaint: Low blood Narrative: 53-year-old female with a complicated past medical history including obesity, obstructive sleep apnea, duodenal AV malformation, gastric ulcers, GERD, hiatal hernia, iron deficiency anemia, thalassemia minor, suspected component of decreased bone marrow production, pre diabetes and asthma who presented to the ER with complaints of being low on blood. The patient reports she has been having her usual symptoms of low blood count. She reports that her body aches all over she is fatigued with minimal exertion. She has been having a sensation of lightheadedness especially after getting out of the bathtub. She will feel so weak that she does not think she will make it to her bed delayed down before she passes out. She follows with Dr. Rosales as outpatient. She has not required iron infusions in over a year may be closer to 2 years. She has been taking Aleve on and off for a couple of weeks but stopped taking it couple of weeks ago. She has not been having any black or bloody stools. Her hemoglobin when she was admitted last month for asthma and pneumonia was 9.2-9.7. She has noticed a precipitous increase in her anemia symptoms in the last 7-10 days. She denies any any usual bruising or bleeding. She had a hysterectomy to rule out blood loss from dysfunctional uterine bleeding. She has had EGDs, colonoscopies and pill endoscopy use in the past. She did have history of AVM malformations that were cauterized. She has been compliant with her oral iron supplementation twice daily. Patient's stool was negative for occult blood in the ER. Initial hemoglobin in the ER was 5. After 2 units of packed red blood cell transfusion patient's hemoglobin is still 6.3. Patient does report significant improvement in symptoms. She does admit that is been sometime since she has gotten any iron infusions and thought she did not need anymore since she has been taking her oral iron supplements as directed. It sounds as if she has lost track of when she actually last saw Dr. Rosales. Patient's ferritin obtained from original blood specimen prior to blood transfusion was less than 3. I did recommend patient be transferred to [facility] or her juvenile corrections officer is on staff and were she has received most of her recent care regarding her anemia. The hospitalist at the outside facility declined to accept the patient for continuity of care in thus patient has been admitted to our facility. Review of Systems Review of Systems: 12 systems were reviewed with pertinent positives and negatives per HPI. Except as documented in the HPI, all other systems were reviewed and are negative. [facility] Past Medical History Medical History (Updated 04/04/24 @ 07:20 by Nikki Ledbetter DO) Depression with anxiety Diastolic dysfunction Without history of CHF noted on echocardiogram 201920. Grade 1 dysfunction with normal ejection fraction. Duodenal arteriovenous malformation Gastric ulcer Gastroesophageal reflux disease Hiatal hernia Hypertension Iron deficiency anemia Due to gastric ulcer Moderate persistent asthma Obstructive sleep apnea (Unknown) Patient reports symptoms have resolved since she has had a 30+ kilos weight loss since 2018 Osteopenia determined by x-ray Pre-diabetes Hemoglobin A1c of 6.4% noted on labs December 2018 Thalassemia minor Surgical History Surgical History History of cholecystectomy History of colonoscopy with polypectomy (09/2020) History of endometrial ablation History of esophagogastroduodenoscopy (EGD) (09/2020) Demonstrated hiatal hernia and unspecified gastric ulcer History of total abdominal hysterectomy and bilateral salpingo-oophorectomy Family History Family History Father Family history of atrial fibrillation Diabetes alva
[2024-04-04 07:02] LABS: Ferritin 2.98 ng/mL (11.1-264)
[2024-04-04] MEDS: POTASSIUM CHLORIDE 20 MEQ ER TABLET 40 MEQ PO (07:09)
--- NOTE | 2024-04-04 08:22 | ADMGEN ---
This patient, Michell Huffman, was admitted to [facility] Room 327-01. Patient/family oriented to hospital policies and general routines including ID bracelet, bed and alarms, visiting hours, pain management, procedures, bathroom and other care routines, personal items, smoking policy, room service/diet, and visiting hours. Information on how to activate the Rapid Response Team has been discussed. Patient/Family are encouraged to report perceived risks to care and to ask questions if they do not understand what they are told or what they should do.
[2024-04-04] MEDS: IRON SUCROSE COMPLEX 500 MG in SODIUM CHLORIDE 0.9% IV 250 ML 79 MG IVPB (08:26)
--- NOTE | 2024-04-04 12:40 | PM.IMPN ---
Progress Note: A&P Assessment and Plan (1) Acute hypokalemia: Code(s): E87.6 - Hypokalemia Status: Resolved (2) Iron deficiency anemia: Code(s): D50.9 - Iron deficiency anemia, unspecified Status: Acute (3) Essential hypertension: Code(s): I10 - Essential (primary) hypertension Status: Chronic (4) Gastroesophageal reflux disease: Qualifiers: Esophagitis presence: esophagitis presence not specified Qualified Code(s): K21.9 - Gastro-esophageal reflux disease without esophagitis Code(s): K21.9 - Gastro-esophageal reflux disease without esophagitis Status: Acute (5) Asthma: Qualifiers: Asthma complication type: uncomplicated Asthma persistence: persistent Asthma severity: moderate Qualified Code(s): J45.40 - Moderate persistent asthma, uncomplicated Code(s): J45.909 - Unspecified asthma, uncomplicated Status: Acute Plan Patient presents with symptomatic recurrent iron deficiency anemia. This fits with the thrombocytosis and low ferritin on labs. Patient's Hemoccult stool was negative. suspected malabsorption syndrome. follows with vice chancellor as well. prn nsiad use. hx of AVMs, gastric ulcers in the past. transfuse prn to keep Hb > 7. check celiac ab, check jenifer iron deficiency anemia: venofer ordered hx of Gastric ulcers: On PPI. no signs of active bleed hx of asthma: Code status: Full code Subjective Date/time seen: 04/04/24 12:40 Interval history: feels about the same. no new compalints. received 2 unit prbc. no signs of bleeding Review of Systems Review of Systems: All systems reviewed & are unremarkable except as noted in HPI and below Exam Narrative: General: Alert, awake, afebrile, in no acute distress, pale. HEENT: PERRL, no rhinorrhea Cardiovascular: Regular rate and rhythm, no murmurs, rubs or gallops, no peripheral edema. Respiratory: Clear to auscultation bilaterally, no tachypnea, no wheezing, no rhonchi, no rubs, no respiratory distress. Abdomen: Soft, nontender, nondistended, no rebound, no guarding Musculoskeletal: No joint swelling or deformity, normal muscle tone Skin: No rashes or petechia, no signs of infection. Neurological: Alert and oriented to person, place, and time. Follows all commands. No focal deficits, speech is clear and fluent Objective Data Vital Signs Vital Signs: Vital Signs - 24 hr 04/03/24 23:10 04/03/24 23:29 04/03/24 23:30 Temperature 97.2 F L Pulse Rate 109 H 105 H Respiratory Rate 19 17 18 Blood Pressure 133/71 125/56 L Pulse Oximetry 97 100 100 Oxygen Delivery Room Air 04/04/24 00:40 04/04/24 00:54 04/04/24 01:00 Temperature 98.3 F 98.2 F Pulse Rate 98 98 99 Respiratory Rate 14 19 16 Blood Pressure 142/68 H 153/68 H 130/75 Pulse Oximetry 100 99 100 Oxygen Delivery 04/04/24 02:00 04/04/24 02:47 04/04/24 02:48 Temperature 98.3 F 98.3 F 98.3 F Pulse Rate 97 99 98 Respiratory Rate 20 16 17 Blood Pressure 130/60 143/79 H 143/79 H Pulse Oximetry 97 96 95 Oxygen Delivery 04/04/24 03:04 04/04/24 03:06 04/04/24 04:04 Temperature 97.8 F 98.3 F Pulse Rate 97 97 92 Respiratory Rate 19 20 20 Blood Pressure 126/54 L 124/56 L 155/90 H Pulse Oximetry 95 95 98 Oxygen Delivery 04/04/24 04:35 04/04/24 04:36 04/04/24 06:49 Temperature 97.7 F 97.7 F Pulse Rate 92 91 91 Respiratory Rate 14 18 14 Blood Pressure 162/84 H 162/84 H 135/58 L Pulse Oximetry 97 96 96 Oxygen Delivery 04/04/24 08:08 04/04/24 08:20 Temperature 98.1 F 97.7 F Pulse Rate 90 99 Respiratory Rate 17 16 Blood Pressure 145/71 H 167/68 H Pulse Oximetry 98 99 Oxygen Delivery Intake/Output Intake/Output: Intake & Output 04/01/24 04/02/24 04/03/24 04/04/24 23:59 23:59 23:59 23:59 Intake Total 1715 Balance 1715 Meds/Results Medications: Active Medications Generic Name Dose Route Start Last Admin Trade Name Freq PRN Reason Stop Dose Adm
[2024-04-04] MEDS: PANTOPRAZOLE 40 MG TABLET PO (17:33)
[2024-04-04 19:41] LABS: Hematocrit 26.5 % (37.0-47.0); Hemoglobin 7.7 g/dL (12.0-15.0)
[2024-04-04 21:03] LABS: Folic Acid 4.2 ng/mL (2.76->20)
[2024-04-04] MEDS: MONTELUKAST SODIUM 10 MG TABLET BY MOUTH (21:10)
[2024-04-05] VITALS (7 sets, daily range): BP systolic 146–164; BP diastolic 60–61; PULSE 77–97; RESP 14–18; TEMP 36.3; O2SAT 94–95
[2024-04-05 06:46] LABS: Basophils Absolute Auto 0.1 K/mm3 (0.0-0.1); Basophils Percent Auto 1.1 % (0.2-1.2); Eosinophils Percent Auto 0.5 % (0-4.4); Hematocrit 27.4 % (37.0-47.0); Hemoglobin 7.7 g/dL (12.0-15.0); Immature Granulocyte Absolute 0.24 K/mm3 (0.00-0.031); Immature Granulocyte Percent A 2.8 % (0-0.5); Immature Platelet Fraction Pct 6.8 % (0.9-11.2); Lymphocytes Absolute Auto 1.98 K/mm3 (0.9-3.2); Lymphocytes Percent Auto 22.7 % (18.3-44.2); Mean Corpuscular HGB Conc 28.1 g/dl (32-36); Mean Corpuscular Volume 67.5 fl (80-100); Monocytes Absolute Auto 0.7 K/mm3 (0.1-0.6); Monocytes Percent Auto 7.5 % (2.6-8.5); Neutrophils Absolute Auto 5.7 K/mm3 (1.3-6.7); Neutrophils Percent Auto 65.4 % (45.5-73.1); Nucleated Red Blood Cells Perc 2.5 % (0.0-0.2); Platelet Count Result 267 k/mm3 (150-375); Red Blood Count 4.06 M/mm3 (4.2-5.4); Red Cell Distribution Width 33.1 % (11.5-14.5); White Blood Count 8.7 K/mm3 (4.5-10.0)
[2024-04-05 07:01] LABS: Alanine Aminotransferase 13 U/L (6-35); Albumin Level 3.6 g/dL (3.5-5.1); Alkaline Phosphatase 89 U/L (38-126); Anion Gap 5 mmol/L (4-12); Aspartate Amino Transferase 18 U/L (14-36); Bilirubin,Total 0.5 mg/dL (0.2-1.3); Blood Urea Nitrogen 7 mg/dL (7-17); Carbon Dioxide 29 mmol/L (22-30); Chloride 106 mmol/L (98-107); Estimated CRCL calculation 90 ml/min; Estimated Glomerular Filt Rate > 60; Glucose 90 mg/dL (65-110); Magnesium 1.9 mg/dL (1.6-2.3); Potassium 3.8 mmol/L (3.4-5.0); Sodium 140 mmol/L (137-145)
[2024-04-05 07:35] LABS: Hypochromasia 2+; Ovalocytes 1+; Platelet Estimate Adequate (Adequate); Target Cells 1+; Tear Drop Cells 1+
[2024-04-05 07:36] LABS: Anisocytosis 2+; Microcytosis 2+ (NORMAL); Polychromasia 1+
[2024-04-05 07:37] LABS: Schistocytes Rare
[2024-04-05] MEDS: PANTOPRAZOLE 40 MG TABLET PO (08:09)
[2024-04-05] MEDS: FERROUS SULFATE 325 MG TABLET DR BY MOUTH (08:09)
[2024-04-05] MEDS: FLUTICASONE/SALMETEROL 115-21 MCG INHALER 1 PUFF 2 PUFF INHALATION (08:17)
[2024-04-05] MEDS: FLUTICASONE PROPIONATE 0.05% NA SPR 16 GM BTL (*BKC) 1 SPRAY NASAL (09:09)
--- NOTE | 2024-04-05 14:28 | PM.DS ---
DS: Admitting Diagnosis Discharge Date 04/05/2024 Admitting Diagnosis Severe anemia DS: Discharge Diagnosis Discharge Diagnosis (1) Acute hypokalemia: Code(s): E87.6 - Hypokalemia Status: Resolved (2) Iron deficiency anemia: Code(s): D50.9 - Iron deficiency anemia, unspecified Status: Acute (3) Essential hypertension: Code(s): I10 - Essential (primary) hypertension Status: Chronic (4) Gastroesophageal reflux disease: Qualifiers: Esophagitis presence: esophagitis presence not specified Qualified Code(s): K21.9 - Gastro-esophageal reflux disease without esophagitis Code(s): K21.9 - Gastro-esophageal reflux disease without esophagitis Status: Acute (5) Asthma: Qualifiers: Asthma complication type: uncomplicated Asthma persistence: persistent Asthma severity: moderate Qualified Code(s): J45.40 - Moderate persistent asthma, uncomplicated Code(s): J45.909 - Unspecified asthma, uncomplicated Status: Acute DS: Summary Hospital Course Hospital Course: Patient presents with symptomatic recurrent iron deficiency anemia. This fits with the thrombocytosis and low ferritin on labs. Patient's Hemoccult stool was negative. suspected malabsorption syndrome. follows with assembler tester as well. prn nsiad use. hx of AVMs, gastric ulcers in the past. transfuse prn to keep Hb > 7. check celiac ab is pending, vitamin-B 12 normal folate normal iron deficiency anemia: Received 500 mg of Venofer. She follows with assembler tester she has lost follow-up since 2020. Advised to resume following up with assembler tester on a regular basis. H&H is improved to 7.7 with transfusion and stayed stable. Recheck labs in 1 week and follow-up with PCP hx of Gastric ulcers: On PPI. no signs of active bleed hx of asthma: Code status: Full code Time Spent with Patient Time attestation: Total time spent providing and/or coordinating discharge services: 32 minutes Exam Narrative: General: Alert, awake, afebrile, in no acute distress, pale. HEENT: PERRL, no rhinorrhea Cardiovascular: Regular rate and rhythm, no murmurs, rubs or gallops, no peripheral edema. Respiratory: Clear to auscultation bilaterally, no tachypnea, no wheezing, no rhonchi, no rubs, no respiratory distress. Abdomen: Soft, nontender, nondistended, no rebound, no guarding Musculoskeletal: No joint swelling or deformity, normal muscle tone Skin: No rashes or petechia, no signs of infection. Neurological: Alert and oriented to person, place, and time. Follows all commands. No focal deficits, speech is clear and fluent DS: Data Data Completed and Pending Labs on day of discharge: Labs from last 24 hours 04/05/24 04/04/24 04/03/24 06:14 19:27 23:18 WBC 8.7 RBC 4.06 L Hgb 7.7 L 7.7 L Hct 27.4 L 26.5 L MCV 67.5 L D MCH 19.0 L D MCHC 28.1 L RDW 33.1 H Plt Count 267 MPV Not Reportable Immature Gran % (Auto) 2.8 H Neut % (Auto) 65.4 Lymph % (Auto) 22.7 Park % (Auto) 7.5 Eos % (Auto) 0.5 Baso % (Auto) 1.1 Lymph # (Auto) 1.98 Park # (Auto) 0.7 H Eos # (Auto) 0.0 Baso # (Auto) 0.1 Abs Immat Gran (auto) 0.24 H Absolute Neuts (auto) 5.7 Absolute Nucleated RBC 0.220 H Nucleated RBC % 2.5 H Platelet Estimate Adequate % Immature Plt Fraction 6.8 Polychromasia 1+ Hypochromasia 2+ Anisocytosis 2+ Microcytosis 2+ Target Cells 1+ Tear Drop Cells 1+ Ovalocytes 1+ Schistocytes Rare Sodium 140 Potassium 3.8 Chloride 106 Carbon Dioxide 29 Anion Gap 5 BUN 7 D Creatinine 0.70 Estim Creat Clear Calc 90 Estimated GFR > 60 Glucose 90 Calcium 9.0 Magnesium 1.9 Total Bilirubin 0.5 AST 18 ALT 13 Alkaline Phosphatase 89 Total Protein 6.0 L Albumin 3.6 Vitamin B12 253.0 Folate 4.2 Crossmatch See Detail Discharge Plan Discharge
== END 2024-04-05 15:09 | disposition home or self-care (01) ==
LOC: ANHED 04-04 06:28 → ANH3MEDSUR 04-05 09:58
PROVIDERS: Admitting Provider Internal Medicine; Emergency Provider Emergency Medicine; PCP Family Medicine; Visit Provider Internal Medicine
DX: D50.9 Iron deficiency anemia, unspecified (principal); E87.6 Hypokalemia; G47.33 Obstructive sleep apnea (adult) (pediatric); K21.9 Gastro-esophageal reflux disease without esophagitis; K44.9 Diaphragmatic hernia without obstruction or gangrene; I11.9 Hypertensive heart disease without heart failure; D56.3 Thalassemia minor; J45.909 Unspecified asthma, uncomplicated; Z87.11 Personal history of peptic ulcer disease; Z87.19 Personal history of other diseases of the digestive system; Z87.891 Personal history of nicotine dependence; F12.90 Cannabis use, unspecified, uncomplicated; Z79.51 Long term (current) use of inhaled steroids
CPT/HCPCS: 36415; 36430; 80053; 82607; 82728; 82746; 83735; 85014; 85018; 85025; 85055; 86850; 86900; 86901; 86923; 94640; 96361; 96365; 96375; 99285; A9270; G0378; J1756; J2405; J7050; P9016

== ENCOUNTER 2024-06-17 18:39 | Observation (INO) | payer BC, SELFPAY ==
--- NOTE | ~2024-06-17 | CT_ITS ---
EXAMINATION: CT abdomen pelvis w con DATE: 06/17/2024 21:19 INDICATION: Recurrent anemia requiring transfusion. Assess for gastrointestinal bleed. TECHNIQUE: Computed tomography (CT) of the abdomen and pelvis was performed with 100 mL Omnipaque-350 intravenous contrast. Automated exposure control and iterative reconstruction technique were employe d. The dose-length product was 740.24 mGy-cm. COMPARISON: Chest CT dated 05/19/2020 FINDINGS: Large sliding-type hiatal hernia with organoaxial volvulus. Unchanged mild compressive atelectasis al manfred the adjacent medial aspect of the bilateral lower lobes. No pneumonia, pulmonary edema or pleural effusion. Heart size is normal. No pericardial effusion. Cholecystectomy clips the gallbladder fossa . Liver, spleen, pancreas, bilateral adrenal glands and right kidney 1 cm cyst at the upper pole the left kidney. Single tiny diverticulum along the proximal sigmoid colon without adjacent inflammatory stranding to suggest diverticulitis. Bowels including the appendix are otherwise normal. The uterus i s not identified and has likely been surgically resected. Bladder is normal. Surgical clip in the russell p pelvis. No free intraperitoneal gas or fluid. No pathologically enlarged abdominal or pelvic lympha denopathy. Mild lumbar and moderate to severe lower thoracic spondylosis. IMPRESSION: 1. No acute intra-abdominal/pelvic process. 2. Large sliding-type hiatal hernia. Reviewed, dictated and finalized at location A.
[2024-06-17 19:13] VITALS: BP 133/69; PULSE 109; RESP 20; TEMP 36.4; O2SAT 100
--- NOTE | 2024-06-17 19:16 | ECG_ITS ---
Test Date: 2024-06-17 19:30:20 Measurements Intervals [place] Rate: 108 P: 54 AR: 118 QRS: 68 QRSD: 85 T: 72 QT: 341 QTc: 458 Interpretive Statements SINUS TACHYCARDIA WITH SHORT AR INTERVAL POSSIBLE LEFT ATRIAL ENLARGEMENT [-0.1mV P WAVE IN V1/V2] ST SEGMENT ABNORMALITY CONSIDER INFEROLATERAL ISCHEMIA ABNORMAL ECG No previous ECG available for comparison Electronically Signed On 06-18-2024 09:29:12 CDT by Phani Robison M.D.
[2024-06-17 19:46] LABS: Basophils Absolute Auto 0.1 K/mm3 (0.0-0.1); Basophils Percent Auto 0.9 % (0.2-1.2); Eosinophils Absolute Auto 0.1 K/mm3 (0-0.3); Eosinophils Percent Auto 2.2 % (0-4.4); Hematocrit 21.8 % (37.0-47.0); Immature Granulocyte Absolute 0.02 K/mm3 (0.00-0.031); Immature Granulocyte Percent A 0.4 % (0-0.5); Immature Platelet Fraction Pct 5.3 % (0.9-11.2); Lymphocytes Absolute Auto 1.18 K/mm3 (0.9-3.2); Lymphocytes Percent Auto 21.7 % (18.3-44.2); Mean Corpuscular HGB Conc 25.7 g/dl (32-36); Mean Corpuscular Hemoglobin 14.7 pg (26-34); Mean Corpuscular Volume 57.1 fl (80-100); Monocytes Absolute Auto 0.3 K/mm3 (0.1-0.6); Monocytes Percent Auto 5.7 % (2.6-8.5); Neutrophils Absolute Auto 3.8 K/mm3 (1.3-6.7); Neutrophils Percent Auto 69.1 % (45.5-73.1); Nucleated Red Blood Cells Perc 0.9 % (0.0-0.2); Platelet Count Result 317 k/mm3 (150-375); Red Blood Count 3.82 M/mm3 (4.2-5.4); Red Cell Distribution Width 27.2 % (11.5-14.5); White Blood Count 5.4 K/mm3 (4.5-10.0)
[2024-06-17 19:54] LABS: Alanine Aminotransferase 14 U/L (6-35); Albumin Level 4.1 g/dL (3.5-5.1); Alkaline Phosphatase 97 U/L (38-126); Anion Gap 12 mmol/L (4-12); Aspartate Amino Transferase 17 U/L (14-36); Bilirubin,Total 0.2 mg/dL (0.2-1.3); Blood Urea Nitrogen 14 mg/dL (7-17); Calcium 8.9 mg/dL (8.4-10.2); Carbon Dioxide 25 mmol/L (22-30); Chloride 100 mmol/L (98-107); Estimated CRCL calculation 86 ml/min; Estimated Glomerular Filt Rate > 60; Glucose 170 mg/dL (65-110); Potassium 3.3 mmol/L (3.4-5.0); Sodium 137 mmol/L (137-145)
[2024-06-17 19:56] LABS: INR 0.9; Prothrombin Time 12.9 Seconds (11.1-14.7)
[2024-06-17 19:57] LABS: Partial Thromboplastin Time 26.6 Seconds (22.3-36.8)
[2024-06-17 20:03] LABS: Hemoglobin 5.6 g/dL (12.0-15.0)
[2024-06-17 20:04] LABS: Anisocytosis 1+; Hypochromasia 1+; Microcytosis 2+ (NORMAL); Ovalocytes 1+; Platelet Estimate Adequate (Adequate); Target Cells 2+
[2024-06-17 20:05] LABS: Schistocytes None Seen
[2024-06-17 20:18] VITALS: BP 133/74; PULSE 106; RESP 14; O2SAT 100
--- NOTE | 2024-06-17 20:37 | ED.RECABL ---
HPI - Recheck/Abnormal Lab/Rx General Chief Complaint: Recheck/Abnormal Lab/Rx Stated Complaint: low hgb Time Seen by Provider: 06/17/24 20:10 Source: patient Mode of arrival: ambulatory Limitations: no limitations History of Present Illness HPI narrative: Patient presents with complaint of feeling cold and having a ringing in her ears with tingling hands. She feels like she might faint but hasn't. She was concerned her hemoglobin might be low as she has a history of anemia requiring blood transfusions and has felt similar when she needed a transfusion before. She has some nausea but no shortness of breath or chest pain. Had previously seen a automation test developer but unclear etiology of her anemia, she was told it might be a production issue. She takes iron supplementation, PO daily. Previously on infusions. No hemoptysis, hemetemesis, hematuria, hematochezia/melena, trauma, vaginal bleeding. She states a hysterectomy was done because they thought at one time it might be due to menstrual bleeding but she is now amenorrheic. Last colonoscopy was >1 year ago but normal. Related Data Home Medications Medication Instructions Recorded Confirmed ferrous sulfate 325 mg (65 mg 325 mg PO DAILY 12/22/19 06/17/24 iron) tablet fluticasone propionate 50 1 spray intranasal DAILY 05/19/20 06/17/24 mcg/actuation nasal spray,suspension (Flonase Allergy Relief) ipratropium 0.5 mg-albuterol 3 mg See Rx Instructions .Route 04/04/24 06/17/24 (2.5 mg base)/3 mL nebulization .COMPLEX PRN sob soln omeprazole magnesium 20 mg 20 mg PO DAILY 04/04/24 06/17/24 tablet,delayed release (Prilosec OTC) escitalopram oxalate 20 mg tablet 20 mg PO DAILY 06/17/24 06/17/24 lisinopril 30 mg tablet 30 mg PO DAILY 06/17/24 06/17/24 Allergies Allergy/AdvReac Type Severity Reaction Status Date / Time mold Allergy Intermediate Dyspnea / Verified 06/17/24 20:18 SOB tree and shrub pollen Allergy Intermediate Itching Verified 06/17/24 20:18 Grass Allergy Intermediate Itching Uncoded 10/07/23 11:42 [facility] Past Medical History Medical History Depression with anxiety Diastolic dysfunction Without history of CHF noted on echocardiogram 201920. Grade 1 dysfunction with normal ejection fraction. Duodenal arteriovenous malformation Gastric ulcer Gastroesophageal reflux disease Hiatal hernia Hypertension Iron deficiency anemia Due to gastric ulcer Moderate persistent asthma Obstructive sleep apnea (Unknown) Patient reports symptoms have resolved since she has had a 30+ kilos weight loss since 2018 Osteopenia determined by x-ray Pre-diabetes Hemoglobin A1c of 6.4% noted on labs December 2018 Thalassemia minor Surgical History Surgical History History of cholecystectomy History of colonoscopy with polypectomy (09/2020) History of endometrial ablation History of esophagogastroduodenoscopy (EGD) (09/2020) Demonstrated hiatal hernia and unspecified gastric ulcer History of total abdominal hysterectomy and bilateral salpingo-oophorectomy Family History Family History (Updated 06/18/24 @ 02:43 by Nikki Ledbetter DO) Father , in 2023 Family history of atrial fibrillation Diabetes mellitus Hypertension S/P CABG (coronary artery bypass graft) Sibling Asthma Diabetes mellitus Prostate carcinoma Mother , age 68 Chronic obstructive pulmonary disease Diabetes mellitus Grandparent Cerebrovascular accident Congestive heart failure Family history of atrial fibrillation Social History Social History (Updated 06/18/24 @ 02:43 by Nikki Ledbetter DO) Social History: She reports that she is now since April 2024. She has 2 adult children. She quit smoking in 2006. She denies significant alcohol use in fact she states she hates the taste of alcohol. She is currently unemployed but previously worked i
[2024-06-17 21:34] LABS: Iron 21 ug/dL (37-170)
[2024-06-17 21:35] LABS: Magnesium 1.8 mg/dL (1.6-2.3)
[2024-06-17 21:43] LABS: Percent Iron Saturation 4 % (20-50)
[2024-06-17 22:10] LABS: Ferritin 2.91 ng/mL (11.1-264)
[2024-06-17 22:29] VITALS: BP 136/64; PULSE 87; RESP 15; TEMP 37; O2SAT 99
--- NOTE | 2024-06-17 22:41 | PM.IMHP ---
H&P: HPI History of Present Illness Date/Time: 06/17/24 22:41 Chief Complaint: Feeling faint, cold ringing in ears and tingling in hands Narrative: 54-year-old female well known to me from prior hospitalizations with a past medical history of GERD, hiatal hernia, distant history duodenal AVM, distant history gastric ulcers, recurrent iron deficiency anemia, pre diabetes, asthma and untreated obstructive sleep apnea in addition to suspected decreased bone marrow production of blood who presented to the ER with symptoms of feeling lightheaded, ringing in the ears, tingling in her hands and feeling cold. She had similar symptoms the last time she needed a blood transfusion in April. She received total of 3 units of PRBCs and 500 mg of Venofer during her last hospitalization. Her studies during prior hospitalizations seemed to be more of a mixed picture. However her studies today are straight forward and completely consistent with iron deficiency. She reports that she eats plenty of iron. She is post be taking iron supplements twice a day but evidently informed nursing staff that she is on a daily. She was supposed to follow-up with her outpatient oncologist Dr. Rosales. She reports that she has not followed up with Dr. Rosales because she cannot afford the co-pay. She reports that she has been unemployed for several months since her and her were going through a divorce. They now are officially for the last month. She does not even know if her insurance his active because it was through his employment. She reports that she has been getting her medications filled but according to the external medication reconciliation the patient's Lexapro has not been filled since September of 2023 lisinopril has not been filled since July 2023. She states that she has an over abundance of iron supplements due to 90 day prescription fills. She has not noticed any black stools, bloody stools, hematuria, heartburn symptoms, petechiae or easy bruising. She has had a hysterectomy. Her last EGD was in July of 2022 and demonstrated hiatal hernia. Her pathology at that time demonstrated chronic gastritis which was similar to her prior biopsies in 2019 at which time she had a gastric ulcer. Her last colonoscopy was in 2019 and demonstrated internal hemorrhoids. She denies excessive use of NSAIDs. She has pictures of facial swelling of her left jaw and mandibular area that was associated with ear pain and trismus back on the 1st week of June. This pain and discomfort resolved without intervention. She did not have any associated fevers or chills. She denied ill contacts, history of dental caries or oral ulcers. Swelling lasted for about 7-10 days and then resolved. Is not recurred. She had never had swelling like that previously. She she was concerned that she may have had Mumps after doing some research on the Internet. Review of Systems Review of Systems: 12 systems were reviewed with pertinent positives and negatives per HPI. Except as documented in the HPI, all other systems were reviewed and are negative. [facility] Past Medical History Medical History Depression with anxiety Diastolic dysfunction Without history of CHF noted on echocardiogram 201920. Grade 1 dysfunction with normal ejection fraction. Duodenal arteriovenous malformation Gastric ulcer Gastroesophageal reflux disease Hiatal hernia Hypertension Iron deficiency anemia Due to gastric ulcer Moderate persistent asthma Obstructive sleep apnea (Unknown) Patient reports symptoms have resolved since she has had a 30+ kilos weight loss since 2018 Osteopenia determined by x-ray Pre-diabetes Hemoglobin A1c of 6.4% noted on labs December 2018 Thalassemia minor Surgical History Surgical History History of cholecystectomy History of colonoscopy with polypectomy (09/2020) Hi
[2024-06-17 22:48] VITALS: BP 137/70; PULSE 90; RESP 16; TEMP 37.1; O2SAT 100
--- NOTE | 2024-06-17 23:09 | ADMGEN ---
This patient, Michell Huffman, was admitted to Medical Room 347-0. Patient/family oriented to hospital policies and general routines including ID bracelet, bed and alarms, visiting hours, pain management, procedures, bathroom and other care routines, personal items, smoking policy, room service/diet, and visiting hours. Information on how to activate the Rapid Response Team has been discussed. Patient/Family are encouraged to report perceived risks to care and to ask questions if they do not understand what they are told or what they should do.
[2024-06-17 23:48] VITALS: BP 155/90; PULSE 92; RESP 18; TEMP 36.3; O2SAT 100
[2024-06-17 23:51] VITALS: BMI 34.0
[2024-06-18] VITALS (24 sets, daily range): BP systolic 128–164; BP diastolic 55–85; PULSE 64–100; RESP 16–20; TEMP 36.3–37.2; O2SAT 93–100
--- NOTE | 2024-06-18 01:19 | PC.NURSE ---
Patient received from ED with one unit of blood running to gravity. Fundraiser was instructed by warehouse engineer to continue administration to gravity. After patient was received, junior underwriter noted blood to be running slow or note running at all. House sup was called to bedside and agreed that access had been lost.
--- NOTE | 2024-06-18 02:40 | PC.NURSE ---
PRBC unit one before new IV access could be gained. Patient received 100 ml of that bag. Hous retail field supervisor and Dr Ledbetter made aware.
[2024-06-18] MEDS: POTASSIUM CHLORIDE 20 MEQ ER TABLET 40 MEQ PO (03:12)
[2024-06-18] MEDS: SODIUM CHLORIDE 0.9% IV 250 ML 30 ML IV CONT (03:13)
[2024-06-18] MEDS: ESCITALOPRAM OXALATE 10 MG TABLET 20 MG PO (08:35)
[2024-06-18] MEDS: FERROUS SULFATE 325 MG TABLET DR BY MOUTH ×2 (08:35→17:52)
[2024-06-18] MEDS: PANTOPRAZOLE 40 MG TABLET PO (08:35)
[2024-06-18] MEDS: FLUTICASONE PROPIONATE 0.05% NA SPR 16 GM BTL (*BKC) 1 SPRAY NASAL (08:36)
[2024-06-18 11:20] LABS: Hematocrit 29.7 % (37.0-47.0); Hemoglobin 8.6 g/dL (12.0-15.0); Mean Corpuscular Hemoglobin 19.2 pg (26-34); Mean Corpuscular Volume 66.1 fl (80-100); Platelet Count Result 251 k/mm3 (150-375); Red Blood Count 4.49 M/mm3 (4.2-5.4); White Blood Count 5.4 K/mm3 (4.5-10.0)
[2024-06-18] MEDS: ONDANSETRON INJ 4 MG/2 ML VIAL IV PUSH ×2 (11:30→15:32)
[2024-06-18] MEDS: IRON SUCROSE COMPLEX 400 MG, IRON SUCROSE COMPLEX 100 MG in SODIUM CHLORIDE 0.9% IV 250 ML 78.57 MG IVPB (11:32)
[2024-06-18 11:35] LABS: Anion Gap 7 mmol/L (4-12); Blood Urea Nitrogen 13 mg/dL (7-17); Calcium 8.6 mg/dL (8.4-10.2); Carbon Dioxide 28 mmol/L (22-30); Chloride 102 mmol/L (98-107); Estimated CRCL calculation 87 ml/min; Estimated Glomerular Filt Rate > 60; Glucose 102 mg/dL (65-110); Potassium 3.8 mmol/L (3.4-5.0); Sodium 137 mmol/L (137-145)
[2024-06-18 11:38] LABS: Hemoglobin A1C 5.1 % (<5.7)
--- NOTE | 2024-06-18 17:20 | PM.IMPN ---
Progress Note: A&P Assessment and Plan (1) Symptomatic anemia: Code(s): D64.9 - Anemia, unspecified Status: Acute Assessment and Plan: -consult Joss appreciate recommendation and plan -chronic, unable to follow with oncology s/p 2 units of RBC given in the ED -now hgb is 8.6 -continue iron p.o. daily -check H&H q 6 hours x 3 (2) Sliding hiatal hernia: Code(s): K44.9 - Diaphragmatic hernia without obstruction or gangrene Status: Acute Assessment and Plan: -chronic, denies any pain at this time -continue to monitor (3) Essential hypertension: Code(s): I10 - Essential (primary) hypertension Status: Chronic Assessment and Plan: -hold home medication Lisinopril (discussed with pt will d/c before she goes home) -patient has been on lisinopril for quite some time, I am concerned about the facial swelling she reported that occurred a couple weeks prior even know the facial swelling went down she continues with frequent ongoing cough, wheezing. Long discussion with patient we decided to DC lisinopril - Start losartan 50mg P.O. daily -continue to monitor vitals q 4 hours (4) Asthma: Qualifiers: Asthma complication type: uncomplicated Asthma persistence: persistent Asthma severity: moderate Qualified Code(s): J45.40 - Moderate persistent asthma, uncomplicated Code(s): J45.909 - Unspecified asthma, uncomplicated Status: Acute Assessment and Plan: -controlled continue home medications fluticasone nasal spray ipratropium/ albuterol q.6 hours p.r.n. for wheezing and SOB DuoNeb every 4 hours p.r.n. 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 Patient reported a history of needing blood transfusions during her last hospital visit. 06/18/2024: Assumed care for patient today, who is resting in bed with c/o nausea and some vomiting after eating her lunch. She denies any fever, chills, or chest pain at this time. labs have been reviewed, hgb is stable at 8.6, labs are consistent with iron deficiency anemia, K+ is 3.8. She complains of ongoing headache, it is dull, 4-10, denies any vision changes. Objective Data Vital Signs Vital Signs: Vital Signs - 24 hr 06/17/24 19:13 06/17/24 20:18 06/17/24 22:29 Temperature 97.5 F L 98.6 F Pulse Rate 109 H 106 H 87 Respiratory Rate 20 14 15 Blood Pressure 133/69 133/74 136/64 Pulse Oximetry 100 100 99 Oxygen Delivery Room Air 06/17/24 22:48 06/17/24 23:48 06/17/24 23:48 Temperature 98.7 F 97.4 F L 97.4 F L Pulse Rate 90 92 92 Respiratory Rate 16 18 18 Blood Pressure 137/70 155/90 H 155/90 H Pulse Oximetry 100 100 100 Oxygen Delivery 06/18/24 00:00 06/18/24 00:48 06/18/24 03:05 Temperature 97.7 F 98.5 F Pulse Rate 64 100 93 Respiratory Rate 18 18 Blood Pressure 149/69 H 136/70 Pulse Oximetry 97 98 Oxygen Delivery 06/18/24 03:24 06/18/24 02:40 06/18/24 03:25 Temperature 98.0 F 98.2 F 98.2 F Pulse Rate 96 98 87 Respiratory
[2024-06-18] MEDS: ACETAMINOPHEN 325 MG TABLET 650 MG PO (17:53)
[2024-06-18 18:08] LABS: Hematocrit 30.1 % (37.0-47.0); Hemoglobin 8.9 g/dL (12.0-15.0)
[2024-06-18 23:36] LABS: Hematocrit 29.2 % (37.0-47.0); Hemoglobin 8.5 g/dL (12.0-15.0)
[2024-06-19] VITALS: PULSE 76
[2024-06-19] MEDS: ONDANSETRON INJ 4 MG/2 ML VIAL IV PUSH (02:53)
[2024-06-19] MEDS: ACETAMINOPHEN 325 MG TABLET 650 MG PO (02:53)
[2024-06-19 04:00] VITALS: PULSE 76
[2024-06-19 05:20] VITALS: BP 125/63; PULSE 78; RESP 17; TEMP 36.8; O2SAT 92
[2024-06-19 05:53] LABS: Basophils Absolute Auto 0.1 K/mm3 (0.0-0.1); Basophils Percent Auto 1.3 % (0.2-1.2); Eosinophils Percent Auto 0.5 % (0-4.4); Hematocrit 30.1 % (37.0-47.0); Hemoglobin 8.5 g/dL (12.0-15.0); Immature Granulocyte Absolute 0.18 K/mm3 (0.00-0.031); Immature Granulocyte Percent A 2.8 % (0-0.5); Immature Platelet Fraction Pct 6.6 % (0.9-11.2); Lymphocytes Absolute Auto 1.44 K/mm3 (0.9-3.2); Lymphocytes Percent Auto 22.5 % (18.3-44.2); Mean Corpuscular HGB Conc 28.2 g/dl (32-36); Mean Corpuscular Hemoglobin 18.9 pg (26-34); Mean Corpuscular Volume 66.9 fl (80-100); Monocytes Absolute Auto 0.5 K/mm3 (0.1-0.6); Monocytes Percent Auto 7.2 % (2.6-8.5); Neutrophils Absolute Auto 4.2 K/mm3 (1.3-6.7); Neutrophils Percent Auto 65.7 % (45.5-73.1); Nucleated Red Blood Cells Perc 1.7 % (0.0-0.2); Platelet Count Result 240 k/mm3 (150-375); White Blood Count 6.4 K/mm3 (4.5-10.0)
[2024-06-19 06:07] LABS: Alanine Aminotransferase 12 U/L (6-35); Albumin Level 3.4 g/dL (3.5-5.1); Alkaline Phosphatase 88 U/L (38-126); Anion Gap 5 mmol/L (4-12); Aspartate Amino Transferase 32 U/L (14-36); Bilirubin,Total 0.4 mg/dL (0.2-1.3); Blood Urea Nitrogen 8 mg/dL (7-17); Calcium 8.7 mg/dL (8.4-10.2); Carbon Dioxide 29 mmol/L (22-30); Chloride 102 mmol/L (98-107); Estimated CRCL calculation 100 ml/min; Estimated Glomerular Filt Rate > 60; Glucose 93 mg/dL (65-110); Potassium 3.7 mmol/L (3.4-5.0); Sodium 136 mmol/L (137-145)
[2024-06-19 08:24] LABS: Anisocytosis 2+; Hypochromasia 2+; Ovalocytes 1+; Platelet Estimate Adequate (Adequate); Polychromasia 1+; Schistocytes None Seen; Target Cells 1+
[2024-06-19] MEDS: FERROUS SULFATE 325 MG TABLET DR BY MOUTH (08:53)
[2024-06-19] MEDS: FLUTICASONE PROPIONATE 0.05% NA SPR 16 GM BTL (*BKC) 1 SPRAY NASAL (08:53)
[2024-06-19] MEDS: LOSARTAN POTASSIUM 50 MG TABLET PO (08:53)
[2024-06-19] MEDS: ESCITALOPRAM OXALATE 10 MG TABLET 20 MG PO (08:53)
[2024-06-19] MEDS: PANTOPRAZOLE 40 MG TABLET PO (08:53)
--- NOTE | 2024-06-19 12:05 | PM.DS ---
DS: Admitting Diagnosis Discharge Date 06/19/2024 Admitting Diagnosis Symptomatic microcytic iron deficiency anemia DS: Discharge Diagnosis Discharge Diagnosis (1) Symptomatic anemia: Code(s): D64.9 - Anemia, unspecified Status: Acute Assessment and Plan: -consult Joss torres recommendation and plan -chronic, unable to follow with oncology s/p 2 units of RBC given in the ED -now hgb is 8.6 -continue iron p.o. daily -check H&H q 6 hours x 3 (2) Sliding hiatal hernia: Code(s): K44.9 - Diaphragmatic hernia without obstruction or gangrene Status: Acute Assessment and Plan: -chronic, denies any pain at this time -continue to monitor (3) Essential hypertension: Code(s): I10 - Essential (primary) hypertension Status: Chronic Assessment and Plan: -hold home medication Lisinopril (discussed with pt will d/c before she goes home) -patient has been on lisinopril for quite some time, I am concerned about the facial swelling she reported that occurred a couple weeks prior even know the facial swelling went down she continues with frequent ongoing cough, wheezing. Long discussion with patient we decided to DC lisinopril - Start losartan 50mg P.O. daily -continue to monitor vitals q 4 hours (4) Asthma: Qualifiers: Asthma complication type: uncomplicated Asthma persistence: persistent Asthma severity: moderate Qualified Code(s): J45.40 - Moderate persistent asthma, uncomplicated Code(s): J45.909 - Unspecified asthma, uncomplicated Status: Acute Assessment and Plan: -controlled continue home medications fluticasone nasal spray ipratropium/ albuterol q.6 hours p.r.n. for wheezing and SOB DuoNeb every 4 hours p.r.n. for shortness of breaths (5) Anxiety: Code(s): F41.9 - Anxiety disorder, unspecified Status: Acute Assessment and Plan: -hx of anxiety -continue home medication escitalopram -Ativan 0.5mg PRN q 6 hrs as needed for anxiety (6) Thalassemia: Code(s): D56.9 - Thalassemia, unspecified Status: Chronic Assessment and Plan: -needs to follow up out-pt with heme/oncolgy out -pt -continue to monitor hgb -monitor for any s/s bleeding Plan Disposition: Patient discharged to home will follow-up with hematology outpatient DS: Summary Hospital Course Reason for hospitalization: Symptomatic microcytic iron deficiency anemia Hospital Course: 54-year-old female well known to me from prior hospitalizations with a past medical history of GERD, hiatal hernia, distant history duodenal AVM, distant history gastric ulcers, recurrent iron deficiency anemia, pre diabetes, asthma and untreated obstructive sleep apnea in addition to suspected decreased bone marrow production of blood who presented to the ER with symptoms of feeling lightheaded, ringing in the ears, tingling in her hands and feeling cold. She had similar symptoms the last time she needed a blood transfusion in April. She received total of 3 units of PRBCs and 500 mg of Venofer during her last hospitalization. Her studies during prior hospitalizations seemed to be more of a mixed picture. However her studies today are straight forward and completely consistent with iron deficiency. She reports that she eats plenty of iron. She is post be taking iron supplements twice a day but evidently informed nursing staff that she is on a daily. She was supposed to follow-up with her outpatient oncologist Dr. Rosales. She reports that she has not followed up with Dr. Rosales because she cannot afford the co-pay. She reports that she has been unemployed for several months since her and her were going through a divorce. They now are officially for the last month. She does not even know if her insurance his active because it was through his employment. She reports that she has been getting her medications filled but according to
== END 2024-06-19 13:10 | disposition home or self-care (01) ==
LOC: ANHED 22:21 → ANH3MED 23:02
PROVIDERS: Emergency Medicine; Nurse Practitioner; Admitting Provider Internal Medicine; Emergency Provider Student in an Organized Health Care Education/Training Program; PCP Family Medicine; Visit Provider Nurse Practitioner Family
DX: D50.9 Iron deficiency anemia, unspecified (principal); H93.13 Tinnitus, bilateral; F41.8 Other specified anxiety disorders; K21.9 Gastro-esophageal reflux disease without esophagitis; I10 Essential (primary) hypertension; D56.9 Thalassemia, unspecified; Z87.891 Personal history of nicotine dependence; K44.9 Diaphragmatic hernia without obstruction or gangrene; E87.6 Hypokalemia; R73.09 Other abnormal glucose; J45.40 Moderate persistent asthma, uncomplicated
CPT/HCPCS: 36415; 36430; 74177; 80048; 80053; 82728; 83036; 83540; 83550; 83735; 85014; 85018; 85025; 85027; 85055; 85610; 85730; 86850; 86900; 86901; 86923; 93005; 96361; 96365; 96366; 96375; 96376; 99285; A9270; G0378; J1756; J2405; J7050; P9016; Q9967

== ENCOUNTER 2025-08-30 00:16 | Inpatient (IN) | payer SELFPAY ==
[2025-08-30] VITALS (20 sets, daily range): BP systolic 143–190; BP diastolic 50–78; PULSE 80–100; RESP 17–20; TEMP 36.5–36.9; O2SAT 93–100; BMI 37.0
--- NOTE | ~2025-08-30 | XR_ITS ---
XR chest 1V portable 08/30/2025 00:51 Indication: Shortness of breath Procedure: AP portable chest Comparison: Comparison to multiple prior studies sequentially, with oldest reviewed study dated 12/21/2021. Findings: Cardiomegaly. Large hiatal hernia. No focal air space disease, pulmonary edema, pleural effusion or suspected pneumothorax. No acute osseous abnormality. Impression: 1: Large hiatal hernia. Reviewed, dictated and finalized at location B. Impression: 1: Large hiatal hernia.
--- OUTSIDE RECORDS SUMMARY | 2025-08-30 00:18 | XMS_ITS | Clinical Summary ---
Author Organization [facility] Address [address] [place] [address] Care Team Providers Care Type Inspector Name Role Phone Enmanuel Dyer DO Primary Care Provider [phone] Source Comments [facility],non-owned Affiliates and Associated Physician Practices is amultiple site organization consisting of ambulatory clinics and hospital sitesin [place], [place], [place] and [place]. This disclosure is being madepursuant to the Care Everywhere program and may not contain all information available regarding this patient. Last updated 18.[facility] Allergies No known active allergies Medications * Be aware that medications may not be up to date on this document. Alwaysverify current medications with the patient. albuterol HFA (PROVENTIL;VENT SHIRA;PROAIR) 108 (90 BASE) MCG/ACT inhaler Inhale 2 Puffs by mouth every 6 hours as needed Active lisinopril (PRINIVIL; ZESTRIL) 10 MG tablet Take 10 mg by mouth once daily Active escitalopram (LEXAPRO) 10 MG tablet Take 10 mg by mouth once daily Active omeprazole (PRILOSEC) 20 MG capsule Take 20 mg by mouth daily before breakfast Active Mometasone Furo-Formoterol Fum (DULERA IN) Acti ve Family History Medical History Relation Name Comments Diabetes Father Heart Disease Father Asthma Mother Hypertension Mother Relation Name Status Comments Father Mother Social History Tobacco Use Types Packs/Day Years Used Date Smoking Tobacco: Never Smokeless Tobacco: Never Alcohol Use Standard Drinks/Week Comments No 0 (1 standard drink = 0.6 oz pur e alcohol) Comments Unknown Sex and Gender Information Value Date Recorded Sex Assigned at Not on file Legal Sex Female 6:16 AM [employer]UR[employer] E[employer] G[employer]ER Gender Identity Not on file Sexual Orientation Not on file Last Filed Vital Signs Vital Sign Reading Time Taken Comments Blood Pressure - - Pulse - - Temperature - - Respiratory Rate - - Oxygen Saturation - - Inhaled Oxygen Concentration - - Weight 104.3 kg (230 lb) 01/14/2017 7:24 AM CDT Height 165.1 cm (5' 5) 01/14/2017 7:24 AM CDT Body Mass Index 38.27 01/14/2017 7:24 AM CDT Plan of Treatment Health Maintenance Due Date Last Done Comments COLOGUARD (AGES 45-75) - COL ON CA SCREENING 1971 COLON MONITORING 1971 COLONOSCOPY - COLON CA SCREENING 1971 CT COLONOGRAPHY - COLON CA SCREENING 1971 Colorectal Cancer Screening 1971 FIT - COLON CA SCREENING 1971 FLEX SIG - COLON CA SCREENING 1971 LIPID TESTING 1971 MAMMOGRAM 1971 HIV SCREENING 1986 HEPATITIS C SCREENING 06/04/1989 DTAP/TDAP/TD VACCINES (1 - Tdap) 1990 HEPATITIS B VACCINE (1 of 3 - 19+ 3-dose series) 1990 PNEUMOCOCCAL VACCINE 50+ (1 of 1 - PCV) 2021 ZOSTER VACCINE (1 of 2) 2021 DEPRESSION SCREENING 11/02/2024 COVID-19 VACCINE (1 - 2023-2 5 season) 2025 INFLUENZA VACCINE (#1) 2025 HIB VACCINE Aged Out No longer eligi ble based on patient's age to complete this topic HPV VACCINE Aged Out No longer eligi ble based on patient's age to complete this topic MENINGOCOCCAL (Group B) VACC INE SHARED DECISION-MAKING Aged Out No longer eligibl e based on patient's age to complete this topic MENINGOCOCCAL GROUPS A/C/Y/W VACCINE Aged Out No longer eligible b ased on patient's age to complete this topic Insurance Care Teams Type Inspector Relationship Specialty Start Date End Date Enmanuel Dyer DO PCP - General Internal Medicine 01/14/17
--- NOTE | 2025-08-30 00:32 | ECG_ITS ---
Test Date: 2025-08-30 01:02:57 Measurements Intervals [place] Rate: 97 P: 65 KS: 132 QRS: 62 QRSD: 85 T: 63 QT: 351 QTc: 446 Interpretive Statements SINUS RHYTHM BORDERLINE ST ABNORMALITY- ANTEROLAT/INF LEADS BORDERLINE ECG COMPARED WITH PRIOR ECG 06-17-24 19:30 HEART RATE HAS DECREASED Electronically Signed On 08-30-2025 05:56:59 CDT by William Valera D.O.
--- NOTE | 2025-08-30 00:38 | ED.RECABL ---
HPI - Recheck/Abnormal Lab/Rx General Chief Complaint: Recheck/Abnormal Lab/Rx Stated Complaint: I think my blood is low Time Seen by Provider: 08/30/25 00:20 Source: patient Mode of arrival: ambulatory Limitations: no limitations History of Present Illness HPI narrative: This is a 55-year-old female history of anemia and asthma who presents the ED for weakness and shortness of breath. Patient states that for the past week, she has been having gradual worsening of her dyspnea on exertion as well as weakness. She states that it feels similar to her episodes of anemia required transfusions. She is supposed to be seeing a gun perforator loader but has not done so for at least a year due to insurance reasons. Her last iron infusion was at least a year ago. Denies chest pain, nausea vomiting. Related Data Home Medications ?Medication ?Instructions ?Recorded ?Confirmed ?Last Taken ?Type fluticasone propionate 50 1 spray intranasal DAILY 05/19/20 06/17/24 07/20/22 History mcg/actuation nasal spray,suspension (Flonase Allergy Relief) ipratropium 0.5 mg-albuterol 3 mg See Rx Instructions .Route 04/04/24 06/17/24 Unknown History (2.5 mg base)/3 mL nebulization .COMPLEX PRN sob soln omeprazole magnesium 20 mg 20 mg PO DAILY 04/04/24 06/17/24 06/17/24 09:00 History tablet,delayed release (Prilosec OTC) escitalopram oxalate 20 mg tablet 20 mg PO DAILY 06/17/24 06/17/24 06/17/24 09:00 History lisinopril 30 mg tablet 30 mg PO DAILY 06/17/24 06/17/24 06/17/24 09:00 History Allergies Allergy/AdvReac Type Severity Reaction Status Date / Time mold Allergy Intermediate Dyspnea / Verified 06/17/24 20:18 SOB tree and shrub pollen Allergy Intermediate Itching Verified 06/17/24 20:18 Grass Allergy Intermediate Itching Uncoded 10/07/23 11:42 Review of Systems Review of Systems: Gen.: Denies fevers or chills Eyes: Denies eye pain or visual change ENT: Denies congestion Respiratory: As per HPI CV: Denies chest pain or palpitations GI: Denies abdominal pain nausea, emesis or diarrhea denies burning, urgency, frequency or hematuria Musculoskeletal: Denies back pain or muscle pain Neuro: As per HPI Skin: Denies rash Except as documented, all other systems reviewed and negative [facility] Past Medical History Medical History Diastolic dysfunction Without history of CHF noted on echocardiogram 201920. Grade 1 dysfunction with normal ejection fraction. Pre-diabetes Hemoglobin A1c of 6.4% noted on labs December 2018 Osteopenia determined by x-ray Gastric ulcer Depression with anxiety Obstructive sleep apnea (Unknown) Patient reports symptoms have resolved since she has had a 30+ kilos weight loss since 2018 Duodenal arteriovenous malformation Hiatal hernia Gastroesophageal reflux disease Hypertension Thalassemia minor Iron deficiency anemia Due to gastric ulcer Moderate persistent asthma Surgical History Surgical History History of esophagogastroduodenoscopy (EGD) (09/2020) Demonstrated hiatal hernia and unspecified gastric ulcer History of colonoscopy with polypectomy (09/2020) History of cholecystectomy History of total abdominal hysterectomy and bilateral salpingo-oophorectomy History of endometrial ablation Family History Family History Father , in 2023 Family history of atrial fibrillation Diabetes mellitus Hypertension S/P CABG (coronary artery bypass graft) Sibling Asthma Diabetes mellitus Prostate carcinoma Mother , age 68 Chronic obstructive pulmonary disease Diabetes mellitus Grandparent Cerebrovascular accident Congestive heart failure Family history of atrial fibrillation Social History Social History Social History: She reports that she is now since April 2024. She has 2 adult children. She quit smoking in 2006. She denies significant alcohol use in fact she states she hates the taste of alcohol. 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 Surrogate decision maker: Antelmo Huffman (son) Code status: Full code. Smoking packs per day: 0.5 Smoking cigarettes per day: 10.0 Years smoked: 20 Smoking pack-years: 10.00 Smoking status: Former smoker Second hand tobacco smoke exposure: Yes Alcohol intake: never Alcohol use details: very rare use Substance use: never Substance use type: marijuana Other substance usage details: THC gummies Last use: 01/20/22 Do You Feel Safe in your Home?: Yes Lack of Transportation: YES Lack of Food: Never True Current Housing: I Have Housing Concerned About Future Housing: No Difficulty Paying Gas/Electric Bills: No Difficulty Paying for Meds: No Currently Unemployed: YES Education: High School Diploma/GED Difficulty w/ Childcare or Family Care: No Living arrangements: with family Occupation/Education: occupation Additional occupation/education comments: Works at [employer] and [employer] Gender identity (if verbalized by the patient): Female Sexual Orientation (if Verbalized by the Patient): Straight or Heterosexual Spiritual care concerns: No Exam Narrative: APPEARANCE: No acute distress, nontoxic, resting in bed EYES: EOMI. No conjunctival pallor. HEENT: Normocephalic, atraumatic, OMM RESPIRATORY: No respiratory distress Clear to auscultation bilaterally with no rhonchi wheezing or rales. CARDIOVASCULAR: Regular rate and rhythm without murmurs rubs or gallops. ABDOMINAL: Soft, nontender, nondistended, no rebound or guarding MUSCULOSKELETAl: Moves all extremities. No clubbing, cyanosis or edema. NEURO: Awake and alert. Following commands, speech normal, no focal deficits SKIN:: Warm, dry. No rashes lesions or abrasions PSYCHIATRIC: Normal affect/mood, Course Vital Signs Vital signs: Vital Signs Temperature 98.0 F 08/30/25 00:49 Pulse Rate 99 08/30/25 00:49 Respiratory Rate 18 08/30/25 00:49 Blood Pressure 155/76 H 08/30/25 00:49 Pulse Oximetry 99 08/30/25 00:49 Oxygen Delivery Room Air 08/30/25 00:49 Temperature 98.0 F 08/30/25 00:49 Pulse Rate 99 08/30/25 00:49 Respiratory Rate 18 08/30/25 00:49 Blood Pressure 155/76 H 08/30/25 00:49 Pulse Oximetry 99 08/30/25 00:49 Oxygen Delivery Room Air 08/30/25 00:49 MDM - Recheck/Abnormal Lab/Rx MDM Narrative Medical decision making narrative: 55-year-old female Presenting for concerns for anemia, weakness, shortness of breath. On initial evaluation patient was in no acute distress afebrile, hemodynamic stable. Differentials include but are not limited to: Anemia, ACS, electrolyte abnormality, dehydration, GI bleed Notable exam findings: Conjunctival pallor, mucosal pallor Notable lab findings: Hemoglobin 4.8. Remaining labs without significant abnormalities. Notable imaging findings: Chest x-ray showed stable bilateral lower lobe atelectasis and hiatal hernia. Patient will require transfusion of multiple units of blood. She has a known history of anemia due to an unknown underlying source. She has had multiple GI evaluations including endoscopies, colonoscopies, pill endoscopy is with no sources of bleeding. She was previously supposed to be on iron infusions but ran out of insurance so she has not seen a gun perforator loader for iron infusions in greater than a year. There is potentially a history of thalassemia. Patient will require admission for further evaluation and for transfusions. Case was discussed with hospitalist, Dr. Ledbetter will admit. Medical Records Attestation: I reviewed the patient's medical records. Medical records narrative: Last admission in June for anemia with hemoglobin at 5.7. Lab Data Attestation: I reviewed the patient's lab results. 08/30/25 01:15 08/30/25 01:15 Labs: Lab Results 08/30/25 Range/Units 01:15 WBC 5.7 (4.5-10.0) K/mm3 RBC 3.66 L (4.2-5.4) M/mm3 Hgb 4.8 L* D (12.0-15.0) g/dL Hct 20.0 L* (37.0-47.0) % MCV 54.6 L (80-100) fl MCH 13.1 L (26-34) pg MCHC 24.0 L (32-36) g/dl RDW 26.7 H (11.5-14.5) % Plt Count 285 (150-375) k/mm3 MPV TNP Immature Gran % (Auto) 1.4 H (0-0.5) % Neut % (Auto) 62.3 (45.5-73.1) % Lymph % (Auto) 27.7 (18.3-44.2) % Shoshone % (Auto) 7.7 (2.6-8.5) % Eos % (Auto) 0.0 (0-4.4) % Baso % (Auto) 0.9 (0.2-1.2) % Lymph # (Auto) 1.58 (0.9-3.2) K/mm3 [place]oshone # (Auto) 0.4 (0.1-0.6) K/mm3 Eos # (Auto) 0.0 (0-0.3) K/mm3 Baso # (Auto) 0.1 (0.0-0.1) K/mm3 Abs Immat Gran (auto) 0.08 H (0.00-0.031) K/mm3 Absolute Neuts (auto) 3.6 (1.3-6.7) K/mm3 Absolute Nucleated RBC 0.050 H (0.0-0.012) K/mm3 Band Neutrophils % Not Reportable Nucleated RBC % 0.9 H (0.0-0.2) % Platelet Estimate Adequate (Adequate) Hypochromasia 3+ Anisocytosis 2+ Target Cells Occasional Ovalocytes 1+ Schistocytes Rare Sodium 137 (137-145) mmol/L Potassium 3.6 (3.4-5.0) mmol/L Chloride 102 (98-107) mmol/L Carbon Dioxide 28 (22-30) mmol/L Anion Gap 7 (4-12) mmol/L BUN 17 (7-17) mg/dL Creatinine 0.69 L (0.7-1.0) mg/dL Estim Creat Clear Calc 91 ml/min Estimated GFR > 60 (59 - ) Glucose 111 H (65-110) mg/dL Calcium 8.7 (8.4-10.2) mg/dL Total Bilirubin 0.4 (0.2-1.3) mg/dL AST 22 (14-36) U/L ALT 17 (6-35) U/L Alkaline Phosphatase 94 (38-126) U/L Troponin I < 0.012 (0.000-0.034) ng/mL Total Protein 7.1 (6.3-8.2) g/dL Albumin 3.9 (3.5-5.1) g/dL Blood Type O Positive Antibody Screen Negative Crossmatch See Detail Imaging Data Attestation: I personally reviewed and interpreted this imaging study as follows: My impression: Chest x-ray: Airspace opacities to the bilateral lower lobes likely atelectasis. Large hiatal hernia ECG Data EKG #1: Attestation: I personally reviewed and interpreted this ECG as follows: ECG completion date: 08/30/25 ECG completion time: 01:02 Interpretation: Normal sinus rhythm rate of 97, normal axis, normal intervals, moderate ST depression in V4 through V6. No significant change from 06/17/2024 Discharge Plan Discharge Clinical Impression: Essential hypertension Iron deficiency anemia Qualifiers: Iron deficiency anemia type: unspecified iron deficiency Qualified Code(s): D50.9 - Iron deficiency anemia, unspecified Thalassemia Qualifiers: Thalassemia type: minor Qualified Code(s): D56.3 - Thalassemia minor Patient Disposition: Still a Patient Condition: Stable Patient Language: Scottish Prescriptions: No Action hydroxyzine HCl 50 mg tablet 50 mg PO QID PRN (Reason: anxiety) Qty: 20 1RF fluticasone propionate [Flonase Allergy Relief] 50 mcg/actuation [place],Suspension 1 spray INTRANASAL DAILY ipratropium-albuterol 0.5 mg-3 mg(2.5 mg base)/3 mL solution for nebulization See Rx Instructions .ROUTE .COMPLEX PRN (Reason: sob) Rx Instructions: USE 1 VIAL VIA NEBULIZER EVERY 4 HOURS FOR SHORTNESS OF BREATH OR WHEEZING omeprazole magnesium [Prilosec OTC] 20 mg Tablet,Delayed Release (Dr/Ec) 20 mg PO DAILY escitalopram oxalate 20 mg tablet 20 mg PO DAILY lisinopril 30 mg tablet 30 mg PO DAILY ferrous sulfate 325 mg (65 mg iron) Tablet,Delayed Release (Dr/Ec) 325 mg BYMOUTH BIDWM Qty: 60 0RF losartan [Cozaar] 50 mg Tablet 50 mg PO DAILY Qty: 30 0RF albuterol sulfate 90 mcg/actuation HFA aerosol inhaler 2 puff inhalation Q4H PRN (Reason: shortness of breath or wheezing) Qty: 8.5 1RF Follow-up/Referrals: Reji Hooper MD [Primary Care Provider, Family Practice]
--- OUTSIDE RECORDS SUMMARY | 2025-08-30 01:07 | XMS_ITS | Clinical Summary ---
Author Organization [facility] Address [address] [place] [address] Care Team Providers Care Bar Finish Operator Name Role Phone Enmanuel Dyer DO Primary Care Provider Source Comments [facility],non-owned Affiliates and Associated Physician Practices is amultiple site organization consisting of ambulatory clinics and hospital sitesin [place], [place], [place] and [place]. This disclosure is being madepursuant to the Care Everywhere program and may not contain all information available regarding this patient. 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
[2025-08-30 01:20] LABS: Immature Granulocyte Percent A 1.4 % (0-0.5); Lymphocytes Absolute Auto 1.58 K/mm3 (0.9-3.2); Mean Corpuscular HGB Conc 24.0 g/dl (32-36); Mean Corpuscular Hemoglobin 13.1 pg (26-34); Mean Corpuscular Volume 54.6 fl (80-100); Nucleated Red Blood Cells Absolute Auto 0.050 K/mm3 (0.0-0.012); Nucleated Red Blood Cells Perc 0.9 % (0.0-0.2); Platelet Count Result 285 k/mm3 (150-375); Red Blood Count 3.66 M/mm3 (4.2-5.4); White Blood Count 5.7 K/mm3 (4.5-10.0)
[2025-08-30 01:32] LABS: Alanine Aminotransferase 17 U/L (6-35); Albumin Level 3.9 g/dL (3.5-5.1); Alkaline Phosphatase 94 U/L (38-126); Anion Gap 7 mmol/L (4-12); Aspartate Amino Transferase 22 U/L (14-36); Bilirubin,Total 0.4 mg/dL (0.2-1.3); Blood Urea Nitrogen 17 mg/dL (7-17); Calcium 8.7 mg/dL (8.4-10.2); Carbon Dioxide 28 mmol/L (22-30); Chloride 102 mmol/L (98-107); Estimated CRCL calculation 91 ml/min; Estimated Glomerular Filt Rate > 60; Glucose 111 mg/dL (65-110); Potassium 3.6 mmol/L (3.4-5.0); Sodium 137 mmol/L (137-145); Total Protein 7.1 g/dL (6.3-8.2)
[2025-08-30 01:40] LABS: Hematocrit 20.0 % (37.0-47.0); Hemoglobin 4.8 g/dL (12.0-15.0)
[2025-08-30 01:41] LABS: Anisocytosis 2+; Hypochromasia 3+; Ovalocytes 1+; Target Cells Occasional
[2025-08-30 01:42] LABS: Schistocytes Rare
[2025-08-30 01:43] LABS: Troponin I < 0.012 ng/mL (0.000-0.034)
[2025-08-30] MEDS: IRON SUCROSE COMPLEX 400 MG, IRON SUCROSE COMPLEX 100 MG in SODIUM CHLORIDE 0.9% IV 250 ML 78.57 MG IVPB (02:10)
[2025-08-30] MEDS: SODIUM CHLORIDE 0.9% IV 250 ML 30 ML IV CONT (03:00)
[2025-08-30] MEDS: TUBING, BLOOD PLUM PUMP TUBING 1 EACH XX (03:00)
--- NOTE | 2025-08-30 05:17 | PM.IMHP ---
H&P: HPI History of Present Illness Date/Time: 08/30/25 05:17 Chief Complaint: ?I feel like my blood is low? Narrative: 55-year-old female well known to me from prior hospitalizations with history of recurrent symptomatic anemia with a distant history of duodenal AVM, and gastric ulcer, more recent history of GERD, hiatal hernia, internal hemorrhoids, thalassemia minor, pre diabetes, asthma and untreated obstructive sleep apnea with medication nonadherence due to financial reasons who came to the ER for symptoms of feeling like her blood count was low again. The patient was last hospitalized for symptomatic iron deficiency anemia in June of 2024 at which time she received iron infusion with 500 mg of Venofer and 3 units of packed red blood cells. Her hemoglobin today on presentation is actually lower than her hemoglobin during that last hospitalization. She has been having progressive fatigue and dyspnea on exertion for the last 6 or 8 weeks but she has become so fatigued over the last several days that she was not able to go into the work. She denies any wheezing and reports that thankfully your asthma been doing bad despite her symptoms of anemia. On presentation to the ER the patient's vital signs were stable despite her hemoglobin of 4.8. She denies any hematochezia, nausea, vomiting or melena. She has been taking her oral iron supplements twice a day. She reports that the oral iron supplements due maker nauseous frequently but she has been taking them on a regular basis. Her weight is up about 7 kg from her last hospital stay. Her blood pressures have ranged between the mid 150 systolic up to 190 systolic with diastolics in the 60s to 70s since presentation. She reports that she no longer has insurance and cannot afford any of her medications or follow-up with Hematology. 2 units of packed red blood cells were ordered with ER provider. The patient denies having any recent GERD symptoms despite not taking her [id number] omeprazole. Review of Systems Review of Systems: 12 systems were reviewed with pertinent positives and negatives per HPI. Except as documented in the HPI, all other systems were reviewed and are negative. [facility] Past Medical History Medical History (Updated 08/30/25 @ 06:11 by Nikki Ledbetter DO) Iron deficiency anemia Diastolic dysfunction Without history of CHF noted on echocardiogram 201920. Grade 1 dysfunction with normal ejection fraction. Pre-diabetes Hemoglobin A1c of 6.4% noted on labs December 2018 Osteopenia determined by x-ray Gastric ulcer Depression with anxiety Obstructive sleep apnea (Unknown) Patient reports symptoms have resolved since she has had a 30+ kilos weight loss since 2018 Duodenal arteriovenous malformation Hiatal hernia Gastroesophageal reflux disease Hypertension Thalassemia minor Moderate persistent asthma Surgical History Surgical History History of esophagogastroduodenoscopy (EGD) (09/2020) Demonstrated hiatal hernia and unspecified gastric ulcer History of colonoscopy with polypectomy (09/2020) History of cholecystectomy History of total abdominal hysterectomy and bilateral salpingo-oophorectomy History of endometrial ablation Family History Family History Father , in 2023 Family history of atrial fibrillation Diabetes mellitus Hypertension S/P CABG (coronary artery bypass graft) Sibling Asthma Diabetes mellitus Prostate carcinoma Mother , age 68 Chronic obstructive pulmonary disease Diabetes mellitus Grandparent Cerebrovascular accident Congestive heart failure Family history of atrial fibrillation Social History Social History (Updated 08/30/25 @ 05:26 by Nikki Ledbetter DO) Social History: She reports that she is now since April 2024. She has 2 adult children. She quit smoking in 2006. She denies significant alcohol use in fact she states she hates the taste of alcohol. Surrogate decision maker: Antelmo Huffman (son) Code status: Full code. Smoking packs per day: 0.5 Smoking cigarettes per day: 10.0 Years smoked: 20 Smoking pack-years: 10.00 Smoking status: Former smoker Second hand tobacco smoke exposure: Yes Alcohol intake: current Drinks per week: 1 Alcohol use details: very rare use Substance use: never Substance use type: marijuana Other substance usage details: THC gummies Last use: 01/20/22 Do You Feel Safe in your Home?: Yes Lack of Transportation: No Lack of Food: Never True Current Housing: I Have Housing Concerned About Future Housing: No Difficulty Paying Gas/Electric Bills: YES Difficulty Paying for Meds: YES Currently Unemployed: No Education: High School Diploma/GED Difficulty w/ Childcare or Family Care: No Living arrangements: with family Occupation/Education: occupation Additional occupation/education comments: Works at [employer]. 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 Gender identity (if verbalized by the patient): Female Sexual Orientation (if Verbalized by the Patient): Straight or Heterosexual Spiritual care concerns: No Meds Home Medications and Allergies Home Medications ?Medication ?Instructions ?Recorded ?Confirmed ?Type fluticasone propionate 50 1 spray intranasal DAILY 05/19/20 08/30/25 History mcg/actuation nasal spray,suspension (Flonase Allergy Relief) hydroxyzine HCl 50 mg tablet 50 mg PO QID PRN anxiety #20 tabs 10/07/23 08/30/25 Rx ipratropium 0.5 mg-albuterol 3 mg See Rx Instructions .Route 04/04/24 08/30/25 History (2.5 mg base)/3 mL nebulization .COMPLEX PRN sob soln omeprazole magnesium 20 mg 20 mg PO DAILY 04/04/24 08/30/25 History tablet,delayed release (Prilosec OTC) albuterol sulfate 90 mcg/actuation 2 puff inhalation Q4H PRN 06/09/24 08/30/25 Rx aerosol inhaler shortness of breath or wheezing #8.5 grams escitalopram oxalate 20 mg tablet 20 mg PO DAILY 06/17/24 08/30/25 History lisinopril 30 mg tablet 30 mg PO DAILY 06/17/24 08/30/25 History ferrous sulfate 325 mg (65 mg 325 mg BYMOUTH BIDWM #60 tabs 06/19/24 08/30/25 Rx iron) tablet,delayed release losartan 50 mg tablet (Cozaar) 50 mg PO DAILY #30 tabs 06/19/24 08/30/25 Rx Allergies Allergy/AdvReac Type Severity Reaction Status Date / Time mold Allergy Intermediate Dyspnea / Verified 08/30/25 03:38 SOB tree and shrub pollen Allergy Intermediate Itching Verified 08/30/25 03:38 Grass Allergy Unknown Itching Uncoded 08/30/25 03:38 Vital Signs Vital Signs - 24 hr 08/30/25 00:49 08/30/25 02:55 08/30/25 03:12 Temperature 98.0 F 98.4 F 98.2 F Pulse Rate 99 100 93 Respiratory Rate 18 20 18 Blood Pressure 155/76 H 165/65 H 175/78 H Pulse Oximetry 99 97 100 Oxygen Delivery Room Air 08/30/25 03:12 08/30/25 03:35 08/30/25 04:03 Temperature 98.0 F 98.0 F Pulse Rate 97 97 97 Respiratory Rate 20 20 20 Blood Pressure 190/65 H 190/65 H Pulse Oximetry 96 96 96 Oxygen Delivery Room Air 08/30/25 04:12 08/30/25 04:12 08/30/25 04:30 Temperature 98.0 F 98 F 97.8 F Pulse Rate 93 93 89 Respiratory Rate 20 20 20 Blood Pressure 149/71 H 149/71 H 183/71 H Pulse Oximetry 94 94 95 Oxygen Delivery 08/30/25 05:08 Temperature 97.8 F Pulse Rate 89 Respiratory Rate 20 Blood Pressure 183/71 H Pulse Oximetry 95 Oxygen Delivery Exam Narrative: Weight 97.8 kg BMI 37 Const: Other: Obese, no acute distress HENMT: Other: Mucous membranes are moist, crowded posterior oropharynx, no oral pharyngeal erythema, fair dentition Eyes: Other: Positive conjunctival pallor, no scleral icterus, pupils are equal and reactive Neck: Other: Large neck circumference, no JVD Resp: Other: Clear to auscultation bilaterally, no increased work of breathing Cardio: Other: Mildly tachycardic with a rate of 91 at the time my evaluation, 2+ bilateral radial and pedal pulses, no murmur no JVD GI: Other: Obese, soft, nontender, no organomegaly Skin: Other: Generalized pallor, non jaundice, no petechiae, no unusual bruising Neuro: Other: Alert oriented x4, speech is clear, no facial asymmetry Extrem: Other: No clubbing, cyanosis or edema Psych: Other: Appropriate mood and affect, pleasant and cooperative, judgment and insight intact H&P: Results Labs Labs: Laboratory Tests 08/30/25 01:15 08/30/25 01:15 08/30/25 01:15 WBC 5.7 RBC 3.66 L Hgb 4.8 L* D Hct 20.0 L* MCV 54.6 L MCH 13.1 L MCHC 24.0 L RDW 26.7 H Plt Count 285 MPV TNP Immature Gran % (Auto) 1.4 H Neut % (Auto) 62.3 Lymph % (Auto) 27.7 [place] % (Auto) 7.7 Eos % (Auto) 0.0 Baso % (Auto) 0.9 Lymph # (Auto) 1.58 [place] # (Auto) 0.4 Eos # (Auto) 0.0 Baso # (Auto) 0.1 Abs Immat Gran (auto) 0.08 H Absolute Neuts (auto) 3.6 Absolute Nucleated RBC 0.050 H Band Neutrophils % Not Reportable Nucleated RBC % 0.9 H Platelet Estimate Adequate Hypochromasia 3+ Anisocytosis 2+ Target Cells Occasional Ovalocytes 1+ Schistocytes Rare Sodium 137 Potassium 3.6 Chloride 102 Carbon Dioxide 28 Anion Gap 7 BUN 17 Creatinine 0.69 L Estim Creat Clear Calc 91 Estimated GFR > 60 Glucose 111 H Calcium 8.7 Total Bilirubin 0.4 AST 22 ALT 17 Alkaline Phosphatase 94 Troponin I < 0.012 Total Protein 7.1 Albumin 3.9 Blood Type O Positive Antibody Screen Negative Crossmatch See Detail Chest x-ray: Personally reviewed interpreted demonstrated no acute cardiopulmonary process. Radiologic interpretation pending EKG: Test Date: 2025-08-30 01:02:57 Measurements Intervals [place] Rate: 97 P: 65 FL: 132 QRS: 62 QRSD: 85 T: 63 QT: 351 QTc: 446 Interpretive Statements SINUS RHYTHM BORDERLINE ST ABNORMALITY- ANTEROLAT/INF LEADS BORDERLINE ECG COMPARED WITH PRIOR ECG 06-17-24 19:30 HEART RATE HAS DECREASED Assessment and Plan Assessment and plan (1) Symptomatic anemia: Code(s): D64.9 - Anemia, unspecified Status: Acute (2) Blood transfusion during current hospitalisation: Status: Acute (3) Iron deficiency anemia: Qualifiers: Iron deficiency anemia type: unspecified iron deficiency Qualified Code(s): D50.9 - Iron deficiency anemia, unspecified Code(s): D50.9 - Iron deficiency anemia, unspecified Status: Acute (4) Essential hypertension: Code(s): I10 - Essential (primary) hypertension Status: Chronic (5) Gastroesophageal reflux disease: Qualifiers: Esophagitis presence: esophagitis presence not specified Qualified Code(s): K21.9 - Gastro-esophageal reflux disease without esophagitis Code(s): K21.9 - Gastro-esophageal reflux disease without esophagitis Status: Acute Plan Patient has recurrent symptomatic anemia due to iron deficiency. Patient has multiple reasons for microscopic blood loss. It is also suspected the patient does not absorb iron well. She denies any recent hematochezia or melena. Will send stool for occult blood testing once patient produces a specimen. Will administer is 2 units of packed red blood cells and will finish infusing Venofer 500 mg IV x1. Will repeat CBC after 2nd unit of blood transfusion. The patient denies any GERD her upper GI symptoms but does have a history of gastritis and ulcers in the past. Will air on the side of extreme caution in place patient on Protonix p.o. daily. Patient does have essential hypertension that is uncontrolled due to patient's inability to afford medications. She states even fiber 10 dollars a month is more than she can not afford for medications at this point. Will place care coordination consult to see if patient may qualify for Medicaid or financial coordinator. She has been avoiding seeking medical care earlier in her symptomatology due to her inability to afford ER/doctor visits. The importance of early intervention when symptomatology developed was discussed with the patient because if he ate come to the ER or provider sooner she could of cotton iron infusions and or blood transfusion as an outpatient basis instead of the cost for an inpatient hospital stay. Patient verbalized understanding. MEDICAL DECISION MAKING NARRATIVE -Spoke with the ED provider in detail regarding patient's evaluation, workup and management -Patient seen and examined at bedside -Collaborated with patient's nurse at the bedside in detail and addressed all concerns -Labs, electrolytes, radiology, investigations and test results personally reviewed and interpreted unless otherwise specified -ED/Consult/Nursing/Ancilliary notes on the chart reviewed and appreciated -Spoke with patient at bedside and diagnosis and plan of care was discussed. All questions answered. Quality VTE Prophylaxis VTE prophylaxis: mechanical ordered (SCDs) Hospitalist MIPS Advance Care Plan I have confirmed that the patient's Advanced Care Plan is present, code status is documented, or surrogate decision maker is listed in patient medical record.: Yes Medication Reconciliation I have utilized all available resources to obtain, update and review the patients current medications (includes all prescriptions, OTC, herbals, cannabis, and nutritional supplements).: Yes
[2025-08-30] MEDS: FERROUS SULFATE 325 MG TABLET BY MOUTH ×2 (08:42→16:35)
[2025-08-30] MEDS: PANTOPRAZOLE 40 MG TABLET PO (08:42)
--- NOTE | 2025-08-30 08:56 | PM.IMPN ---
Progress Note: A&P Assessment and Plan (1) Symptomatic anemia: Code(s): D64.9 - Anemia, unspecified Status: Acute Assessment and Plan: Patient has recurrent symptomatic anemia due to iron deficiency. Patient has multiple reasons for microscopic blood loss. It is also suspected the patient does not absorb iron well. She denies any recent hematochezia or melena. Will send stool for occult blood testing once patient produces a specimen. Will administer is 2 units of packed red blood cells and will finish infusing Venofer 500 mg IV x1. Will repeat CBC after 2nd unit of blood transfusion. The patient denies any GERD her upper GI symptoms but does have a history of gastritis and ulcers in the past. Will air on the side of extreme caution in place patient on Protonix p.o. daily. 08/30: -Pt admitted with a hgb of 4.8, x2 units RBCs ordered as well as 500 venofer, currently receiving both, will repeat CBC once completed. Hgb recheck 7.4, will continue to monitor. -Pt reports that she no longer has health insurance and has not been able to take her medications, except she does report compliance with her iron BID, no recent f/u with heme. -GI consult today, appreciate their recs (2) Blood transfusion during current hospitalisation: Status: Acute Assessment and Plan: See above. (3) Iron deficiency anemia: Qualifiers: Iron deficiency anemia type: unspecified iron deficiency Qualified Code(s): D50.9 - Iron deficiency anemia, unspecified Code(s): D50.9 - Iron deficiency anemia, unspecified Status: Acute Assessment and Plan: See above. (4) Essential hypertension: Code(s): I10 - Essential (primary) hypertension Status: Chronic Assessment and Plan: Patient does have essential hypertension that is uncontrolled due to patient's inability to afford medications. She states even fiber 10 dollars a month is more than she can not afford for medications at this point. Will place care coordination consult to see if patient may qualify for Medicaid or director financial services. She has been avoiding seeking medical care earlier in her symptomatology due to her inability to afford ER/doctor visits. The importance of early intervention when symptomatology developed was discussed with the patient because if he ate come to the ER or provider sooner she could of cotton iron infusions and or blood transfusion as an outpatient basis instead of the cost for an inpatient hospital stay. Patient verbalized understanding. 08/30: BP 174/68 this AM, will place hydral orders PRN, this reading was before AM lisinopril administration -Pt also supposed to be taking Losartan as well, will continue to monitor VS and add as needed -BP recheck of 150/74. (5) Gastroesophageal reflux disease: Qualifiers: Esophagitis presence: esophagitis presence not specified Qualified Code(s): K21.9 - Gastro-esophageal reflux disease without esophagitis Code(s): K21.9 - Gastro-esophageal reflux disease without esophagitis Status: Acute Assessment and Plan: Denies current sx, placed on daily pantoprazole (6) Urinary frequency: Code(s): R35.0 - Frequency of micturition Status: Acute Assessment and Plan: Later in the day, pt reports to the nurse urinary frequency and felt that she was not emptying her bladder completely. -UA w/UC reflex ordered, pending Plan Revive hgb and continue to trend, control HTN, GI consult Time Spent With Patient Time: 35 Subjective Date/time seen: 08/30/25 1100 Interval history: Pt to the ED for increased faitgue. She has had low hgb before, and was feeling the same way when she came in. Hgb found to be at 4.8. [id number] PRBCs transfused as well as 500ml of Venofer. Repeat hgb 7.4, will continue to trend. Pt reports that her fatigue has improved. Pt denies any other sx. Later in the day, pt reports to the nurse urinary frequency and felt that she was not emptying her bladder completely. Review of Systems Review of Systems: 12 systems were reviewed with pertinent positives and negatives per HPI. Except as documented in the HPI, all other systems were reviewed and are negative. Exam Narrative: Weight 97.8 kg BMI 37 Const: Other: Obese, no acute distress HENMT: Other: Mucous membranes are moist, crowded posterior oropharynx, no oral pharyngeal erythema, fair dentition Eyes: Other: Positive conjunctival pallor, no scleral icterus, pupils are equal and reactive Neck: Other: Large neck circumference, no JVD Resp: Other: Clear to auscultation bilaterally, no increased work of breathing Cardio: Other: 2+ bilateral radial and pedal pulses, no murmur no JVD GI: Other: Obese, soft, nontender, no organomegaly Skin: Other: Generalized pallor, non jaundice, no petechiae, no unusual bruising Neuro: Other: Alert oriented x4, speech is clear, no facial asymmetry Extrem: Other: No clubbing, cyanosis or edema Psych: Other: Appropriate mood and affect, pleasant and cooperative, judgment and insight intact Objective Data Vital Signs Vital Signs: Vital Signs - 24 hr 08/30/25 00:49 08/30/25 02:55 08/30/25 03:12 Temperature 98.0 F 98.4 F 98.2 F Pulse Rate 99 100 93 Respiratory Rate 18 20 18 Blood Pressure 155/76 H 165/65 H 175/78 H Pulse Oximetry 99 97 100 Oxygen Delivery Room Air 08/30/25 03:12 08/30/25 03:35 08/30/25 04:00 Temperature 98.0 F 98.0 F Pulse Rate 97 97 93 Respiratory Rate 20 20 Blood Pressure 190/65 H 190/65 H Pulse Oximetry 96 96 Oxygen Delivery 08/30/25 04:03 08/30/25 04:12 08/30/25 04:12 Temperature 98.0 F 98 F Pulse Rate 97 93 93 Respiratory Rate 20 20 20 Blood Pressure 149/71 H 149/71 H Pulse Oximetry 96 94 94 Oxygen Delivery Room Air 08/30/25 04:30 08/30/25 05:08 08/30/25 05:22 Temperature 97.8 F 97.8 F 97.9 F Pulse Rate 89 89 91 Respiratory Rate 20 20 18 Blood Pressure 183/71 H 183/71 H 186/74 H Pulse Oximetry 95 95 95 Oxygen Delivery 08/30/25 05:25 08/30/25 06:25 08/30/25 07:25 Temperature 97.8 F 97.8 F 97.7 F Pulse Rate 83 83 80 Respiratory Rate 20 20 18 Blood Pressure 155/76 H 155/76 H 174/67 H Pulse Oximetry 96 96 95 Oxygen Delivery 08/30/25 08:20 08/30/25 08:46 Temperature 97.8 F 97.8 F Pulse Rate 91 86 Respiratory Rate 18 20 Blood Pressure 143/56 H 174/68 H Pulse Oximetry 94 95 Oxygen Delivery Intake/Output Intake/Output: Intake & Output 08/27/25 08/28/25 08/29/25 08/30/25 23:59 23:59 23:59 23:59 Intake Total 1364.2 Balance 1364.2 Meds/Results Medications: Active Medications Generic Name Dose Route Start Last Admin Trade Name Freq PRN Reason Stop Dose Admin Albuterol/Ipratropium 3 ml 08/30/25 05:15 Ipratropium 0.5 Mg/Albuterol Sulfate 2.5 Mg (Base) Ampul.Neb 3 Ml NEBULIZE Q4H PRN Shortness Of Breath Or Wheezing Ferrous Sulfate 325 mg 08/30/25 08:00 08/30/25 08:42 Ferrous Sulfate 325 Mg Tablet BY MOUTH 325 mg BIDWM CATHY Administration Hydroxyzine HCl 50 mg 08/30/25 05:15 08/30/25 08:42 Hydroxyzine Hcl 25 Mg Tablet PO 50 mg QID PRN Administration Anxiety Sodium Chloride 250 mls @ 30 mls/hr 08/30/25 01:40 08/30/25 03:00 Normal Saline Iv IV CONT 08/30/25 09:59 30 mls/hr .[id number] STA Administration Lisinopril 30 mg 08/30/25 09:00 08/30/25 08:43 Lisinopril 10 Mg Tablet PO 30 mg DAILY CATHY Administration Ondansetron HCl 4 mg 08/30/25 06:39 Ondansetron Inj 4 Mg/2 Ml Vial IV PUSH Q6H PRN Nausea And Vomiting Pantoprazole Sodium 40 mg 08/30/25 09:00 08/30/25 08:42 Pantoprazole 40 Mg Tablet PO 40 mg QAM CATHY Administration Radiology Results: ITS Impressions Chest X-Ray 08/30/25 07:37 Impression: 1: Large hiatal hernia. Labs Labs: Laboratory Results - last 24 hr 08/30/25 01:15 WBC 5.7 RBC 3.66 L Hgb 4.8 L* D Hct 20.0 L* MCV 54.6 L MCH 13.1 L MCHC 24.0 L RDW 26.7 H Plt Count 285 MPV TNP Immature Gran % (Auto) 1.4 H Neut % (Auto) 62.3 Lymph % (Auto) 27.7 [place] % (Auto) 7.7 Eos % (Auto) 0.0 Baso % (Auto) 0.9 Lymph # (Auto) 1.58 [place] # (Auto) 0.4 Eos # (Auto) 0.0 Baso # (Auto) 0.1 Abs Immat Gran (auto) 0.08 H Absolute Neuts (auto) 3.6 Absolute Nucleated RBC 0.050 H Band Neutrophils % Not Reportable Nucleated RBC % 0.9 H Platelet Estimate Adequate Hypochromasia 3+ Anisocytosis 2+ Target Cells Occasional Ovalocytes 1+ Schistocytes Rare Sodium 137 Potassium 3.6 Chloride 102 Carbon Dioxide 28 Anion Gap 7 BUN 17 Creatinine 0.69 L Estim Creat Clear Calc 91 Estimated GFR > 60 Glucose 111 H Calcium 8.7 Total Bilirubin 0.4 AST 22 ALT 17 Alkaline Phosphatase 94 Troponin I < 0.012 Total Protein 7.1 Albumin 3.9 Blood Type O Positive Antibody Screen Negative Crossmatch See Detail Quality VTE Prophylaxis VTE prophylaxis: mechanical ordered (SCDs)
[2025-08-30 12:19] LABS: Hematocrit 27.0 % (37.0-47.0); Hemoglobin 7.4 g/dL (12.0-15.0); Immature Platelet Fraction Pct 5.2 % (0.9-11.2); Mean Corpuscular HGB Conc 27.4 g/dl (32-36); Mean Corpuscular Hemoglobin 16.7 pg (26-34); Mean Corpuscular Volume 60.9 fl (80-100); Platelet Count Result 248 k/mm3 (150-375); Red Blood Count 4.43 M/mm3 (4.2-5.4); White Blood Count 6.2 K/mm3 (4.5-10.0)
--- NOTE | 2025-08-30 16:47 | WPDGICN ---
Assessment and Plan Assessment and plan (1) Acute on chronic anemia: Code(s): D64.9 - Anemia, unspecified Status: Acute Assessment and Plan: s/p blood transfusion to get hgb above 7 will do egd and colonoscopy tomorrow also will need follow up with manager transfusion again (2) Thalassemia: Qualifiers: Thalassemia type: minor Qualified Code(s): D56.3 - Thalassemia minor Code(s): D56.9 - Thalassemia, unspecified Status: Chronic (3) Hypertension: Onset Date: Unknown Qualifiers: Hypertension type: primary hypertension Qualified Code(s): I10 - Essential (primary) hypertension Code(s): I10 - Essential (primary) hypertension Status: Chronic (4) Hiatal hernia: Code(s): K44.9 - Diaphragmatic hernia without obstruction or gangrene Status: Chronic Assessment and Plan: noted last time egd tomorrow GI Consult Note Consult date/time: 08/30/25 16:47 Reason for consult: acute on chronic anemia HPI: Michell Ortiz is a 55 year old female with history of iron deficiency anemia and thalassemia minor who has seen hematology at [facility] and required blood transfusion (no recent follow-up though). Had EGD 2019 with small linear ulcers in gastric body also large hiatal hernia, repeat egd 3 years ago no signs of bleeding. She had SB capsule endoscopy years ago and apparently no major findings, also colonoscopy. She was last hospitalized for symptomatic iron deficiency anemia in June of 2024 at which time she received iron infusion with 500 mg of Venofer and 3 units of packed red blood cells. Here with progressive fatigue and dyspnea on exertion for last few weeks, again with symptomatic anemia, denies overt gib. Better after transfusion. hgb 4.8 on admission. Review of Systems Constitutional: Constitutional: Reports fatigue and Reports lethargy Eyes: Eyes: Denies blurry vision ENT: Reports Normal hearing present Cardiovascular: Cardiovascular: Denies leg edema Respiratory: Respiratory: Reports dyspnea on exertion Gastrointestinal: Gastrointestinal: Denies melena Genitourinary: Genitourinary: Denies dysuria Musculoskeletal: Musculoskeletal: Denies neck pain Integumentary/Breasts: Skin/Breast: Denies rash Neurologic: Denies Abnormal speech present Psychiatric: Psychiatric: Denies behavioral changes [facility] Past Medical History Medical History (Updated 08/30/25 @ 15:25 by Shanta Wall APRN) Iron deficiency anemia Diastolic dysfunction Without history of CHF noted on echocardiogram 201920. Grade 1 dysfunction with normal ejection fraction. Pre-diabetes Hemoglobin A1c of 6.4% noted on labs December 2018 Osteopenia determined by x-ray Gastric ulcer Depression with anxiety Obstructive sleep apnea (Unknown) Patient reports symptoms have resolved since she has had a 30+ kilos weight loss since 2018 Duodenal arteriovenous malformation Hiatal hernia Gastroesophageal reflux disease Hypertension Thalassemia minor Moderate persistent asthma Surgical History Surgical History History of esophagogastroduodenoscopy (EGD) (09/2020) Demonstrated hiatal hernia and unspecified gastric ulcer History of colonoscopy with polypectomy (09/2020) History of cholecystectomy History of total abdominal hysterectomy and bilateral salpingo-oophorectomy History of endometrial ablation Family History Family History Father , in 2023 Family history of atrial fibrillation Diabetes mellitus Hypertension S/P CABG (coronary artery bypass graft) Sibling Asthma Diabetes mellitus Prostate carcinoma Mother , age 68 Chronic obstructive pulmonary disease Diabetes mellitus Grandparent Cerebrovascular accident Congestive heart failure Family history of atrial fibrillation Social History Social History (Updated 08/30/25 @ 05:26 by Nikki Ledbetter DO) Social History: She reports that she is now since April 2024. She has 2 adult children. She quit smoking in 2006. She denies significant alcohol use in fact she states she hates the taste of alcohol. Surrogate decision maker: Antelmo Huffman (son) Code status: Full code. Smoking packs per day: 0.5 Smoking cigarettes per day: 10.0 Years smoked: 20 Smoking pack-years: 10.00 Smoking status: Former smoker Second hand tobacco smoke exposure: Yes Alcohol intake: current Drinks per week: 1 Alcohol use details: very rare use Substance use: never Substance use type: marijuana Other substance usage details: THC gummies Last use: 01/20/22 Do You Feel Safe in your Home?: Yes Lack of Transportation: No Lack of Food: Never True Current Housing: I Have Housing Concerned About Future Housing: No Difficulty Paying Gas/Electric Bills: YES Difficulty Paying for Meds: YES Currently Unemployed: No Education: High School Diploma/GED Difficulty w/ Childcare or Family Care: No Living arrangements: with family Occupation/Education: occupation Additional occupation/education comments: Works at [employer]. 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 Gender identity (if verbalized by the patient): Female Sexual Orientation (if Verbalized by the Patient): Straight or Heterosexual Spiritual care concerns: No Meds Home Medications and Allergies Home Medications ?Medication ?Instructions ?Recorded ?Confirmed ?Type fluticasone propionate 50 1 spray intranasal DAILY 05/19/20 08/30/25 History mcg/actuation nasal spray,suspension (Flonase Allergy Relief) hydroxyzine HCl 50 mg tablet 50 mg PO QID PRN anxiety #20 tabs 10/07/23 08/30/25 Rx ipratropium 0.5 mg-albuterol 3 mg See Rx Instructions .Route 04/04/24 08/30/25 History (2.5 mg base)/3 mL nebulization .COMPLEX PRN sob soln omeprazole magnesium 20 mg 20 mg PO DAILY 04/04/24 08/30/25 History tablet,delayed release (Prilosec OTC) albuterol sulfate 90 mcg/actuation 2 puff inhalation Q4H PRN 06/09/24 08/30/25 Rx aerosol inhaler shortness of breath or wheezing #8.5 grams escitalopram oxalate 20 mg tablet 20 mg PO DAILY 06/17/24 08/30/25 History lisinopril 30 mg tablet 30 mg PO DAILY 06/17/24 08/30/25 History ferrous sulfate 325 mg (65 mg 325 mg BYMOUTH BIDWM #60 tabs 06/19/24 08/30/25 Rx iron) tablet,delayed release losartan 50 mg tablet (Cozaar) 50 mg PO DAILY #30 tabs 06/19/24 08/30/25 Rx Allergies Allergy/AdvReac Type Severity Reaction Status Date / Time mold Allergy Intermediate Dyspnea / Verified 08/30/25 03:38 SOB tree and shrub pollen Allergy Intermediate Itching Verified 08/30/25 03:38 Grass Allergy Unknown Itching Uncoded 08/30/25 03:38 Vital Signs Vital Signs - 24 hr 08/30/25 00:49 08/30/25 02:55 08/30/25 03:12 Temperature 98.0 F 98.4 F 98.2 F Pulse Rate 99 100 93 Respiratory Rate 18 20 18 Blood Pressure 155/76 H 165/65 H 175/78 H Pulse Oximetry 99 97 100 Oxygen Delivery Room Air 08/30/25 03:12 08/30/25 03:35 08/30/25 04:00 Temperature 98.0 F 98.0 F Pulse Rate 97 97 93 Respiratory Rate 20 20 Blood Pressure 190/65 H 190/65 H Pulse Oximetry 96 96 Oxygen Delivery 08/30/25 04:03 08/30/25 04:12 08/30/25 04:12 Temperature 98.0 F 98 F Pulse Rate 97 93 93 Respiratory Rate 20 20 20 Blood Pressure 149/71 H 149/71 H Pulse Oximetry 96 94 94 Oxygen Delivery Room Air 08/30/25 04:30 08/30/25 05:08 08/30/25 05:22 Temperature 97.8 F 97.8 F 97.9 F Pulse Rate 89 89 91 Respiratory Rate 20 20 18 Blood Pressure 183/71 H 183/71 H 186/74 H Pulse Oximetry 95 95 95 Oxygen Delivery 08/30/25 05:25 08/30/25 06:25 08/30/25 07:25 Temperature 97.8 F 97.8 F 97.7 F Pulse Rate 83 83 80 Respiratory Rate 20 20 18 Blood Pressure 155/76 H 155/76 H 174/67 H Pulse Oximetry 96 96 95 Oxygen Delivery 08/30/25 08:00 08/30/25 08:20 08/30/25 08:45 Temperature 97.8 F Pulse Rate 83 91 Respiratory Rate 18 Blood Pressure 143/56 H Pulse Oximetry 94 Oxygen Delivery Room Air 08/30/25 08:46 08/30/25 12:00 08/30/25 12:00 Temperature 97.8 F 97.8 F Pulse Rate 86 98 88 Respiratory Rate 20 19 Blood Pressure 174/68 H 150/74 H Pulse Oximetry 95 95 Oxygen Delivery 08/30/25 16:00 Temperature Pulse Rate 84 Respiratory Rate Blood Pressure Pulse Oximetry Oxygen Delivery Exam Const: General: comfortable HENMT: Face/Nose/Sinus: Normal nares present Eyes: Other: Positive conjunctival pallor, no scleral icterus, pupils are equal and reactive Neck: Neck: supple Resp: Effort & Inspection: normal respiratory effort Auscultation: clear to auscultation bilaterally Cardio: Rate: regular rate GI: GI Palp: Yes Soft to palpation and No Tenderness to palpation present (GI) Auscultation: normal bowel sounds Skin: Other: Generalized pallor, non jaundice, no petechiae, no unusual bruising Neuro: Motor exam (neuro): 5/5 motor strength present throughout Other: Alert oriented x4, speech is clear, no facial asymmetry Extrem: Other: No clubbing, cyanosis or edema Psych: Other: Appropriate mood and affect, pleasant and cooperative, judgment and insight intact Results Labs 08/30/25 11:53 08/30/25 01:15 Labs: Short CBC 08/30/25 08/30/25 Range/Units 01:15 11:53 WBC 5.7 6.2 (4.5-10.0) K/mm3 Hgb 4.8 L* D 7.4 L (12.0-15.0) g/dL Hct 20.0 L* 27.0 L (37.0-47.0) % Plt Count 285 248 (150-375) k/mm3 BMP 08/30/25 01:15 Sodium 137 Potassium 3.6 Chloride 102 Carbon Dioxide 28 BUN 17 Creatinine 0.69 L Glucose 111 H Calcium 8.7 Cardiac Enzymes 08/30/25 Range/Units 01:15 Troponin I < 0.012 (0.000-0.034) ng/mL Liver Function 08/30/25 Range/Units 01:15 Total Bilirubin 0.4 (0.2-1.3) mg/dL AST 22 (14-36) U/L ALT 17 (6-35) U/L Alkaline Phosphatase 94 (38-126) U/L Albumin 3.9 (3.5-5.1) g/dL
[2025-08-30] MEDS: BISACODYL 5 MG TABLET EC 20 MG PO (18:08)
[2025-08-30 18:28] LABS: Add Urine Microscopic? YES; Appearance Urine Clear (Clear); Glucose Urine UA Negative (Negative); Leukocyte Esterase Ur Trace LEU/UL (Negative); Nitrate Urine Negative (Negative); Non Pathogenic Casts 0-2; Specific Grav Ur 1.008 (1.001-1.035)
[2025-08-31] VITALS (13 sets, daily range): BP systolic 115–168; BP diastolic 59–83; PULSE 79–98; RESP 16–20; TEMP 36.3–36.9; O2SAT 91–98
[2025-08-31] MEDS: MAGNESIUM CITRATE 300 ML BTL PO (00:12)
[2025-08-31 04:49] LABS: Hematocrit 28.3 % (37.0-47.0); Hemoglobin 7.5 g/dL (12.0-15.0); Immature Granulocyte Percent A 1.2 % (0-0.5); Immature Platelet Fraction Pct 5.6 % (0.9-11.2); Lymphocytes Absolute Auto 1.25 K/mm3 (0.9-3.2); Mean Corpuscular HGB Conc 26.5 g/dl (32-36); Mean Corpuscular Hemoglobin 16.3 pg (26-34); Mean Corpuscular Volume 61.5 fl (80-100); Nucleated Red Blood Cells Absolute Auto 0.120 K/mm3 (0.0-0.012); Nucleated Red Blood Cells Perc 1.8 % (0.0-0.2); Platelet Count Result 252 k/mm3 (150-375); Red Blood Count 4.60 M/mm3 (4.2-5.4); White Blood Count 6.7 K/mm3 (4.5-10.0)
[2025-08-31 05:18] LABS: Anisocytosis 2+; Ovalocytes 1+
[2025-08-31 05:19] LABS: Hypochromasia 2+; Polychromasia Occasional; Schistocytes None Seen; Target Cells 1+
[2025-08-31 05:21] LABS: Alanine Aminotransferase 15 U/L (6-35); Albumin Level 3.7 g/dL (3.5-5.1); Alkaline Phosphatase 105 U/L (38-126); Anion Gap 8 mmol/L (4-12); Aspartate Amino Transferase 25 U/L (14-36); Bilirubin,Total 0.5 mg/dL (0.2-1.3); Blood Urea Nitrogen 10 mg/dL (7-17); Calcium 8.9 mg/dL (8.4-10.2); Carbon Dioxide 28 mmol/L (22-30); Chloride 102 mmol/L (98-107); Estimated CRCL calculation 94 ml/min; Estimated Glomerular Filt Rate > 60; Glucose 97 mg/dL (65-110); Potassium 3.4 mmol/L (3.4-5.0); Sodium 138 mmol/L (137-145); Total Protein 6.8 g/dL (6.3-8.2)
--- NOTE | 2025-08-31 06:41 | PC.NURSE ---
pt completed all of prep for colonoscopy today without difficulty. she will go around today.
[2025-08-31] MEDS: PANTOPRAZOLE 40 MG TABLET PO (08:02)
[2025-08-31] MEDS: FERROUS SULFATE 325 MG TABLET BY MOUTH ×2 (08:02→16:47)
--- NOTE | 2025-08-31 08:21 | P.PNIM_ITS ---
Progress Note: A&P Assessment and Plan (1) Symptomatic anemia: Code(s): D64.9 - Anemia, unspecified Status: Acute Assessment and Plan: Patient has recurrent symptomatic anemia due to iron deficiency. Patient has multiple reasons for microscopic blood loss. It is also suspected the patient does not absorb iron well. She denies any recent hematochezia or melena. Will send stool for occult blood testing once patient produces a specimen. Will administer is 2 units of packed red blood cells and will finish infusing Venofer 500 mg IV x1. Will repeat CBC after 2nd unit of blood transfusion. The patient denies any GERD her upper GI symptoms but does have a history of gastritis and ulcers in the past. Will air on the side of extreme caution in place patient on Protonix p.o. daily. * Pt admitted with a hgb of 4.8, x2 units RBCs ordered as well as 500 venofer, currently receiving both, will repeat CBC once completed. Hgb recheck 7.4, will continue to monitor. * Pt reports that she no longer has health insurance and has not been able to take her medications, except she does report compliance with her iron BID, no recent f/u with heme. * GI consult * EGD/Colonoscopy today * Symptomatic anemia * Paco lesions - could explain chronic blood loss * Gen surg outpt consult for hiatal hernia * Heme/onc consult * H&H stable today - will want to monitor one more day given extensive deficiency upon admission (2) Blood transfusion during current hospitalisation: Status: Acute Assessment and Plan: See above. (3) Iron deficiency anemia: Qualifiers: Iron deficiency anemia type: unspecified iron deficiency Qualified Code(s): D50.9 - Iron deficiency anemia, unspecified Code(s): D50.9 - Iron deficiency anemia, unspecified Status: Acute Assessment and Plan: See above. (4) Essential hypertension: Code(s): I10 - Essential (primary) hypertension Status: Chronic Assessment and Plan: Patient does have essential hypertension that is uncontrolled due to patient's inability to afford medications. She states even fiber 10 dollars a month is more than she can not afford for medications at this point. Will place care coordination consult to see if patient may qualify for Medicaid or financial report service sales agent. She has been avoiding seeking medical care earlier in her symptomatology due to her inability to afford ER/doctor visits. The importance of early intervention when symptomatology developed was discussed with the patient because if he ate come to the ER or provider sooner she could of cotton iron infusions and or blood transfusion as an outpatient basis instead of the cost for an inpatient hospital stay. Patient verbalized understanding. 08/31: BP 174/68 this AM, will place * Hydralazine orders PRN * Lisinopril, Losartan * 144/64 (5) Gastroesophageal reflux disease: Qualifiers: Esophagitis presence: esophagitis presence not specified Qualified Code(s): K21.9 - Gastro-esophageal reflux disease without esophagitis Code(s): K21.9 - Gastro-esophageal reflux disease without esophagitis Status: Acute Assessment and Plan: * Denies current sx, placed on daily pantoprazole (6) Urinary frequency: Code(s): R35.0 - Frequency of micturition Status: Acute Assessment and Plan: * Later in the day, pt reports to the nurse urinary frequency and felt that she was not emptying her bladder completely. * UA w/UC reflex ordered, pending Subjective Date/time seen: 08/31/25 08:21 Interval history: Pt to the ED for increased faitgue. She has had low hgb before, and was feeling the same way when she came in. Hgb found to be at 4.8. m2ikmur PRBCs transfused as well as 500ml of Venofer. Repeat hgb 7.4, will continue to trend. Pt reports that her fatigue has improved. Pt denies any other sx. 08/31/2025 Patient sitting comfortably in bed at time of examination. Just came back from EGD/Colonoscope - no evidence of acute bleeding. Recommend Gen surg outpt consult for hiatal hernia. H&H remains stable, however hgb only 7.5, will want to continue monitoring until tomorrow. Pt very drowsy and tired after procedure but otherwise has no complaints. Heme/onc consult as patient has had issues seeing Operator in the outpt setting. Review of Systems Review of Systems: 12 systems were reviewed with pertinent positives and negatives per HPI. Except as documented in the HPI, all other systems were reviewed and are negative. Exam Narrative: Weight 97.8 kg BMI 37 Const: Other: Obese, no acute distress HENMT: Other: Mucous membranes are moist, crowded posterior oropharynx, no oral pharyngeal erythema, fair dentition Eyes: Other: Positive conjunctival pallor, no scleral icterus, pupils are equal and reactive Neck: Other: Large neck circumference, no JVD Resp: Other: Clear to auscultation bilaterally, no increased work of breathing Cardio: Other: 2+ bilateral radial and pedal pulses, no murmur no JVD GI: Other: Obese, soft, nontender, no organomegaly Skin: Other: Generalized pallor, non jaundice, no petechiae, no unusual bruising Neuro: Other: Alert oriented x4, speech is clear, no facial asymmetry Extrem: Other: No clubbing, cyanosis or edema Psych: Other: Appropriate mood and affect, pleasant and cooperative, judgment and insight intact Objective Data Vital Signs Vital Signs: Vital Signs - 24 hr 08/30/25 08:45 08/30/25 08:46 08/30/25 12:00 Temperature 97.8 F Pulse Rate 86 98 Respiratory Rate 20 Blood Pressure 174/68 H Pulse Oximetry 95 Oxygen Delivery Room Air 08/30/25 12:00 08/30/25 16:00 08/30/25 16:00 Temperature 97.8 F 97.7 F Pulse Rate 88 84 84 Respiratory Rate 19 18 Blood Pressure 150/74 H 147/50 H Pulse Oximetry 95 99 Oxygen Delivery 08/30/25 19:36 08/30/25 20:00 08/31/25 00:00 Temperature 98.0 F 98.2 F Pulse Rate 94 84 90 Respiratory Rate 17 18 Blood Pressure 152/69 H 150/70 H Pulse Oximetry 93 95 Oxygen Delivery 08/31/25 00:00 08/31/25 03:33 08/31/25 04:00 Temperature 97.6 F Pulse Rate 91 87 98 Respiratory Rate 17 Blood Pressure 144/64 H Pulse Oximetry 91 Oxygen Delivery 08/31/25 08:00 Temperature Pulse Rate Respiratory Rate Blood Pressure Pulse Oximetry Oxygen Delivery Room Air Intake/Output Intake/Output: Intake & Output 08/28/25 08/29/25 08/30/25 08/31/25 23:59 23:59 23:59 23:59 Intake Total 2569.5 Balance 2569.5 Meds/Results Medications: Active Medications Generic Name Dose Route Start Last Admin Trade Name Freq PRN Reason Stop Dose Admin Albuterol/Ipratropium 3 ml 08/30/25 05:15 Ipratropium 0.5 Mg/Albuterol Sulfate 2.5 Mg (Base) Ampul.Neb 3 Ml NEBULIZE Q4H PRN Shortness Of Breath Or Wheezing Ferrous Sulfate 325 mg 08/30/25 08:00 08/31/25 08:02 Ferrous Sulfate 325 Mg Tablet BY MOUTH 325 mg BIDWM CATHY Administration Hydralazine HCl 10 mg 08/30/25 09:20 Hydralazine Hcl 20 Mg/Ml Vial IV PUSH Q6H PRN Blood Pressure - High Hydroxyzine HCl 50 mg 08/30/25 05:15 08/30/25 08:42 Hydroxyzine Hcl 25 Mg Tablet PO 50 mg QID PRN Administration Anxiety Lisinopril 30 mg 08/30/25 09:00 08/31/25 08:02 Lisinopril 10 Mg Tablet PO 30 mg DAILY CATHY Administration Ondansetron HCl 4 mg 08/30/25 06:39 Ondansetron Inj 4 Mg/2 Ml Vial IV PUSH Q6H PRN Nausea And Vomiting Pantoprazole Sodium 40 mg 08/30/25 09:00 08/31/25 08:02 Pantoprazole 40 Mg Tablet PO 40 mg QAM CATHY Administration Radiology Results: ITS Impressions Chest X-Ray 08/30/25 07:37 Impression: 1: Large hiatal hernia. Labs Labs: Laboratory Results - last 24 hr 08/30/25 08/30/25 08/30/25 01:15 11:53 18:17 WBC 6.2 RBC 4.43 Hgb 7.4 L Hct 27.0 L MCV 60.9 L D MCH 16.7 L D MCHC 27.4 L RDW 32.8 H Plt Count 248 MPV TNP Immature Gran % (Auto) Neut % (Auto) Lymph % (Auto) [place] % (Auto) Eos % (Auto) Baso % (Auto) Lymph # (Auto) [place] # (Auto) Eos # (Auto) Baso # (Auto) Abs Immat Gran (auto) Absolute Neuts (auto) Absolute Nucleated RBC Band Neutrophils % Nucleated RBC % Platelet Estimate % Immature Plt Fraction 5.2 Polychromasia Hypochromasia Anisocytosis Target Cells Ovalocytes Schistocytes Sodium Potassium Chloride Carbon Dioxide Anion Gap BUN Creatinine Estim Creat Clear Calc Estimated GFR Glucose Calcium Total Bilirubin AST ALT Alkaline Phosphatase Total Protein Albumin Urine Color Yellow Urine Appearance Clear Urine pH 6.0 Ur Specific [place] 1.008 Urine Protein 1+ H Urine Glucose (UA) Negative Urine Ketones Negative Ur Blood (Man) Negative Urine Nitrate Negative Urine Bilirubin Negative Urine Urobilinogen 0.2 Leukocyte Esterase Rfl Trace H Urine RBC 0-2 Urine WBC 6-10 H Ur Squamous Epith Cells None seen Urine Bacteria None seen Urine Casts 0-2 Crossmatch See Detail 08/31/25 08/31/25 04:06 04:07 WBC 6.7 RBC 4.60 Hgb 7.5 L Hct 28.3 L MCV 61.5 L MCH 16.3 L MCHC 26.5 L RDW 33.1 H Plt Count 252 MPV TNP Immature Gran % (Auto) 1.2 H Neut % (Auto) 70.9 Lymph % (Auto) 18.8 [place] % (Auto) 7.7 Eos % (Auto) 0.5 Baso % (Auto) 0.9 Lymph # (Auto) 1.25 [place] # (Auto) 0.5 Eos # (Auto) 0.0 Baso # (Auto) 0.1 Abs Immat Gran (auto) 0.08 H Absolute Neuts (auto) 4.7 Absolute Nucleated RBC 0.120 H Band Neutrophils % Not Reportable Nucleated RBC % 1.8 H Platelet Estimate Adequate % Immature Plt Fraction 5.6 Polychromasia Occasional Hypochromasia 2+ Anisocytosis 2+ Target Cells 1+ Ovalocytes 1+ Schistocytes None seen Sodium 138 Potassium 3.4 Chloride 102 Carbon Dioxide 28 Anion Gap 8 BUN 10 D Creatinine 0.67 L Estim Creat Clear Calc 94 Estimated GFR > 60 Glucose 97 Calcium 8.9 Total Bilirubin 0.5 AST 25 ALT 15 Alkaline Phosphatase 105 Total Protein 6.8 Albumin 3.7 Urine Color Urine Appearance Urine pH Ur Specific [place] Urine Protein Urine Glucose (UA) Urine Ketones Ur Blood (Man) Urine Nitrate Urine Bilirubin Urine Urobilinogen Leukocyte Esterase Rfl Urine RBC Urine WBC Ur Squamous Epith Cells Urine Bacteria Urine Casts Crossmatch Quality VTE Prophylaxis VTE prophylaxis: mechanical ordered (SCDs)
--- NOTE | 2025-08-31 08:30 | PC.NURSE ---
Patient off floor to GI lab via wheelchair. Report given to Raegan NAIK. No patient complaints at thsi time.
[2025-08-31] MEDS: LACTATED RINGERS 1,000 ML 150 ML IV CONT (08:34)
--- NOTE | 2025-08-31 08:59 | WPDANESEPPF ---
Anes - Initial Pre Proc Eval Procedure: Operation Date: 08/31/25 14:30 Proposed Procedures p EGD & Diagnostic Colonoscopy - José Miguel Nevarez MD Date/Time: 08/31/25 08:59 Surgeon: Nikki Ledbetter DO Pre Op Diagnosis: Anemia Patient Data Age: 55 Gender: F Height: 1.63 m Weight: 97.8 kg Last Vital Signs Temp 36.5 C 08/31/25 08:36 Pulse 93 08/31/25 08:36 Resp 19 08/31/25 08:36 BP 168/83 H 08/31/25 08:36 Pulse Ox 95 08/31/25 08:36 O2 Del Method Room Air 08/31/25 08:36 Allergies Allergy/AdvReac Type Severity Reaction Status Date / Time mold Allergy Intermediate Dyspnea / Verified 08/31/25 08:35 SOB tree and shrub pollen Allergy Intermediate Itching Verified 08/31/25 08:35 Grass Allergy Unknown Itching Uncoded 08/30/25 03:38 Home Medications ?Medication ?Instructions ?Recorded ?Confirmed ?Type fluticasone propionate 50 1 spray intranasal DAILY 05/19/20 08/30/25 History mcg/actuation nasal spray,suspension (Flonase Allergy Relief) hydroxyzine HCl 50 mg tablet 50 mg PO QID PRN anxiety #20 tabs 10/07/23 08/30/25 Rx ipratropium 0.5 mg-albuterol 3 mg See Rx Instructions .Route 04/04/24 08/30/25 History (2.5 mg base)/3 mL nebulization .COMPLEX PRN sob soln omeprazole magnesium 20 mg 20 mg PO DAILY 04/04/24 08/30/25 History tablet,delayed release (Prilosec OTC) albuterol sulfate 90 mcg/actuation 2 puff inhalation Q4H PRN 06/09/24 08/30/25 Rx aerosol inhaler shortness of breath or wheezing #8.5 grams escitalopram oxalate 20 mg tablet 20 mg PO DAILY 06/17/24 08/30/25 History lisinopril 30 mg tablet 30 mg PO DAILY 06/17/24 08/30/25 History ferrous sulfate 325 mg (65 mg 325 mg BYMOUTH BIDWM #60 tabs 06/19/24 08/30/25 Rx iron) tablet,delayed release losartan 50 mg tablet (Cozaar) 50 mg PO DAILY #30 tabs 06/19/24 08/30/25 Rx Laboratory Tests 08/30/25 08/30/25 08/31/25 11:53 18:17 04:06 WBC 6.2 K/mm3 (4.5-10.0) RBC 4.43 M/mm3 (4.2-5.4) Hgb 7.4 L g/dL (12.0-15.0) Hct 27.0 L % (37.0-47.0) MCV 60.9 L D fl (80-100) MCH 16.7 L D pg (26-34) MCHC 27.4 L g/dl (32-36) RDW 32.8 H % (11.5-14.5) Plt Count 248 k/mm3 (150-375) MPV TNP Immature Gran % (Auto) Neut % (Auto) Lymph % (Auto) [place] % (Auto) Eos % (Auto) Baso % (Auto) Lymph # (Auto) [place] # (Auto) Eos # (Auto) Baso # (Auto) Abs Immat Gran (auto) Absolute Neuts (auto) Absolute Nucleated RBC Band Neutrophils % Nucleated RBC % Platelet Estimate % Immature Plt Fraction 5.2 % (0.9-11.2) Polychromasia Hypochromasia Anisocytosis Target Cells Ovalocytes Schistocytes Sodium 138 mmol/L (137-145) Potassium 3.4 mmol/L (3.4-5.0) Chloride 102 mmol/L (98-107) Carbon Dioxide 28 mmol/L (22-30) Anion Gap 8 mmol/L (4-12) BUN 10 D mg/dL (7-17) Creatinine 0.67 L mg/dL (0.7-1.0) Estim Creat Clear Calc 94 ml/min Estimated GFR > 60 (59 - ) Glucose 97 mg/dL (65-110) Calcium 8.9 mg/dL (8.4-10.2) Total Bilirubin 0.5 mg/dL (0.2-1.3) AST 25 U/L (14-36) ALT 15 U/L (6-35) Alkaline Phosphatase 105 U/L (38-126) Total Protein 6.8 g/dL (6.3-8.2) Albumin 3.7 g/dL (3.5-5.1) Urine Color Yellow (Yellow) Urine Appearance Clear (Clear) Urine pH 6.0 (5.0-9.0) Ur Specific [place] 1.008 (1.001-1.035) Urine Protein 1+ H mg/dL (Negative) Urine Glucose (UA) Negative mg/dL (Negative) Urine Ketones Negative mg/dL (Negative) Ur Blood (Man) Negative (Negative) Urine Nitrate Negative (Negative) Urine Bilirubin Negative (Negative) Urine Urobilinogen 0.2 mg/dL (<2.0) Leukocyte Esterase Rfl Trace H ROBERTA/UL (Negative) Urine RBC 0-2 /hpf (0-2) Urine WBC 6-10 H /hpf (0-3) Ur Squamous Epith Cells None seen /hpf (Few) Urine Bacteria None seen /hpf Urine Casts 0-2 08/31/25 04:07 WBC 6.7 K/mm3 (4.5-10.0) RBC 4.60 M/mm3 (4.2-5.4) Hgb 7.5 L g/dL (12.0-15.0) Hct 28.3 L % (37.0-47.0) MCV 61.5 L fl (80-100) MCH 16.3 L pg (26-34) MCHC 26.5 L g/dl (32-36) RDW 33.1 H % (11.5-14.5) Plt Count 252 k/mm3 (150-375) MPV TNP Immature Gran % (Auto) 1.2 H % (0-0.5) Neut % (Auto) 70.9 % (45.5-73.1) Lymph % (Auto) 18.8 % (18.3-44.2) [place] % (Auto) 7.7 % (2.6-8.5) Eos % (Auto) 0.5 % (0-4.4) Baso % (Auto) 0.9 % (0.2-1.2) Lymph # (Auto) 1.25 K/mm3 (0.9-3.2) [place] # (Auto) 0.5 K/mm3 (0.1-0.6) Eos # (Auto) 0.0 K/mm3 (0-0.3) Baso # (Auto) 0.1 K/mm3 (0.0-0.1) Abs Immat Gran (auto) 0.08 H K/mm3 (0.00-0.031) Absolute Neuts (auto) 4.7 K/mm3 (1.3-6.7) Absolute Nucleated RBC 0.120 H K/mm3 (0.0-0.012) Band Neutrophils % Not Reportable Nucleated RBC % 1.8 H % (0.0-0.2) Platelet Estimate Adequate (Adequate) % Immature Plt Fraction 5.6 % (0.9-11.2) Polychromasia Occasional Hypochromasia 2+ Anisocytosis 2+ Target Cells 1+ Ovalocytes 1+ Schistocytes None seen Sodium Potassium Chloride Carbon Dioxide Anion Gap BUN Creatinine Estim Creat Clear Calc Estimated GFR Glucose Calcium Total Bilirubin AST ALT Alkaline Phosphatase Total Protein Albumin Urine Color Urine Appearance Urine pH Ur Specific [place] Urine Protein Urine Glucose (UA) Urine Ketones Ur Blood (Man) Urine Nitrate Urine Bilirubin Urine Urobilinogen Leukocyte Esterase Rfl Urine RBC Urine WBC Ur Squamous Epith Cells Urine Bacteria Urine Casts Patient hx anesthesia problems: none Family hx anesthesia problems: none Results Review: All pre-operative results and documents have been reviewed as part of the pre-operative evaluation. [facility] Past Medical History Medical History Iron deficiency anemia Diastolic dysfunction Without history of CHF noted on echocardiogram 201920. Grade 1 dysfunction with normal ejection fraction. Pre-diabetes Hemoglobin A1c of 6.4% noted on labs December 2018 Osteopenia determined by x-ray Gastric ulcer Depression with anxiety Obstructive sleep apnea (Unknown) Patient reports symptoms have resolved since she has had a 30+ kilos weight loss since 2018 Duodenal arteriovenous malformation Hiatal hernia Gastroesophageal reflux disease Hypertension Thalassemia minor Moderate persistent asthma Surgical History Surgical History History of esophagogastroduodenoscopy (EGD) (09/2020) Demonstrated hiatal hernia and unspecified gastric ulcer History of colonoscopy with polypectomy (09/2020) History of cholecystectomy History of total abdominal hysterectomy and bilateral salpingo-oophorectomy History of endometrial ablation Family History Family History Father , in 2023 Family history of atrial fibrillation Diabetes mellitus Hypertension S/P CABG (coronary artery bypass graft) Sibling Asthma Diabetes mellitus Prostate carcinoma Mother , age 68 Chronic obstructive pulmonary disease Diabetes mellitus Grandparent Cerebrovascular accident Congestive heart failure Family history of atrial fibrillation Social History Social History (Updated 08/30/25 @ 05:26 by Nikki Ledbetter DO) Social History: She reports that she is now since April 2024. She has 2 adult children. She quit smoking in 2006. She denies significant alcohol use in fact she states she hates the taste of alcohol. Surrogate decision maker: Antelmo Huffman (son) Code status: Full code. Smoking packs per day: 0.5 Smoking cigarettes per day: 10.0 Years smoked: 20 Smoking pack-years: 10.00 Smoking status: Former smoker Second hand tobacco smoke exposure: Yes Alcohol intake: current Drinks per week: 1 Alcohol use details: very rare use Substance use: never Substance use type: marijuana Other substance usage details: THC gummies Last use: 01/20/22 Do You Feel Safe in your Home?: Yes Lack of Transportation: No Lack of Food: Never True Current Housing: I Have Housing Concerned About Future Housing: No Difficulty Paying Gas/Electric Bills: YES Difficulty Paying for Meds: YES Currently Unemployed: No Education: High School Diploma/GED Difficulty w/ Childcare or Family Care: No Living arrangements: with family Occupation/Education: occupation Additional occupation/education comments: 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 Gender identity (if verbalized by the patient): Female Sexual Orientation (if Verbalized by the Patient): Straight or Heterosexual Spiritual care concerns: No Anes - Eval Final PreProcedure Day of Procedure 08/31/25 08:59 Patient weight: obese Heart: regular rate and rhythm Lungs: clear to auscultation Airway: Mallampati scale class II Neurological: alert and oriented Last oral intake: >/= 8 hours ASA classification: III Emergent: no Anesthetic plan: proceed Anesthesia type and monitoring: general GIVS and standard monitoring Results Review: All pre-operative results and documents have been reviewed as part of the pre-operative evaluation. Informed Consent: The patient's anesthetic plan and its attendant risks and benefits were discussed with the patient/family/POA. Questions were solicited and answers provided to the satisfaction of the patient/family/POA.
--- NOTE | 2025-08-31 09:10 | S_PTH ---
PATIENT: Michell Ortiz LOC: [id number] U#:[id number] AGE/SX: 55/F ROOM: 261 RE08/30/[address]: Fletcher Webb PA-C : 1970 BED: 01 DIS: 09/01/2025 SPEC #: [id number] RECD: 08/31/25 10:34 STATUS: MARIE REQ #: [id number] SPARKLE: 08/31/25 09:[address]: José Miguel Nevarez DEPT: [facility] Surgical RECD BY: Lissett Jade ENTERED: 08/31/25 10:34 SP TYPE: Surgical OTHR DR: HAMLET Soto DO Megan Lutman, APRN Dean F. Schueler, MD Tissues: A - Small Bowel Bx B - Gastric Biopsy C - Colon Polypectomy Procedures: Hematoxylin and Eosin Stain Gross and Microscopic Level 4
--- NOTE | 2025-08-31 09:15 | SUR.OPER ---
EGD end at 910, Colon began 914
--- NOTE | 2025-08-31 10:02 | PC.NURSE ---
Patient returned to floor from GI lab via stretcher. No complaints at this time.
[2025-08-31] MEDS: ACETAMINOPHEN 325 MG TABLET 650 MG PO ×2 (16:46→23:09)
[2025-09-01] VITALS: BP 133/60; PULSE 84; PULSE 87; RESP 16; TEMP 36.7; O2SAT 90
[2025-09-01 04:00] VITALS: BP 171/62; PULSE 80; PULSE 84; RESP 16; TEMP 36.8; O2SAT 92
[2025-09-01] MEDS: HYDROcodone/acetaminophen (*CRX) 5-325 MG TABLET 1 TAB PO ×2 (05:37→09:08)
[2025-09-01 08:00] VITALS: PULSE 70
[2025-09-01 08:16] LABS: Hematocrit 28.9 % (37.0-47.0); Hemoglobin 7.6 g/dL (12.0-15.0); Immature Granulocyte Percent A 0.9 % (0-0.5); Immature Platelet Fraction Pct 6.2 % (0.9-11.2); Lymphocytes Absolute Auto 1.10 K/mm3 (0.9-3.2); Mean Corpuscular HGB Conc 26.3 g/dl (32-36); Mean Corpuscular Hemoglobin 16.8 pg (26-34); Mean Corpuscular Volume 63.9 fl (80-100); Nucleated Red Blood Cells Absolute Auto 0.030 K/mm3 (0.0-0.012); Nucleated Red Blood Cells Perc 0.6 % (0.0-0.2); Platelet Count Result 217 k/mm3 (150-375); Red Blood Count 4.52 M/mm3 (4.2-5.4); White Blood Count 4.6 K/mm3 (4.5-10.0)
[2025-09-01 08:35] LABS: Alanine Aminotransferase 14 U/L (6-35); Albumin Level 3.5 g/dL (3.5-5.1); Alkaline Phosphatase 98 U/L (38-126); Anion Gap 2 mmol/L (4-12); Aspartate Amino Transferase 24 U/L (14-36); Bilirubin,Total 0.5 mg/dL (0.2-1.3); Blood Urea Nitrogen 10 mg/dL (7-17); Calcium 8.6 mg/dL (8.4-10.2); Carbon Dioxide 32 mmol/L (22-30); Chloride 102 mmol/L (98-107); Estimated CRCL calculation 99 ml/min; Estimated Glomerular Filt Rate > 60; Glucose 98 mg/dL (65-110); Sodium 136 mmol/L (137-145); Total Protein 6.4 g/dL (6.3-8.2)
[2025-09-01 08:43] LABS: Potassium 3.6 mmol/L (3.4-5.0)
[2025-09-01 08:50] LABS: Hypochromasia 2+; Polychromasia 1+
[2025-09-01 08:51] LABS: Anisocytosis 3+; Basophilic Stippling 1+; Macrocytosis 1+ (NORMAL); Microcytosis 1+ (NORMAL); Ovalocytes 2+; Schistocytes 1+; Target Cells 1+; Tear Drop Cells 1+
[2025-09-01] MEDS: FERROUS SULFATE 325 MG TABLET BY MOUTH (09:04)
[2025-09-01] MEDS: PANTOPRAZOLE 40 MG TABLET PO (09:04)
--- NOTE | 2025-09-01 10:02 | P.DS_ITS ---
DS: Admitting Diagnosis Discharge Date 09/01/2025 Admitting Diagnosis Symptomatic anemia DS: Discharge Diagnosis Discharge Diagnosis (1) Symptomatic anemia: Code(s): D64.9 - Anemia, unspecified Status: Acute Assessment and Plan: Patient has recurrent symptomatic anemia due to iron deficiency. Patient has multiple reasons for microscopic blood loss. It is also suspected the patient does not absorb iron well. She denies any recent hematochezia or melena. Will send stool for occult blood testing once patient produces a specimen. Will administer is 2 units of packed red blood cells and will finish infusing Venofer 500 mg IV x1. Will repeat CBC after 2nd unit of blood transfusion. The patient denies any GERD her upper GI symptoms but does have a history of gastritis and ulcers in the past. Will air on the side of extreme caution in place patient on Protonix p.o. daily. * Pt admitted with a hgb of 4.8, x2 units RBCs ordered as well as 500 venofer, currently receiving both, will repeat CBC once completed. Hgb recheck 7.4, will continue to monitor. * Pt reports that she no longer has health insurance and has not been able to take her medications, except she does report compliance with her iron BID, no recent f/u with heme. * GI consult * EGD/Colonoscopy today * Symptomatic anemia * Paco lesions - could explain chronic blood loss * Gen surg outpt consult for hiatal hernia * Heme/onc consult * H&H stable today - will want to monitor one more day given extensive d eficiency upon admission (2) Blood transfusion during current hospitalisation: Status: Acute Assessment and Plan: See above. (3) Iron deficiency anemia: Qualifiers: Iron deficiency anemia type: unspecified iron deficiency Qualified Code(s): D50.9 - Iron deficiency anemia, unspecified Code(s): D50.9 - Iron deficiency anemia, unspecified Status: Acute Assessment and Plan: See above. (4) Essential hypertension: Code(s): I10 - Essential (primary) hypertension Status: Chronic Assessment and Plan: Patient does have essential hypertension that is uncontrolled due to patient's inability to afford medications. She states even fiber 10 dollars a month is more than she can not afford for medications at this point. Will place care coordination consult to see if patient may qualify for Medicaid or financial services representative. She has been avoiding seeking medical care earlier in her symptomatology due to her inability to afford ER/doctor visits. The importance of early intervention when symptomatology developed was discussed with the patient because if he ate come to the ER or provider sooner she could of cotton iron infusions and or blood transfusion as an outpatient basis instead of the cost for an inpatient hospital stay. Patient verbalized understanding. 08/31: BP 174/68 this AM, will place * Hydralazine orders PRN * Lisinopril, Losartan * 144/64 (5) Gastroesophageal reflux disease: Qualifiers: Esophagitis presence: esophagitis presence not specified Qualified Code(s): K21.9 - Gastro-esophageal reflux disease without esophagitis Code(s): K21.9 - Gastro-esophageal reflux disease without esophagitis Status: Acute Assessment and Plan: * Denies current sx, placed on daily pantoprazole (6) Urinary frequency: Code(s): R35.0 - Frequency of micturition Status: Acute Assessment and Plan: * Later in the day, pt reports to the nurse urinary frequency and felt that she was not emptying her bladder completely. * UA w/UC reflex ordered, pending DS: Summary Hospital Course Reason for hospitalization: ?I feel like my blood is low ? Hospital Course: Per HPI: 55-year-old female well known to me from prior hospitalizations with history of recurrent symptomatic anemia with a distant history of duodenal AVM, and gastric ulcer, more recent history of GERD, hiatal hernia, internal hemorrhoids, thalassemia minor, pre diabetes, asthma and untreated obstructive sleep apnea with medication nonadherence due to financial reasons who came to the ER for symptoms of feeling like her blood count was low again. The patient was last hospitalized for symptomatic iron deficiency anemia in June of 2024 at which time she received iron infusion with 500 mg of Venofer and 3 units of packed red blood cells. Her hemoglobin today on presentation is actually lower than her hemoglobin during that last hospitalization. She has been having progressive fatigue and dyspnea on exertion for the last 6 or 8 weeks but she has become so fatigued over the last several days that she was not able to go into the work. She denies any wheezing and reports that thankfully your asthma been doing bad despite her symptoms of anemia. On presentation to the ER the patient's vital signs were stable despite her hemoglobin of 4.8. She denies any hematochezia, nausea, vomiting or melena. She has been taking her oral iron supplements twice a day. She reports that the oral iron supplements due maker nauseous frequently but she has been taking them on a regular basis. Her weight is up about 7 kg from her last hospital stay. Her blood pressures have ranged between the mid 150 systolic up to 190 systolic with diastolics in the 60s to 70s since presentation. She reports that she no longer has insurance and cannot afford any of her medications or follow-up with Hematology. 2 units of packed red blood cells were ordered with ER provider. The patient denies having any recent GERD symptoms despite not taking her [id number] omeprazole. Hospital course: Gastroenterology consulted regarding symptomatic anemia. She had an EGD and 2020 units small linear ulcers and gastric body also large hiatal hernia. Repeat EGD and 3 years ago showed no signs of active bleeding. She also had a SP capsule endoscopy a couple years ago with no major findings. GI agree to follow through with an EGD and colonoscopy during this hospitalization. They also recommended following up with a refrigerator tester. EGD was performed which showed the following: The esophagus was examined and the mucosa was normal with a normal Z-line and no ulcers or masses. A large hiatal hernia was found at the GE junction. The hiatal hernia appeared at a depth of 35 cm to 44 cm from the incisors. A few Paco lesions were evident in the fundus at the hiatal hernia. The Paco lesions were not actively bleeding. The stomach at the body, cardia was examined and was normal otherwise. Multiple biopsies were taken. The bulb and second portion of duodenum was normal with no ulcers or masses, no AVM. Multiple biopsies were taken to rule out celiac sprue Colonoscopy was performed which showed the following: There was a single 5 mm polyp observed in the transverse colon. A cold snare polypectomy was performed. The polyp was completely excised. The colon was examined and was normal. No colitis, no AVM. Nothing to explain anemia. A few small-size internal hemorrhoids were seen in the rectum. The hemorrhoids were not actively bleeding GI did not recommend any further interventions from their point of view and will follow-up with patient in the outpatient setting. I discussed with the patient regarding a possible re-consultation with Hematology/Oncology. Our regular Oncologist Dr. Coreas is reportedly out of the office until Tuesday 09/04. On 09/01 the patient was feeling much, denies any chest pain, shortness a breath, nausea/vomiting, abdominal pain, urinary/bowel changes or dizziness. She did have a slight headache but otherwise had no complaints. I spoke with the patient regarding obtaining a Hematology/Oncology consult while inpatient and the patient would prefer to 5 in the outpatient setting with their office. I will ensure that her discharge paperwork has the appropriate information regarding Dr. Coreas's office and phone number. She will be instructed to follow-up with their office, as well as her PCP regarding any further evaluation. Her blood work has remained stable throughout hospitalization since receiving multiple units of PRBC upon admission. Patient is otherwise hemodynamically stable and ready for discharge at this time. Plan for discharge home. Status at Discharge Functional status at discharge: independent ambulation Overall status at discharge: patient is back to baseline Time Spent with Patient Time attestation: Total time spent providing and/or coordinating discharge services: 31 Exam Narrative: Weight 97.8 kg BMI 37 Const: Other: Obese, no acute distress HENMT: Other: Mucous membranes are moist, crowded posterior oropharynx, no oral pharyngeal erythema, fair dentition Eyes: Other: No pallor, no scleral icterus, pupils are equal and reactive Neck: Other: Large neck circumference, no JVD Resp: Other: Clear to auscultation bilaterally, no increased work of breathing Cardio: Other: 2+ bilateral radial and pedal pulses, no murmur no JVD GI: Other: Obese, soft, nontender, no organomegaly Skin: Other: No pallor, non jaundice, no petechiae, no unusual bruising Neuro: Other: Alert oriented x4, speech is clear, no facial asymmetry Extrem: Other: No clubbing, cyanosis or edema Psych: Other: Appropriate mood and affect, pleasant and cooperative, judgment and insight intact DS: Data Data Completed and Pending Pending studies at discharge: Pending at discharge 08/31/25 09:10 Surgical [PTH] Routine Surgical [PTH] Routine Labs on day of discharge: Labs from last 24 hours 09/01/25 07:48 WBC 4.6 RBC 4.52 Hgb 7.6 L Hct 28.9 L MCV 63.9 L MCH 16.8 L MCHC 26.3 L RDW 35.7 H Plt Count 217 MPV TNP Immature Gran % (Auto) 0.9 H Neut % (Auto) 65.8 Lymph % (Auto) 23.8 [place] % (Auto) 7.1 Eos % (Auto) 1.1 Baso % (Auto) 1.3 H Lymph # (Auto) 1.10 [place] # (Auto) 0.3 Eos # (Auto) 0.1 Baso # (Auto) 0.1 Abs Immat Gran (auto) 0.04 H Absolute Neuts (auto) 3.0 Absolute Nucleated RBC 0.030 H Band Neutrophils % Not Reportable Nucleated RBC % 0.6 H Platelet Estimate Adequate % Immature Plt Fraction 6.2 Polychromasia 1+ Hypochromasia 2+ Basophilic Stippling 1+ Anisocytosis 3+ Microcytosis 1+ Macrocytosis 1+ Target Cells 1+ Tear Drop Cells 1+ Ovalocytes 2+ Schistocytes 1+ Sodium 136 L Potassium 3.6 Chloride 102 Carbon Dioxide 32 H Anion Gap 2 L BUN 10 Creatinine 0.63 L Estim Creat Clear Calc 99 Estimated GFR > 60 Glucose 98 Calcium 8.6 Total Bilirubin 0.5 AST 24 ALT 14 Alkaline Phosphatase 98 Total Protein 6.4 Albumin 3.5 Discharge Plan Discharge Attending physician on discharge: Micky Hinson Consulting providers: Shanta Wall; Fletcher Webb; José Miguel Nevarez; Prudencio Coreas Discharging Clinician: Fletcher Webb Anticipated Discharge Date/Time: 09/01/25 09:58 Patient Disposition: Home Activity: as tolerated Diet: regular Discharge Instructions: Discharge disposition: Home Take medications as prescribed Monitor blood pressures Take caution while standing, rising, or moving Change positions slowly taking a break between each position change If you standing feel dizzy sit back down and take a break Encouraged to continue with yearly vaccinations Return to the emergency department if you develop sudden shortness of breath, chest pain, nausea, vomiting, upset stomach or intractable diarrhea Return to the emergency department if you develop fever greater than 101.5 Follow-up with the primary care physician within 1-2 weeks Follow-up with Dr. Coreas of Hematology/Oncology for further workup regarding your anemia. Call their office today to schedule an appointment. Follow up with the Gift Officer regarding the results of your colonoscopy/EGD. Thank you for [facility] for your healthcare needs Patient Instructions: Iron Rich Diet (DC), Anemia (DC) Patient Language: Tongan Stand Alone Forms: General Discharge Information Follow-up/Referrals: Prudencio Coreas MD [Physician, Hematology] José Miguel Nevarez MD [Physician, Gastroenterology] Reji Hooper MD [Primary Care Provider, [facility]] Discharge Medications: Continued hydroxyzine HCl 50 mg tablet 50 mg PO QID PRN (Reason: anxiety) Qty: 20 1RF fluticasone propionate [Flonase Allergy Relief] 50 mcg/actuation [place],Suspension 1 spray INTRANASAL DAILY ipratropium-albuterol 0.5 mg-3 mg(2.5 mg base)/3 mL solution for nebulization See Rx Instructions .ROUTE .COMPLEX PRN (Reason: sob) Rx Instructions: USE 1 VIAL VIA NEBULIZER EVERY 4 HOURS FOR SHORTNESS OF BREATH OR WHEEZING omeprazole magnesium [Prilosec OTC] 20 mg Tablet,Delayed Release (Dr/Ec) 20 mg PO DAILY escitalopram oxalate 20 mg tablet 20 mg PO DAILY lisinopril 30 mg tablet 30 mg PO DAILY ferrous sulfate 325 mg (65 mg iron) Tablet,Delayed Release (Dr/Ec) 325 mg BYMOUTH BIDWM Qty: 60 0RF losartan [Cozaar] 50 mg Tablet 50 mg PO DAILY Qty: 30 0RF albuterol sulfate 90 mcg/actuation HFA aerosol inhaler 2 puff inhalation Q4H PRN (Reason: shortness of breath or wheezing) Qty: 8.5 1RF Date of admission: 08/30/25 02:07 Primary Care Provider: Reji Hooper Admitting Provider: Nikki Ledbetter Attending physician on admission: Nikki Ledbetter Condition: Stable Quality VTE Prophylaxis VTE prophylaxis: mechanical ordered (SCDs)
== END 2025-09-01 11:25 | disposition home or self-care (01) | DRG 663 ==
LOC: ANHED 02:17 → ANH2MED 02:45
PROVIDERS: Internal Medicine Gastroenterology; Admitting Provider Internal Medicine; Emergency Provider Student in an Organized Health Care Education/Training Program; PCP Family Medicine; Visit Provider Physician Assistant
PROC: 0DJ08ZZ Inspection of Upper Intestinal Tract, Via Natural or Artificial Opening Endoscopic (ICD-10-PCS; CPT 45378; principal; 2025-08-31 14:30)
DX: D50.9 Iron deficiency anemia, unspecified (principal); K25.4 Chronic or unspecified gastric ulcer with hemorrhage; K21.9 Gastro-esophageal reflux disease without esophagitis; R73.03 Prediabetes; D56.3 Thalassemia minor; G47.33 Obstructive sleep apnea (adult) (pediatric); I51.89 Other ill-defined heart diseases; I11.9 Hypertensive heart disease without heart failure; E66.9 Obesity, unspecified; R35.0 Frequency of micturition; M85.80 Other specified disorders of bone density and structure, unspecified site; K44.9 Diaphragmatic hernia without obstruction or gangrene; D64.89 Other specified anemias; F12.91 Cannabis use, unspecified, in remission; Z91.190 Patient's noncompliance with other medical treatment and regimen due to financial hardship; Z87.19 Personal history of other diseases of the digestive system; Z90.49 Acquired absence of other specified parts of digestive tract; Z87.891 Personal history of nicotine dependence; Z79.51 Long term (current) use of inhaled steroids; Z68.37 Body mass index [BMI] 37.0-37.9, adult; Z79.1 Long term (current) use of non-steroidal anti-inflammatories (NSAID); Z59.71 Insufficient health insurance coverage
CPT/HCPCS: 36415; 36430; 71045; 80053; 81001; 84484; 85025; 85027; 85055; 86850; 86900; 86901; 86923; 87086; 88305; 93005; 99285; A9270; J1756; J7050; J7120; P9016